=== PATIENT | female | born 1970 | race Two or more races ===

== ENCOUNTER 2021-06-08 10:45 | Outpatient (REF) | payer OTHER, SELFPAY ==
--- NOTE | ~2021-06-08 | MM_ITS ---
EXAMINATION: MM SCREENING DIGITAL BREAST TOMOSYNTHESIS, BILATERAL CLINICAL INFORMATION: Screening. Asymptomatic. The lifetime risk of breast cancer based on the Tyrer-Cuzick Model is 8%. COMPARISON: Mammography: 10/10/2017 TECHNIQUE: Digital breast tomosynthesis is performed in both the craniocaudal and mediolateral oblique views along with computer-aided detection (CAD). Synthesized 2D images are generated from the tomosynthesis. FINDINGS: There are scattered areas of fibroglandular density (ACR BI-RADS breast composition Category b). There are no significant masses, abnormal calcifications, or other abnormalities. Parenchymal pattern is similar to prior exam. The axilla and skin contours are unremarkable. No significant changes. MM/MM tomosynthesis screening BI IMPRESSION: No mammographic evidence of malignancy. ASSESSMENT: BI-RADS 1: Negative RECOMMENDATION: Routine annual mammography screening. This patient's information was entered into a reminder system with a target due date for their next mammogram.
[2021-06-08 11:43] LABS: Hematocrit 37.2 % (37.0-47.0); Hemoglobin 11.3 g/dl (12.0-16.0); Mean Corpuscular HGB Conc 30.4 g/dl (31.0-35.0); Mean Corpuscular Hemoglobin 25.2 pg (27.0-33.0); Mean Corpuscular Volume 82.9 fL (80.0-98.0); Mean Platelet Volume 10.9 fL (9.4-12.3); Platelet Count 380 X10*3/uL (160-400); Red Blood Count 4.49 X10*6/uL (4.20-5.50); Red Cell Distribution Width 14.6 % (11.0-16.0); White Blood Count 8.7 X10*3/uL (4.8-10.8)
[2021-06-08 12:11] LABS: Alanine Aminotransferase 25 U/L (0-31); Albumin Level 3.6 g/dL (3.5-5.0); Alkaline Phosphatase 94 U/L (39-117); Anion Gap 12 (12-20); Aspartate Amino Transferase 18 U/L (5-31); Bilirubin Total 0.3 mg/dL (0.0-1.0); Blood Urea Nitrogen 30 mg/dL (9-16); Calcium 9.2 mg/dL (8.4-10.2); Carbon Dioxide 27 mmol/L (22-29); Chloride 105 mmol/L (96-108); Cholesterol 177 mg/dL; Estimated Glomerular Filt Rate 39; Glucose Fasting 152 mg/dL (60-99); HDL Cholesterol 61 mg/dL; LDL Cholesterol Calculated 77 mg/dl; Potassium 4.8 mmol/L (3.3-5.1); Sodium 139 mmol/L (135-145); Triglycerides 197 mg/dL
[2021-06-08 12:30] LABS: TSH reflex Free T4 2.96 uIU/mL (0.32-4.0)
[2021-06-08 12:46] LABS: Creatinine Urine 114.69 mg/dL
== END 2021-06-08 10:46 | disposition home or self-care (01) ==
LOC: HO.MAMMO 10:45
PROVIDERS: PCP Physician Assistant; Visit Provider Physician Assistant
DX: Z12.31 Encounter for screening mammogram for malignant neoplasm of breast (principal); I25.810 Atherosclerosis of coronary artery bypass graft(s) without angina pectoris; N18.31 Chronic kidney disease, stage 3a; E11.22 Type 2 diabetes mellitus with diabetic chronic kidney disease; Z79.4 Long term (current) use of insulin
CPT/HCPCS: 36415; 77063; 77067; 80053; 80061; 82043; 84443; 85027

== ENCOUNTER 2021-08-05 15:45 | Outpatient (REF) | payer OTHER, SELFPAY ==
[2021-08-05 17:29] LABS: Appearance Urine HAZY; Color Urine YELLOW; Glucose Urine UA NEG (NEG); Leukocyte Esterase Urine 1+ (NEG); Nitrite Urine NEG (NEG); PH 5.5 (5.0-8.0); Specific Gravity - Urine >= 1.030 (1.005-1.025); Urine Blood TRACE (NEG); Urine Ketones NEG (NEG); Urine Protein 3+ MG/DL (NEG-TRACE)
[2021-08-05 17:48] LABS: Bacteria Urine 3+ /LPF; Squamous Epithelial Cell Urine 1+ /LPF
[2021-08-05 17:49] LABS: WBC Clumps Urine NOTED
== END 2021-08-05 15:46 | disposition home or self-care (01) ==
LOC: HO.LAB 15:45
PROVIDERS: PCP Physician Assistant; Visit Provider Physician Assistant
DX: R30.0 Dysuria (principal)
CPT/HCPCS: 81001

== ENCOUNTER 2021-09-21 14:02 | Outpatient (REF) | payer OTHER, SELFPAY ==
[2021-09-21 14:26] LABS: Binax Internal Control QC Valid; Binax Now Covid-19 Ag Negative (Negative)
== END 2021-09-21 14:03 | disposition home or self-care (01) ==
LOC: HO.HMGCLDS 14:02
PROVIDERS: PCP Physician Assistant; Visit Provider Physician Assistant
DX: Z13.89 Encounter for screening for other disorder (principal)

== ENCOUNTER → 2021-10-05 10:59 | Outpatient (BNVA) | payer OTHER, SELFPAY | PROVIDERS: PCP Physician Assistant; Visit Provider Dietitian, Registered | DX: E11.22 Type 2 diabetes mellitus with diabetic chronic kidney disease (principal); N18.31 Chronic kidney disease, stage 3a; Z88.8 Allergy status to other drugs, medicaments and biological substances; Z79.4 Long term (current) use of insulin; Z71.3 Dietary counseling and surveillance | CPT/HCPCS: 97802 ==

== ENCOUNTER → 2021-11-17 13:00 | Outpatient (BNVA) | payer OTHER, SELFPAY | PROVIDERS: PCP Physician Assistant; Visit Provider Dietitian, Registered | DX: E11.22 Type 2 diabetes mellitus with diabetic chronic kidney disease (principal); N18.31 Chronic kidney disease, stage 3a; Z79.4 Long term (current) use of insulin | CPT/HCPCS: 97803 ==

== ENCOUNTER 2021-12-30 14:38 | Outpatient (REF) | payer OTHER, SELFPAY ==
[2021-12-30 15:33] LABS: Hematocrit 37.2 % (37.0-47.0); Hemoglobin 11.4 g/dl (12.0-16.0); Mean Corpuscular HGB Conc 30.6 g/dl (31.0-35.0); Mean Corpuscular Hemoglobin 25.9 pg (27.0-33.0); Mean Corpuscular Volume 84.5 fL (80.0-98.0); Mean Platelet Volume 11.8 fL (9.4-12.3); Platelet Count 326 X10*3/uL (160-400); Red Cell Distribution Width 14.8 % (11.0-16.0)
[2021-12-30 16:03] LABS: Alanine Aminotransferase 18 U/L (0-31); Albumin Level 4.1 g/dL (3.5-5.0); Alkaline Phosphatase 81 U/L (39-117); Anion Gap 12 (12-20); Aspartate Amino Transferase 21 U/L (5-31); Bilirubin Total 0.4 mg/dL (0.0-1.0); Blood Urea Nitrogen 32 mg/dL (9-16); Calcium 9.7 mg/dL (8.4-10.2); Carbon Dioxide 28 mmol/L (22-29); Chloride 104 mmol/L (96-108); Cholesterol 123 mg/dL; Estimated Glomerular Filt Rate 38; Glucose Fasting 121 mg/dL (60-99); HDL Cholesterol 59 mg/dL; LDL Cholesterol Calculated 37 mg/dl; Sodium 139 mmol/L (135-145); Total Protein 7.5 g/dL (6.5-8.0); Triglycerides 138 mg/dL
[2021-12-30 16:25] LABS: TSH reflex Free T4 1.41 uIU/mL (0.32-4.0)
[2021-12-30 16:56] LABS: Creatinine Urine 57.64 mg/dL; Microalbum/Creatinine Ratio Ur 1507.6 ug/mg cr
== END 2021-12-30 14:39 | disposition home or self-care (01) ==
LOC: HO.LAB 14:38
PROVIDERS: PCP Physician Assistant; Visit Provider Physician Assistant
DX: E11.22 Type 2 diabetes mellitus with diabetic chronic kidney disease (principal); N18.31 Chronic kidney disease, stage 3a; I25.810 Atherosclerosis of coronary artery bypass graft(s) without angina pectoris; Z79.4 Long term (current) use of insulin
CPT/HCPCS: 36415; 80053; 80061; 82043; 84443; 85027

== ENCOUNTER 2022-02-05 14:07 | Outpatient (REF) | payer OTHER, SELFPAY ==
[2022-02-05 14:28] LABS: Hematocrit 34.3 % (37.0-47.0); Hemoglobin 10.6 g/dl (12.0-16.0); Mean Corpuscular HGB Conc 30.9 g/dl (31.0-35.0); Mean Corpuscular Hemoglobin 25.9 pg (27.0-33.0); Mean Corpuscular Volume 83.9 fL (80.0-98.0); Platelet Count 347 X10*3/uL (160-400); Red Blood Count 4.09 X10*6/uL (4.20-5.50); Red Cell Distribution Width 15.6 % (11.0-16.0); White Blood Count 7.9 X10*3/uL (4.8-10.8)
[2022-02-05 15:18] LABS: Alanine Aminotransferase 25 U/L (0-31); Alkaline Phosphatase 94 U/L (39-117); Anion Gap 15 (12-20); Aspartate Amino Transferase 25 U/L (5-31); Bilirubin Total 0.4 mg/dL (0.0-1.0); Blood Urea Nitrogen 39 mg/dL (9-16); Calcium 9.6 mg/dL (8.4-10.2); Carbon Dioxide 25 mmol/L (22-29); Chloride 103 mmol/L (96-108); Estimated Glomerular Filt Rate 29; Glucose Random 116 mg/dL (60-115); Potassium 4.7 mmol/L (3.3-5.1); Sodium 138 mmol/L (135-145); Total Protein 7.6 g/dL (6.5-8.0)
== END 2022-02-05 14:08 | disposition home or self-care (01) ==
LOC: HO.LAB 14:07
PROVIDERS: PCP Physician Assistant; Visit Provider Nurse Practitioner Family
DX: E11.22 Type 2 diabetes mellitus with diabetic chronic kidney disease (principal); N18.30 Chronic kidney disease, stage 3 unspecified
CPT/HCPCS: 36415; 80053; 85027

== ENCOUNTER → 2022-02-25 12:24 | Outpatient (BNVA) | payer OTHER, SELFPAY | PROVIDERS: PCP Physician Assistant; Visit Provider Dietitian, Registered | DX: E11.22 Type 2 diabetes mellitus with diabetic chronic kidney disease (principal); N18.31 Chronic kidney disease, stage 3a; Z79.4 Long term (current) use of insulin | CPT/HCPCS: 97803 ==

== ENCOUNTER 2022-04-16 12:59 | Outpatient (REF) | payer OTHER, SELFPAY ==
[2022-04-16 14:03] LABS: MANUAL DIFF FLAG NO
[2022-04-16 14:18] LABS: Basophils Percent Auto 0.7 % (0-2); Eosinophils Absolute Auto 0.3 X10*3/uL (0.0-0.4); Eosinophils Percent Auto 4.6 % (0-4); Hematocrit 41.2 % (37.0-47.0); Hemoglobin 12.5 g/dl (12.0-16.0); Imm Gran Abs Auto 0.01 X10*3/uL (0.00-0.03); Imm Gran Pct Auto 0.2 % (0.0-0.4); Lymphocytes Absolute Auto 1.5 X10*3/uL (1.2-4.9); Lymphocytes Percent Auto 25.7 % (20-40); Mean Corpuscular HGB Conc 30.3 g/dl (31.0-35.0); Mean Corpuscular Hemoglobin 25.2 pg (27.0-33.0); Mean Corpuscular Volume 82.9 fL (80.0-98.0); Mean Platelet Volume 11.2 fL (9.4-12.3); Monocytes Absolute Auto 0.3 X10*3/uL (0.1-1.2); Monocytes Percent Auto 5.1 % (2-11); Neutrophils Absolute Auto 3.6 x10*3/uL (2.0-8.3); Neutrophils Percent Auto 63.7 % (45-73); Platelet Count 355 X10*3/uL (160-400); Red Blood Count 4.97 X10*6/uL (4.20-5.50); Red Cell Distribution Width 15.2 % (11.0-16.0); White Blood Count 5.7 X10*3/uL (4.8-10.8)
[2022-04-16 14:33] LABS: Estimated Average Glucose 166 mg/dL; Hemoglobin A1c % 7.4 %
[2022-04-16 14:47] LABS: Alanine Aminotransferase 29 U/L (0-31); Albumin Level 4.1 g/dL (3.5-5.0); Alkaline Phosphatase 96 U/L (39-117); Anion Gap 17 (12-20); Aspartate Amino Transferase 29 U/L (5-31); Bilirubin Total 0.4 mg/dL (0.0-1.0); Blood Urea Nitrogen 28 mg/dL (9-16); Calcium 8.9 mg/dL (8.4-10.2); Carbon Dioxide 25 mmol/L (22-29); Chloride 103 mmol/L (96-108); Cholesterol 135 mg/dL; Estimated Glomerular Filt Rate 42; Glucose Random 167 mg/dL (60-115); HDL Cholesterol 58 mg/dL; Iron 47 mcg/dL (30-160); LDL Cholesterol Calculated 50 mg/dl; Percent Iron Saturation 13 % (15-50); Potassium 4.7 mmol/L (3.3-5.1); Sodium 140 mmol/L (135-145); Total Iron Binding Capacity 354 mcg/dL (228-428); Total Protein 7.6 g/dL (6.5-8.0); Triglycerides 137 mg/dL; Unsaturated Iron Binding 307 ug/dL
[2022-04-16 15:03] LABS: Ferritin 21 ng/mL (10-250); Insulin 41 uU/mL (2-29); TSH reflex Free T4 1.46 uIU/mL (0.32-4.0); Vitamin D 25-OH Total 24.1 ng/mL (>30)
[2022-04-16 15:29] LABS: Folate 10.3 ng/mL (> or = 4.0); Vitamin B12 306 pg/mL (200-900)
[2022-04-18 13:31] LABS: Calcium (PTHI) 8.9 mg/dL (8.6-10.2); PTHI 337 pg/mL (16-77)
[2022-04-20 23:56] LABS: Zinc 80 mcg/dL (60-130)
[2022-04-21 09:21] LABS: Vitamin A 57 mcg/dL (38-98)
[2022-04-21 10:46] LABS: Vitamin B1 9 nmol/L (8-30)
== END 2022-04-16 13:00 | disposition home or self-care (01) ==
LOC: HO.HMGCLDS 12:59
PROVIDERS: Surgery; PCP Physician Assistant; Visit Provider Physician Assistant
DX: I13.0 Hypertensive heart and chronic kidney disease with heart failure and stage 1 through stage 4 chronic kidney disease, or unspecified chronic kidney disease (principal); N18.31 Chronic kidney disease, stage 3a; I50.22 Chronic systolic (congestive) heart failure; E11.22 Type 2 diabetes mellitus with diabetic chronic kidney disease; I21.4 Non-ST elevation (NSTEMI) myocardial infarction; I25.810 Atherosclerosis of coronary artery bypass graft(s) without angina pectoris; J45.20 Mild intermittent asthma, uncomplicated; K21.9 Gastro-esophageal reflux disease without esophagitis; E66.09 Other obesity due to excess calories; Z68.37 Body mass index [BMI] 37.0-37.9, adult; Z79.4 Long term (current) use of insulin
CPT/HCPCS: 36415; 80053; 80061; 82306; 82607; 82728; 82746; 83036; 83525; 83540; 83970; 84425; 84443; 84590; 84630; 85025; 86140

== ENCOUNTER 2022-04-29 09:21 | Outpatient (REF) | payer OTHER, SELFPAY ==
--- NOTE | ~2022-04-29 | XR_ITS ---
EXAMINATION: XR CHEST CLINICAL INFORMATION: Obesity COMPARISON: April 07, 2018 and July 21, 2017 TECHNIQUE: 2 views of the chest were obtained. FINDINGS: No significant abnormality is noted involving the heart, lungs, mediastinum, bony thorax or soft tissues. Status post median sternotomy and what appears to be CABG. XR/XR chest 2V IMPRESSION: No acute disease.
--- NOTE | 2022-04-29 09:00 | EMG_ITS ---
Bilateral median and ulnar motor and sensory studies were performed. Bilateral radial sensory studies were performed and paraspinal muscles were tested. IMPRESSION: 1. Moderately severe right and mild to moderate left median neuropathy across carpal tunnel. 2. Mild to moderate left and mild right ulnar neuropathy across cubital tunnel. MD ERIC Flores/ADELITA / [id number]
--- NOTE | 2022-04-29 09:26 | ECG_ITS ---
Test Reason : obesity, excess calories Blood Pressure : / mmHG Vent. Rate : 089 BPM Atrial Rate : 089 BPM P-R Int : 136 ms QRS Dur : 074 ms QT Int : 374 ms P-R-T Axes : 033 -59 091 degrees QTc Int : 455 ms Normal sinus rhythm Left anterior fascicular block Inferior infarct , age undetermined Abnormal ECG When compared with ECG of 07-APR-2018 11:13, Vent. rate has increased BY 29 BPM T wave inversion more evident in Lateral leads Referred By: Jacky Warren Electronically Signed By:JAILENE VICENTE MD
== END 2022-04-29 09:22 | disposition home or self-care (01) ==
LOC: HO.NEURO 09:21
PROVIDERS: Absent Provider Surgery; PCP Physician Assistant; Visit Provider Physician Assistant
DX: E66.09 Other obesity due to excess calories (principal); I21.4 Non-ST elevation (NSTEMI) myocardial infarction; J45.20 Mild intermittent asthma, uncomplicated; I50.22 Chronic systolic (congestive) heart failure; K21.9 Gastro-esophageal reflux disease without esophagitis; R20.2 Paresthesia of skin; E11.22 Type 2 diabetes mellitus with diabetic chronic kidney disease; I12.9 Hypertensive chronic kidney disease with stage 1 through stage 4 chronic kidney disease, or unspecified chronic kidney disease; N18.31 Chronic kidney disease, stage 3a; I25.10 Atherosclerotic heart disease of native coronary artery without angina pectoris; Z79.4 Long term (current) use of insulin; Z68.37 Body mass index [BMI] 37.0-37.9, adult
CPT/HCPCS: 71046; 93005; 95886; 95911

== ENCOUNTER 2022-05-04 12:25 | Outpatient (REF) | payer OTHER, SELFPAY ==
--- NOTE | ~2022-05-04 | XR_ITS ---
EXAMINATION: XR SCAPULA, RIGHT CLINICAL INFORMATION: Pain COMPARISON: Previous right shoulder x-ray and MRI from 2018 TECHNIQUE: AP and scapular Y views of the right scapula. FINDINGS: The bones and soft tissues are normal. No scapular fracture. Glenohumeral and acromioclavicular alignment is normal. XR/XR scapula RT IMPRESSION: Normal right scapula.
--- NOTE | ~2022-05-04 | XR_ITS ---
EXAMINATION: XR CERVICAL SPINE CLINICAL INFORMATION: Posterior cervical pain radiating to right scapula COMPARISON: None TECHNIQUE: 3 views of the cervical spine were obtained. FINDINGS: There is mild head tilt to the left and curvature of the cervical spine to the right. Bone alignment is otherwise normal. No fracture or dislocation. There may be mild disc space narrowing at C6-C7 and C7-T1. Disc spaces are otherwise normal. Prevertebral soft tissues are normal. XR/XR cervical spine 3V IMPRESSION: Slight head tilt to the left. Mild disc space narrowing at C6-C7 and C7-T1.
== END 2022-05-04 12:26 | disposition home or self-care (01) ==
LOC: HO.XRAY 12:25
PROVIDERS: PCP Physician Assistant; Visit Provider Physician Assistant
DX: G56.03 Carpal tunnel syndrome, bilateral upper limbs (principal); G56.23 Lesion of ulnar nerve, bilateral upper limbs; M89.8X1 Other specified disorders of bone, shoulder; M54.2 Cervicalgia; E11.22 Type 2 diabetes mellitus with diabetic chronic kidney disease; N18.31 Chronic kidney disease, stage 3a; Z79.4 Long term (current) use of insulin; Z79.01 Long term (current) use of anticoagulants
CPT/HCPCS: 72040; 73010; 99202

== ENCOUNTER → 2022-05-05 10:23 | Outpatient (BNVA) | payer OTHER, SELFPAY | PROVIDERS: PCP Physician Assistant; Visit Provider Physician Assistant Surgical | DX: Z11.2 Encounter for screening for other bacterial diseases (principal) | CPT/HCPCS: 99211 ==

== ENCOUNTER 2022-05-05 16:52 | Outpatient (REF) | payer OTHER, SELFPAY ==
[2022-05-06 14:19] LABS: H Pylori Breath Test Negative (Negative)
== END 2022-05-05 16:53 | disposition home or self-care (01) ==
LOC: HO.LNP 16:52
PROVIDERS: Visit Provider Surgery
DX: K21.9 Gastro-esophageal reflux disease without esophagitis (principal); E66.09 Other obesity due to excess calories; Z68.37 Body mass index [BMI] 37.0-37.9, adult
CPT/HCPCS: 83013

== ENCOUNTER → 2022-06-02 13:05 | Outpatient (BNVA) | payer OTHER, SELFPAY | PROVIDERS: PCP Physician Assistant; Visit Provider Orthopaedic Surgery | DX: G56.03 Carpal tunnel syndrome, bilateral upper limbs (principal); G56.23 Lesion of ulnar nerve, bilateral upper limbs; M77.11 Lateral epicondylitis, right elbow; E11.22 Type 2 diabetes mellitus with diabetic chronic kidney disease; N18.31 Chronic kidney disease, stage 3a; Z79.4 Long term (current) use of insulin | CPT/HCPCS: 99212 ==

== ENCOUNTER 2022-07-07 12:14 | Outpatient (REF) | payer OTHER, SELFPAY | END 2022-07-07 12:15 | disposition home or self-care (01) | LOC: HO.HOSX 12:14 | PROVIDERS: Visit Provider Physician Assistant | DX: S46.811A Strain of other muscles, fascia and tendons at shoulder and upper arm level, right arm, initial encounter (principal); S16.1XXA Strain of muscle, fascia and tendon at neck level, initial encounter; M79.18 Myalgia, other site | CPT/HCPCS: 99212 ==

== ENCOUNTER 2022-09-30 12:22 | Outpatient (REF) | payer OTHER, SELFPAY ==
[2022-09-30 14:08] LABS: Hematocrit 38.5 % (37.0-47.0); Hemoglobin 11.9 g/dl (12.0-16.0); Mean Corpuscular HGB Conc 30.9 g/dl (31.0-35.0); Mean Corpuscular Hemoglobin 25.4 pg (27.0-33.0); Mean Corpuscular Volume 82.1 fL (80.0-98.0); Mean Platelet Volume 11.1 fL (9.4-12.3); Platelet Count 300 X10*3/uL (160-400); Red Blood Count 4.69 X10*6/uL (4.20-5.50); Red Cell Distribution Width 15.8 % (11.0-16.0); White Blood Count 7.9 X10*3/uL (4.8-10.8)
[2022-09-30 14:29] LABS: Anion Gap 12 (12-20); Blood Urea Nitrogen 42 mg/dL (9-16); Carbon Dioxide 31 mmol/L (22-29); Chloride 101 mmol/L (96-108); Estimated Glomerular Filt Rate 35; Glucose Random 136 mg/dL (60-115); Potassium 4.8 mmol/L (3.3-5.1); Sodium 139 mmol/L (135-145)
== END 2022-09-30 12:23 | disposition home or self-care (01) ==
LOC: HO.LAB 12:22
PROVIDERS: Absent Provider Physician Assistant; PCP Physician Assistant; Visit Provider Dietitian, Registered
DX: E11.22 Type 2 diabetes mellitus with diabetic chronic kidney disease (principal); I12.9 Hypertensive chronic kidney disease with stage 1 through stage 4 chronic kidney disease, or unspecified chronic kidney disease; N18.31 Chronic kidney disease, stage 3a; Z79.4 Long term (current) use of insulin
CPT/HCPCS: 36415; 80048; 85027; 97803

== ENCOUNTER 2022-10-19 14:12 | Outpatient (REF) | payer OTHER, SELFPAY ==
--- NOTE | ~2022-10-19 | MM_ITS ---
EXAMINATION: MM SCREENING DIGITAL BREAST TOMOSYNTHESIS, BILATERAL CLINICAL INFORMATION: Screening. Asymptomatic. The lifetime risk of breast cancer based on the Tyrer-Cuzick Model is 5%. COMPARISON: Mammography: 06/08/2021, 10/10/2017 TECHNIQUE: Digital breast tomosynthesis is performed in both the craniocaudal and mediolateral oblique views along with computer-aided detection (CAD). Synthesized 2D images are generated from the tomosynthesis. FINDINGS: The breasts are heterogeneously dense, which may obscure small masses (ACR BI-RADS breast composition Category c). Breast tissue composition borders on average fibroglandular. There are no significant masses, abnormal calcifications, or other abnormalities. No architectural abnormality or developing density or significant change from prior studies. The axilla are unremarkable. MM/MM tomosynthesis screening BI IMPRESSION: No mammographic evidence of malignancy. ASSESSMENT: BI-RADS 1: Negative RECOMMENDATION: Routine annual mammography screening. This patient's information was entered into a reminder system with a target due date for their next mammogram.
== END 2022-10-19 14:13 | disposition home or self-care (01) ==
LOC: HO.MAMMO 14:12
PROVIDERS: PCP Physician Assistant; Visit Provider Physician Assistant
DX: Z12.31 Encounter for screening mammogram for malignant neoplasm of breast (principal)
CPT/HCPCS: 77063; 77067

== ENCOUNTER → 2022-11-03 14:32 | Outpatient (BNVA) | payer OTHER, SELFPAY | PROVIDERS: PCP Physician Assistant; Visit Provider Orthopaedic Surgery | DX: G56.03 Carpal tunnel syndrome, bilateral upper limbs (principal); G56.23 Lesion of ulnar nerve, bilateral upper limbs; M77.11 Lateral epicondylitis, right elbow; E11.22 Type 2 diabetes mellitus with diabetic chronic kidney disease; N18.31 Chronic kidney disease, stage 3a; Z79.4 Long term (current) use of insulin | CPT/HCPCS: 99212 ==

== ENCOUNTER 2022-11-11 05:55 | Day surgery (SDC) | payer OTHER, SELFPAY ==
--- NOTE | 2022-11-10 08:20 | P.CONAN_ITS ---
Documented by User: Clarisse Azar NP 11/10/22 09:41 HPI - Anesthesia Eval Consult details Narrative: 51yo F for Right Carpal Tunnel Release, Tunnel Release transposition Cardiac cleared. Pt to remain on aspirin (CAD s/p CABG 2016, Mechanical thrombectomy and RENEE 01/2022, + stress 04/2022 with 2 small reversible defects that cardiology opted medically manage) PMFSH Active Problems Active Problems: All Active Problems (Updated 07/07/22 @ 13:56 by Yamini Palm PA-C) Myofascial pain (Acute) Cervical strain (Acute) Trapezius muscle strain (Acute) CAD (coronary artery disease) (Acute) DMII (diabetes mellitus, type 2) (Acute) HTN (hypertension) (Acute) CKD stage 3 secondary to diabetes (Acute) MDD (major depressive disorder), recurrent episode, moderate (Acute) Breast cancer screening (Acute) Cervical cancer screening (Acute) GERD (gastroesophageal reflux disease) (Acute) UTI (urinary tract infection) (Acute) Annual physical exam (Acute) Obese (Acute) Bronchitis (Acute) Paresthesia of hand, bilateral (Acute) Heart failure (Acute) Asthma (Acute) Homelessness (Acute) Hospital discharge follow-up (Acute) Non-STEMI (non-ST elevated myocardial infarction) (Acute) Hyperkalemia (Acute) Balance disorder (Acute) BMI 36.0-36.9,adult (Acute) Cervicalgia (Acute) Pain of right scapula (Acute) Carpal tunnel syndrome of right wrist (Acute) Carpal tunnel syndrome of left wrist (Acute) Cubital tunnel syndrome on right (Acute) Cubital tunnel syndrome on left (Acute) Vitamin D deficiency (Acute) BMI over 35 (Acute) Right lateral epicondylitis (Acute) Hyperlipidemia (Acute) Depression (Acute) Past Medical History Medical History Asthma CAD (coronary artery disease) Chronic renal insufficiency Depression Elevated cholesterol GERD (gastroesophageal reflux disease) HTN (hypertension) Hyperlipidemia Myocardial infarction Type 2 diabetes Family History Family History Mother Cervical cancer Hypertension Blindness Kidney failure Sister Cervical cancer Hypertension Hypoglycemia Brother ESRD (end stage renal disease) Hypertension Father DMII (diabetes mellitus, type 2) Son Asthma Daughter No problems noted. Daughter No problems noted. Daughter No problems noted. Daughter No problems noted. Surgical History Surgical History H/O bladder repair surgery H/O: hysterectomy History of cardiac catheterization Hx of CABG Hx of section Hx of heart artery stent Social History Social History Housing: Apartment Are you a primary child care leader to a significant other at home: No Do you presently have visiting nurse or other home services: No Alcohol intake: never Patient Tobacco Use Status: Never used Tobacco Tobacco use type: Cigarette e-Cigarette/Vaping Use: Never Used Second Hand Smoke Exposure: No Use of substances other than those prescribed or required for medical reasons: No Are you DNR?: No Advance Directives: No Advance Directives Information Provided: Yes service: No Current occupational status: disabled Cognitive needs: Yes (walker) Hearing needs: No Vision needs: Yes Meds Allergies Allergy/AdvReac Type Severity Reaction Status Date / Time tramadol [TRAMADOL] Allergy Intermediate VOMITING Verified 11/11/22 06:07 adhesive tape AdvReac Intermediate tears skin Verified 11/11/22 06:07 lisinopril AdvReac Mild Cough Verified 11/11/22 06:07 Home Medications Medication Instructions Recorded Confirmed Last Taken Type insulin glargine 100 unit/mL 40 unit subcut QPM 05/19/21 11/11/22 Unknown History subcutaneous cartridge insulin lispro 100 unit/mL 5 unit subcut TID 08/26/21 11/11/22 Unknown History subcutaneous pen (Humalog KwikPen (U-100) Insulin) ticagrelor 90 mg tablet (Brilinta) 90 mg PO QAM 02/02/22 11/11/22 Unknown History empagliflozin 10 mg tablet 10 mg PO DAILY 04/14/22 11/11/22 Unknown History (Jardiance) valsartan 40 mg tablet 40 mg PO DAILY 04/14/22 11/11/22 Unknown History evolocumab 140 mg/mL subcutaneous 140 mg subcut Q2W 05/04/22 11/11/22 Unknown History syringe (Repatha Syringe) dulaglutide 1.5 mg/0.5 mL 1.5 mg subcut QWEEK 10/18/22 11/11/22 Unknown History subcutaneous pen injector (Trulicity) mecobalamin (vitamin B12) 500 mcg 1,000 mcg PO DAILY 10/18/22 11/11/22 Unknown History chewable tablet Exam Exam Date and Time: November 10, 2022819 Pertinent Lab Results Pertinent Lab Results: Laboratory Tests 09/30/22 09/30/22 13:19 13:19 WBC 7.9 Hgb 11.9 L Hct 38.5 Plt Count 300 Sodium 139 Potassium 4.8 Chloride 101 Carbon Dioxide 31 H BUN 42 H Creatinine 1.56 H Narrative Narrative: EKG 05/2022 NSR @ 69 LAD Anterior inferior infarct T wave abn Nuc Stress 03/2022 Positive stress test with nuc imaging. Patient had no chest pain and no EKG changes suggestive ischemia. Nuc imaging revealed 2 small sized mild intensity reversible defects. One being in the apical and mid anterior region the second being in the apical and mid inferior region. TID was normal at 1.15 Gated SPECT imaging was performed and demonstrated paradoxical septal wall motion c/w with prior bypass surgery. The calculated LVEF was 69% Assessment and Plan Assessment Anesthesia Assessment: Chart Reviewed Documented by User: Luci Foster MD 11/11/22 07:32 PMFSH Past Medical History Medical History Asthma CAD (coronary artery disease) Chronic renal insufficiency Depression Elevated cholesterol GERD (gastroesophageal reflux disease) HTN (hypertension) Hyperlipidemia Myocardial infarction Type 2 diabetes Family History Family History Mother Cervical cancer Hypertension Blindness Kidney failure Sister Cervical cancer Hypertension Hypoglycemia Brother ESRD (end stage renal disease) Hypertension Father DMII (diabetes mellitus, type 2) Son Asthma Daughter No problems noted. Daughter No problems noted. Daughter No problems noted. Daughter No problems noted. Family history of problems with anesthesia: No Surgical History Surgical History H/O bladder repair surgery H/O: hysterectomy History of cardiac catheterization Hx of CABG Hx of section Hx of heart artery stent History of Problems with Anesthesia: No Social History Social History Housing: Apartment Are you a primary child care leader to a significant other at home: No Do you presently have visiting nurse or other home services: No Alcohol intake: never Patient Tobacco Use Status: Never used Tobacco Tobacco use type: Cigarette e-Cigarette/Vaping Use: Never Used Second Hand Smoke Exposure: No Use of substances other than those prescribed or required for medical reasons: No Are you DNR?: No Advance Directives: No Advance Directives Information Provided: Yes service: No Current occupational status: disabled Cognitive needs: Yes (walker) Hearing needs: No Vision needs: Yes Meds Allergies Allergy/AdvReac Type Severity Reaction Status Date / Time tramadol [TRAMADOL] Allergy Intermediate VOMITING Verified 11/11/22 06:07 adhesive tape AdvReac Intermediate tears skin Verified 11/11/22 06:07 lisinopril AdvReac Mild Cough Verified 11/11/22 06:07 Home Medications Medication Instructions Recorded Confirmed Last Taken Type insulin glargine 100 unit/mL 40 unit subcut QPM 05/19/21 11/11/22 Unknown History subcutaneous cartridge insulin lispro 100 unit/mL 5 unit subcut TID 08/26/21 11/11/22 Unknown History subcutaneous pen (Humalog KwikPen (U-100) Insulin) ticagrelor 90 mg tablet (Brilinta) 90 mg PO QAM 02/02/22 11/11/22 Unknown History empagliflozin 10 mg tablet 10 mg PO DAILY 04/14/22 11/11/22 Unknown History (Jardiance) valsartan 40 mg tablet 40 mg PO DAILY 04/14/22 11/11/22 Unknown History evolocumab 140 mg/mL subcutaneous 140 mg subcut Q2W 05/04/22 11/11/22 Unknown History syringe (Repatha Syringe) dulaglutide 1.5 mg/0.5 mL 1.5 mg subcut QWEEK 10/18/22 11/11/22 Unknown History subcutaneous pen injector (Trulicity) mecobalamin (vitamin B12) 500 mcg 1,000 mcg PO DAILY 10/18/22 11/11/22 Unknown History chewable tablet Exam Airway Mallampati Class: I TM Dist: >3cm Denture: Upper and Lower Heart: rrr Lungs: cta Assessment and Plan Final Anesthetic Review Family History of Problems with Anesthesia: No History of Problems with Anesthesia: No NPO: Yes ASA Class: III Final Preanesthetic Review: No Changes in Pt Med Stat, Meds/Allgs Chart Reviewed, Consent Obtained/Reviewed and Anes Risks/Benef Reviewed Patient Risk: Intermediate Procedure Risk: Low Anesthetic Plan Anesthetic Plan: GA Disposition: Standard PACU
[2022-11-11] VITALS (9 sets, daily range): BP systolic 113–153; BP diastolic 74–88; PULSE 79–86; RESP 15–18; TEMP 36.2–36.7; O2SAT 93–99; BMI 36.0
[2022-11-11] MEDS: Lactated Ringers 1,000 ML 50 ML IVCONT (06:47)
[2022-11-11 06:55] LABS: Glucose, Whole Blood 136 mg/dL (60-115)
--- NOTE | 2022-11-11 07:55 | MHC.SHP ---
Pre-Procedural Eval Section A Date of Service: 11/11/22 The patient is an INPATIENT: No Changes since office visit: No Cold of Flu in the past 2 weeks, No New Medical Problems, No Changes in Medication and No Patient answered all questions The History & Physical has been completed within 30 days and I have reviewed it.: Yes Section B Chief Complaint: Carpal tunnel syndrome,Lesion of ulnar nerve,right Allergies: Allergies Allergy/AdvReac Type Severity Reaction Status Date / Time tramadol [TRAMADOL] Allergy Intermediate VOMITING Verified 11/11/22 06:07 adhesive tape AdvReac Intermediate tears skin Verified 11/11/22 06:07 lisinopril AdvReac Mild Cough Verified 11/11/22 06:07 Plan I have reviewed the history and physical and performed a pertinent physical examination on my patient. No changes have occurred unless specified. Time Spent With Patient Time: Total time managing care of this patient today ____ minutes.
--- NOTE | 2022-11-11 07:55 | W.PM.OPN ---
Operative Note Operative Note Date of Service: 11/11/22 Narrative: Operative Note Narrative: Preop diagnosis: 1. right Cubital tunnel syndrome 2. Right carpal tunnel syndrome Postop diagnosis: Same Procedure: 1. right Cubital Tunnel Release 2. Right carpal tunnel release Surgeon: Leana Mo MD Anesthesia: General Anesthesia Findings: Thickening and fibrosis about the ulnar nerve at the cubital tunnel, with an hourglass deformity of the ulnar nerve within the cubital tunnel. Implants: none Tourniquet time: 37 minutes EBL: 5.0 ml Specimen: none Drains: None Complications: None Disposition: Brought to the recovery room in stable condition Plan: Follow-up in 10-14 days for wound check, and suture removal Indications: The patient is 51 years old with right cubital and carpal tunnel syndrome . The risks and benefits of operative treatment, including but not limited to risk of damage to blood vessels, nerves, tendons, infection, recurrence, persistent pain or numbness, incomplete resolution of preoperative symptoms, or need for further surgery were discussed with the patient and they wished to proceed with surgery. Procedure: Once consent was obtained patient was brought back to the operating suite and placed in the operating table in a supine position. Perioperative antibiotics and anesthesia was administered by the anesthesia team. The limb was prepped and draped in a standard surgical fashion, and a sterile tourniquet applied to the proximal aspect of the right upper extremity. The limb was elevated exsanguinated with Esmarch bandage and the tourniquet inflated to 250 mm of mercury for a total tourniquet time of 37 minutes. Once assured that we had a good block, a 2.0 cm longitudinal incision was made centered over the right carpal tunnel. The incision was made through the skin to the subcutaneous tissues using a #15 blade. Dissection was made down to the level of the transverse carpal ligament with care being taken to protect the palmar cutaneous nerve. Once the transverse carpal ligament was clearly visualized, a longitudinal incision was made in the transverse carpal ligament 1st using a #15 blade, then using tenotomy scissors under direct visualization. Care was taken to look for and protect the motor branch of the median nerve when seen in this area. Once satisfied with our carpal tunnel release the wound was irrigated with normal saline. A 6 cm gently curved but longitudinally oriented incision was made centered over the cubital tunnel of the right upper extremity. Incision was made through the skin to the subcutaneous tissues using a # 15 Blade. I then dissected down to the level of the medial epicondyle and the cubital tunnel using tenotomy scissors. Care was taken to protect the lateral antebrachial cutaneous nerve. The ulnar nerve was identified just posterior to the medial intermuscular septum. The ulnar nerve was released in a proximal to distal direction using tenotomy in iris scissors while directly visualizing and protecting the ulnar nerve. Thickening and fibrosis was appreciated about the ulnar nerve as it passed through the cubital tunnel. There was also significant hourglass deformity of the ulnar nerve as it passed through the cubital tunnel. The ulnar nerve was assessed as I passed the elbow through full flexion and extension and was found to remain stable within its groove. At this point the tourniquet was deflated and hemostasis obtained with a brief period of local pressure and bipolar electrocautery. The wound was copiously irrigated with normal saline. The subcutaneous layer was closed with 4-0 Vicryl suture, and the skin edges were reapproximated with 5-0 nylon suture. The wound was infiltrated with some 0.25% plain Marcaine for postop pain control and sterile dressings were applied. The patient appears to have tolerated the procedure well and with no complications. All digits were well vascularized conclusion of the case.
== END 2022-11-11 11:27 | disposition home or self-care (01) ==
PROVIDERS: PCP Physician Assistant; Visit Provider Orthopaedic Surgery
PROC: (CPT 64721; principal; 2022-11-11 07:30)
PROC: (CPT 64718; 2022-11-11 07:30)
DX: G56.01 Carpal tunnel syndrome, right upper limb (principal); G56.21 Lesion of ulnar nerve, right upper limb; R20.0 Anesthesia of skin; I25.10 Atherosclerotic heart disease of native coronary artery without angina pectoris; Z95.5 Presence of coronary angioplasty implant and graft; I25.2 Old myocardial infarction; E78.00 Pure hypercholesterolemia, unspecified; E11.22 Type 2 diabetes mellitus with diabetic chronic kidney disease; I12.9 Hypertensive chronic kidney disease with stage 1 through stage 4 chronic kidney disease, or unspecified chronic kidney disease; N18.31 Chronic kidney disease, stage 3a; Z79.4 Long term (current) use of insulin; J45.909 Unspecified asthma, uncomplicated; M77.11 Lateral epicondylitis, right elbow; Z79.82 Long term (current) use of aspirin; Z79.899 Other long term (current) drug therapy; L23.1 Allergic contact dermatitis due to adhesives; Z88.8 Allergy status to other drugs, medicaments and biological substances
CPT/HCPCS: 64721; 64718; 82947; J0171; J0690; J2370; J2405; J2550; J2795; J3010

== ENCOUNTER → 2022-11-24 10:51 | Outpatient (BNVA) | payer OTHER, SELFPAY | PROVIDERS: PCP Physician Assistant; Visit Provider Orthopaedic Surgery | DX: Z47.89 Encounter for other orthopedic aftercare (principal); G56.02 Carpal tunnel syndrome, left upper limb; G56.21 Lesion of ulnar nerve, right upper limb; G56.22 Lesion of ulnar nerve, left upper limb; M77.11 Lateral epicondylitis, right elbow; E11.22 Type 2 diabetes mellitus with diabetic chronic kidney disease; N18.31 Chronic kidney disease, stage 3a; Z79.4 Long term (current) use of insulin; Z86.69 Personal history of other diseases of the nervous system and sense organs | CPT/HCPCS: 99212 ==

== ENCOUNTER → 2023-01-05 09:51 | Outpatient (BNVA) | payer OTHER, SELFPAY | PROVIDERS: PCP Physician Assistant; Visit Provider Orthopaedic Surgery | DX: G56.03 Carpal tunnel syndrome, bilateral upper limbs (principal); G56.23 Lesion of ulnar nerve, bilateral upper limbs; M77.11 Lateral epicondylitis, right elbow; E11.22 Type 2 diabetes mellitus with diabetic chronic kidney disease; N18.31 Chronic kidney disease, stage 3a; T78.40XA Allergy, unspecified, initial encounter; Z79.4 Long term (current) use of insulin | CPT/HCPCS: 99212 ==

== ENCOUNTER 2023-03-01 10:40 | Outpatient (AMB) | payer OTHER, SELFPAY ==
--- NOTE | 2023-03-01 10:44 | MHC.OFFVIS ---
Intake Intake Visit Reasons: Postop-RT CTS / Cubital-F/U Intake Note: Gi 52 yr old female presents today for her P/O visit for her right hand CTR and Cubital tunnel release from 11/11/22. States her numbness has improved but is now having increase numbness in her left hand. Allergies tramadol [TRAMADOL] Allergy (Intermediate, Verified 03/01/23 10:51) VOMITING adhesive tape Adverse Reaction (Intermediate, Verified 03/01/23 10:51) tears skin lisinopril Adverse Reaction (Mild, Verified 03/01/23 10:51) Cough HPI Postop-RT CTS / Cubital-F/U HPI Details 52-year-old female who presents in the office today 3 months status post right cubital tunnel and right carpal tunnel release, which was performed on 11/11/[address] Mo. The patient reports her numbness has improved. The patient reports increased numbness in the left hand. [facility] Medical History Asthma CAD (coronary artery disease) Chronic renal insufficiency Depression Elevated cholesterol GERD (gastroesophageal reflux disease) HTN (hypertension) Hyperlipidemia Myocardial infarction Type 2 diabetes Surgical History H/O bladder repair surgery H/O: hysterectomy History of cardiac catheterization Hx of CABG Hx of section Hx of heart artery stent Family History Mother Cervical cancer Hypertension Blindness Kidney failure Sister Cervical cancer Hypertension Hypoglycemia Brother ESRD (end stage renal disease) Hypertension Father DMII (diabetes mellitus, type 2) Son Asthma Daughter No problems noted. Daughter No problems noted. Daughter No problems noted. Daughter No problems noted. Social History Housing: Apartment Are you a primary healthcare receptionist to a significant other at home: No Do you presently have visiting nurse or other home services: No Alcohol intake: never Patient Tobacco Use Status: Never used Tobacco Tobacco use type: Cigarette e-Cigarette/Vaping Use: Never Used Second Hand Smoke Exposure: No service: No Current occupational status: disabled Cognitive needs: Yes (walker) Hearing needs: No Vision needs: Yes Review of Systems Const All systems reviewed & are unremarkable except as noted in HPI and below Physical Exam Const General: cooperative, healthy appearing and no acute distress Resp Effort & Inspection: normal respiratory effort and able to speak in complete sentences Cardio Rate: regular rate Peripheral pulses: Peripheral pulses 2+ throughout GI Palpation (GI): Soft to palpation Skin Lesions: no lesions Rashes: no rashes Extrem Other: Right upper extremity: Cubital and carpal tunnel incision site is completely healed. No sensitivity reported over these areas. Full hand, wrist, and elbow ROM in all planes. NVI. Assessment & Plan Assessment & Plan (1) Carpal tunnel syndrome of right wrist: Code(s): G56.01 - Carpal tunnel syndrome, right upper limb (2) Carpal tunnel syndrome of left wrist: Code(s): G56.02 - Carpal tunnel syndrome, left upper limb (3) Cubital tunnel syndrome on right: Code(s): G56.21 - Lesion of ulnar nerve, right upper limb (4) Cubital tunnel syndrome on left: Code(s): G56.22 - Lesion of ulnar nerve, left upper limb (5) DMII (diabetes mellitus, type 2): Code(s): E11.9 - Type 2 diabetes mellitus without complications Qualifiers: Chronic kidney disease stage: stage 3 (moderate) Chronic kidney disease stage 3 subtype: stage 3a (GFR 45-59) Diabetes mellitus complication detail: with chronic kidney disease Diabetes mellitus complication status: with kidney complications Diabetes mellitus termite treater insulin use: with termite treater use Qualified Code(s): E11.22 - Type 2 diabetes mellitus with diabetic chronic kidney disease; N18.31 - Chronic kidney disease, stage 3a; Z79.4 - long-term (current) use of insulin (6) Right lateral epicondylitis: Code(s): M77.11 - Lateral epicondylitis, right elbow (7) Hypersensitivity: Code(s): T78.40XA - Allergy, unspecified, initial encounter Plan Ms. Hernandez is a 52-year-old female who presents in the office today 3 months status post right cubital tunnel and right carpal tunnel release, which was performed on 11/11/[address] Mo. The patient reports her numbness has improved. The patient reports increased numbness in the left hand. The patient may return to normal activities as tolerated. Symptoms of numbness and tingling have completely resolved on the right. However she reports complaints of numbness and tingling in the left upper extremity and would like to move forward with a left cubital and carpal tunnel release. Therefore, a booking sheet has been created and given to the surgical resident, who will call to schedule her. Follow up will be at her post op pending surgery, or sooner if needed. Patient Instructions: Scribed for Quyen William PA-C by Gabbie Mcmillan medical staffing coordinator, on 03/01/2023 at 10:47 am, EST. Coding Level of Care Code Est Pt Level 4 (76664) Diagnoses Carpal tunnel syndrome of right wrist G56.01 Carpal tunnel syndrome of left wrist G56.02 Cubital tunnel syndrome on right G56.21 Cubital tunnel syndrome on left G56.22 DMII (diabetes mellitus, type 2) E11.22; N18.31; Z79.4 Chronic kidney disease stage: stage 3 (moderate) Chronic kidney disease stage 3 subtype: stage 3a (GFR 45-59) Diabetes mellitus complication detail: with chronic kidney disease Diabetes mellitus complication status: with kidney complications Diabetes mellitus termite treater insulin use: with termite treater use Right lateral epicondylitis M77.11 Hypersensitivity T78.40XA
== END 2023-03-01 10:51 | disposition home or self-care (01) ==
PROVIDERS: PCP Physician Assistant; Visit Provider Physician Assistant
DX: G56.01 Carpal tunnel syndrome, right upper limb (principal); G56.02 Carpal tunnel syndrome, left upper limb; G56.21 Lesion of ulnar nerve, right upper limb; G56.22 Lesion of ulnar nerve, left upper limb; M77.11 Lateral epicondylitis, right elbow
CPT/HCPCS: 99214

== ENCOUNTER → 2023-03-01 10:40 | Outpatient (BNVA) | payer OTHER, SELFPAY | PROVIDERS: PCP Physician Assistant; Visit Provider Physician Assistant | DX: Z48.811 Encounter for surgical aftercare following surgery on the nervous system (principal); G56.02 Carpal tunnel syndrome, left upper limb; G56.22 Lesion of ulnar nerve, left upper limb; E11.22 Type 2 diabetes mellitus with diabetic chronic kidney disease; N18.31 Chronic kidney disease, stage 3a; Z79.4 Long term (current) use of insulin; M77.11 Lateral epicondylitis, right elbow | CPT/HCPCS: 99212 ==

== ENCOUNTER 2023-05-06 11:41 | Outpatient (REF) | payer OTHER, SELFPAY ==
[2023-05-06 12:22] LABS: Hemoglobin 13.4 g/dl (12.0-16.0); Mean Corpuscular HGB Conc 31.2 g/dl (31.0-35.0); Mean Corpuscular Hemoglobin 25.9 pg (27.0-33.0); Mean Platelet Volume 11.2 fL (9.4-12.3); Platelet Count 287 X10*3/uL (160-400); Red Blood Count 5.18 X10*6/uL (4.20-5.50); Red Cell Distribution Width 15.2 % (11.0-16.0); White Blood Count 7.2 X10*3/uL (4.8-10.8)
[2023-05-06 12:59] LABS: Alanine Aminotransferase 44 U/L (0-31); Albumin Level 4.3 g/dL (3.5-5.0); Alkaline Phosphatase 84 U/L (39-117); Anion Gap 17 (12-20); Aspartate Amino Transferase 47 U/L (5-31); Bilirubin Total 0.6 mg/dL (0.0-1.0); Blood Urea Nitrogen 41 mg/dL (9-16); Calcium 10.1 mg/dL (8.4-10.2); Carbon Dioxide 29 mmol/L (22-29); Chloride 95 mmol/L (96-108); Cholesterol 133 mg/dL (<200); Estimated Glomerular Filt Rate 34; Glucose Fasting 122 mg/dL (60-99); HDL Cholesterol 62 mg/dL (>40); LDL Cholesterol Calculated 40 mg/dL (<100); Potassium 4.4 mmol/L (3.3-5.1); Sodium 137 mmol/L (135-145); Total Protein 8.2 g/dL (6.5-8.0); Triglycerides 155 mg/dL (<150)
[2023-05-06 13:05] LABS: TSH reflex Free T4 2.82 uIU/mL (0.32-4.0)
[2023-05-06 14:08] LABS: Microalbum/Creatinine Ratio Ur 104.8 ug/mg cr (<30)
== END 2023-05-06 11:42 | disposition home or self-care (01) ==
LOC: HO.LAB 11:41
PROVIDERS: PCP Physician Assistant; Visit Provider Physician Assistant
DX: I10 Essential (primary) hypertension (principal); E11.22 Type 2 diabetes mellitus with diabetic chronic kidney disease; N18.31 Chronic kidney disease, stage 3a; Z79.4 Long term (current) use of insulin; I25.810 Atherosclerosis of coronary artery bypass graft(s) without angina pectoris; E66.09 Other obesity due to excess calories; Z68.37 Body mass index [BMI] 37.0-37.9, adult
CPT/HCPCS: 36415; 80053; 80061; 82043; 82570; 84443; 85027

== ENCOUNTER 2023-05-23 16:03 | Outpatient (AMB) | payer OTHER, SELFPAY ==
--- NOTE | 2023-05-23 16:12 | HO.NEPHOV ---
HPI HPI Comments History of Present Illness Details I had the privilege of seeing Gi in follow-up for her chronic kidney disease, proteinuria and hypertension on a backdrop of coronary artery disease and bypass surgery. She has history of congestive heart failure. She has been working hard to lose weight and had been fairly successful. Her diabetes is much better controlled. She is tolerating Jardiance. She denies any chest pain, shortness of breath, dizziness, nausea vomiting, diarrhea, pedal edema or urinary symptoms. Her renal functions have been stable. She is trying to maintain good hydration and is avoiding nonsteroidal anti-inflammatory medications. [facility] Medical History GERD (gastroesophageal reflux disease) Elevated cholesterol Asthma Type 2 diabetes Chronic renal insufficiency Myocardial infarction CAD (coronary artery disease) HTN (hypertension) Hyperlipidemia Depression Surgical History Hx of heart artery stent Hx of section History of cardiac catheterization H/O: hysterectomy H/O bladder repair surgery Hx of CABG Family History Mother Cervical cancer Hypertension Blindness Kidney failure Sister Cervical cancer Hypertension Hypoglycemia Brother ESRD (end stage renal disease) Hypertension Father DMII (diabetes mellitus, type 2) Son Asthma Daughter No problems noted. Daughter No problems noted. Daughter No problems noted. Daughter No problems noted. Social History Housing: Apartment Are you a primary career advisor to a significant other at home: No Do you presently have visiting nurse or other home services: No Alcohol intake: never Patient Tobacco Use Status: Never used Tobacco Tobacco use type: Cigarette e-Cigarette/Vaping Use: Never Used Second Hand Smoke Exposure: No Advance Directives: No Advance Directives Information Provided: No service: No Current occupational status: disabled Cognitive needs: Yes (walker) Hearing needs: No Vision needs: Yes Vital Signs 05/23/23 16:13 Height 5 ft 4 in Weight 201 lb BMI 34.5 BP 140/70 H Blood Pressure Location Rt brachial Position Sitting Pulse 73 Pulse Source Pulse Oximeter Physical Exam Vital Signs: Last Vital Signs Pulse 73 05/23/23 16:13 BP 140/70 H 05/23/23 16:13 BMI result Body Mass Index 34.5 Const General: comfortable and no acute distress Orientation/consciousness: patient oriented x3 HEENT Head: Yes normocephalic Mouth: Normal oral and palatal mucosa present Eyes EOM: EOMs intact bilaterally Neck Neck: Yes supple Resp Auscultation: clear to auscultation bilaterally Cardio Jugular venous distension: no JVD Rate: regular rate Heart sounds: Murmur heart sound present GI Palpation (GI): Soft to palpation Auscultation: normal bowel sounds General: Yes no CVA tenderness Back/Spine/Pelvis Back: no CVA tenderness Skin General skin exam: no rashes or lesions noted Neuro General: patient oriented x3 and moves all extremities Extrem General: Yes no pedal edema Assessment & Plan Assessment & Plan (1) CKD stage 3 secondary to diabetes: Code(s): E11.22 - Type 2 diabetes mellitus with diabetic chronic kidney disease; N18.30 - Chronic kidney disease, stage 3 unspecified (2) HTN (hypertension): Code(s): I10 - Essential (primary) hypertension Qualifiers: Hypertension type: primary hypertension Qualified Code(s): I10 - Essential (primary) hypertension (3) Diabetic nephropathy: Code(s): E11.21 - Type 2 diabetes mellitus with diabetic nephropathy Qualifiers: Diabetes mellitus type: type 2 Qualified Code(s): E11.21 - Type 2 diabetes mellitus with diabetic nephropathy Plan Gi has stage III CKD. Her renal functions are pretty stable. She has significant proteinuria. I have ordered a urine protein creatinine ratio for follow-up. She is on Jardiance. Her volume status is optimal. She is tolerating ARB. She should avoid nonsteroidal anti-inflammatory medications. She needs to continue to lose weight. Her blood pressure is at goal. I did not make any other changes today. All her questions were answered. Follow-up for blood work were ordered as well. Time for retrieval of data, documentation and patient encounter 21 minutes. Orders: Orders Electrolytes 05/23/23 E11.22 - Type 2 diabetes mellitus with diabetic chronic kidney disease, I10 - Essential (primary) hypertension, N18.30 - Chronic kidney disease, stage 3 unspecified Creatinine 05/23/23 E11.22 - Type 2 diabetes mellitus with diabetic chronic kidney disease, I10 - Essential (primary) hypertension, N18.30 - Chronic kidney disease, stage 3 unspecified Calcium 05/23/23 E11.22 - Type 2 diabetes mellitus with diabetic chronic kidney disease, I10 - Essential (primary) hypertension, N18.30 - Chronic kidney disease, stage 3 unspecified Blood Urea Nitrogen 05/23/23 E11.22 - Type 2 diabetes mellitus with diabetic chronic kidney disease, I10 - Essential (primary) hypertension, N18.30 - Chronic kidney disease, stage 3 unspecified Protein Creatinine Ratio, Ur 05/23/23 E11.22 - Type 2 diabetes mellitus with diabetic chronic kidney disease, I10 - Essential (primary) hypertension, N18.30 - Chronic kidney disease, stage 3 unspecified Coding Level of Care Code Est Pt Level 3 (49067) Diagnoses CKD stage 3 secondary to diabetes E11.22; N18.30 Primary hypertension I10 Hypertension type: primary hypertension Diabetic nephropathy associated with type 2 diabetes mellitus E11.21 Diabetes mellitus type: type 2
[2023-05-23 16:13] VITALS: BP 140/70; PULSE 73; BMI 34.5
== END 2023-05-23 16:48 | disposition home or self-care (01) ==
PROVIDERS: PCP Physician Assistant; Visit Provider Internal Medicine Nephrology
DX: E11.22 Type 2 diabetes mellitus with diabetic chronic kidney disease (principal); N18.30 Chronic kidney disease, stage 3 unspecified; I12.9 Hypertensive chronic kidney disease with stage 1 through stage 4 chronic kidney disease, or unspecified chronic kidney disease; E11.21 Type 2 diabetes mellitus with diabetic nephropathy
CPT/HCPCS: 99213

== ENCOUNTER → 2023-05-23 16:03 | Outpatient (BNVA) | payer OTHER, SELFPAY | PROVIDERS: PCP Physician Assistant; Visit Provider Internal Medicine Nephrology | DX: E11.22 Type 2 diabetes mellitus with diabetic chronic kidney disease (principal); I12.9 Hypertensive chronic kidney disease with stage 1 through stage 4 chronic kidney disease, or unspecified chronic kidney disease; N18.30 Chronic kidney disease, stage 3 unspecified; E11.21 Type 2 diabetes mellitus with diabetic nephropathy | CPT/HCPCS: 99212 ==

== ENCOUNTER 2023-05-25 13:07 | Emergency (ER) | payer OTHER, SELFPAY ==
[2023-05-25 13:13] VITALS: BP 159/81; PULSE 64; RESP 20; TEMP 36.3; O2SAT 99; BMI 34.5
--- NOTE | 2023-05-25 13:15 | ED.NAVMDI ---
HPI - Nausea/Vomiting/Diarrhea General Chief complaint: Nausea/Vomiting/Diarrhea Stated complaint: Diarrhea Time Seen by Provider: 05/25/23 15:13 History of Present Illness HPI Narrative: patient complains of 3 days of diarrhea about 5 to 6 times a day with watery stool, denies blood denies black tarry stool Denies dizziness weakness, denies nausea vomiting denies any abdominal pain No recent antibiotics no recent travel no camping no one in the family sick Related Data Home Medications Medication Instructions Recorded Confirmed insulin glargine 100 unit/mL 40 unit subcut QPM 05/19/21 01/04/23 subcutaneous cartridge insulin lispro 100 unit/mL 5 unit subcut TID 08/26/21 01/04/23 subcutaneous pen (Humalog KwikPen (U-100) Insulin) ticagrelor 90 mg tablet (Brilinta) 90 mg PO QAM 02/02/22 01/04/23 empagliflozin 10 mg tablet 10 mg PO DAILY 04/14/22 01/04/23 (Jardiance) valsartan 40 mg tablet 40 mg PO DAILY 04/14/22 01/04/23 evolocumab 140 mg/mL subcutaneous 140 mg subcut Q2W 05/04/22 01/04/23 syringe (Repatha Syringe) dulaglutide 1.5 mg/0.5 mL 1.5 mg subcut QWEEK 10/18/22 01/04/23 subcutaneous pen injector (Trulicity) mecobalamin (vitamin B12) 500 mcg 1,000 mcg PO DAILY 10/18/22 01/04/23 chewable tablet Previous Rx's Medication Instructions Recorded blood pressure test kit-large #1 ea 05/19/21 walker #1 ea 02/22/22 escitalopram oxalate 10 mg tablet 10 mg PO DAILY #90 tabs 09/22/22 ezetimibe 10 mg tablet 10 mg PO DAILY #90 tabs 09/22/22 albuterol sulfate 90 mcg/actuation 2 puff inhalation QID Wheezing 30 10/18/22 aerosol inhaler (Ventolin HFA) days #8.5 grams atorvastatin 80 mg tablet 80 mg PO DAILY #90 tabs 10/18/22 cetirizine 10 mg tablet 10 mg PO DAILY #90 tabs 10/18/22 cholecalciferol (vitamin D3) 125 125 mcg PO DAILY 90 days #90 caps 10/18/22 mcg (5,000 unit) capsule isosorbide mononitrate 30 mg 60 mg (2 x 30 mg) PO DAILY 90 days 10/18/22 tablet,extended release 24 hr #180 tabs metoprolol succinate 50 mg 50 mg PO DAILY #90 tabs 10/18/22 tablet,extended release 24 hr aspirin 81 mg tablet,delayed 81 mg PO DAILY #90 tabs 11/28/22 release (Adult Low Dose Aspirin) fluticasone propionate 50 1 spray intranasal BID allergy 12/27/22 mcg/actuation nasal symptoms 30 days #16 grams spray,suspension (Flonase Allergy Relief) furosemide 20 mg tablet 20 mg PO DAILY 90 days #90 tabs 12/27/22 triamcinolone acetonide 0.1 % 1 appl topical DAILY 30 days #30 01/04/23 topical cream grams famotidine 20 mg tablet 20 mg PO DAILY 90 days #90 tabs 05/05/23 gabapentin 300 mg capsule 600 mg (2 x 300 mg) PO TID 90 days 05/05/23 #540 caps loperamide 2 mg tablet 2 mg PO Q4H PRN loose stool #14 05/25/23 (Anti-Diarrheal (loperamide)) tabs Allergies Allergy/AdvReac Type Severity Reaction Status Date / Time tramadol [TRAMADOL] Allergy Intermediate VOMITING Verified 05/23/23 16:16 adhesive tape AdvReac Intermediate tears skin Verified 05/23/23 16:16 lisinopril AdvReac Mild Cough Verified 05/23/23 16:16 [facility] Past Medical History Source: nursing notes reviewed Medical History GERD (gastroesophageal reflux disease) Elevated cholesterol Asthma Type 2 diabetes Chronic renal insufficiency Myocardial infarction CAD (coronary artery disease) HTN (hypertension) Hyperlipidemia Depression Surgical History Hx of heart artery stent Hx of section History of cardiac catheterization H/O: hysterectomy H/O bladder repair surgery Hx of CABG Family History Family History Mother Cervical cancer Hypertension Blindness Kidney failure Sister Cervical cancer Hypertension Hypoglycemia Brother ESRD (end stage renal disease) Hypertension Father DMII (diabetes mellitus, type 2) Son Asthma Daughter No problems noted. Daughter No problems noted. Daughter No problems noted. Daughter No problems noted. Social History Social History Housing: Apartment Are you a primary manager long term care to a significant other at home: No Do you presently have visiting nurse or other home services: No Alcohol intake: never Patient Tobacco Use Status: Never used Tobacco Tobacco use type: Cigarette e-Cigarette/Vaping Use: Never Used Second Hand Smoke Exposure: No Advance Directives: No Advance Directives Information Provided: No service: No Current occupational status: disabled Cognitive needs: Yes (walker) Hearing needs: No Vision needs: Yes Physical Exam Vital Signs: Vital Signs: Last Vital Signs Temp 97.4 F 05/25/23 13:13 Pulse 64 05/25/23 13:13 Resp 20 05/25/23 13:13 BP 159/81 H 05/25/23 13:13 Pulse Ox 99 05/25/23 13:13 O2 Del Method Room Air 05/25/23 13:13 BMI result Body Mass Index 34.5 general appearance is come cooperative no acute distress The eyes are anicteric no pallor The pharynx is clear without redness swelling or exudate, mucous membranes moist Neck is supple Chest clear to auscultation bilateral The abdomen is soft and nontender without rebound or guarding Extremities full range of motion x4 Skin no rash, turgor is normal Course Course Course Narrative: This is an RME: Additional HPI, ROS, PE not included below will be deferred to primary provider. This is a 78-[id number]-female, CAD, DMII, HTN, CKD, presenting to the emergency department with complaints of diarrhea x 3 days. Reporting 5-6x diarrhea per day. No fevers, chills, abdominal pain, nausea, vomiting or diarrhea. Reporting about 18lb weight loss in the last two weeks. reporting black stool but has been taking peptobismol. No recetal bleeding. NO abdominal pain/ Plan: Labs, Viral swabs Labs were checked with no acute abnormality Initially I ordered an IV of normal saline but then observed that the patient is tolerating p.o. now so canceled the order Patient tolerates p.o. fluids She is started on Imodium and is discharged Medications Administered Discontinued Medications Generic Name Dose Route Start Last Admin Trade Name Freq PRN Reason Stop Dose Admin Sodium Chloride 1,000 mls @ 999 mls/hr 05/25/23 15:30 05/25/23 15:39 Ns IVCONT 05/25/23 16:30 Not Given .Q1H1M [facility] Medical Decision Making Lab Data [facility] Lab Attestation statement: I reviewed the patient's lab results. 05/25/23 13:56 05/25/23 13:56 Labs: Lab Results 05/25/23 Range/Units 13:56 WBC 5.7 (4.8-10.8) X10*3/uL RBC 4.97 (4.20-5.50) X10*6/uL Hgb 13.1 (12.0-16.0) g/dl Hct 42.5 (37.0-47.0) % MCV 85.5 (80.0-98.0) fL MCH 26.4 L (27.0-33.0) pg MCHC 30.8 L (31.0-35.0) g/dl RDW 15.2 (11.0-16.0) % Plt Count 285 (160-400) X10*3/uL MPV 11.2 (9.4-12.3) fL Immature Gran % (Auto) 0.4 (0.0-0.4) % Neut % (Auto) 57.3 (45-73) % Lymph % (Auto) 32.1 (20-40) % [place] % (Auto) 6.9 (2-11) % Eos % (Auto) 2.6 (0-4) % Baso % (Auto) 0.7 (0-2) % Lymph # (Auto) 1.8 (1.2-4.9) X10*3/uL [place] # (Auto) 0.4 (0.1-1.2) X10*3/uL Eos # (Auto) 0.2 (0.0-0.4) X10*3/uL Baso # (Auto) 0.0 (0.0-0.2) X10*3/uL Abs Immat Gran (auto) 0.02 (0.00-0.03) X10*3/uL Absolute Neuts (auto) 3.3 (2.0-8.3) x10*3/uL Absolute Nucleated RBC 0.000 (0.0-0.012) X10*3/uL Nucleated RBC % (auto) 0.0 (0.0-0.2) /100WBC Sodium 140 (135-145) mmol/L Potassium 4.3 (3.3-5.1) mmol/L Chloride 104 (96-108) mmol/L Carbon Dioxide 26 (22-29) mmol/L Anion Gap 13 (12-20) BUN 34 H (9-16) mg/dL Creatinine 1.62 H (0.5-1.4) mg/dL Estim Creat Clear Calc 45.4 Estimated GFR 34 Random Glucose 120 H (60-115) mg/dL Calcium 9.6 (8.4-10.2) mg/dL Magnesium 2.4 (1.6-2.6) mg/dL Total Bilirubin 0.5 (0.0-1.0) mg/dL Direct Bilirubin 0.2 (0.0-0.5) mg/dL AST 40 H (5-31) U/L ALT 40 H (0-31) U/L Alkaline Phosphatase 86 (39-117) U/L Total Protein 8.4 H (6.5-8.0) g/dL Albumin 4.3 (3.5-5.0) g/dL Lipase 75 (8-78) U/L Influenza Type A (PCR) NEGATIVE (Negative) Influenza Type B (PCR) NEGATIVE (Negative) RSV RNA Qual (PCR) NEGATIVE (Negative) SARS-CoV-2 RNA (RT-PCR) NEGATIVE (Negative) Discharge Plan Discharge Clinical Impression: Diarrhea Patient Disposition: Home, Self-Care Additional Instructions: your blood tests were stable with no acute or worrisome finding You did not appear to be dehydrated Diarrhea is usually self-limited if it continues follow with your doctor and they will do stool cultures Return any time for dehydration uncontrollable vomiting abdominal pain fever any worse condition or any concerns Prescriptions: New loperamide [Anti-Diarrheal (loperamide)] 2 mg tablet 2 mg PO Q4H PRN (Reason: loose stool) Qty: 14 0RF Rx Instructions: administer after each loose stool until symptoms controlled; do not exceed 8 mg per 24 hrs No Action (DME) walker Misc See Rx Instructions .Route Qty: 1 0RF Rx Instructions: As directed escitalopram oxalate 10 mg tablet 10 mg PO DAILY Qty: 90 2RF ezetimibe 10 mg tablet 10 mg PO DAILY Qty: 90 2RF aspirin [Adult Low Dose Aspirin] 81 mg tablet,delayed release (DR/EC) 81 mg PO DAILY Qty: 90 1RF furosemide 20 mg tablet 20 mg PO DAILY 90 Days Qty: 90 2RF fluticasone propionate [Flonase Allergy Relief] 50 mcg/actuation spray,suspension 1 spray intranasal BID 30 Days Qty: 16 6RF Rx Instructions: administer into each nostril famotidine 20 mg tablet 20 mg PO DAILY 90 Days Qty: 90 1RF gabapentin 300 mg capsule 600 mg PO TID 90 Days Qty: 540 1RF insulin glargine 100 unit/mL cartridge 40 unit subcut QPM (DME) blood pressure test kit-large Kit See Rx Instructions .Route Qty: 1 0RF Rx Instructions: As directed triamcinolone acetonide 0.1 % cream 1 appl topical DAILY 30 Days Qty: 30 0RF insulin lispro [Humalog KwikPen Insulin] 100 unit/mL insulin pen 5 unit subcut TID Brilinta 90 mg tablet 90 mg PO QAM mecobalamin (vitamin B12) 500 mcg tablet,chewable 1,000 mcg PO DAILY Trulicity 1.5 mg/0.5 mL pen injector 1.5 mg subcut QWEEK albuterol sulfate [Ventolin HFA] 90 mcg/actuation HFA aerosol inhaler 2 puff inhalation QID 30 Days Qty: 8.5 3RF atorvastatin 80 mg tablet 80 mg PO DAILY Qty: 90 2RF cetirizine 10 mg tablet 10 mg PO DAILY Qty: 90 2RF cholecalciferol (vitamin D3) 125 mcg (5,000 unit) capsule 125 mcg PO DAILY 90 Days Qty: 90 2RF isosorbide mononitrate 30 mg tablet extended release 24 hr 60 mg PO DAILY 90 Days Qty: 180 2RF metoprolol succinate 50 mg tablet extended release 24 hr 50 mg PO DAILY Qty: 90 2RF Repatha Syringe 140 mg/mL syringe 140 mg subcut Q2W valsartan 40 mg tablet 40 mg PO DAILY Patient Comments: On Hold Jardiance 10 mg tablet 10 mg PO DAILY Interventions: ED Discharge Assessment Last Done: 05/25/23 15:56 Discharge Date/Time: 05/25/23 15:57
[2023-05-25 14:00] LABS: MANUAL DIFF FLAG NO
[2023-05-25 14:02] LABS: Basophils Percent Auto 0.7 % (0-2); Eosinophils Absolute Auto 0.2 X10*3/uL (0.0-0.4); Eosinophils Percent Auto 2.6 % (0-4); Hematocrit 42.5 % (37.0-47.0); Hemoglobin 13.1 g/dl (12.0-16.0); Imm Gran Abs Auto 0.02 X10*3/uL (0.00-0.03); Imm Gran Pct Auto 0.4 % (0.0-0.4); Lymphocytes Absolute Auto 1.8 X10*3/uL (1.2-4.9); Lymphocytes Percent Auto 32.1 % (20-40); Mean Corpuscular HGB Conc 30.8 g/dl (31.0-35.0); Mean Corpuscular Hemoglobin 26.4 pg (27.0-33.0); Mean Corpuscular Volume 85.5 fL (80.0-98.0); Mean Platelet Volume 11.2 fL (9.4-12.3); Monocytes Absolute Auto 0.4 X10*3/uL (0.1-1.2); Monocytes Percent Auto 6.9 % (2-11); Neutrophils Absolute Auto 3.3 x10*3/uL (2.0-8.3); Neutrophils Percent Auto 57.3 % (45-73); Platelet Count 285 X10*3/uL (160-400); Red Blood Count 4.97 X10*6/uL (4.20-5.50); Red Cell Distribution Width 15.2 % (11.0-16.0); White Blood Count 5.7 X10*3/uL (4.8-10.8)
[2023-05-25 14:40] LABS: Influenza A PCR NEGATIVE (Negative); Influenza B PCR NEGATIVE (Negative); Resp Syncy Virus RNA Qual PCR NEGATIVE (Negative); SARS COV2 PCR INHOUSE NEGATIVE (Negative)
[2023-05-25 14:45] LABS: Albumin Level 4.3 g/dL (3.5-5.0); Blood Urea Nitrogen 34 mg/dL (9-16); Calcium 9.6 mg/dL (8.4-10.2); Chloride 104 mmol/L (96-108); Creatinine Clr Calc Pharmacy 45.4; Estimated Glomerular Filt Rate 34; Glucose Random 120 mg/dL (60-115); Magnesium 2.4 mg/dL (1.6-2.6); Potassium 4.3 mmol/L (3.3-5.1); Sodium 140 mmol/L (135-145); Total Protein 8.4 g/dL (6.5-8.0)
[2023-05-25 14:53] LABS: Alanine Aminotransferase 40 U/L (0-31); Alkaline Phosphatase 86 U/L (39-117); Anion Gap 13 (12-20); Aspartate Amino Transferase 40 U/L (5-31); Bilirubin Direct 0.2 mg/dL (0.0-0.5); Bilirubin Total 0.5 mg/dL (0.0-1.0); Carbon Dioxide 26 mmol/L (22-29); Lipase 75 U/L (8-78)
== END 2023-05-25 15:57 | disposition home or self-care (01) ==
PROVIDERS: Physician Assistant Medical; Emergency Provider Student in an Organized Health Care Education/Training Program; PCP Physician Assistant
DX: R11.2 Nausea with vomiting, unspecified (principal); R19.7 Diarrhea, unspecified; Z79.899 Other long term (current) drug therapy; Z20.822 Contact with and (suspected) exposure to COVID-19; Z20.828 Contact with and (suspected) exposure to other viral communicable diseases
CPT/HCPCS: 0241U; 80048; 80076; 83690; 83735; 85025; 99282; 99283

== ENCOUNTER 2023-06-07 07:08 | Outpatient (AMB) | payer OTHER, SELFPAY ==
[2023-06-07 07:17] VITALS: BP 144/82; PULSE 71; O2SAT 97; BMI 34.7
--- NOTE | 2023-06-07 07:17 | A.OFFPC_ITS ---
Vital Signs 06/07/23 07:17 Height 5 ft 4 in Weight 202 lb BMI 34.7 BP 144/82 H Blood Pressure Location Lt brachial Position Sitting Pulse 71 Pulse Source Pulse Oximeter Pulse Oximetry (%) 97 Oxygen Delivery Method Room Air Intake Visit Reasons: diarrhea for a few weeks Allergies tramadol [TRAMADOL] Allergy (Intermediate, Verified 06/07/23 07:17) VOMITING adhesive tape Adverse Reaction (Intermediate, Verified 06/07/23 07:17) tears skin lisinopril Adverse Reaction (Mild, Verified 06/07/23 07:17) Cough Tobacco use date assessed: 10/18/22 Dental Screening Dental Screen Date: 06/07/23 Did you have a dental visit in the last 12 months?: Yes Did you have a dental problem in the last 6 months where you did not have access to dental care?: No Was dental information given to patient?: Patient has dentist HPI HPI Comments History of Present Illness Details 52-year-old female past medical history significant for hyperlipidemia, depression, asthma, heart failure, CAD, GERD, hypertension, CKD, type 2 diabetes mellitus and diabetic neuropathy. Patient of Jose Mendoza presents today for emergency room follow-up patient was seen at [facility] Room on 05/25/2023 for 3 days of diarrhea, denied any blood in her stool denied any recent antibiotic treatment or travel or recent sick contacts. Patient also reported 18 lb weight loss in 2 weeks. COVID/flu/RSV swab negative. Lab significant given for BUN 34/creatinine 1.62.. Patient was not able to tolerate p.o. fluids and was discharged home on Imodium. Patient reports her symptoms are improving, states only having occasional episodes of diarrhea.Patient states will have 1-3 episodes every other day of liquid stool. Denies any blood in her stool or dark tarry stools. Denies abdominal pain. Denies fevers,chills. States she did get her COVID, shingles and flu shot in the same day and went to [facility] on 06/03/23 and was treated for laryngigits on benzonatae and albuterol inhaler and states she is feeling better. [facility] Medical History GERD (gastroesophageal reflux disease) Elevated cholesterol Asthma Type 2 diabetes Chronic renal insufficiency Myocardial infarction CAD (coronary artery disease) HTN (hypertension) Hyperlipidemia Depression Surgical History Hx of heart artery stent Hx of section History of cardiac catheterization H/O: hysterectomy H/O bladder repair surgery Hx of CABG Family History Mother Cervical cancer Hypertension Blindness Kidney failure Sister Cervical cancer Hypertension Hypoglycemia Brother ESRD (end stage renal disease) Hypertension Father DMII (diabetes mellitus, type 2) Son Asthma Daughter No problems noted. Daughter No problems noted. Daughter No problems noted. Daughter No problems noted. Social History Housing: Apartment Are you a primary district manager primary care sales to a significant other at home: No Do you presently have visiting nurse or other home services: No Alcohol intake: never Patient Tobacco Use Status: Never used Tobacco Tobacco use type: Cigarette e-Cigarette/Vaping Use: Never Used Second Hand Smoke Exposure: No service: No Current occupational status: disabled Cognitive needs: Yes (walker) Hearing needs: No Vision needs: Yes Questionnaire PHQ-9 Over the last 2 weeks, how often have you been bothered by any of the following problems? 1. Little interest or pleasure in doing things: not at all 2. Feeling down, depressed, or hopeless: not at all 3. Trouble falling or staying asleep, or sleeping too much: not at all 4. Feeling tired or having little energy: not at all 5. Poor appetite or overeating: not at all 6. Feeling bad about yourself - or that you are a failure or have let yourself or your family down: not at all 7. Trouble concentrating on things, such as reading the newspaper or watching te levision: not at all 8. Moving or speaking so slowly that other people could have noticed. Or the opposite - being so fidgety or restless that you have been moving around a lot more than usual: not at all 9. Thoughts that you would be better off or of hurting yourself in some way: not at all Total score: 0 Depression Screening Interpretation: Negative Depression Screening Done: Yes Source: Developed by Drs. George Rivas, Shira Lawrence, Duong Pina and colleagues, with an educational misha from [employer]. Thrive Questionnaire Date Thrive assessed: 10/18/22 AUDIT C Alcohol Use Questionnaire (AUDIT-C) 1. How often do you have a drink containing alcohol?: Never Total Score: 0 MOUNA-7 AMB Questionnaire MOUNA-7 Date MOUNA - 7 assessed: 10/18/22 Source: Developed by Drs. George Rivas, Shira Lawrence, Duong Pina and colleagues, with an educational misha from [employer]. Review of Systems Const Denies chills, Denies fatigue, Denies fever(s) and Denies poor appetite Eyes Denies no additional complaints ENT Reports Normal hearing present Card Denies chest pain, Denies syncope, Denies rapid heart rate and Denies dyspnea Resp Denies cough and Denies dyspnea GI Denies change in stool character, Denies constipation, Reports diarrhea (improving ), Denies nausea and Denies vomiting Denies urinary frequency, Denies dysuria and Denies urinary urgency Neuro Reports Normal hearing present, Denies confusion and Denies syncope Psych Denies confusion Endo Denies fatigue Physical exam (Primary Care) Vital Signs: Oxygen Delivery Method Room Air 06/07/23 07:17 Tobacco/Smoking Status: Tobacco use Status Tobacco use date assessed 10/18/22 01/04/23 09:26 Patient Tobacco Use Status Never used Tobacco 01/04/23 09:26 Tobacco use type Cigarette 01/04/23 09:26 e-Cigarette/Vaping Use Never Used 01/04/23 09:26 Depression Screening Interpretation: Negative Thrive Assessment: Date of Thrive Assessment Date Thrive assessed 10/18/22 01/04/23 09:26 Const General: No confusion Orientation/consciousness: No confusion HENMT Head: Yes normocephalic and Yes atraumatic Eyes Conjunctivae: conjunctivae normal Chest Chest palpation & inspection: normal inspection of the chest Resp Effort & Inspection: normal respiratory effort Auscultation: clear to auscultation bilaterally, no crackles, no rhonchi and no wheezes Cardio Rate: regular rate Rhythm: regular rhythm Heart sounds: S1 normal heart sound present and S2 normal heart sound present GI Inspection: Yes normal to inspection Palpation (GI): Soft to palpation, nontender, no guarding and No hepatosplenomegaly present Percussion: Yes normal to percussion Auscultation: normal bowel sounds Neuro General: No confusion Cranial nerves: Yes Normal hearing present Extrem General: No edema Assessment and Plan Assessment & Plan (1) Diarrhea: Code(s): R19.7 - Diarrhea, unspecified Plan: Patient reports episodes of diarrhea are improving. Discussed stool studies with patient and referral to gastroenterology. Patient would like to hold off at this time as diarrhea improving. Signs and symptoms reviewed with patient when to follow up or seek emergency medical attention. Patient advised to stay well hydrated and follow BRAT diet. Patient agreeable to plan of care. (2) HTN (hypertension): Code(s): I10 - Essential (primary) hypertension Qualifiers: Hypertension type: primary hypertension Qualified Code(s): I10 - Essential (primary) hypertension Plan: Continue on current medications (3) DMII (diabetes mellitus, type 2): Code(s): E11.9 - Type 2 diabetes mellitus without complications Qualifiers: Chronic kidney disease stage: stage 3 (moderate) Chronic kidney disease stage 3 subtype: stage 3a (GFR 45-59) Diabetes mellitus complication detail: with chronic kidney disease Diabetes mellitus complication status: with kidney complications Diabetes mellitus senior living insulin use: with intermission coordinator use Qualified Code(s): E11.22 - Type 2 diabetes mellitus with diabetic chronic kidney disease; N18.31 - Chronic kidney disease, stage 3a; Z79.4 - intermediate manager (current) use of insulin Plan: Continue on trulicity, insulin 5 units TID and insulin glargine 40units qpm. Patient educated to decrease the amount of carbohydrate intake such as pasta, bread, rice and potatoes are all sugar in addition to the sweet stuff. Remember that fruits are good but they also have sugar. (4) Hyperlipidemia: Code(s): E78.5 - Hyperlipidemia, unspecified Plan: Ctoninue on statin, Follow low cholesterol diet. (5) CKD stage 3 secondary to diabetes: Code(s): E11.22 - Type 2 diabetes mellitus with diabetic chronic kidney disease; N18.30 - Chronic kidney disease, stage 3 unspecified Plan: Cotninue to follow with nephrology. Plan Keep scheduled follow up with pcp Coding Level of Care Code Est Pt Level 4 (03185) Diagnoses Diarrhea R19.7 Primary hypertension I10 Hypertension type: primary hypertension Type 2 diabetes mellitus with stage 3a chronic kidney disease, with long-term current use of insulin E11.22; N18.31; Z79.4 Chronic kidney disease stage: stage 3 (moderate) Chronic kidney disease stage 3 subtype: stage 3a (GFR 45-59) Diabetes mellitus complication detail: with chronic kidney disease Diabetes mellitus complication status: with kidney complications Diabetes mellitus intermission coordinator insulin use: with senior living use Hyperlipidemia E78.5 CKD stage 3 secondary to diabetes E11.22; N18.30
== END 2023-06-07 07:33 | disposition home or self-care (01) ==
PROVIDERS: PCP Physician Assistant; Visit Provider Nurse Practitioner Family
DX: E11.22 Type 2 diabetes mellitus with diabetic chronic kidney disease (principal); N18.31 Chronic kidney disease, stage 3a; Z79.4 Long term (current) use of insulin; N18.30 Chronic kidney disease, stage 3 unspecified; R19.7 Diarrhea, unspecified; I12.9 Hypertensive chronic kidney disease with stage 1 through stage 4 chronic kidney disease, or unspecified chronic kidney disease; E78.5 Hyperlipidemia, unspecified
CPT/HCPCS: 99214

== ENCOUNTER 2023-06-15 11:35 | Outpatient (AMB) | payer OTHER, SELFPAY ==
--- NOTE | 2023-06-15 11:48 | A.OFFPC_ITS ---
Vital Signs 06/15/23 11:49 Height 5 ft 4 in Weight 202 lb BMI 34.7 BP 138/70 Blood Pressure Location Lt brachial Position Sitting Pulse 65 Pulse Source Pulse Oximeter Pulse Oximetry (%) 98 Oxygen Delivery Method Room Air Intake Visit Reasons: f/u HTN / CAD Intake Note: Pt is here for HTN and CAD F/U. Also has a light form to be review and sign to be fax. Inside Sales Associate Required: No Accompanied by: Significant Other Allergies tramadol [TRAMADOL] Allergy (Intermediate, Verified 06/15/23 12:05) VOMITING adhesive tape Adverse Reaction (Intermediate, Verified 06/15/23 12:05) tears skin lisinopril Adverse Reaction (Mild, Verified 06/15/23 12:05) Cough Medication List - Last Reconciled 06/15/23 by Pablo Mendoza PA-C albuterol sulfate 90 mcg/actuation (Ventolin HFA) 2 puffs inhalation QID 30 days aspirin (Adult Low Dose Aspirin) 81 mg PO DAILY atorvastatin 80 mg PO DAILY blood pressure test kit-large As directed cetirizine 10 mg PO DAILY cholecalciferol (vitamin D3) 125 mcg PO DAILY 90 days dulaglutide (Trulicity) 1.5 mg subcut QWEEK empagliflozin (Jardiance) 10 mg PO DAILY escitalopram oxalate 10 mg PO DAILY evolocumab (Repatha Syringe) 140 mg subcut Q2W ezetimibe 10 mg PO DAILY famotidine 20 mg PO DAILY 90 days fluticasone propionate 50 mcg/actuation (Flonase Allergy Relief) 1 spray intranasal BID 30 days furosemide 20 mg PO DAILY 90 days gabapentin 600 mg (2 x 300 mg) PO TID 90 days insulin glargine 40 units subcut QPM insulin lispro (Humalog KwikPen (U-100) Insulin) 5 units subcut TID isosorbide mononitrate ER 60 mg (2 x 30 mg) PO DAILY 90 days loperamide (Anti-Diarrheal (loperamide)) 2 mg PO Q4H PRN mecobalamin (vitamin B12) 1,000 mcg PO DAILY metoprolol succinate ER 50 mg PO DAILY ticagrelor (Brilinta) 90 mg PO QAM triamcinolone acetonide 0.1% 1 appl topical DAILY 30 days valsartan 40 mg PO DAILY walker As directed Tobacco use date assessed: 10/18/22 HPI f/u HTN / CAD HPI Details Patient is a 52 year female? here for follow-up visit. She has a past medical history significant for type 2 diabetes, obesity, hypertension hyperlipidemia, CAD ( status post quadruple bypass), congestive heart failure, GERD, depression. CHRONIC MEDICAL CONDITIONS--> .. DMII: Is seeing an acetylene torch operator at [facility]. Sugars have been well controlled at home.. Today's A1c is 7.5.? She has been able to lose weight since starting Trulicity. She is speaking with a dietitian.? PLAN: Will speak with her acetylene torch operator about increased dose of Trulicity 3 mg weekly .. CKD- stage 3- See Dr Soto industrial design engineer, has been avoiding nephrotoxins, most recent creatinine at 1.6 .. CAD:? Has had a CABG x4..? Recently seen by her coater operator insulation board and complained of chest discomforts.? Her coater operator insulation board increased her isosorbide to 60mg due to chest discomforts.? Patient's LDL optimally controlled. Continues on high-dose statin therapy and praulent injections. Patient data recent echocardiogram that showed appropriate EF ? Is seeing a coater operator insulation board at [facility]? ( Dr. Adam Eisenberg) , Laboratory Tests 12/30/21 02/05/22 09/30/22 15:05 14:19 13:19 Hgb Creatinine 1.46 H 1.83 H 1.56 H Random Glucose 05/06/23 05/25/23 05/25/23 11:52 13:56 13:56 Hgb 13.1 Creatinine 1.61 H 1.62 H Random Glucose 120 H [facility] Medical History GERD (gastroesophageal reflux disease) Elevated cholesterol Asthma Type 2 diabetes Chronic renal insufficiency Myocardial infarction CAD (coronary artery disease) HTN (hypertension) Hyperlipidemia Depression Surgical History Hx of heart artery stent Hx of section History of cardiac catheterization H/O: hysterectomy H/O bladder repair surgery Hx of CABG Family History Mother Cervical cancer Hypertension Blindness Kidney failure Sister Cervical cancer Hypertension Hypoglycemia Brother ESRD (end stage renal disease) Hypertension Father DMII (diabetes mellitus, type 2) Son Asthma Daughter No problems noted. Daughter No problems noted. Daughter No problems noted. Daughter No problems noted. Social History Housing: Apartment Are you a primary vision care associate to a significant other at home: No Do you presently have visiting nurse or other home services: No Alcohol intake: never Patient Tobacco Use Status: Never used Tobacco Tobacco use type: Cigarette e-Cigarette/Vaping Use: Never Used Second Hand Smoke Exposure: No service: No Current occupational status: disabled Cognitive needs: Yes (walker) Hearing needs: No Vision needs: Yes Questionnaire Thrive Questionnaire Date Thrive assessed: 10/18/22 MOUNA-7 AMB Questionnaire MOUNA-7 Date MOUNA - 7 assessed: 10/18/22 Source: Developed by Drs. George Rivas, Shira Lawrence, Duong Pina and colleagues, with an educational misha from [employer]. Review of Systems Const Denies headache(s) Eyes Denies loss of vision ENT Denies vertigo, Denies dizziness, Denies headache(s) and Denies sore throat Card Denies chest pain, Denies leg edema and Denies lightheadedness Resp Denies cough, Denies hemoptysis and Denies wheezing GI Denies abdominal pain, Denies melena, Denies constipation, Denies diarrhea and Denies vomiting Denies urinary frequency, Denies dysuria and Denies urinary urgency Musc Denies arthralgias, Denies joint swelling, Denies numbness and Denies tingling Neuro Denies Abnormal speech present, Denies behavioral changes, Denies vertigo, Denies dizziness, Denies headache(s), Denies loss of vision, Denies memory loss, Denies numbness and Denies tingling Psych Denies anxiety, Denies behavioral changes, Denies depression, Denies memory loss and Denies panic attacks Jose/Lymph Denies easy bleeding and Denies easy bruising Aller/Immun Denies wheezing Physical exam (Primary Care) Vital Signs: Last Vital Signs Pulse 65 06/15/23 11:49 BP 138/70 06/15/23 11:49 Pulse Ox 98 06/15/23 11:49 Oxygen Delivery Method Room Air 06/15/23 11:49 BMI result Body Mass Index 34.7 Tobacco/Smoking Status: Tobacco use Status Tobacco use date assessed 10/18/22 06/15/23 11:51 Patient Tobacco Use Status Never used Tobacco 06/15/23 11:51 Tobacco use type Cigarette 06/15/23 11:51 e-Cigarette/Vaping Use Never Used 06/15/23 11:51 Thrive Assessment: Date of Thrive Assessment Date Thrive assessed 10/18/22 06/15/23 11:51 Const General: healthy appearing, no acute distress, alert and awake Nutritional Appearance: well nourished Orientation/consciousness: oriented to person, oriented to place and oriented to time HENMT Ears: TM's normal bilaterally General nose exam: Normal nasal mucous membranes and turbinates present Eyes Conjunctivae: conjunctivae normal Sclerae: sclerae normal Pupils: Equal, round and reactive pupils present Neck Neck: Yes no lymphadenopathy and Yes no JVD Thyroid: Thyroid normal Carotids: no bruits Resp Effort & Inspection: normal respiratory effort and not tachypneic Auscultation: no crackles, no rales, no rhonchi and no wheezes Cardio Rate: regular rate Rhythm: regular rhythm Heart sounds: no murmurs and normal S1 and S2 GI Palpation (GI): Soft to palpation, nontender, no hepatomegaly and no splenomegaly Auscultation: normal bowel sounds Skin General skin exam: no rashes or lesions noted and dry skin Neuro General: oriented to person, oriented to place and oriented to time Cranial nerves: Yes Equal, round and reactive pupils present Speech: No Abnormal speech present Gait exam (Neuro): Normal gait present Motor exam (neuro): no tremor noted Extrem Right upper extremity: full ROM Left upper extremity: full ROM Right lower extremity: full ROM; no edema Left lower extremity: full ROM; no edema Psych Mental Status: mental status grossly normal Speech and movement: Normal speech and movement present Affect: normal affect Attitude: cooperative Thought process: Normal thought process present Results AMB Hemoglobin A1c AMB Hemoglobin A1c 7.5 % Last Edit by CHUY Hanson on 06/15/23 12:06 Results Reviewed Results Reviewed: Laboratory Last Values Hgb A1c (Clinic) 7.5 % (4.0-6.0) H 06/15/23 12:02 Assessment and Plan Assessment & Plan (1) CAD (coronary artery disease): Comment: CABG 2017 with CHICAS to LAD, SVG to RPDA, SVG to RPL and SVG to OM Code(s): I25.10 - Atherosclerotic heart disease of [place] coronary artery without angina pectoris Qualifiers: Associated angina: without angina Coronary Disease-Associated Artery/Lesion type: bypass graft [place] vs. transplanted heart: [place] heart Qualified Code(s): I25.810 - Atherosclerosis of coronary artery bypass graft(s) without angina pectoris Plan: Again continues to cardiology. Recent lipid panel showing appropriate LDL. Continues on high potency statin, praulent and aspirin (2) DMII (diabetes mellitus, type 2): Code(s): E11.9 - Type 2 diabetes mellitus without complications Qualifiers: Chronic kidney disease stage: stage 3 (moderate) Chronic kidney disease stage 3 subtype: stage 3a (GFR 45-59) Diabetes mellitus complication detail: with chronic kidney disease Diabetes mellitus complication status: with kidney complications Diabetes mellitus watermaster insulin use: with watermaster use Qualified Code(s): E11.22 - Type 2 diabetes mellitus with diabetic chronic kidney disease; N18.31 - Chronic kidney disease, stage 3a; Z79.4 - long term (current) use of insulin Plan: Patient's type 2 diabetes suboptimally controlled with today's A1c is 7.5. She does follow acetylene torch operator and consider increasing her Trulicity dose. She will work on lifestyle modifications on reducing carbohydrates in her diet. Goal A1c to be below 7.0 (3) Heart failure: Comment: Echo: EF 50-55% (01/19/22 done at [facility]) Code(s): I50.9 - Heart failure, unspecified Qualifiers: Heart failure chronicity: chronic Heart failure type: systolic Qualified Code(s): I50.22 - Chronic systolic (congestive) heart failure Plan: Continues to follow cardiology and continues on medications to support heart failure. Clinically seems euvolemic on physical exam today. (4) Obese: Code(s): E66.9 - Obesity, unspecified Qualifiers: Body mass index: BMI 34.0-34.9 Obesity classification: adult class 1 (BMI 30 - 34.9) Obesity type: due to excess calories Serious obesity comorbidity presence: with serious comorbidity Qualified Code(s): E66.09 - Other obesity due to excess calories; Z68.34 - Body mass index [BMI] 34.0-34.9, adult Plan: Patient does understand her BMI is over 30, has been able to lose weight since starting Trulicity. Patient will continue working on lifestyle modifications to reduce her weight. (5) MDD (major depressive disorder), recurrent episode, moderate: Code(s): F33.1 - Major depressive disorder, recurrent, moderate Plan: Patient's depression has been fairly stable. Continues on Lexapro 10 mg with good affect on her mood. (6) Hand lesion: Code(s): L98.9 - Disorder of the skin and subcutaneous tissue, unspecified Orders: Orders Microalbumin, Random (w Creat) Today E11.9 - Type 2 diabetes mellitus without complications Hemoglobin A1c Today E11.9 - Type 2 diabetes mellitus without complications AMB Hemoglobin A1c Today E11.9 - Type 2 diabetes mellitus without complications Comprehensive [place]. Panel Fast Today I10 - Essential (primary) hypertension Lipid Panel Today I25.10 - Atherosclerotic heart disease of [place] coronary artery without angina pectoris Referrals Ophthalmology Referral E11.9 - Type 2 diabetes mellitus without complications Orthopedics Referral L98.9 - Disorder of the skin and subcutaneous tissue, unspecified Coding Level of Care Code Est Pt Level 4 (17898) Diagnoses Coronary artery disease involving coronary bypass graft of [place] heart without angina pectoris I25.810 Associated angina: without angina Coronary Disease-Associated Artery/Lesion type: bypass graft [place] vs. transplanted heart: [place] heart Type 2 diabetes mellitus with stage 3a chronic kidney disease, with long-term current use of insulin E11.22; N18.31; Z79.4 Chronic kidney disease stage: stage 3 (moderate) Chronic kidney disease stage 3 subtype: stage 3a (GFR 45-59) Diabetes mellitus complication detail: with chronic kidney disease Diabetes mellitus complication status: with kidney complications Diabetes mellitus penitentiary insulin use: with watermaster use Chronic systolic heart failure I50.22 Heart failure chronicity: chronic Heart failure type: systolic Class 1 obesity due to excess calories with serious comorbidity and body mass index (BMI) of 34.0 to 34.9 in adult E66.09; Z68.34 Body mass index: BMI 34.0-34.9 Obesity classification: adult class 1 (BMI 30 - 34.9) Obesity type: due to excess calories Serious obesity comorbidity presence: with serious comorbidity MDD (major depressive disorder), recurrent episode, moderate F33.1 Hand lesion L98.9
[2023-06-15 11:49] VITALS: BP 138/70; PULSE 65; O2SAT 98; BMI 34.7
== END 2023-06-15 12:18 | disposition home or self-care (01) ==
PROVIDERS: PCP Physician Assistant; Visit Provider Physician Assistant
DX: E11.22 Type 2 diabetes mellitus with diabetic chronic kidney disease (principal); N18.31 Chronic kidney disease, stage 3a; Z79.4 Long term (current) use of insulin; I50.22 Chronic systolic (congestive) heart failure; F33.1 Major depressive disorder, recurrent, moderate; I25.810 Atherosclerosis of coronary artery bypass graft(s) without angina pectoris; E66.09 Other obesity due to excess calories; Z68.34 Body mass index [BMI] 34.0-34.9, adult; L98.9 Disorder of the skin and subcutaneous tissue, unspecified
CPT/HCPCS: 83036; 99214

== ENCOUNTER 2023-07-26 14:15 | Outpatient (AMB) | payer OTHER, SELFPAY ==
--- NOTE | 2023-07-26 14:17 | MHC.OFFVIS ---
Intake Vital Signs 07/26/23 14:21 Height 5 ft 4 in Weight 202 lb BMI 34.7 Intake Visit Reasons: New Prob- skin lesion on right palm Intake Note: Gi is a 51 year old right hand dominant female who presents today for a evaluation of her lump on the base of the palm. States that she notices it getting bigger every other day. Patient reports that is does affect her when she is doing her daily actives. Rosamaria numbness and tingling. Lump has been in her palm for about 6 months. Allergies tramadol [TRAMADOL] Allergy (Intermediate, Verified 06/15/23 12:05) VOMITING adhesive tape Adverse Reaction (Intermediate, Verified 06/15/23 12:05) tears skin lisinopril Adverse Reaction (Mild, Verified 06/15/23 12:05) Cough HPI New Prob- skin lesion on right palm HPI Details 52-year-old right hand dominant female who presents in the office today for an evaluation of possible removal of a bump on the base of her right palm. The patient first noticed the bump about 6 months ago, in 01/2023. She claims the bump has increased in size. She states it affects her daily activities. She denies numbness or tingling. [facility] Medical History GERD (gastroesophageal reflux disease) Elevated cholesterol Asthma Type 2 diabetes Chronic renal insufficiency Myocardial infarction CAD (coronary artery disease) HTN (hypertension) Hyperlipidemia Depression Surgical History Hx of heart artery stent Hx of section History of cardiac catheterization H/O: hysterectomy H/O bladder repair surgery Hx of CABG Family History Mother Cervical cancer Hypertension Blindness Kidney failure Sister Cervical cancer Hypertension Hypoglycemia Brother ESRD (end stage renal disease) Hypertension Father DMII (diabetes mellitus, type 2) Son Asthma Daughter No problems noted. Daughter No problems noted. Daughter No problems noted. Daughter No problems noted. Social History Housing: Apartment Are you a primary family member caretaker to a significant other at home: No Do you presently have visiting nurse or other home services: No Alcohol intake: never Patient Tobacco Use Status: Never used Tobacco Tobacco use type: Cigarette e-Cigarette/Vaping Use: Never Used Second Hand Smoke Exposure: No service: No Current occupational status: disabled Cognitive needs: Yes (walker) Hearing needs: No Vision needs: Yes Review of Systems Const All systems reviewed & are unremarkable except as noted in HPI and below Physical Exam Vital Signs: BMI result Body Mass Index 34.7 Const General: cooperative, healthy appearing and no acute distress Resp Effort & Inspection: normal respiratory effort and able to speak in complete sentences Cardio Rate: regular rate Peripheral pulses: Peripheral pulses 2+ throughout GI Palpation (GI): Soft to palpation Skin Lesions: no lesions Rashes: no rashes Extrem Other: Right hand: Small BB sized area that is tender to palpation and is located near the thenar crease on the palmar aspect of the right hand between the index and middle digits. The spot is slightly darker in color then her skin tone. She reports fluctuation in size. This does not interfere with motion of the hand or wrist. Assessment & Plan Assessment & Plan (1) Hand lesion: Comment: Right hand Code(s): L98.9 - Disorder of the skin and subcutaneous tissue, unspecified Plan Ms. Hernandez is a 52-year-old right hand dominant female who presents in the office today for an evaluation of possible removal of a bump on the base of her right palm. The patient first noticed the bump about 6 months ago, in 01/2023. She claims the bump has increased in size. She states it affects her daily activities. She denies numbness or tingling. Dr. Mo was available to see the patient with me while in the office today and a collaborative treatment plan was made. The patient will be referred for an ultrasound of the right hand focusing on the area at the thenar crease. After the ultrasound Dr. Mo has agreed to see the patient to discuss possible surgical intervention that may be warranted. Follow up will be after the ultrasound with Dr. Mo, or sooner if needed. Orders: Orders US extremity nonvascular Today L98.9 - Disorder of the skin and subcutaneous tissue, unspecified Patient Instructions: Scribed for Quyen William PA-C by Gabbie Mcmillan medical office professional instructor, on 07/26/2023 at 2:26 pm, EST. Coding Level of Care Code Est Pt Level 4 (03984) Diagnoses Hand lesion L98.9
[2023-07-26 14:21] VITALS: BMI 34.7
== END 2023-07-26 14:50 | disposition home or self-care (01) ==
PROVIDERS: PCP Physician Assistant; Visit Provider Physician Assistant
DX: L98.9 Disorder of the skin and subcutaneous tissue, unspecified (principal)
CPT/HCPCS: 99213

== ENCOUNTER → 2023-07-26 14:15 | Outpatient (BNVA) | payer OTHER, SELFPAY | PROVIDERS: PCP Physician Assistant; Visit Provider Physician Assistant | DX: L98.9 Disorder of the skin and subcutaneous tissue, unspecified (principal) | CPT/HCPCS: 99212 ==

== ENCOUNTER 2023-08-18 15:47 | Outpatient (REF) | payer OTHER, SELFPAY ==
--- NOTE | ~2023-08-18 | US_ITS ---
EXAMINATION: ULTRASOUND RIGHT HAND CLINICAL INDICATION: Disorder of the skin and subcutaneous tissue. COMPARISON: None available. TECHNIQUE: Using a linear array transducer with grayscale and color modalities, ultrasound examination is performed of the palmar aspect of the right hand. FINDINGS: In the palmar subcutaneous tissues, a 2 x 2 x 2 mm heterogeneously hypoechoic collection is seen. This shows no associated color Doppler flow. There is mild associated posterior acoustical shadowing No foreign body is noted. US/US extremity nonvascular IMPRESSION: A 2 mm hypoechoic collection is seen in the medial right palmar subcutaneous tissues. The possibility of palmar fibromatosis is raised. Further differential considerations include a ganglion cyst or a small epidermal inclusion cyst. If clinically warranted, this can be further characterized with MRI.
== END 2023-08-18 15:48 | disposition home or self-care (01) ==
LOC: HO.US 15:47
PROVIDERS: PCP Physician Assistant; Visit Provider Physician Assistant
DX: L98.9 Disorder of the skin and subcutaneous tissue, unspecified (principal)
CPT/HCPCS: 76882

== ENCOUNTER 2023-08-23 14:45 | Outpatient (AMB) | payer OTHER, SELFPAY ==
[2023-08-23 14:48] VITALS: BP 124/68; PULSE 64; O2SAT 98; BMI 36.7
--- NOTE | 2023-08-23 14:48 | A.OFFVIS_ITS ---
Intake Vital Signs 08/23/23 14:48 Height 5 ft 4 in Weight 214 lb BMI 36.7 BP 124/68 Blood Pressure Location Rt brachial Position Sitting Pulse 64 Pulse Source Pulse Oximeter Pulse Oximetry (%) 98 Oxygen Delivery Method Room Air Intake Visit Reasons: 3M follow up/ Confirmed Allergies tramadol [TRAMADOL] Allergy (Intermediate, Verified 08/23/23 14:50) VOMITING adhesive tape Adverse Reaction (Intermediate, Verified 08/23/23 14:50) tears skin lisinopril Adverse Reaction (Mild, Verified 08/23/23 14:50) Cough HPI HPI Comments History of Present Illness Details I had the privilege of seeing Gi in follow-up for her chronic kidney disease, proteinuria and hypertension on a backdrop of coronary artery disease and bypass surgery. She has history of congestive heart failure. She has history of premature coronary artery disease s/p CABG in 2016 in [place], with repeat catheterization due to occlusion of the SVG to OM s/p mechanical thrombectomy with x2 RENEE placement on January 2022, ischemic cardiomyopathy with preserved ejection fraction with true aneurysmal apex without thrombus confirmed on cardiac MRI with distal territory LAD infarct presented with worsening resting chest pain since 3 days and found to have subtle ST depressions not grossly unchanged but having ongoing pain. Patient underwent cardiac cath which showed the culprit was her vein graft to OM with collaterals. IC recommended medical therapy, and patient was admitted to the CCU in [facility] for further management. She was discharged from the hospital today. Her LVEDP was high. She has a UTI and has been prescribed Augmentin prior to discharge. She is tolerating Jardiance. She denies any chest pain, shortness of breath, dizziness, nausea vomiting, diarrhea, pedal edema or urinary symptoms. Her renal functions have been stable. She is trying to maintain good hydration and is avoiding nonsteroidal anti-inflammatory medications. [facility] Medical History GERD (gastroesophageal reflux disease) Elevated cholesterol Asthma Type 2 diabetes Chronic renal insufficiency Myocardial infarction CAD (coronary artery disease) HTN (hypertension) Hyperlipidemia Depression Surgical History Hx of heart artery stent Hx of section History of cardiac catheterization H/O: hysterectomy H/O bladder repair surgery Hx of CABG Family History Mother Cervical cancer Hypertension Blindness Kidney failure Sister Cervical cancer Hypertension Hypoglycemia Brother ESRD (end stage renal disease) Hypertension Father DMII (diabetes mellitus, type 2) Son Asthma Daughter No problems noted. Daughter No problems noted. Daughter No problems noted. Daughter No problems noted. Social History Housing: Apartment Are you a primary child care giver to a significant other at home: No Do you presently have visiting nurse or other home services: No Alcohol intake: never Patient Tobacco Use Status: Never used Tobacco Tobacco use type: Cigarette e-Cigarette/Vaping Use: Never Used Second Hand Smoke Exposure: No service: No Current occupational status: disabled Cognitive needs: Yes (walker) Hearing needs: No Vision needs: Yes Physical Exam Vital Signs: Last Vital Signs Pulse 64 08/23/23 14:48 BP 124/68 08/23/23 14:48 Pulse Ox 98 08/23/23 14:48 Oxygen Delivery Method Room Air 08/23/23 14:48 BMI result Body Mass Index 36.7 Const General: comfortable and no acute distress Orientation/consciousness: patient oriented x3 HEENT Head: Yes normocephalic Mouth: Normal oral and palatal mucosa present Eyes EOM: EOMs intact bilaterally Neck Neck: Yes supple Resp Auscultation: clear to auscultation bilaterally Cardio Jugular venous distension: no JVD Rate: regular rate GI Palpation (GI): Soft to palpation Auscultation: normal bowel sounds General: Yes no CVA tenderness Back/Spine/Pelvis Back: no CVA tenderness Skin General skin exam: no rashes or lesions noted Neuro General: patient oriented x3 and moves all extremities Extrem General: Yes no pedal edema Assessment & Plan Assessment & Plan (1) Diabetic nephropathy: Code(s): E11.21 - Type 2 diabetes mellitus with diabetic nephropathy Qualifiers: Diabetes mellitus type: type 2 Qualified Code(s): E11.21 - Type 2 diabetes mellitus with diabetic nephropathy (2) CKD stage 3 secondary to diabetes: Code(s): E11.22 - Type 2 diabetes mellitus with diabetic chronic kidney disease; N18.30 - Chronic kidney disease, stage 3 unspecified (3) HTN (hypertension): Code(s): I10 - Essential (primary) hypertension Qualifiers: Hypertension type: primary hypertension Qualified Code(s): I10 - Essential (primary) hypertension Plan Gi has stage III CKD. Her renal functions are pretty stable. She has significant proteinuria. Her Brilinta has been changed to Plavix and her isosorbide dosage has been increased during her recent hospitalization. Her LVEDP was high and she has gained weight. I have increased her Lasix to 40 mg daily. She is on Jardiance. She should avoid nonsteroidal anti-inflammatory medications. She needs to continue to lose weight. Her blood pressure is at goal. I did not make any other changes today. All her questions were answered. Follow-up for blood work were ordered and follow-up was given. Orders: Orders Electrolytes Today E11.21 - Type 2 diabetes mellitus with diabetic nephropathy, E11.22 - Type 2 diabetes mellitus with diabetic chronic kidney disease, I10 - Essential (primary) hypertension, N18.30 - Chronic kidney disease, stage 3 unspecified Creatinine Today E11.21 - Type 2 diabetes mellitus with diabetic nephropathy, E11.22 - Type 2 diabetes mellitus with diabetic chronic kidney disease, I10 - Essential (primary) hypertension, N18.30 - Chronic kidney disease, stage 3 unspecified Blood Urea Nitrogen Today E11.21 - Type 2 diabetes mellitus with diabetic nephropathy, E11.22 - Type 2 diabetes mellitus with diabetic chronic kidney disease, I10 - Essential (primary) hypertension, N18.30 - Chronic kidney disease, stage 3 unspecified Medications: Changed From furosemide 20 mg PO DAILY 90 days 90 tabs 2RF I25.810 - Atherosclerosis of coronary artery bypass graft(s) without angina pectoris To furosemide 40 mg (2 x 20 mg) PO DAILY 90 days 180 tabs 2RF I25.810 - Atherosclerosis of coronary artery bypass graft(s) without angina pectoris Coding Level of Care Code Est Pt Level 4 (26712) Diagnoses Diabetic nephropathy associated with type 2 diabetes mellitus E11.21 Diabetes mellitus type: type 2 CKD stage 3 secondary to diabetes E11.22; N18.30 Primary hypertension I10 Hypertension type: primary hypertension
== END 2023-08-23 15:10 | disposition home or self-care (01) ==
PROVIDERS: PCP Physician Assistant; Visit Provider Internal Medicine Nephrology
DX: E11.21 Type 2 diabetes mellitus with diabetic nephropathy (principal); E11.22 Type 2 diabetes mellitus with diabetic chronic kidney disease; N18.30 Chronic kidney disease, stage 3 unspecified; I10 Essential (primary) hypertension
CPT/HCPCS: 99214

== ENCOUNTER → 2023-08-23 14:45 | Outpatient (BNVA) | payer OTHER, SELFPAY | PROVIDERS: PCP Physician Assistant; Visit Provider Internal Medicine Nephrology | DX: E11.21 Type 2 diabetes mellitus with diabetic nephropathy (principal); E11.22 Type 2 diabetes mellitus with diabetic chronic kidney disease; I12.9 Hypertensive chronic kidney disease with stage 1 through stage 4 chronic kidney disease, or unspecified chronic kidney disease; N18.30 Chronic kidney disease, stage 3 unspecified | CPT/HCPCS: 99212 ==

== ENCOUNTER 2023-09-20 11:25 | Outpatient (AMB) | payer OTHER, SELFPAY ==
[2023-09-20 11:28] VITALS: BP 122/64; PULSE 80; O2SAT 99
--- NOTE | 2023-09-20 11:28 | HO.NEPHOV ---
HPI HPI Comments History of Present Illness Details I had the privilege of seeing Gi in follow-up for her chronic kidney disease, proteinuria and hypertension on a backdrop of coronary artery disease and bypass surgery. She has history of congestive heart failure. She has history of premature coronary artery disease s/p CABG in 2016 in [place], with repeat catheterization due to occlusion of the SVG to OM s/p mechanical thrombectomy with x2 RENEE placement on January 2022, ischemic cardiomyopathy with preserved ejection fraction with true aneurysmal apex without thrombus confirmed on cardiac MRI with distal territory LAD infarct presented with worsening resting chest pain since 3 days and found to have subtle ST depressions not grossly unchanged but having ongoing pain. Patient underwent cardiac cath which showed the culprit was her vein graft to OM with collaterals. IC recommended medical therapy, and patient was admitted to the CCU in [facility] for further management. Her LVEDP was high. She had a UTI recently and has been prescribed Augmentin prior to hospital discharge. She is tolerating Jardiance. She denies any chest pain, shortness of breath, dizziness, nausea vomiting, diarrhea, pedal edema or urinary symptoms. Her renal functions had been stable. She is trying to maintain good hydration and is avoiding nonsteroidal anti-inflammatory medications. [facility] Medical History GERD (gastroesophageal reflux disease) Elevated cholesterol Asthma Type 2 diabetes Chronic renal insufficiency Myocardial infarction CAD (coronary artery disease) HTN (hypertension) Hyperlipidemia Depression Surgical History Hx of heart artery stent Hx of section History of cardiac catheterization H/O: hysterectomy H/O bladder repair surgery Hx of CABG Family History Mother Cervical cancer Hypertension Blindness Kidney failure Sister Cervical cancer Hypertension Hypoglycemia Brother ESRD (end stage renal disease) Hypertension Father DMII (diabetes mellitus, type 2) Son Asthma Daughter No problems noted. Daughter No problems noted. Daughter No problems noted. Daughter No problems noted. Social History Housing: Apartment Are you a primary child care to a significant other at home: No Do you presently have visiting nurse or other home services: No Alcohol intake: never Patient Tobacco Use Status: Never used Tobacco Tobacco use type: Cigarette e-Cigarette/Vaping Use: Never Used Second Hand Smoke Exposure: No service: No Current occupational status: disabled Cognitive needs: Yes (walker) Hearing needs: No Vision needs: Yes Vital Signs 09/20/23 11:28 Height 5 ft 4 in BP 122/64 Blood Pressure Location Lt brachial Position Sitting Pulse 80 Pulse Source Pulse Oximeter Pulse Oximetry (%) 99 Oxygen Delivery Method Room Air Physical Exam Vital Signs: Last Vital Signs Pulse 80 09/20/23 11:28 BP 122/64 09/20/23 11:28 Pulse Ox 99 09/20/23 11:28 Oxygen Delivery Method Room Air 09/20/23 11:28 Const General: comfortable and no acute distress Orientation/consciousness: patient oriented x3 HEENT Head: Yes normocephalic Mouth: Normal oral and palatal mucosa present Eyes EOM: EOMs intact bilaterally Neck Neck: Yes supple Resp Auscultation: clear to auscultation bilaterally Cardio Jugular venous distension: no JVD Rate: regular rate GI Palpation (GI): Soft to palpation Auscultation: normal bowel sounds General: Yes no CVA tenderness Back/Spine/Pelvis Back: no CVA tenderness Skin General skin exam: no rashes or lesions noted Neuro General: patient oriented x3 and moves all extremities Extrem General: Yes no pedal edema Assessment & Plan Assessment & Plan (1) CKD stage 3 secondary to diabetes: Code(s): E11.22 - Type 2 diabetes mellitus with diabetic chronic kidney disease; N18.30 - Chronic kidney disease, stage 3 unspecified (2) HTN (hypertension): Code(s): I10 - Essential (primary) hypertension Qualifiers: Hypertension type: primary hypertension Qualified Code(s): I10 - Essential (primary) hypertension (3) Diabetic nephropathy: Code(s): E11.21 - Type 2 diabetes mellitus with diabetic nephropathy Qualifiers: Diabetes mellitus type: type 2 Qualified Code(s): E11.21 - Type 2 diabetes mellitus with diabetic nephropathy Plan Gi has stage III CKD. Her renal functions had been stable. I have ordered follow up blood work. She has significant proteinuria. Her Brilinta has been changed to Plavix and her isosorbide dosage has been increased during her recent hospitalization. Her LVEDP was high and she has gained weight. She could continue Lasix to 40 mg daily at the last visit with improvement in clinical status. She is on Jardiance. She should avoid nonsteroidal anti-inflammatory medications. She needs to continue to lose weight. Her blood pressure is at goal. I did not make any other changes today. All her questions were answered. Follow-up for blood work were ordered and follow-up was given. Orders: Orders Creatinine Today E11.21 - Type 2 diabetes mellitus with diabetic nephropathy, E11.22 - Type 2 diabetes mellitus with diabetic chronic kidney disease, I10 - Essential (primary) hypertension, N18.30 - Chronic kidney disease, stage 3 unspecified Blood Urea Nitrogen Today E11.21 - Type 2 diabetes mellitus with diabetic nephropathy, E11.22 - Type 2 diabetes mellitus with diabetic chronic kidney disease, I10 - Essential (primary) hypertension, N18.30 - Chronic kidney disease, stage 3 unspecified Electrolytes Today E11.21 - Type 2 diabetes mellitus with diabetic nephropathy, E11.22 - Type 2 diabetes mellitus with diabetic chronic kidney disease, I10 - Essential (primary) hypertension, N18.30 - Chronic kidney disease, stage 3 unspecified Creatinine 6 Weeks E11.21 - Type 2 diabetes mellitus with diabetic nephropathy, E11.22 - Type 2 diabetes mellitus with diabetic chronic kidney disease, I10 - Essential (primary) hypertension, N18.30 - Chronic kidney disease, stage 3 unspecified Blood Urea Nitrogen 6 Weeks E11.21 - Type 2 diabetes mellitus with diabetic nephropathy, E11.22 - Type 2 diabetes mellitus with diabetic chronic kidney disease, I10 - Essential (primary) hypertension, N18.30 - Chronic kidney disease, stage 3 unspecified Electrolytes 6 Weeks E11.21 - Type 2 diabetes mellitus with diabetic nephropathy, E11.22 - Type 2 diabetes mellitus with diabetic chronic kidney disease, I10 - Essential (primary) hypertension, N18.30 - Chronic kidney disease, stage 3 unspecified Medications: Refilled furosemide 40 mg (2 x 20 mg) PO DAILY 180 tabs 2RF 90 days I25.810 - Atherosclerosis of coronary artery bypass graft(s) without angina pectoris Coding Level of Care Code Est Pt Level 4 (91120) Diagnoses CKD stage 3 secondary to diabetes E11.22; N18.30 Primary hypertension I10 Hypertension type: primary hypertension Diabetic nephropathy associated with type 2 diabetes mellitus E11.21 Diabetes mellitus type: type 2
== END 2023-09-20 11:54 | disposition home or self-care (01) ==
PROVIDERS: PCP Physician Assistant; Visit Provider Internal Medicine Nephrology
DX: E11.22 Type 2 diabetes mellitus with diabetic chronic kidney disease (principal); N18.30 Chronic kidney disease, stage 3 unspecified; I10 Essential (primary) hypertension; E11.21 Type 2 diabetes mellitus with diabetic nephropathy
CPT/HCPCS: 99214

== ENCOUNTER → 2023-09-20 11:25 | Outpatient (BNVA) | payer OTHER, SELFPAY | PROVIDERS: PCP Physician Assistant; Visit Provider Internal Medicine Nephrology | DX: E11.22 Type 2 diabetes mellitus with diabetic chronic kidney disease (principal); I12.9 Hypertensive chronic kidney disease with stage 1 through stage 4 chronic kidney disease, or unspecified chronic kidney disease; N18.30 Chronic kidney disease, stage 3 unspecified; E11.21 Type 2 diabetes mellitus with diabetic nephropathy | CPT/HCPCS: 99212 ==

== ENCOUNTER 2023-10-18 16:12 | Outpatient (AMB) | payer OTHER, SELFPAY ==
--- NOTE | 2023-10-18 16:18 | A.OFFVIS_ITS ---
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 No complaints. Last Pap/HPV was many years ago within normal, the patient is status post hysterectomy for AUB 7 years ago, no history of abnormal Pap smears Last Mammogram was BI-RADS 1 in 11/07, the patient is scheduled for another screening mammogram in the coming few weeks Last Colonoscopy was more than 5 years ago, the patient is due for another screening colonoscopy PFSH Medical History GERD (gastroesophageal reflux disease) Elevated cholesterol Asthma Type 2 diabetes Chronic renal insufficiency Myocardial infarction CAD (coronary artery disease) HTN (hypertension) Hyperlipidemia Depression Surgical History Hx of heart artery stent Hx of section History of cardiac catheterization H/O: hysterectomy H/O bladder repair surgery Hx of CABG Family History Mother Cervical cancer Hypertension Blindness Kidney failure Sister Cervical cancer Hypertension Hypoglycemia Brother ESRD (end stage renal disease) Hypertension Father DMII (diabetes mellitus, type 2) Son Asthma Daughter No problems noted. Daughter No problems noted. Daughter No problems noted. Daughter No problems noted. Maternal Aunt Ovarian cancer Social History Housing: Apartment Are you a primary healthcare applications analyst to a significant other at home: No Do you presently have visiting nurse or other home services: No Alcohol intake: never Patient Tobacco Use Status: Never used Tobacco Tobacco use type: Cigarette e-Cigarette/Vaping Use: Never Used Second Hand Smoke Exposure: No service: No Current occupational status: disabled Cognitive needs: Yes (walker) Hearing needs: No Vision needs: Yes Female Reproductive History Menstrual Age of Menarche: 16 control method: permanent sterilization Total pregnancies: 9 Full term: 5 Number of Living Children: 5 Ab spontaneous: 4 Date of Mammogram: 10/19/22 Review of Systems Const All systems reviewed & are unremarkable except as noted in HPI and below Card Reports as per HPI and Reports no additional complaints Resp Reports as per HPI and Reports no additional complaints GI Reports as per HPI and Reports no additional complaints Reports as per HPI Physical Exam Vital Signs: Last Vital Signs BP 106/72 10/18/23 16:19 BMI result Body Mass Index 34.2 Const General: cooperative, healthy appearing and comfortable General: Yes bladder normal to palpation External Female Exam: No lesion Speculum Exam - Vagina: normal appearance of the vagina, normal vaginal discharge and not erythematous Speculum Exam - Cervix: Cervix absent Bimanual exam- vagina & uterus: bladder normal to palpation and uterus absent Bimanual Exam- Adnexa, other: Other (No masses detected) Assessment & Plan Assessment & Plan (1) Well woman exam: Code(s): Z01.419 - Encounter for gynecological examination (general) (routine) without abnormal findings Plan: Co testing not indicated because the patient is status post hysterectomy for benign disease with no history of abnormal Pap smears. Counseled the patient about the recommended dietary allowance of 1200 mg of Calcium & 600 IU of vitamin D. Mammogram scheduled in few weeks. The patient was referred to GI for screening colonoscopy . The patient was instructed to perform monthly self-breast exams and schedule annual exam in a year. All questions answered and the patient verbalized understanding. Orders: Referrals Gastroenterology Referral Z12.11 - Encounter for screening for malignant neoplasm of colon Coding Level of Care Code New Pt Prev Care 40-64y(45808) Diagnoses Well woman exam Z01.419
[2023-10-18 16:19] VITALS: BP 106/72; BMI 34.2
== END 2023-10-18 18:32 ==
LOC: HO.HWS 16:12
PROVIDERS: PCP Physician Assistant; Visit Provider Obstetrics & Gynecology
DX: Z01.419 Encounter for gynecological examination (general) (routine) without abnormal findings (principal)
CPT/HCPCS: 99386

== ENCOUNTER → 2023-10-18 16:12 | Outpatient (BNVA) | payer OTHER, SELFPAY | PROVIDERS: PCP Physician Assistant; Visit Provider Obstetrics & Gynecology | DX: Z01.419 Encounter for gynecological examination (general) (routine) without abnormal findings (principal) | CPT/HCPCS: 99386 ==

== ENCOUNTER 2023-10-20 11:23 | Outpatient (AMB) | payer OTHER, SELFPAY ==
[2023-10-20 11:45] VITALS: BP 126/80; PULSE 70; O2SAT 98; BMI 34.2
--- NOTE | 2023-10-20 11:45 | MHC.PC.OV ---
Vital Signs 10/20/23 11:45 Height 5 ft 4 in Weight 199 lb BMI 34.2 BP 126/80 Blood Pressure Location Lt brachial Position Sitting Pulse 70 Pulse Source Pulse Oximeter Pulse Oximetry (%) 98 Oxygen Delivery Method Room Air Intake Visit Reasons: pe Intake Note: Patient is here today for a physical. 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 Accompanied by: Significant Other Allergies tramadol [TRAMADOL] Allergy (Intermediate, Verified 10/20/23 12:00) VOMITING adhesive tape Adverse Reaction (Intermediate, Verified 10/20/23 12:00) tears skin lisinopril Adverse Reaction (Mild, Verified 10/20/23 12:00) Cough Medication List - Last Reconciled 10/20/23 by Pablo Mendoza PA-C albuterol sulfate 90 mcg/actuation (Ventolin HFA) 2 puffs inhalation QID 30 days amlodipine 2.5 mg PO DAILY atorvastatin 80 mg PO DAILY blood pressure test kit-large As directed blood sugar diagnostic (FreeStyle Lite Strips) As directed cetirizine 10 mg PO DAILY cholecalciferol (vitamin D3) 125 mcg PO DAILY 90 days clopidogrel 75 mg PO DAILY dulaglutide (Trulicity) 1.5 mg subcut QWEEK empagliflozin (Jardiance) 10 mg PO DAILY escitalopram oxalate 10 mg PO DAILY evolocumab (Repatha Syringe) 140 mg subcut Q2W famotidine 20 mg PO DAILY 90 days flash glucose sensor (FreeStyle Aida 2 Sensor kit) As directed fluticasone propionate 50 mcg/actuation (Flonase Allergy Relief) 1 spray intranasal BID 30 days furosemide 40 mg (2 x 20 mg) PO DAILY 90 days gabapentin 600 mg (2 x 300 mg) PO TID 90 days insulin glargine 40 units subcut QPM insulin lispro (Humalog KwikPen (U-100) Insulin) 5 units subcut TID isosorbide mononitrate ER 60 mg (2 x 30 mg) PO DAILY 90 days isosorbide mononitrate ER 60 mg PO DAILY mecobalamin (vitamin B12) 1,000 mcg PO DAILY metoprolol succinate ER 50 mg PO DAILY walker As directed Tobacco use date assessed: 10/20/23 Dental Screening Dental Screen Date: 10/20/23 Did you have a dental visit in the last 12 months?: Yes Did you have a dental problem in the last 6 months where you did not have access to dental care?: No Was dental information given to patient?: Patient has dentist HPI pe HPI Details Patient is a 52 year female? here for annual physical She has a past medical history significant for type 2 diabetes, obesity, hypertension hyperlipidemia, CAD ( status post quadruple bypass), congestive heart failure, GERD, depression. Recently hospitalized at [facility] for acute myocardial infarction. She did undergo a cardiac catheterization though no stents or revascularization needed to be done. She was started on amlodipine for better blood pressure control. She has been set up for cardiac rehab Unfortunately the area in her right groin where they did catheterization has started to become infected. Concern--> she reports she has a sister and mother who both were diagnosed with lupus and would like to be screened for lupus disorder. CHRONIC MEDICAL CONDITIONS--> .. DMII: Is seeing an clarifier operator at [facility]. Sugars have been well controlled at home.. Most recent A1c - 8.1 at [facility] on September of 2023. She continues to follow [facility] Endocrinology. She does mention having some hypoglycemic episodes .. 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 CAD:? Has had a CABG x4..? Patient followed by Cardiology. .? Patient's LDL optimally controlled. Continues on high-dose statin therapy and praulent injections. Patient data recent echocardiogram that showed appropriate EF ? Is seeing a underwear cutter at [facility]? ( Dr. 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: Has had a full hysterectomy Mammogram: Has upcoming appointment for mammogram Colon cancer screening: Has been referred to Gastroenterology for colonoscopy [facility] Medical History (Updated 10/20/23 @ 12:52 by Pablo Mendoza PA-C) Carpal tunnel syndrome of right wrist GERD (gastroesophageal reflux disease) Elevated cholesterol Asthma Type 2 diabetes Chronic renal insufficiency Myocardial infarction CAD (coronary artery disease) HTN (hypertension) Hyperlipidemia Depression Surgical History Hx of heart artery stent Hx of section History of cardiac catheterization H/O: hysterectomy H/O bladder repair surgery Hx of CABG Family History Mother Cervical cancer Hypertension Blindness Kidney failure Sister Cervical cancer Hypertension Hypoglycemia Brother ESRD (end stage renal disease) Hypertension Father DMII (diabetes mellitus, type 2) Son Asthma Daughter No problems noted. Daughter No problems noted. Daughter No problems noted. Daughter No problems noted. Maternal Aunt Ovarian cancer Social History Housing: Apartment Are you a primary manager urgent care to a significant other at home: No Do you presently have visiting nurse or other home services: No Alcohol intake: never Patient Tobacco Use Status: Never used Tobacco Tobacco use type: Cigarette e-Cigarette/Vaping Use: Never Used Second Hand Smoke Exposure: No service: No Current occupational status: disabled Cognitive needs: Yes (walker) Hearing needs: No Vision needs: Yes Female Reproductive History Menstrual Age of Menarche: 16 Questionnaire PHQ-9 Over the last 2 weeks, how often have you been bothered by any of the following problems? 1. Little interest or pleasure in doing things: not at all 2. Feeling down, depressed, or hopeless: not at all 3. Trouble falling or staying asleep, or sleeping too much: not at all 4. Feeling tired or having little energy: not at all 5. Poor appetite or overeating: not at all 6. Feeling bad about yourself - or that you are a failure or have let yourself or your family down: not at all 7. Trouble concentrating on things, such as reading the newspaper or watching television: not at all 8. Moving or speaking so slowly that other people could have noticed. Or the opposite - being so fidgety or restless that you have been moving around a lot more than usual: not at all 9. Thoughts that you would be better off or of hurting yourself in some way: not at all Total score: 0 Depression Screening Interpretation: Negative Depression Screening Done: Yes 20099 - PHQ-9 Billing: Yes Source: Developed by Drs. George Rivas, Shira Lawrence, Duong Pina and colleagues, with an educational misha from [employer] Thrive Questionnaire Date Thrive assessed: 10/20/23 I am a: Patient What is your living situation today?: I have a steady place to live Within the past 12 months, did the food you bought not last and you didn't have the money to get more?: Never true Within the past 12 months, did you worry whether your food would run out before you got money to buy more?: Never true Do you have trouble paying for medicines?: No Do you have trouble getting transportation to medical appointments?: No Do you have trouble paying your heating and electricity bill?: No Do you have trouble taking care of your child, family member or friend?: No Do you have trouble with day-to-day activities such as bathing, preparing meals, shopping, managing finances, etc.?: No Are you currently unemployed and looking for a job?: No Are you interested in more education?: No Please select the resources that you would like help with: None Currently or been in a relationship where the following occur: no concerns reported THRIVE Score: 0 AUDIT C Alcohol Use Questionnaire (AUDIT-C) 1. How often do you have a drink containing alcohol?: Never Total Score: 0 MOUNA-7 AMB Questionnaire MOUNA-7 Date MOUNA - 7 assessed: 10/20/23 Feeling nervous, anxious, or on edge: 0 = Not at all Not being able to stop or control worryin = Not at all Worrying too much about different things: 0 = Not at all Trouble relaxin = Not at all Being so restless that it is hard to sit still: 0 = Not at all Becoming easily annoyed or irritable: 0 = Not at all Feeling afraid as if something awful might happen: 0 = Not at all Total MOUNA-7 score (0-4 normal; 5-9 mild; 10-14 moderate; 15-21 severe): 0 Source: Developed by Drs. George Rivas, Shira Lawrence, Duong Pina and colleagues, with an educational misha from [employer] MOUNA-7 Assessment Billing MOUNA-7 Assessment Tool: MOUNA-7 Assessment 23368 Review of Systems Const Denies body aches, Denies chills, Denies excessive sweating, Denies fatigue, Denies fever(s) and Denies headache(s) Eyes Denies blurry vision ENT Denies dysphagia, Denies vertigo, Denies dizziness, Denies headache(s), Denies hearing loss and Denies tinnitus Card Denies chest pain, Denies chest pain with activity, Denies syncope, Denies irregular heart rhythm and Denies dyspnea Resp Denies chest congestion, Denies cough, Denies hemoptysis, Denies dyspnea and Denies wheezing GI Denies abdominal pain, Denies melena, Denies hematochezia, Denies coffee ground emesis, Denies dysphagia, Denies diarrhea, Denies nausea and Denies vomiting Denies urinary frequency, Denies dysuria, Denies urinary hesitancy and Denies urinary urgency Musc Denies arthralgias, Denies limited range of motion, Denies muscle cramps and Denies muscle weakness Skin/Breast Denies rash and Denies skin ulcer Neuro Denies Abnormal speech present, Denies confusion, Denies vertigo, Denies dizziness, Denies syncope, Denies headache(s), Denies memory loss and Denies seizure-like activity Psych Denies anxiety, Denies confusion, Denies depression, Denies memory loss, Denies panic attacks and Denies paranoia Endo Denies excessive sweating, Denies fatigue, Denies flushing, Denies polydipsia and Denies polyuria Aller/Immun Denies wheezing Physical exam (Primary Care) Vital Signs: Last Vital Signs Pulse 70 10/20/23 11:45 BP 126/80 10/20/23 11:45 Pulse Ox 98 10/20/23 11:45 Oxygen Delivery Method Room Air 10/20/23 11:45 BMI result Body Mass Index 34.2 Tobacco/Smoking Status: Tobacco use Status Tobacco use date assessed 10/20/23 10/20/23 11:56 Patient Tobacco Use Status Never used Tobacco 10/20/23 11:46 Tobacco use type Cigarette 10/20/23 11:46 e-Cigarette/Vaping Use Never Used 10/20/23 11:46 PHQ-9: PHQ-9 Score PHQ-9: Total score 0 10/20/23 11:56 Depression Screening Interpretation: Negative Thrive Assessment: Date of Thrive Assessment Date Thrive assessed 10/20/23 10/20/23 11:56 Currently or been in a relationship where the following occur: no concerns reported Const General: cooperative, comfortable, no acute distress, alert and awake; No confusion Orientation/consciousness: oriented to person, oriented to place, patient oriented x3 and No confusion HENMT Head: Yes normocephalic Ears: external ears normal and TM's normal bilaterally Face and sinus: No sinus tenderness Mouth: Normal oral and palatal mucosa present and tongue normal Teeth and gingiva: dentition normal and gingiva normal Throat: Yes posterior oropharynx normal, Yes tonsils normal and Yes uvula midline Eyes Conjunctivae: conjunctivae normal Sclerae: sclerae normal Pupils: Equal, round and reactive pupils present EOM: EOMs intact bilaterally Direct Ophthalmoscopy: No no photophobia Neck Neck: Yes no lymphadenopathy, No tender and Yes no JVD Thyroid: Thyroid normal Carotids: no bruits Chest Chest palpation & inspection: no tenderness Resp Effort & Inspection: normal respiratory effort, no audible wheezes, not labored and no stridor Auscultation: no crackles, no rales, no rhonchi and no wheezes Cardio Jugular venous distension: no JVD Rate: regular rate, not bradycardic and not tachycardic Rhythm: regular rhythm Bruits: no carotid bruits Peripheral pulses: Peripheral pulses 2+ throughout GI Inspection: Yes normal to inspection, No abdominal wall ecchymosis and No visible herniation Palpation (GI): Soft to palpation, nontender, no guarding, not rigid and No hepatosplenomegaly present Auscultation: normoactive bowel sounds Abdomen image: 1. OPEN WOUND WITH GREENISH PURULENT DRAINAGE. NO SURROUNDING ERYTHEMA General: Yes no CVA tenderness Back/Spine/Pelvis Back: no CVA tenderness and No back tenderness Cervical Spine: cervical ROM normal Thoracic/Lumbar Spine: thoracic and lumbar spine normal to inspection, straight leg raise negative bilaterally, No thoraco-lumbar ROM limited and No lumbar spinal tenderness Skin Lesions: no lesions Rashes: no rashes Wounds: no wounds Neuro General: oriented to person, oriented to place, patient oriented x3, CN's II-XI intact bilaterally and No confusion Cranial nerves: Yes Equal, round and reactive pupils present and Yes Normal accommodation reflex present Cognition (Neuro): normal cognition Speech: No Abnormal speech present Gait exam (Neuro): Normal gait present Motor exam (neuro): 5/5 motor strength present throughout Extrem Right upper extremity: full ROM; no cyanosis Left upper extremity: full ROM; no cyanosis Right lower extremity: no edema Left lower extremity: no edema Upper/lower leg/hip images: 1. SUPERFICIAL HEALED ULCER LIKE LESION OVER THE RIGHT HEEL OVERLYING THE ACHILLES TENDON Psych Appearance: grossly normal Mental Status: mental status grossly normal Affect: normal affect Attitude: cooperative Thought process: Normal thought process present Assessment and Plan Assessment & Plan (1) Annual physical exam: Code(s): Z00.00 - Encounter for general adult medical examination without abnormal findings (2) CAD (coronary artery disease): Comment: CABG 2017 with CHICAS to LAD, SVG to RPDA, SVG to RPL and SVG to OM Code(s): I25.10 - Atherosclerotic heart disease of [place] coronary artery without angina pectoris Qualifiers: Coronary Disease-Associated Artery/Lesion type: bypass graft [place] vs. transplanted heart: [place] heart Associated angina: without angina Qualified Code(s): I25.810 - Atherosclerosis of coronary artery bypass graft(s) without angina pectoris Plan: Again continues to cardiology. Recently underwent cardiac catheterization (September 2023) though no acute blockages. Recent lipid panel showing appropriate LDL. Continues on high potency statin, praulent and aspirin (3) DMII (diabetes mellitus, type 2): Code(s): E11.9 - Type 2 diabetes mellitus without complications Qualifiers: Diabetes mellitus fci insulin use: with emergency veterinary assistant use Diabetes mellitus complication status: with kidney complications Diabetes mellitus complication detail: with chronic kidney disease Chronic kidney disease stage: stage 3 (moderate) Chronic kidney disease stage 3 subtype: stage 3a (GFR 45-59) Qualified Code(s): E11.22 - Type 2 diabetes mellitus with diabetic chronic kidney disease; N18.31 - Chronic kidney disease, stage 3a; Z79.4 - health equipment servicer (current) use of insulin Plan: Patient's type 2 diabetes suboptimally controlled with today's A1c is at 8.1. She does follow clarifier operator and consider increasing her Trulicity dose. She will work on lifestyle modifications on reducing carbohydrates in her diet. Goal A1c to be below 7.0 (4) Heart failure: Comment: Echo: EF 50-55% (01/19/22 done at [facility]) Code(s): I50.9 - Heart failure, unspecified Qualifiers: Heart failure type: systolic Heart failure chronicity: chronic Qualified Code(s): I50.22 - Chronic systolic (congestive) heart failure Plan: Continues to follow cardiology and continues on medications to support heart failure. Clinically seems euvolemic on physical exam today. (5) Obese: Code(s): E66.9 - Obesity, unspecified Qualifiers: Obesity type: due to excess calories Obesity classification: adult class 1 (BMI 30 - 34.9) Serious obesity comorbidity presence: with serious comorbidity Body mass index: BMI 34.0-34.9 Qualified Code(s): E66.09 - Other obesity due to excess calories; Z68.34 - Body mass index [BMI] 34.0-34.9, adult Plan: Patient does understand her BMI is over 30, has been able to lose weight since starting Trulicity. Patient will continue working on lifestyle modifications to reduce her weight. (6) MDD (major depressive disorder), recurrent episode, moderate: Code(s): F33.1 - Major depressive disorder, recurrent, moderate Plan: Patient's depression has been fairly stable. Continues on Lexapro 10 mg with good affect on her mood. (7) Family history of lupus anticoagulant disorder: Code(s): Z83.2 - Family history of diseases of the blood and blood-forming organs and certain disorders involving the immune mechanism Plan: Will send for lupus screening (8) Wound infection: Code(s): T14.8XXA - Other injury of unspecified body region, initial encounter; L08.9 - Local infection of the skin and subcutaneous tissue, unspecified (9) Ulcer of right heel: Code(s): L97.419 - Non-pressure chronic ulcer of right heel and midfoot with unspecified severity Qualifiers: Non-pressure ulcer stage: unspecified non-pressure ulcer stage Qualified Code(s): L97.419 - Non-pressure chronic ulcer of right heel and midfoot with unspecified severity Plan: Appears to have a ulcer over the upper aspect of the heel overlying the Achilles tendon. Orders: Orders Comprehensive Effie. Panel Fast Today E11.22 - Type 2 diabetes mellitus with diabetic chronic kidney disease, N18.31 - Chronic kidney disease, stage 3a, Z79.4 - health equipment servicer (current) use of insulin Complete Blood Count no Diff Today E78.5 - Hyperlipidemia, unspecified Lupus Anticoagulant Panel Today Z83.2 - Family history of diseases of the blood and blood-forming organs and certain disorders involving the immune mechanism Anti DNA DS Antibody Today Z83.2 - Family history of diseases of the blood and blood-forming organs and certain disorders involving the immune mechanism Lipid Panel Today E78.5 - Hyperlipidemia, unspecified Medications: New silver sulfadiazine 1% (Silvadene) apply a 1.5 mm thickness 1 appl topical DAILY 30 days 50 grams 1RF L97.419 - Non-pressure chronic ulcer of right heel and midfoot with unspecified severity amoxicillin-pot clavulanate 875-125 mg 1 tab PO BID 7 days 14 tabs 0RF L08.9 - Local infection of the skin and subcutaneous tissue, unspecified, T14.8XXA - Other injury of unspecified body region, initial encounter Changed From isosorbide mononitrate ER 60 mg (2 x 30 mg) PO DAILY 90 days 180 tabs 2RF I10 - Essential (primary) hypertension To isosorbide mononitrate ER 30 mg PO DAILY 90 days 90 tabs 2RF I10 - Essential (primary) hypertension Refilled cholecalciferol (vitamin D3) 125 mcg PO DAILY 90 days 90 caps 2RF E55.9 - Vitamin D deficiency, unspecified cholecalciferol (vitamin D3) 125 mcg PO DAILY 90 days 90 caps 2RF E55.9 - Vitamin D deficiency, unspecified Coding Level of Care Code Est Pt [facility] [id number]) Diagnoses Annual physical exam Z00.00 Coronary artery disease involving coronary bypass graft of [place] heart without angina pectoris I25.810 Coronary Disease-Associated Artery/Lesion type: bypass graft [place] vs. transplanted heart: [place] heart Associated angina: without angina Type 2 diabetes mellitus with stage 3a chronic kidney disease, with long-term current use of insulin E11.22; N18.31; Z79.4 Diabetes mellitus emergency veterinary assistant insulin use: with fci use Diabetes mellitus complication status: with kidney complications Diabetes mellitus complication detail: with chronic kidney disease Chronic kidney disease stage: stage 3 (moderate) Chronic kidney disease stage 3 subtype: stage 3a (GFR 45-59) Chronic systolic heart failure I50.22 Heart failure type: systolic Heart failure chronicity: chronic Class 1 obesity due to excess calories with serious comorbidity and body mass index (BMI) of 34.0 to 34.9 in adult E66.09; Z68.34 Obesity type: due to excess calories Obesity classification: adult class 1 (BMI 30 - 34.9) Serious obesity comorbidity presence: with serious comorbidity Body mass index: BMI 34.0-34.9 MDD (major depressive disorder), recurrent episode, moderate F33.1 Family history of lupus anticoagulant disorder Z83.2 Wound infection T14.8XXA; L08.9 Heel ulceration, right, with unspecified severity L97.419 Non-pressure ulcer stage: unspecified non-pressure ulcer stage Additional Codes MOUNA-7 Assessment Billing - MOUNA-7 Assessment Tool: MOUNA-7 Assessment [id number] ([id number])
== END 2023-10-20 12:33 | disposition home or self-care (01) ==
PROVIDERS: PCP Physician Assistant; Visit Provider Physician Assistant
DX: Z00.00 Encounter for general adult medical examination without abnormal findings (principal); I25.810 Atherosclerosis of coronary artery bypass graft(s) without angina pectoris; E11.22 Type 2 diabetes mellitus with diabetic chronic kidney disease; N18.31 Chronic kidney disease, stage 3a; I50.22 Chronic systolic (congestive) heart failure; E66.09 Other obesity due to excess calories; Z68.34 Body mass index [BMI] 34.0-34.9, adult; F33.1 Major depressive disorder, recurrent, moderate; Z83.2 Family history of diseases of the blood and blood-forming organs and certain disorders involving the immune mechanism; T14.8XXA Other injury of unspecified body region, initial encounter; L08.9 Local infection of the skin and subcutaneous tissue, unspecified; L97.419 Non-pressure chronic ulcer of right heel and midfoot with unspecified severity
CPT/HCPCS: 99396

== ENCOUNTER 2023-10-20 12:50 | Outpatient (REF) | payer OTHER, SELFPAY ==
[2023-10-20 14:09] LABS: Hematocrit 38.5 % (37.0-47.0); Hemoglobin 12.1 g/dl (12.0-16.0); Mean Corpuscular HGB Conc 31.4 g/dl (31.0-35.0); Mean Corpuscular Hemoglobin 26.9 pg (27.0-33.0); Mean Corpuscular Volume 85.7 fL (80.0-98.0); Mean Platelet Volume 11.5 fL (9.4-12.3); Platelet Count 287 X10*3/uL (160-400); Red Blood Count 4.49 X10*6/uL (4.20-5.50); Red Cell Distribution Width 14.7 % (11.0-16.0); White Blood Count 5.7 X10*3/uL (4.8-10.8)
[2023-10-20 14:25] LABS: Alanine Aminotransferase 56 U/L (0-31); Albumin Level 4.3 g/dL (3.5-5.0); Alkaline Phosphatase 111 U/L (39-117); Anion Gap 13 (12-20); Aspartate Amino Transferase 29 U/L (5-31); Bilirubin Total 0.4 mg/dL (0.0-1.0); Blood Urea Nitrogen 31 mg/dL (9-16); Calcium 10.7 mg/dL (8.4-10.2); Carbon Dioxide 32 mmol/L (22-29); Chloride 98 mmol/L (96-108); Estimated Glomerular Filt Rate 32; Glucose Fasting 194 mg/dL (60-99); Potassium 4.2 mmol/L (3.3-5.1); Sodium 139 mmol/L (135-145); Total Protein 8.7 g/dL (6.5-8.0)
[2023-10-21 13:23] LABS: Anti DNA DS Antibody 1 IU/mL
[2023-10-27 12:54] LABS: PTT (LAC) Screen 37 sec (<=40)
== END 2023-10-20 12:51 | disposition home or self-care (01) ==
LOC: HO.LAB 12:50
PROVIDERS: PCP Physician Assistant; Visit Provider Internal Medicine Nephrology
DX: E11.22 Type 2 diabetes mellitus with diabetic chronic kidney disease (principal); N18.31 Chronic kidney disease, stage 3a; E78.5 Hyperlipidemia, unspecified; Z79.4 Long term (current) use of insulin; Z83.2 Family history of diseases of the blood and blood-forming organs and certain disorders involving the immune mechanism
CPT/HCPCS: 36415; 80053; 85027; 85597; 85598; 85613; 85730; 86225

== ENCOUNTER 2023-10-25 13:47 | Outpatient (REF) | payer OTHER, SELFPAY | END 2023-10-25 13:48 | disposition home or self-care (01) | LOC: HO.MAMMO 13:47 | PROVIDERS: PCP Physician Assistant; Visit Provider Physician Assistant | DX: Z12.31 Encounter for screening mammogram for malignant neoplasm of breast (principal) | CPT/HCPCS: 77063; 77067 ==

== ENCOUNTER → 2023-10-25 14:00 | Outpatient (BNV) | payer OTHER, SELFPAY | PROVIDERS: PCP Physician Assistant; Visit Provider Radiology Diagnostic Radiology | DX: Z12.31 Encounter for screening mammogram for malignant neoplasm of breast (principal) | CPT/HCPCS: 77063; 77067 ==

== ENCOUNTER 2024-01-04 15:54 | Outpatient (AMB) | payer OTHER, SELFPAY ==
--- NOTE | 2024-01-04 15:54 | A.OFFPC_ITS ---
Intake Visit Reasons: incontinence Adjunct Psychology Faculty Member Required: No Information Interpreted: non-clinical & clinical Recruiting Coordinator: Not Required per policy Accompanied by: Self / Same As Patient Allergies tramadol [TRAMADOL] Allergy (Intermediate, Verified 01/04/24 16:26) VOMITING adhesive tape Adverse Reaction (Intermediate, Verified 01/04/24 16:26) tears skin lisinopril Adverse Reaction (Mild, Verified 01/04/24 16:26) Cough Medication List - Last Reconciled 01/04/24 by Pablo Mendoza PA-C albuterol sulfate 90 mcg/actuation (Ventolin HFA) 2 puffs inhalation QID 30 days amlodipine 2.5 mg PO DAILY atorvastatin 80 mg PO DAILY blood pressure test kit-large As directed blood sugar diagnostic (FreeStyle Lite Strips) As directed cetirizine 10 mg PO DAILY cholecalciferol (vitamin D3) 125 mcg PO DAILY 90 days clopidogrel 75 mg PO DAILY dulaglutide (Trulicity) 1.5 mg subcut QWEEK empagliflozin (Jardiance) 10 mg PO DAILY escitalopram oxalate 10 mg PO DAILY evolocumab (Repatha Syringe) 140 mg subcut Q2W famotidine 20 mg PO DAILY 90 days flash glucose sensor (FreeStyle Aida 2 Sensor kit) As directed fluticasone propionate 50 mcg/actuation (Flonase Allergy Relief) 1 spray intranasal BID 30 days furosemide 40 mg (2 x 20 mg) PO DAILY 90 days gabapentin 600 mg (2 x 300 mg) PO TID 90 days insulin glargine 40 units subcut QPM insulin lispro (Humalog KwikPen (U-100) Insulin) 5 units subcut TID isosorbide mononitrate ER 60 mg PO DAILY isosorbide mononitrate ER 30 mg PO DAILY 90 days mecobalamin (vitamin B12) 1,000 mcg PO DAILY metoprolol succinate ER 50 mg PO DAILY silver sulfadiazine 1% (Silvadene) 1 appl topical DAILY 30 days walker As directed Tobacco use date assessed: 10/20/23 Dental Screening Dental Screen Date: 10/20/23 HPI incontinence HPI Details Patient is a 52 year female? being evaluated today via telephone. She has a past medical history significant for type 2 diabetes, obesity, hypertension hyperlipidemia, CAD ( status post quadruple bypass), congestive heart failure, GERD, depression. Today's discussion rales on her urinary incontinence over the last few years. Report whenever she sneezes and cough she urinates in voluntarily. She does report having a bladder sling surgery in the past and feels it has failed. She is interested in reestablishing care with Urogynecology and perhaps getting evaluated. We did discuss pelvic floor therapy and she is interested on doing this in the future. She would benefit from incontinence supplies to use for accidental stress incontinence episodes. [facility] Medical History Carpal tunnel syndrome of right wrist GERD (gastroesophageal reflux disease) Elevated cholesterol Asthma Type 2 diabetes Chronic renal insufficiency Myocardial infarction CAD (coronary artery disease) HTN (hypertension) Hyperlipidemia Depression Surgical History Hx of heart artery stent Hx of section History of cardiac catheterization H/O: hysterectomy H/O bladder repair surgery Hx of CABG Family History Mother Cervical cancer Hypertension Blindness Kidney failure Sister Cervical cancer Hypertension Hypoglycemia Brother ESRD (end stage renal disease) Hypertension Father DMII (diabetes mellitus, type 2) Son Asthma Daughter No problems noted. Daughter No problems noted. Daughter No problems noted. Daughter No problems noted. Maternal Aunt Ovarian cancer Social History Housing: Apartment Are you a primary critical care nurse practitioner to a significant other at home: No Do you presently have visiting nurse or other home services: No Alcohol intake: never Patient Tobacco Use Status: Never used Tobacco Tobacco use type: Cigarette e-Cigarette/Vaping Use: Never Used Second Hand Smoke Exposure: No service: No Current occupational status: disabled Cognitive needs: Yes (walker) Hearing needs: No Vision needs: Yes Female Reproductive History Menstrual Age of Menarche: 16 Questionnaire Thrive Questionnaire Date Thrive assessed: 10/20/23 MOUNA-7 AMB Questionnaire MOUNA-7 Date MOUNA - 7 assessed: 10/20/23 Source: Developed by Drs. George Rivas, Shira Lawrence, Duong Pina and colleagues, with an educational misha from [employer]. Review of Systems Const Denies headache(s) Eyes Denies loss of vision ENT Denies vertigo, Denies dizziness, Denies headache(s) and Denies sore throat Card Denies chest pain, Denies leg edema and Denies lightheadedness Resp Denies cough, Denies hemoptysis and Denies wheezing GI Denies abdominal pain, Denies melena, Denies constipation, Denies diarrhea and Denies vomiting Denies urinary frequency, Denies dysuria, Reports urinary incontinence and Denies urinary urgency Musc Denies arthralgias, Denies joint swelling, Denies numbness and Denies tingling Neuro Denies behavioral changes, Denies vertigo, Denies dizziness, Denies headache(s), Denies loss of vision, Denies memory loss, Denies numbness and Denies tingling Psych Denies anxiety, Denies behavioral changes, Denies depression, Denies memory loss and Denies panic attacks Jose/Lymph Denies easy bleeding and Denies easy bruising Aller/Immun Denies wheezing Physical exam (Primary Care) Tobacco/Smoking Status: Tobacco use Status Tobacco use date assessed 10/20/23 01/04/24 15:55 Patient Tobacco Use Status Never used Tobacco 01/04/24 15:55 Tobacco use type Cigarette 01/04/24 15:55 e-Cigarette/Vaping Use Never Used 01/04/24 15:55 Thrive Assessment: Date of Thrive Assessment Date Thrive assessed 10/20/23 01/04/24 15:55 Telehealth Telehealth Telehealth Platform: Telephone Location of provider rendering services: practice address Location of patient: address on file Patient Identification confirmed using: Name, : Yes Telehealth method: voice only Patient verbally consented to treatment: Yes Patient verbally consented to billing insurance company: Yes Patient informed of any privacy concerns related to visit: Yes Minutes spent on Phone/Video with Pt.: 11 Assessment and Plan Assessment & Plan (1) Stress incontinence in female: Code(s): N39.3 - Stress incontinence (female) (male) Plan: Patient's signs symptoms most consistent with a stress incontinence. Will likely benefit from pelvic floor therapy. Will consider urogynecology referral for re-evaluation of bladder sling. Medications: Refilled gabapentin 600 mg (2 x 300 mg) PO TID 540 caps 1RF 90 days E11.22 - Type 2 diabetes mellitus with diabetic chronic kidney disease, N18.31 - Chronic kidney disease, stage 3a, Z79.4 - 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 metoprolol succinate ER 50 mg PO DAILY 90 tabs 1RF I25.810 - Atherosclerosis of coronary artery bypass graft(s) without angina pectoris Coding Level of Care Code Tele Est Pt Level 3 (47479) Diagnoses Stress incontinence in female N39.3
== END 2024-01-04 17:28 | disposition home or self-care (01) ==
LOC: HO.HMGH 15:54
PROVIDERS: PCP Physician Assistant; Visit Provider Physician Assistant
DX: N39.3 Stress incontinence (female) (male) (principal); E11.22 Type 2 diabetes mellitus with diabetic chronic kidney disease; Z79.4 Long term (current) use of insulin; N18.31 Chronic kidney disease, stage 3a
CPT/HCPCS: 99213

== ENCOUNTER 2024-04-19 10:25 | Outpatient (AMB) | payer OTHER, SELFPAY ==
[2024-04-19 10:30] VITALS: BP 150/84; PULSE 70; O2SAT 99; BMI 38.5
--- NOTE | 2024-04-19 10:30 | A.OFFPC_ITS ---
Vital Signs 04/19/24 10:30 Height 5 ft 4 in Weight 224 lb 8 oz BMI 38.5 BP 150/84 H Blood Pressure Location Rt brachial Position Sitting Pulse 70 Pulse Source Pulse Oximeter Pulse Oximetry (%) 99 Oxygen Delivery Method Room Air Intake Visit Reasons: f/u CAD/ DMII- NEEDS A1C Registered Nurse Fetal Required: No Accompanied by: Significant Other Allergies tramadol [TRAMADOL] Allergy (Intermediate, Verified 04/19/24 10:47) VOMITING adhesive tape Adverse Reaction (Intermediate, Verified 04/19/24 10:47) tears skin lisinopril Adverse Reaction (Mild, Verified 04/19/24 10:47) Cough Medication List - Last Reconciled 04/19/24 by Pablo Mendoza PA-C albuterol sulfate 90 mcg/actuation (Ventolin HFA) 2 puffs inhalation QID 30 days amlodipine 5 mg PO DAILY atorvastatin 80 mg PO DAILY blood pressure test kit-large As directed blood sugar diagnostic (FreeStyle Lite Strips) As directed cetirizine 10 mg PO DAILY cholecalciferol (vitamin D3) 125 mcg PO DAILY 90 days clopidogrel 75 mg PO DAILY dulaglutide (Trulicity) 1.5 mg subcut QWEEK empagliflozin (Jardiance) 10 mg PO DAILY escitalopram oxalate 10 mg PO DAILY evolocumab (Repatha Syringe) 140 mg subcut Q2W famotidine 40 mg PO DAILY flash glucose sensor (FreeStyle Aida 2 Sensor kit) As directed fluticasone propionate 50 mcg/actuation (Flonase Allergy Relief) 1 spray intranasal BID 30 days furosemide 40 mg (2 x 20 mg) PO DAILY 90 days gabapentin 600 mg (2 x 300 mg) PO TID 90 days insulin glargine 30 units subcut QPM insulin lispro (Humalog KwikPen (U-100) Insulin) 5 units subcut TID isosorbide mononitrate ER 60 mg PO DAILY losartan 25 mg PO DAILY mecobalamin (vitamin B12) 1,000 mcg PO DAILY metoprolol succinate ER 50 mg PO DAILY walker As directed Tobacco use date assessed: 10/20/23 Dental Screening Dental Screen Date: 10/20/23 HPI f/u CAD/ DMII- NEEDS A1C HPI Details Patient is a 53 year female? here for a follow-up visit She has a past medical history significant for type 2 diabetes, obesity, hypertension hyperlipidemia, CAD ( status post quadruple bypass), congestive heart failure, GERD, depression. Patient recently seen at [facility] for an NSTEMI. Her metoprolol was changed to Coreg, losartan was started as well. She reports she did have emergent dialysis while hospitalized due to having cont rast dye for her cardiac procedure. CHRONIC MEDICAL CONDITIONS--> .. DMII: Is seeing an industrial staff nurse at [facility]. During her recent hospitalization her A1c is 10.1. Today's A1c 9.4. Will have her increase her Lantus to 40 units daily She continues to follow [facility] Endocrinology. She does mention having some hypoglycemic episodes .. CKD- as above patient did have acute renal failure due to contrast dye and needed emergent dialysis while in the hospital.. stage 3- See Dr Soto staffing director, has been avoiding nephrotoxins, most recent creatinine at 1.6 .. CAD:? Has had a CABG x4..? Patient followed by Cardiology. .? Patient's LDL optimally controlled. Continues on high-dose statin therapy and praulent injections. Patient data recent echocardiogram that showed appropriate EF ? Is seeing a sueding and buffing machine operator at [facility]? ( Dr. Eisenberg) [facility] Medical History Carpal tunnel syndrome of right wrist GERD (gastroesophageal reflux disease) Elevated cholesterol Asthma Type 2 diabetes Chronic renal insufficiency Myocardial infarction CAD (coronary artery disease) HTN (hypertension) Hyperlipidemia Depression Surgical History Hx of heart artery stent Hx of section History of cardiac catheterization H/O: hysterectomy H/O bladder repair surgery Hx of CABG Family History Mother Cervical cancer Hypertension Blindness Kidney failure Sister Cervical cancer Hypertension Hypoglycemia Brother ESRD (end stage renal disease) Hypertension Father DMII (diabetes mellitus, type 2) Son Asthma Daughter No problems noted. Daughter No problems noted. Daughter No problems noted. Daughter No problems noted. Maternal Aunt Ovarian cancer Social History Housing: Apartment Are you a primary personal care aide to a significant other at home: No Do you presently have visiting nurse or other home services: No Alcohol intake: never Patient Tobacco Use Status: Never used Tobacco Tobacco use type: Cigarette e-Cigarette/Vaping Use: Never Used Second Hand Smoke Exposure: No service: No Current occupational status: disabled Cognitive needs: Yes (walker) Hearing needs: No Vision needs: Yes Female Reproductive History Menstrual Age of Menarche: 16 Questionnaire Thrive Questionnaire Date Thrive assessed: 10/20/23 Are you currently unemployed and looking for a job?: No MOUNA-7 AMB Questionnaire MOUNA-7 Date MOUNA - 7 assessed: 10/20/23 Source: Developed by Drs. George Rivas, Shira Lawrence, Duong Pina and colleagues, with an educational misha from [email or web address]. Review of Systems Const Denies headache(s) Eyes Denies loss of vision ENT Denies vertigo, Denies dizziness, Denies headache(s) and Denies sore throat Card Denies chest pain, Denies leg edema and Denies lightheadedness Resp Denies cough, Denies hemoptysis and Denies wheezing GI Denies abdominal pain, Denies melena, Denies constipation, Denies diarrhea and Denies vomiting Denies urinary frequency, Denies dysuria and Denies urinary urgency Musc Denies arthralgias, Denies joint swelling, Denies numbness and Denies tingling Neuro Denies Abnormal speech present, Denies behavioral changes, Denies vertigo, Denies dizziness, Denies headache(s), Denies loss of vision, Denies memory loss, Denies numbness and Denies tingling Psych Denies anxiety, Denies behavioral changes, Denies depression, Denies memory loss and Denies panic attacks Jose/Lymph Denies easy bleeding and Denies easy bruising Aller/Immun Denies wheezing Physical exam (Primary Care) Vital Signs: Last Vital Signs Pulse 70 04/19/24 10:30 BP 150/84 H 04/19/24 10:30 Pulse Ox 99 04/19/24 10:30 Oxygen Delivery Method Room Air 04/19/24 10:30 BMI result Body Mass Index 38.5 Tobacco/Smoking Status: Tobacco use Status Tobacco use date assessed 10/20/23 04/19/24 10:41 Patient Tobacco Use Status Never used Tobacco 04/19/24 10:41 Tobacco use type Cigarette 04/19/24 10:41 e-Cigarette/Vaping Use Never Used 04/19/24 10:41 Thrive Assessment: Date of Thrive Assessment Date Thrive assessed 10/20/23 04/19/24 10:41 Const General: healthy appearing, no acute distress, alert and awake Nutritional Appearance: well nourished Orientation/consciousness: oriented to person, oriented to place and oriented to time HENMT Ears: TM's normal bilaterally General nose exam: Normal nasal mucous membranes and turbinates present Eyes Conjunctivae: conjunctivae normal Sclerae: sclerae normal Pupils: Equal, round and reactive pupils present Neck Neck: Yes no lymphadenopathy and Yes no JVD Thyroid: Thyroid normal Carotids: no bruits Resp Effort & Inspection: normal respiratory effort and not tachypneic Auscultation: no crackles, no rales, no rhonchi and no wheezes Cardio Rate: regular rate Rhythm: regular rhythm Heart sounds: no murmurs and normal S1 and S2 GI Palpation (GI): Soft to palpation, nontender, no hepatomegaly and no splenomegaly Auscultation: normal bowel sounds Skin General skin exam: no rashes or lesions noted and dry skin Neuro General: oriented to person, oriented to place and oriented to time Cranial nerves: Yes Equal, round and reactive pupils present Speech: No Abnormal speech present Gait exam (Neuro): Normal gait present Motor exam (neuro): no tremor noted Extrem Right upper extremity: full ROM Left upper extremity: full ROM Right lower extremity: full ROM; no edema Left lower extremity: full ROM; no edema Psych Mental Status: mental status grossly normal Speech and movement: Normal speech and movement present Affect: normal affect Attitude: cooperative Thought process: Normal thought process present Office Procedures Flu Questionnaire Does the patient have a severe egg allergy?: No Does the patient have severe life threatening allergies?: No Does the patient have a fever or illness today?: No Has the patient ever had Guillain-[place] Syndrome?: No Has the patient ever had any past reaction to a flu shot?: No Results AMB Hemoglobin A1c AMB Hemoglobin A1c 9.4 % Last Edit by CHUY Hanson on 04/19/24 10:44 Immunizations Fluarix Triv [id number] (PF) 45 mcg (15 mcg x 3)/0.5 mL IM syringe Performing Provider: Pablo Mendoza PA-C [facility] Administered by: CHUY Hanson on 04/19/24 10:44 Dose Route Admin Location Dispensed Lot Number Expiration Date NDC Registered Respiratory Therapist 0.5 mL IM Right Deltoid 0.5 mL [id number] 01/14/25 [id number] [employer] VIS Given Date VIS Provided VIS Publication Date 04/19/24 Single Vaccine 21 Eligibility Eligibility Date Funding Source Not [facility] Eligible 04/19/24 Private Results Reviewed Results Reviewed: Laboratory Last Values Hgb A1c (Clinic) 9.4 % (4.0-6.0) H 04/19/24 10:42 Coding Level of Care Code Est Pt Level 4 (08266) Diagnoses Primary hypertension I10 Hypertension type: primary hypertension Type 2 diabetes mellitus with stage 3a chronic kidney disease, with long-term current use of insulin E11.22; N18.31; Z79.4 Chronic kidney disease stage: stage 3 (moderate) Chronic kidney disease stage 3 subtype: stage 3a (GFR 45-59) Diabetes mellitus complication detail: with chronic kidney disease Diabetes mellitus complication status: with kidney complications Diabetes mellitus salvage determiner insulin use: with [facility] use Coronary artery disease involving coronary bypass graft of [place] heart without angina pectoris I25.810 Associated angina: without angina Coronary Disease-Associated Artery/Lesion type: bypass graft [place] vs. transplanted heart: [place] heart Chronic cough R05.3 Cough type: chronic Assessment & Plan Assessment & Plan (1) HTN (hypertension): Code(s): I10 - Essential (primary) hypertension Category: Medical Qualifiers: Hypertension type: primary hypertension Qualified Code(s): I10 - Essential (primary) hypertension Plan: Patient's blood pressure acceptable today in office. Was recently started on losartan 25 during her recent hospitalization. (2) DMII (diabetes mellitus, type 2): Code(s): E11.9 - Type 2 diabetes mellitus without complications Category: Medical Qualifiers: Chronic kidney disease stage: stage 3 (moderate) Chronic kidney disease stage 3 subtype: stage 3a (GFR 45-59) Diabetes mellitus complication detail: with chronic kidney disease Diabetes mellitus complication status: with kidney complications Diabetes mellitus [facility] insulin use: with [facility] use Qualified Code(s): E11.22 - Type 2 diabetes mellitus with diabetic chronic kidney disease; N18.31 - Chronic kidney disease, stage 3a; Z79.4 - intermediate (current) use of insulin Plan: Patient's type 2 diabetes suboptimally controlled. Today's A1c at 9.4, while in [facility] her A1c was 10.1. Advised to increase her Lantus dose to 40 units for better glycemic control. She does have an industrial staff nurse in the area she will be following up with this month. Goal A1c is to be below 7.0 (3) CAD (coronary artery disease): Comment: CABG 2017 with CHICAS to LAD, SVG to RPDA, SVG to RPL and SVG to OM Code(s): I25.10 - Atherosclerotic heart disease of [place] coronary artery without angina pectoris Category: Medical Qualifiers: Associated angina: without angina Coronary Disease-Associated Artery/Lesion type: bypass graft [place] vs. transplanted heart: [place] heart Qualified Code(s): I25.810 - Atherosclerosis of coronary artery bypass graft(s) without angina pectoris Plan: Followed by local sueding and buffing machine operator. As per HPI recently admitted to [facility] and underwent cardiac catheterization though had complications due to her kidney disease and needed emergent dialysis. Fortunately no critical stenosis in the coronary arteries. She continues On dual antiplatelet therapy and high potency statin. Goal LDL to remain below 70 (4) Cough: Code(s): R05.9 - Cough, unspecified Category: Medical Qualifiers: Cough type: chronic Qualified Code(s): R05.3 - Chronic cough Plan: Patient continues to have a subacute chronic cough during the fall and winter months. She does report Tessalon is helpful in reducing her cough. Orders: Orders 2 Influenza [id number] Immunization Today Z23 - Encounter for immunization AMB Hemoglobin A1c Today E11.22 - Type 2 diabetes mellitus with diabetic chronic kidney disease, N18.31 - Chronic kidney disease, stage 3a, Z79.4 - intermediate (current) use of insulin Comprehensive Met. Panel Today E11.22 - Type 2 diabetes mellitus with diabetic chronic kidney disease, N18.31 - Chronic kidney disease, stage 3a, Z79.4 - intermediate (current) use of insulin Medications: New benzonatate 200 mg PO BID PRN 60 caps 1RF cough 30 days R05.9 - Cough, unspecified Changed From famotidine 40 mg PO DAILY K21.9 - Gastro-esophageal reflux disease without esophagitis To famotidine 40 mg (2 x 20 mg) PO DAILY 180 tabs 1RF 90 days K21.9 - Gastro- esophageal reflux disease without esophagitis Refilled albuterol sulfate 90 mcg/actuation (Ventolin HFA) 2 puffs inhalation QID 8.5 gra ms 3RF Wheezing 30 days J45.20 - Mild intermittent asthma, uncomplicated atorvastatin 80 mg PO DAILY 90 tabs 2RF I25.810 - Atherosclerosis of coronary artery bypass graft(s) without angina pectoris cholecalciferol (vitamin D3) 125 mcg PO DAILY 90 caps 2RF 90 days E55.9 - Vitamin D deficiency, unspecified metoprolol succinate ER 50 mg PO DAILY 90 tabs 1RF I25.810 - Atherosclerosis of coronary artery bypass graft(s) without angina pectoris cetirizine 10 mg PO DAILY 90 tabs 2RF J45.20 - Mild intermittent asthma, uncomplicated escitalopram oxalate 10 mg PO DAILY 90 tabs 2RF F33.1 - Major depressive disorder, recurrent, moderate
== END 2024-04-19 11:10 | disposition home or self-care (01) ==
PROVIDERS: PCP Physician Assistant; Visit Provider Physician Assistant
DX: I10 Essential (primary) hypertension (principal); E11.22 Type 2 diabetes mellitus with diabetic chronic kidney disease; N18.31 Chronic kidney disease, stage 3a; Z79.4 Long term (current) use of insulin; I25.810 Atherosclerosis of coronary artery bypass graft(s) without angina pectoris; R05.3 Chronic cough; Z23 Encounter for immunization

== ENCOUNTER 2024-04-19 10:25 | Outpatient (REF) | payer OTHER, SELFPAY ==
[2024-04-19 13:00] LABS: Alanine Aminotransferase 22 U/L (0-31); Albumin Level 4.2 g/dL (3.5-5.0); Alkaline Phosphatase 95 U/L (39-117); Anion Gap 13 (12-20); Aspartate Amino Transferase 24 U/L (5-31); Bilirubin Total 0.4 mg/dL (0.0-1.0); Blood Urea Nitrogen 34 mg/dL (9-16); Calcium 10.4 mg/dL (8.4-10.2); Carbon Dioxide 27 mmol/L (22-29); Chloride 104 mmol/L (96-108); Estimated Glomerular Filt Rate 33; Glucose Random 194 mg/dL (60-115); Potassium 4.8 mmol/L (3.3-5.1); Sodium 139 mmol/L (135-145)
== END 2024-04-19 10:26 | disposition home or self-care (01) ==
LOC: HO.LAB 10:25
PROVIDERS: Absent Provider Internal Medicine Nephrology; PCP Physician Assistant; Visit Provider Physician Assistant
DX: E11.22 Type 2 diabetes mellitus with diabetic chronic kidney disease (principal); N18.31 Chronic kidney disease, stage 3a; Z79.4 Long term (current) use of insulin; Z23 Encounter for immunization; I25.810 Atherosclerosis of coronary artery bypass graft(s) without angina pectoris; R05.3 Chronic cough; K21.9 Gastro-esophageal reflux disease without esophagitis; E55.9 Vitamin D deficiency, unspecified; J45.20 Mild intermittent asthma, uncomplicated; F33.1 Major depressive disorder, recurrent, moderate; Z79.899 Other long term (current) drug therapy
CPT/HCPCS: 36415; 80053; 83036; 90471; 90656; 99212

== ENCOUNTER 2024-05-17 11:06 | Outpatient (AMB) | payer OTHER, SELFPAY ==
[2024-05-17 11:19] VITALS: BP 128/70; BMI 37.4
--- NOTE | 2024-05-17 11:19 | HO.NEPHOV ---
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 She has history of congestive heart failure. She has history of premature coronary artery disease s/p CABG in 2016 in [place], with repeat catheterization due to occlusion of the SVG to OM s/p mechanical thrombectomy with x2 RENEE placement on January 2022, ischemic cardiomyopathy with preserved ejection fraction with true aneurysmal apex without thrombus confirmed on cardiac MRI with distal territory LAD infarct presented with worsening resting chest pain since 3 days and found to have subtle ST depressions not grossly unchanged but having ongoing pain. Patient underwent cardiac cath which showed the culprit was her vein graft to OM with collaterals. This February she had chest discomfort. She had cardiac cath and later CTA given suspicion of CVA with resultant development of DARIUSZ needin renal replacement one time. She is tolerating Jardiance and now has been started on losartan since last hospitalization in [place] . She denies any chest pain, shortness of breath, dizziness, nausea vomiting, diarrhea, pedal edema or urinary symptoms. Her renal functions had been stable. She is trying to maintain good hydration and is avoiding nonsteroidal anti-inflammatory medications [facility] Medical History Carpal tunnel syndrome of right wrist GERD (gastroesophageal reflux disease) Elevated cholesterol Asthma Type 2 diabetes Chronic renal insufficiency Myocardial infarction CAD (coronary artery disease) HTN (hypertension) Hyperlipidemia Depression Surgical History Hx of heart artery stent Hx of section History of cardiac catheterization H/O: hysterectomy H/O bladder repair surgery Hx of CABG Family History Mother Cervical cancer Hypertension Blindness Kidney failure Sister Cervical cancer Hypertension Hypoglycemia Brother ESRD (end stage renal disease) Hypertension Father DMII (diabetes mellitus, type 2) Son Asthma Daughter No problems noted. Daughter No problems noted. Daughter No problems noted. Daughter No problems noted. Maternal Aunt Ovarian cancer Social History Housing: Apartment Are you a primary personal care assistant to a significant other at home: No Do you presently have visiting nurse or other home services: No Alcohol intake: never Patient Tobacco Use Status: Never used Tobacco Tobacco use type: Cigarette e-Cigarette/Vaping Use: Never Used Second Hand Smoke Exposure: No service: No Current occupational status: disabled Cognitive needs: Yes (walker) Hearing needs: No Vision needs: Yes Female Reproductive History Menstrual Age of Menarche: 16 Review of Systems Const All systems reviewed & are unremarkable except as noted in HPI and below Physical Exam Vital Signs: Last Vital Signs BP 142/74 H 05/17/24 11:19 BMI result Body Mass Index 37.4 Const General: comfortable and no acute distress Orientation/consciousness: patient oriented x3 HEENT Head: Yes normocephalic Mouth: Normal oral and palatal mucosa present Eyes EOM: EOMs intact bilaterally Neck Neck: Yes supple Resp Auscultation: clear to auscultation bilaterally Cardio Jugular venous distension: no JVD Rate: regular rate GI Palpation (GI): Soft to palpation Auscultation: normal bowel sounds General: Yes no CVA tenderness Back/Spine/Pelvis Back: no CVA tenderness Skin General skin exam: no rashes or lesions noted Neuro General: patient oriented x3 and moves all extremities Extrem General: Yes no pedal edema Results Reviewed Nephrology Results: Sodium 139 mmol/L (135-145) 04/19/24 Potassium 4.8 mmol/L (3.3-5.1) 04/19/24 Chloride 104 mmol/L (96-108) 04/19/24 Carbon Dioxide 27 mmol/L (22-29) 04/19/24 BUN 34 mg/dL (9-16) H 04/19/24 Creatinine 1.62 mg/dL (0.5-1.4) H 04/19/24 Calcium 10.4 mg/dL (8.4-10.2) H 04/19/24 Assessment & Plan Assessment & Plan (1) Diabetic nephropathy: Code(s): E11.21 - Type 2 diabetes mellitus with diabetic nephropathy Category: Medical Qualifiers: Diabetes mellitus type: type 2 Qualified Code(s): E11.21 - Type 2 diabetes mellitus with diabetic nephropathy (2) HTN (hypertension): Code(s): I10 - Essential (primary) hypertension Category: Medical Qualifiers: Hypertension type: primary hypertension Qualified Code(s): I10 - Essential (primary) hypertension (3) CKD stage 3 secondary to diabetes: Code(s): E11.22 - Type 2 diabetes mellitus with diabetic chronic kidney disease; N18.30 - Chronic kidney disease, stage 3 unspecified Category: Medical Plan Gi has stage III CKD. Her renal functions are back to baseline . She has H/O significant proteinuria. Her Brilinta has been changed to Plavix. She could continue Lasix to 40 mg daily at the last visit with improvement in clinical status. She is on Jardiance. She should avoid nonsteroidal anti-inflammatory medications. She needs to continue to lose weight. Her blood pressure is at goal. I did not make any other changes today. All her questions were answered. Follow-up for blood work were ordered and follow-up was given Orders: Orders Creatinine 3 Months E11.22 - Type 2 diabetes mellitus with diabetic chronic kidney disease, I10 - Essential (primary) hypertension, N18.30 - Chronic kidney disease, stage 3 unspecified Blood Urea Nitrogen 3 Months E11.22 - Type 2 diabetes mellitus with diabetic chronic kidney disease, I10 - Essential (primary) hypertension, N18.30 - Chronic kidney disease, stage 3 unspecified Electrolytes 3 Months E11.22 - Type 2 diabetes mellitus with diabetic chronic kidney disease, I10 - Essential (primary) hypertension, N18.30 - Chronic kidney disease, stage 3 unspecified Coding Level of Care Code Est Pt Level 4 (64499) Diagnoses Diabetic nephropathy associated with type 2 diabetes mellitus E11. Diabetes mellitus type: type 2 Primary hypertension I10 Hypertension type: primary hypertension CKD stage 3 secondary to diabetes E11.22; N18.30
== END 2024-05-17 11:46 | disposition home or self-care (01) ==
LOC: HO.HKAS 11:07
PROVIDERS: PCP Physician Assistant; Visit Provider Internal Medicine Nephrology
DX: E11.21 Type 2 diabetes mellitus with diabetic nephropathy (principal); I10 Essential (primary) hypertension; E11.22 Type 2 diabetes mellitus with diabetic chronic kidney disease; N18.30 Chronic kidney disease, stage 3 unspecified
CPT/HCPCS: 99214

== ENCOUNTER → 2024-05-17 11:06 | Outpatient (BNVA) | payer OTHER, SELFPAY | PROVIDERS: PCP Physician Assistant; Visit Provider Internal Medicine Nephrology | DX: E11.21 Type 2 diabetes mellitus with diabetic nephropathy (principal); E11.22 Type 2 diabetes mellitus with diabetic chronic kidney disease; I12.9 Hypertensive chronic kidney disease with stage 1 through stage 4 chronic kidney disease, or unspecified chronic kidney disease; N18.30 Chronic kidney disease, stage 3 unspecified | CPT/HCPCS: 99212 ==

== ENCOUNTER 2024-06-20 15:07 | Outpatient (AMB) | payer OTHER, SELFPAY ==
[2024-06-20 15:17] VITALS: BP 110/70; PULSE 72; BMI 37.1
--- NOTE | 2024-06-20 15:17 | A.OFFPC_ITS ---
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 Accompanied by: Significant Other Allergies tramadol [TRAMADOL] Allergy (Intermediate, Verified 06/20/24 15:19) VOMITING adhesive tape Adverse Reaction (Intermediate, Verified 06/20/24 15:19) tears skin lisinopril Adverse Reaction (Mild, Verified 06/20/24 15:19) Cough Medication List - Last Reconciled 06/20/24 by Pbalo Mendoza PA-C albuterol sulfate 90 mcg/actuation (Ventolin HFA) 2 puffs inhalation QID 30 days amlodipine 5 mg PO DAILY aspirin 81 mg PO DAILY atorvastatin 80 mg PO DAILY benzonatate 100 mg PO BID PRN blood pressure test kit-large As directed blood sugar diagnostic (FreeStyle Lite Strips) As directed carvedilol 25 mg PO BID cetirizine 10 mg PO DAILY cholecalciferol (vitamin D3) 125 mcg PO DAILY 90 days clopidogrel 75 mg PO DAILY dulaglutide (Trulicity) 1.5 mg subcut QWEEK empagliflozin (Jardiance) 10 mg PO DAILY escitalopram oxalate 10 mg PO DAILY evolocumab (Repatha Syringe) 140 mg subcut Q2W famotidine 40 mg (2 x 20 mg) PO DAILY 90 days flash glucose sensor (FreeStyle [place]ida 2 Sensor kit) As directed fluticasone propionate 50 mcg/actuation 1 spray intranasal BID furosemide 40 mg (2 x 20 mg) PO DAILY 90 days gabapentin 600 mg (2 x 300 mg) PO TID 90 days insulin glargine 30 units subcut QPM insulin lispro (Humalog KwikPen (U-100) Insulin) 5 units subcut TID isosorbide mononitrate ER 60 mg PO DAILY losartan 25 mg PO DAILY metoprolol succinate ER 50 mg PO DAILY walker As directed Tobacco use date assessed: 10/20/23 Dental Screening Dental Screen Date: 10/20/23 HPI 2 month f/u HPI Details Patient is a 53 year female? here for a follow-up visit She has a past medical history significant for type 2 diabetes, obesity, hypertension hyperlipidemia, CAD ( status post quadruple bypass), congestive heart failure, GERD, depression. CHRONIC MEDICAL CONDITIONS--> .. DMII: Is seeing an evp general counsel at [facility]. MOST RECENT A1C AT 9.4. We have increase her Lantus to 40 units daily She continues to follow [facility] Endocrinology. She does mention having some hypoglycemic episodes .. CKD- as above patient did have acute renal failure due to contrast dye and needed emergent dialysis while in the hospital.. 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 CAD:? Has had a CABG x4..? Patient followed by Cardiology. .? Patient's LDL optimally controlled. Continues on high-dose statin therapy and praulent injections. Patient data recent echocardiogram that showed appropriate EF ? Is seeing a stitch bonder machine operator helper at [facility]? ( Dr. Eisenberg) Goal LDL to be optimally below 70 Laboratory Tests 01/04/23 05/25/23 06/15/23 09:42 13:56 12:02 RBC 4.97 Creatinine 1.62 H Hgb A1c (Clinic) 7.5 H 7.5 H AST 40 H ALT 40 H 10/20/23 04/19/24 13:08 11:59 RBC Creatinine 1.67 H 1.62 H Hgb A1c (Clinic) AST ALT PFSH Medical History (Updated 06/20/24 @ 15:42 by Pablo Mendoza PA-C) Carpal tunnel syndrome of left wrist Carpal tunnel syndrome of right wrist GERD (gastroesophageal reflux disease) Elevated cholesterol Asthma Type 2 diabetes Chronic renal insufficiency Myocardial infarction CAD (coronary artery disease) HTN (hypertension) Depression Surgical History Hx of heart artery stent Hx of section History of cardiac catheterization H/O: hysterectomy H/O bladder repair surgery Hx of CABG Family History Mother Cervical cancer Hypertension Blindness Kidney failure Sister Cervical cancer Hypertension Hypoglycemia Brother ESRD (end stage renal disease) Hypertension Father DMII (diabetes mellitus, type 2) Son Asthma Daughter No problems noted. Daughter No problems noted. Daughter No problems noted. Daughter No problems noted. Maternal Aunt Ovarian cancer Social History Housing: Apartment Are you a primary acute care physician to a significant other at home: No Do you presently have visiting nurse or other home services: No Alcohol intake: never Patient Tobacco Use Status: Never used Tobacco Tobacco use type: Cigarette e-Cigarette/Vaping Use: Never Used Second Hand Smoke Exposure: No service: No Current occupational status: disabled Cognitive needs: Yes (walker) Hearing needs: No Vision needs: Yes Female Reproductive History Menstrual Age of Menarche: 16 Questionnaire Thrive Questionnaire Date Thrive assessed: 10/20/23 Are you currently unemployed and looking for a job?: No MOUNA-7 AMB Questionnaire MOUNA-7 Date MOUNA - 7 assessed: 10/20/23 Source: Developed by Drs. George Rivas, Shira Lawrence, Duong Pina and colleagues, with an educational misha from [employer]. Review of Systems Const Denies headache(s) Eyes Denies loss of vision ENT Denies vertigo, Denies dizziness, Denies headache(s) and Denies sore throat Card Denies chest pain, Denies leg edema and Denies lightheadedness Resp Denies cough, Denies hemoptysis and Denies wheezing GI Denies abdominal pain, Denies melena, Denies constipation, Denies diarrhea and Denies vomiting Denies urinary frequency, Denies dysuria and Denies urinary urgency Musc Denies arthralgias, Denies joint swelling, Denies numbness and Denies tingling Neuro Denies Abnormal speech present, Denies behavioral changes, Denies vertigo, Denies dizziness, Denies headache(s), Denies loss of vision, Denies memory loss, Denies numbness and Denies tingling Psych Denies anxiety, Denies behavioral changes, Denies depression, Denies memory loss and Denies panic attacks Jose/Lymph Denies easy bleeding and Denies easy bruising Aller/Immun Denies wheezing Physical exam (Primary Care) Vital Signs: Last Vital Signs Pulse 72 06/20/24 15:17 BP 110/70 06/20/24 15:17 BMI result Body Mass Index 37.1 Tobacco/Smoking Status: Tobacco use Status Tobacco use date assessed 10/20/23 06/20/24 15:18 Patient Tobacco Use Status Never used Tobacco 06/20/24 15:18 Tobacco use type Cigarette 06/20/24 15:18 e-Cigarette/Vaping Use Never Used 06/20/24 15:18 Thrive Assessment: Date of Thrive Assessment Date Thrive assessed 10/20/23 06/20/24 15:18 Const General: healthy appearing, no acute distress, alert and awake Nutritional Appearance: well nourished Orientation/consciousness: oriented to person, oriented to place and oriented to time HENMT Ears: TM's normal bilaterally General nose exam: Normal nasal mucous membranes and turbinates present Eyes Conjunctivae: conjunctivae normal Sclerae: sclerae normal Pupils: Equal, round and reactive pupils present Neck Neck: Yes no lymphadenopathy and Yes no JVD Thyroid: Thyroid normal Carotids: no bruits Resp Effort & Inspection: normal respiratory effort and not tachypneic Auscultation: no crackles, no rales, no rhonchi and no wheezes Cardio Rate: regular rate Rhythm: regular rhythm Heart sounds: no murmurs and normal S1 and S2 GI Palpation (GI): Soft to palpation, nontender, no hepatomegaly and no splenomegaly Auscultation: normal bowel sounds Skin General skin exam: no rashes or lesions noted and dry skin Neuro General: oriented to person, oriented to place and oriented to time Cranial nerves: Yes Equal, round and reactive pupils present Speech: No Abnormal speech present Gait exam (Neuro): Normal gait present Motor exam (neuro): no tremor noted Extrem Right upper extremity: full ROM Left upper extremity: full ROM Right lower extremity: full ROM; no edema Left lower extremity: full ROM; no edema Psych Mental Status: mental status grossly normal Speech and movement: Normal speech and movement present Affect: normal affect Attitude: cooperative Thought process: Normal thought process present Coding Level of Care Code Est Pt Level 4 (04268) Diagnoses Type 2 diabetes mellitus with stage 3a chronic kidney disease, with long-term current use of insulin E11.22; N18.31; Z79.4 Chronic kidney disease stage: stage 3 (moderate) Chronic kidney disease stage 3 subtype: stage 3a (GFR 45-59) Diabetes mellitus complication detail: with chronic kidney disease Diabetes mellitus complication status: with kidney complications Diabetes mellitus terminal gauger insulin use: with terminal gauger use Primary hypertension I10 Hypertension type: primary hypertension Coronary artery disease involving coronary bypass graft of [place] heart without angina pectoris I25.810 Associated angina: without angina Coronary Disease-Associated Artery/Lesion type: bypass graft [place] vs. transplanted heart: [place] heart Colon cancer screening Z12.11 Chronic cough R05.3 Cough type: chronic Assessment & Plan Assessment & Plan (1) DMII (diabetes mellitus, type 2): Code(s): E11.9 - Type 2 diabetes mellitus without complications Category: Medical Qualifiers: Chronic kidney disease stage: stage 3 (moderate) Chronic kidney disease stage 3 subtype: stage 3a (GFR 45-59) Diabetes mellitus complication detail: with chronic kidney disease Diabetes mellitus complication status: with kidney complications Diabetes mellitus care home insulin use: with care home use Qualified Code(s): E11.22 - Type 2 diabetes mellitus with diabetic chronic kidney disease; N18.31 - Chronic kidney disease, stage 3a; Z79.4 - detention (current) use of insulin Plan: Patient's type 2 diabetes suboptimally controlled. Most recent A1c at 9.4 Advised to continue Lantus dose to 40 units for better glycemic control. She does have an evp general counsel in the area she will be following up with this month. 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 Will refer to Podiatry in [place] for diabetic foot care Goal A1c is to be below 7.0 (2) HTN (hypertension): Code(s): I10 - Essential (primary) hypertension Category: Medical Qualifiers: Hypertension type: primary hypertension Qualified Code(s): I10 - Essential (primary) hypertension Plan: Patient's blood pressure acceptable today in office. Was recently started on losartan 25 during her recent hospitalization. Goal blood pressure to remain below 140/90 (3) CAD (coronary artery disease): Comment: CABG 2017 with CHICAS to LAD, SVG to RPDA, SVG to RPL and SVG to OM Code(s): I25.10 - Atherosclerotic heart disease of [place] coronary artery without angina pectoris Category: Medical Qualifiers: Associated angina: without angina Coronary Disease-Associated Artery/Lesion type: bypass graft [place] vs. transplanted heart: [place] heart Qualified Code(s): I25.810 - Atherosclerosis of coronary artery bypass graft(s) without angina pectoris Plan: Followed by local stitch bonder machine operator helper. As per HPI recently admitted to [facility] and underwent cardiac catheterization though had complications due to her kidney disease and needed emergent dialysis. Fortunately no critical stenosis in the coronary arteries. She continues On dual antiplatelet therapy and high potency statin. Goal LDL to remain optimally below 70 (4) Colon cancer screening: Code(s): Z12.11 - Encounter for screening for malignant neoplasm of colon Category: Medical Plan: Like to get screening colonoscopy. She does report getting colonoscopy nearly 10 years ago while living in [place]. (5) Cough: Code(s): R05.9 - Cough, unspecified Category: Medical Qualifiers: Cough type: chronic Qualified Code(s): R05.3 - Chronic cough Plan: Reports having a cough that presents worse at night. Does report Amy Avendaño has been helpful though have not been covered by insurance. Orders: Orders Lipid Panel 06/20/24 I25.810 - Atherosclerosis of coronary artery bypass graft(s) without angina pectoris Microalbumin, Random (w Creat) 06/20/24 E11.22 - Type 2 diabetes mellitus with diabetic chronic kidney disease, N18.30 - Chronic kidney disease, stage 3 unspecified Comprehensive [place]. Panel Fast 06/20/24 I25.810 - Atherosclerosis of coronary artery bypass graft(s) without angina pectoris Complete Blood Count no Diff 06/20/24 I25.810 - Atherosclerosis of coronary artery bypass graft(s) without angina pectoris Anti DNA DS Antibody 06/20/24 E11.22 - Type 2 diabetes mellitus with diabetic chronic kidney disease, N18.30 - Chronic kidney disease, stage 3 unspecified Referrals Gastroenterology Referral Z12.11 - Encounter for screening for malignant neoplasm of colon Podiatry Referral E11.22 - Type 2 diabetes mellitus with diabetic chronic kidney disease, N18.31 - Chronic kidney disease, stage 3a, Z79.4 - terminal gauger (current) use of insulin Medications: Changed From benzonatate 100 mg PO BID PRN cough R05.9 - Cough, unspecified To benzonatate 200 mg PO BID 7 days PRN 14 caps 1RF cough R05.9 - Cough, unspecified
== END 2024-06-20 15:33 | disposition home or self-care (01) ==
PROVIDERS: PCP Physician Assistant; Visit Provider Physician Assistant
DX: E11.22 Type 2 diabetes mellitus with diabetic chronic kidney disease (principal); N18.31 Chronic kidney disease, stage 3a; Z79.4 Long term (current) use of insulin; I10 Essential (primary) hypertension; I25.810 Atherosclerosis of coronary artery bypass graft(s) without angina pectoris; Z12.11 Encounter for screening for malignant neoplasm of colon; R05.3 Chronic cough

== ENCOUNTER → 2024-06-20 15:07 | Outpatient (BNVA) | payer OTHER, SELFPAY | PROVIDERS: PCP Physician Assistant; Visit Provider Physician Assistant | DX: E11.22 Type 2 diabetes mellitus with diabetic chronic kidney disease (principal); N18.31 Chronic kidney disease, stage 3a; Z79.4 Long term (current) use of insulin; I25.810 Atherosclerosis of coronary artery bypass graft(s) without angina pectoris; R05.3 Chronic cough | CPT/HCPCS: 99212 ==

== ENCOUNTER 2024-08-28 11:23 | Outpatient (REF) | payer OTHER, SELFPAY ==
--- OUTSIDE RECORDS SUMMARY | 2024-08-28 13:36 | XMS_ITS | Clinical Summary ---
Author Organization [address] [place] [address] [place] [phone] Phone Care Team Providers Care Time Checker Name Role Phone Pablo Mendoza Primary Care Provider [phone] Allergies Active Allergy Reactions Criticality Noted Date [...] heart failure) 04/01/2023 Hypotension 01/25/2023 History of [place] (myocardial infarction) 01/25/2023 Chronic diastolic heart failure [...] CABGx4 at the age of 46 in [place], details not known Preserved LVEF [place] [facility] [place] [facility] [place] Assessment & Plan: Multiple cardiac catheterizations [...] HISTORICAL CABG; COMMENT: x4 PARTIAL HYSTERECTOMY PROCEDURE: OR SUPRACERVICAL ABDL HYSTER W/WO RMVL TUBE OVARY [...] 2:45 PM EST Consult Orthopedic Surgery - [place] [address] [phone] Jv Morelos, DPM [address] [address] Health Maintenance Due Date Last Done Comments [...] * Annual BMP Blood Test (02/28/2024) Pathologist formerly [facility] Annual BMP Blood Test abstracted [facility] Provider HEALTH MAINTENANCE Final Result * Hepatitis C Screening (02/26/2024) Pathologist formerly [facility] Hepatitis C Screening abstracted [facility] Provider HEALTH MAINTENANCE Final Result * (ABNORMAL) Hemoglobin A1c (10/13/2023) [facility] Hemoglobin A1C 8.1(A) 4.0 - 5.6 % Blood Venous blood specimen / Unknown [facility] Provider LAB BLOOD ORDERABLES Tamra l Result * (ABNORMAL) Lipid panel (10/13/2023) [facility] LDL/HDL Ratio 2 0 - 4 Triglycerides 158(A) 0 - 150 mg/dL Cholesterol 110 0 - 200 mg/dL HDL 65 >=40 mg/dL LDL Cholesterol 14 0 - 100 mg/dL Blood Venous blood specimen / Unknown [facility] Provider LAB BLOOD ORDERABLES Tamra l Result from Last 3 Months or Most Recently Relevant to Health Maintenance Insurance HEALTH PLAN Care Teams Time Checker Relationship Specialty Start Date End Date Pablo Mendoza PA PCP - General Internal Medicine 05/11/21
[2024-08-28 18:39] LABS: Anion Gap 11 (12-20); Blood Urea Nitrogen 33 mg/dL (9-16); Carbon Dioxide 25 mmol/L (22-29); Chloride 106 mmol/L (96-108); Estimated Glomerular Filt Rate 42; Potassium 4.3 mmol/L (3.3-5.1); Sodium 138 mmol/L (135-145)
== END 2024-08-28 11:24 | disposition home or self-care (01) ==
LOC: HO.HKASLDS 11:23
PROVIDERS: PCP Physician Assistant; Visit Provider Internal Medicine Nephrology
DX: E11.22 Type 2 diabetes mellitus with diabetic chronic kidney disease (principal); I12.9 Hypertensive chronic kidney disease with stage 1 through stage 4 chronic kidney disease, or unspecified chronic kidney disease; N18.30 Chronic kidney disease, stage 3 unspecified; E11.21 Type 2 diabetes mellitus with diabetic nephropathy; I25.10 Atherosclerotic heart disease of native coronary artery without angina pectoris; Z95.1 Presence of aortocoronary bypass graft; Z79.02 Long term (current) use of antithrombotics/antiplatelets; Z79.899 Other long term (current) drug therapy
CPT/HCPCS: 36415; 80051; 82565; 84520; 99212

== ENCOUNTER 2024-08-28 11:23 | Outpatient (AMB) | payer OTHER, SELFPAY ==
--- NOTE | 2024-08-28 12:09 | HO.NEPHOV ---
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 She has history of congestive heart failure. She has history of premature coronary artery disease s/p CABG in 2016 in [place], with repeat catheterization due to occlusion of the SVG to OM s/p mechanical thrombectomy with x2 RENEE placement on January 2022, ischemic cardiomyopathy with preserved ejection fraction with true aneurysmal apex without thrombus confirmed on cardiac MRI with distal territory LAD infarct presented with worsening resting chest pain since 3 days and found to have subtle ST depressions not grossly unchanged but having ongoing pain. Patient underwent cardiac cath which showed the culprit was her vein graft to OM with collaterals. This February she had chest discomfort. She had cardiac cath and later CTA given suspicion of CVA with resultant development of DARIUSZ needin renal replacement one time. She is tolerating Jardiance and now has been started on losartan since last hospitalization in [place] . She denies any chest pain, shortness of breath, dizziness, nausea vomiting, diarrhea, pedal edema or urinary symptoms. Her renal functions had been stable. She is trying to maintain good hydration and is avoiding nonsteroidal anti-inflammatory medications [facility] Medical History (Updated 06/20/24 @ 15:42 by Pablo Mendoza PA-C) Carpal tunnel syndrome of left wrist Carpal tunnel syndrome of right wrist GERD (gastroesophageal reflux disease) Elevated cholesterol Asthma Type 2 diabetes Chronic renal insufficiency Myocardial infarction CAD (coronary artery disease) HTN (hypertension) Depression Surgical History Hx of heart artery stent Hx of section History of cardiac catheterization H/O: hysterectomy H/O bladder repair surgery Hx of CABG Family History Mother Cervical cancer Hypertension Blindness Kidney failure Sister Cervical cancer Hypertension Hypoglycemia Brother ESRD (end stage renal disease) Hypertension Father DMII (diabetes mellitus, type 2) Son Asthma Daughter No problems noted. Daughter No problems noted. Daughter No problems noted. Daughter No problems noted. Maternal Aunt Ovarian cancer Social History Housing: Apartment Are you a primary manager home healthcare to a significant other at home: No Do you presently have visiting nurse or other home services: No Alcohol intake: never Patient Tobacco Use Status: Never used Tobacco Tobacco use type: Cigarette e-Cigarette/Vaping Use: Never Used Second Hand Smoke Exposure: No service: No Current occupational status: disabled Cognitive needs: Yes (walker) Hearing needs: No Vision needs: Yes Female Reproductive History Menstrual Age of Menarche: 16 Review of Systems Const All systems reviewed & are unremarkable except as noted in HPI and below Physical Exam Vital Signs: Last Vital Signs Pulse 65 08/28/24 12:10 BP 130/80 08/28/24 12:10 Pulse Ox 96 08/28/24 12:10 Oxygen Delivery Method Room Air 08/28/24 12:10 BMI result Body Mass Index 38.6 Const General: comfortable and no acute distress Orientation/consciousness: patient oriented x3 HEENT Head: Yes normocephalic Mouth: Normal oral and palatal mucosa present Eyes EOM: EOMs intact bilaterally Neck Neck: Yes supple Resp Auscultation: clear to auscultation bilaterally Cardio Jugular venous distension: no JVD Rate: regular rate GI Palpation (GI): Soft to palpation Auscultation: normal bowel sounds General: Yes no CVA tenderness Back/Spine/Pelvis Back: no CVA tenderness Skin General skin exam: no rashes or lesions noted Neuro General: patient oriented x3 and moves all extremities Extrem General: Yes no pedal edema Results Reviewed Nephrology Results: Sodium 139 mmol/L (135-145) 04/19/24 Potassium 4.8 mmol/L (3.3-5.1) 04/19/24 Chloride 104 mmol/L (96-108) 04/19/24 Carbon Dioxide 27 mmol/L (22-29) 04/19/24 BUN 34 mg/dL (9-16) H 04/19/24 Creatinine 1.62 mg/dL (0.5-1.4) H 04/19/24 Calcium 10.4 mg/dL (8.4-10.2) H 04/19/24 Assessment & Plan Assessment & Plan (1) Diabetic nephropathy: Code(s): E11.21 - Type 2 diabetes mellitus with diabetic nephropathy Category: Medical Qualifiers: Diabetes mellitus type: type 2 Qualified Code(s): E11.21 - Type 2 diabetes mellitus with diabetic nephropathy (2) CKD stage 3 secondary to diabetes: Code(s): E11.22 - Type 2 diabetes mellitus with diabetic chronic kidney disease; N18.30 - Chronic kidney disease, stage 3 unspecified Category: Medical (3) HTN (hypertension): Code(s): I10 - Essential (primary) hypertension Category: Medical Qualifiers: Hypertension type: primary hypertension Qualified Code(s): I10 - Essential (primary) hypertension Plan Gi has stage III CKD. She has H/O significant proteinuria. Her Brilinta has been changed to Plavix. She could continue Lasix to 20 mg daily at the last visit with improvement in clinical status. She is on Jardiance. She should avoid nonsteroidal anti-inflammatory medications. She needs to continue to lose weight. Her blood pressure is at goal. I did not make any other changes today. All her questions were answered. Follow-up for blood work were ordered and follow-up was given Orders: Orders Creatinine 3 Months E11.21 - Type 2 diabetes mellitus with diabetic nephropathy, E11.22 - Type 2 diabetes mellitus with diabetic chronic kidney disease, I10 - Essential (primary) hypertension, N18.30 - Chronic kidney disease, stage 3 unspecified Electrolytes 3 Months E11.21 - Type 2 diabetes mellitus with diabetic nephropathy, E11.22 - Type 2 diabetes mellitus with diabetic chronic kidney disease, I10 - Essential (primary) hypertension, N18.30 - Chronic kidney disease, stage 3 unspecified Electrolytes Today E11.21 - Type 2 diabetes mellitus with diabetic nephropathy Blood Urea Nitrogen Today E11.21 - Type 2 diabetes mellitus with diabetic nephropathy Creatinine Today E11.21 - Type 2 diabetes mellitus with diabetic nephropathy Blood Urea Nitrogen 3 Months E11.21 - Type 2 diabetes mellitus with diabetic nephropathy, E11.22 - Type 2 diabetes mellitus with diabetic chronic kidney disease, I10 - Essential (primary) hypertension, N18.30 - Chronic kidney disease, stage 3 unspecified Coding Level of Care Code Est Pt Level 4 (41574) Diagnoses Diabetic nephropathy associated with type 2 diabetes mellitus E11.21 Diabetes mellitus type: type 2 CKD stage 3 secondary to diabetes E11.22; N18.30 Primary hypertension I10 Hypertension type: primary hypertension
[2024-08-28 12:10] VITALS: BP 130/80; PULSE 65; O2SAT 96; BMI 38.6
--- OUTSIDE RECORDS SUMMARY | 2024-08-28 13:01 | XMS_ITS | Clinical Summary ---
Author Organization [address] [place] [address] [place] [phone] Phone Care Team Providers Care Senior Recruiter Name Role Phone Pablo Mendoza Primary Care Provider Allergies Active Allergy Reactions Criticality Noted Date Comments Lisinopril Cough 04/13/2021 Tramadol Hcl Nausea And Vomiting 04/13/2021 Medications losartan (COZAAR) 25 mg tablet Take 1 Tablet by mouth daily. Active amLODIPine (NORVASC) 5 mg tablet Take 1 Tablet by mouth daily. 04/26/20 24 Active isosorbide mononitrate (IMDUR) 60 mg 24 hr tablet TAKE 1 TABLET BY MOUTH EVERY DAY 10/05/19 24 Active clopidogreL (PLAVIX) 75 mg tablet Take 1 Tablet by mouth daily. 08/16/19 24 Active gabapentin (NEURONTIN) 600 mg tablet Take 1 Tablet by mouth 3 times daily. Active fluticasone propionate (FLONASE) 50 mcg/actuation nasal spray 2 Sprays by Each Nare route daily. Active cholecalciferol (VITAMIN D-3) 50 mcg (2,000 unit) tablet Take by mouth daily. Active CYANOCOBALAMIN, VITAMIN B-12, ORAL Take 5,000 Units by mouth daily. Active multivit-mineral s/folic acid (WOMEN'S MULTIVITAMIN GUMMIES ORAL) Take by mouth daily. Active biotin 5 mg tablet Take by mouth daily. Active furosemide (LASIX) 20 mg tablet Take 2 Tablets by mouth daily. 04/06/20 23 Active atorvastatin (LIPITOR) 80 mg tablet Take 1 Tablet by mouth daily. Active famotidine (PEPCID) 20 mg tablet Take 1 Tablet by mouth 2 times daily. Active cetirizine (ZyrTEC) 10 mg tablet Take 10 mg by mouth daily. Active albuterol HFA (PROAIR HFA ; PROVENTIL HFA ; VENTOLIN HFA) 90 mcg/actuation inhaler Inhale 2 Puffs into the lungs every 4 hours as needed. Active empagliflozin (Jardiance) 10 mg tablet Take 1 Tablet by mouth daily. Active escitalopram (LEXAPRO) 10 mg tablet Take 1 tablet by mouth daily. 04/14/20 Active dulaglutide (Trulicity) 0.75 mg/0.5 mL pen injector injection Inject into the skin once a week. 04/14/20 Active metoprolol succinate (TOPROL-XL) 50 mg 24 hr tablet Take 1 tablet by mouth daily. 04/14/20 Active insulin lispro (HUMALOG PEN SUBQ) Inject 15 Units into the skin 3 times daily (before meals). Active insulin glargine,hum.rec .anlog (INSULIN GLARGINE SUBQ) Inject 40 Units into the skin at bedtime. Active evolocumab (Repatha Syringe) 140 mg/mL syringe Inject 140 mg into the skin every 14 days. 2 mL 6 08/23/19 25 Active evolocumab (Repatha Syringe) 140 mg/mL syringe Inject 140 mg into the skin every 14 days. 01/26/20 24 025 Discontinued Active Problems Problem Noted Date Diagnosed Date STEMI (ST elevation myocardial infarction) 10/03 Dizziness 04/01/2023 CHF (congestive heart failure) 04/01/2023 Hypotension 01/25/2023 History of [place] (myocardial infarction) 01/25/2023 Chronic diastolic heart failure 01/25/2023 Overview (07/31/2024): Last Assessment & Plan: Euvolemic upon exam today. She does endorse intermittent lower extremity edema likely in the setting of dietary indiscretion. We did discuss continuing to perform daily weights and to call our office should she experience a weight gain of 2 pounds in 1 day or 5 pounds in 5 days accompanied by worsening peripheral edema and shortness of breath. I did inform the patient that I would be okay for her to take an extra Lasix as needed for worsening symptoms. She will call our office if she has to do this more than 2-3 times in a week that way we can monitor her renal function. She will continue on beta-elana and SGLT2 for HFpEF. NSTEMI (non-ST elevated myocardial infarction) 0 03/18/2022 Chest pain 03/18/2022 Diabetes 04/13/2021 Essential hypertension 04/13/2021 Overview (07/31/2024): Last Assessment & Plan: Elevated during today's exam with a reading of 150/86. Subsequently, I am going to increase amlodipine to 5 mg daily. Educated on the importance of diet lifestyle to help further assist in reducing blood pressure. The patient was encouraged to follow low-salt low-fat diet, make purposeful strides towards weight loss, and engage in routine aerobic exercise as tolerated. Hyperlipidemia 04/13/2021 Overview (07/31/2024): Last Assessment & Plan: Continue on her current dose of statin and Zetia. Goal LDL less than 70 however ideally 55 in the setting of significant coronary disease. Could consider updating fasting lipid profile prior to her next office visit unless already performed by her PCP. Encouraged to be mindful of her dietary fat intake. Coronary artery disease 04/13/2021 Overview (07/31/2024): Status post CABGx4 at the age of 46 in [place], details not known Preserved LVEF [place]ical [place] [facility] [place] ischemia [place] [facility] [place] Last Assessment & Plan: Multiple cardiac catheterizations recently performed as outlined above. No obstructive coronary artery disease noted. Patient was started on amlodipine for suspected microvascular disease. She presents today without any anginal symptoms and is feeling well. Her blood pressure is elevated during today's exam and subsequently I am going to increase her amlodipine to 5 mg. Instructed to call 911 or go to the emergency room should the patient begin to experience chest pain or pressure lasting greater than 10 minutes does not resolve with rest. Immunizations Name Administration Dates Next Due Moderna SARS-CoV-2 COVID-19, mRNA, LNP-S, preservative free 02/26/2021 Surgical History Surgery Date Site/Laterality Comments CORONARY ARTERY BYPASS GRAFT PROCEDURE: HISTORICAL CABG; COMMENT: x4 PARTIAL HYSTERECTOMY PROCEDURE: ND SUPRACERVICAL ABDL HYSTER W/WO RMVL TUBE OVARY MULTIPLE TOOTH EXTRACTIONS PROCEDURE: HISTORICAL DENTAL EXTRACTION; COMMENT: Multiple Medical History Medical History Date Comments Depression with anxiety DX:Depre ssion with anxiety Frozen shoulder DX:Frozen should er; COMMENT: Left Peripheral neuropathy DX:Periphe ral neuropathy Type 2 diabetes mellitus (CMS/HCC) DX:Type 2 diabetes mellitus (HCC) Anxiety with depression DX:Anxie ty with depression Gout DX:Gout Class 2 obesity DX:Class 2 obesi ty Chronic kidney disease DX:Chroni c kidney disease Diabetic neuropathy (CMS/HCC) DX :Diabetic neuropathy (HCC) Extremity numbness DX:Extremity numbness Family History Medical History Relation Name Comments Coronary artery disease Brother Coronary artery disease Father Other: Heart disease Father Pneumonia Father Asthma Mother Cervical cancer Mother Hypertension Mother Stroke Mother Coronary artery disease Sister Relation Name Status Comments Brother Father Mother Alive Sister Social History Tobacco Use Types Packs/Day Years Used Date Smoking Tobacco: Never Smokeless Tobacco: Never Alcohol Use Standard Drinks/Week Comments Never 0 (1 standard drink = 0.6 oz pur e alcohol) Comments Unknown Sex and Gender Information Value Date Recorded Sex Assigned at Not on file Legal Sex Female 2:15 AM EST Gender Identity Not on file Sexual Orientation Not on file Obstetrics History Last Filed Vital Signs Vital Sign Reading Time Taken Comments Blood Pressure 150/86 04/26/2024 9:49 AM EDT Pulse 68 04/26/2024 9:49 AM EDT Temperature - - Respiratory Rate - - Oxygen Saturation - - Inhaled Oxygen Concentration - - Weight 101 kg (223 lb) 04/26/2024 9:49 AM EDT Height 162.6 cm (5' 4 ) 04/26/2024 9:49 AM EDT Body Mass Index 38.28 04/26/2024 9:49 AM EDT Plan of Treatment Upcoming Encounters Date Type Department Care Team (Late st Contact Info) Description 09/19/2024 2:45 PM EST Consult Orthopedic Surgery - [place] [address] [phone] Jv Morelos, DPM [address] [address] Health Maintenance Due Date Last Done Comments Breast Cancer Screening 1972 DTaP,Tdap,and Td Vaccines (1 - Tdap) 12/17/1979 Diabetes: Annual Foot Exam 1982 Diabetes: Annual Retina Eye Exam 1982 Hepatitis B Vaccines (1 of 3 - 19+ 3-dose series) 12/17/1991 Pneumococcal Vaccine: 50+ Ye ars (1 of 2 - PCV) 12/17/1991 Pneumococcal Vaccine: Pediat rics (0 to 5 Years) and At-Risk Patients (6 to 64 Years) (1 of 2 - PCV) 12/17/1991 Cervical Cancer Screening: P ap Smear 1993 COVID-19 Vaccine (2 - Modern a risk series) 03/26/2021 02/26/2021 Colorectal Cancer Screening: Colonoscopy 06/20/2022 Depression Screening 06/20/2022 HIV Screening 06/20/2022 Social Influencers of Health Screening 06/20/2022 Diabetes: Annual Urine Albumin-Creatinine Ratio (uACR) 07/01/2022 Zoster Vaccines (1 of 2) 2022 Influenza Vaccine (#1) 2024 Diabetes: Blood Sugar Contro l Test (HGBA1C) 04/14/2024 10/13/2023 Diabetes: Annual GFR (Glomer ular Filtration Rate) 02/27/2025 02/28/2024 Hypertension/CHF/CAD Annual BMP Blood Test 02/27/2025 02/28/2024 Cholesterol Screening (Lipid Panel) 10/12/2028 10/13/2023 Hepatitis C Screening Completed 02/26/2024 HIB Vaccines Aged Out No longer eligi ble based on patient's age to complete this topic HPV Vaccines Aged Out No longer eligi ble based on patient's age to complete this topic Hepatitis A Vaccines Aged Out No long er eligible based on patient's age to complete this topic IPV Vaccines Aged Out No longer eligi ble based on patient's age to complete this topic MMR Vaccines Aged Out No longer eligi ble based on patient's age to complete this topic Meningococcal ACWY Vaccine Aged Out N o longer eligible based on patient's age to complete this topic Meningococcal B Vacine Aged Out No lo nger eligible based on patient's age to complete this topic RSV Immunization Patients Un anthony 20 months Aged Out No longer eligible b ased on patient's age to complete this topic Varicella Vaccines Aged Out No longer eligible based on patient's age to complete this topic Procedures Procedure Name Priority Date/Time Associated Diagnosis Comments ANNUAL BMP BLOOD TEST Routine 02/28/2024 HEPATITIS C SCREENING Routine 02/26/2024 HEMOGLOBIN A1C Routine 10/13/2023 LIPID PANEL Routine 10/13/2023 from Last 3 Months or Most Recently Relevant to Health Maintenance Results * Annual BMP Blood Test (02/28/2024) Pathologist [facility] Annual BMP Blood Test abstracted [facility] Provider HEALTH MAINTENANCE Final Result * Hepatitis C Screening (02/26/2024) Pathologist [facility] Hepatitis C Screening abstracted [facility] Provider HEALTH MAINTENANCE Final Result * (ABNORMAL) Hemoglobin A1c (10/13/2023) [facility] Hemoglobin A1C 8.1(A) 4.0 - 5.6 % Blood Venous blood specimen / Unknown [facility] Provider LAB BLOOD ORDERABLES Tamra l Result * (ABNORMAL) Lipid panel (10/13/2023) [facility] LDL/HDL Ratio 2 0 - 4 Triglycerides 158(A) 0 - 150 mg/dL Cholesterol 110 0 - 200 mg/dL HDL 65 >=40 mg/dL LDL Cholesterol 14 0 - 100 mg/dL Blood Venous blood specimen / Unknown [facility] Provider LAB BLOOD ORDERABLES Tamra l Result from Last 3 Months or Most Recently Relevant to Health Maintenance Insurance HEALTH PLAN Care Teams Senior Recruiter Relationship Specialty Start Date End Date Pablo Mendoza PA PCP - General Internal Medicine 05/11/21
== END 2024-08-28 12:42 | disposition home or self-care (01) ==
PROVIDERS: PCP Physician Assistant; Visit Provider Internal Medicine Nephrology
DX: E11.21 Type 2 diabetes mellitus with diabetic nephropathy (principal); E11.22 Type 2 diabetes mellitus with diabetic chronic kidney disease; N18.30 Chronic kidney disease, stage 3 unspecified; I10 Essential (primary) hypertension
CPT/HCPCS: 99214

== ENCOUNTER 2024-10-03 12:04 | Outpatient (AMB) | payer OTHER, SELFPAY ==
--- NOTE | 2024-10-03 12:12 | HO.NEPHOV_ITS ---
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 She has chronic kidney disease, proteinuria and hypertension on a backdrop of coronary artery disease and bypass surgery. She has history of congestive heart failure. She has history of premature coronary artery disease s/p CABG in 2016 in [place], with repeat catheterization due to occlusion of the SVG to OM s/p mechanical thrombectomy with x2 RENEE placement on January 2022, ischemic cardiomyopathy with preserved ejection fraction with true aneurysmal apex without thrombus confirmed on cardiac MRI with distal territory LAD infarct presented with worsening resting chest pain since 3 days and found to have subtle ST depressions not grossly unchanged but having ongoing pain. Patient underwent cardiac cath which showed the culprit was her vein graft to OM with collaterals. This February she had chest discomfort. She had cardiac cath and later CTA given suspicion of CVA with resultant development of DARIUSZ needin renal replacement one time. She had been tolerating Jardiance and was on lo sartan since last hospitalization in [place] . Her renal functions had been stable. She is trying to maintain good hydration and is avoiding nonsteroidal anti-inflammatory medications FORMERLY [facility] Medical History (Updated 10/03/24 @ 12:24 by Lanre Bray MD) Carpal tunnel syndrome of left wrist Carpal tunnel syndrome of right wrist GERD (gastroesophageal reflux disease) Elevated cholesterol Asthma Type 2 diabetes Chronic renal insufficiency Myocardial infarction CAD (coronary artery disease) HTN (hypertension) Depression Surgical History Hx of heart artery stent Hx of section History of cardiac catheterization H/O: hysterectomy H/O bladder repair surgery Hx of CABG Family History Mother Cervical cancer Hypertension Blindness Kidney failure Sister Cervical cancer Hypertension Hypoglycemia Brother ESRD (end stage renal disease) Hypertension Father DMII (diabetes mellitus, type 2) Son Asthma Daughter No problems noted. Daughter No problems noted. Daughter No problems noted. Daughter No problems noted. Maternal Aunt Ovarian cancer Social History Housing: Apartment Are you a primary day care director to a significant other at home: No Do you presently have visiting nurse or other home services: No Alcohol intake: never Patient Tobacco Use Status: Never used Tobacco Tobacco use type: Cigarette e-Cigarette/Vaping Use: Never Used Second Hand Smoke Exposure: No service: No Current occupational status: disabled Cognitive needs: Yes (walker) Hearing needs: No Vision needs: Yes Female Reproductive History Menstrual Age of Menarche: 16 Review of Systems Const All systems reviewed & are unremarkable except as noted in HPI and below Physical Exam Const General: comfortable and no acute distress Orientation/consciousness: patient oriented x3 HEENT Head: Yes normocephalic Mouth: Normal oral and palatal mucosa present Eyes EOM: EOMs intact bilaterally Neck Neck: Yes supple Resp Auscultation: clear to auscultation bilaterally Cardio Jugular venous distension: no JVD Rate: regular rate GI Palpation (GI): Soft to palpation Auscultation: normal bowel sounds General: Yes no CVA tenderness Back/Spine/Pelvis Back: no CVA tenderness Skin General skin exam: no rashes or lesions noted Neuro General: patient oriented x3 and moves all extremities Results Reviewed Nephrology Results: Sodium 138 mmol/L (135-145) 08/28/24 Potassium 4.3 mmol/L (3.3-5.1) 08/28/24 Chloride 106 mmol/L (96-108) 08/28/24 Carbon Dioxide 25 mmol/L (22-29) 08/28/24 BUN 33 mg/dL (9-16) H 08/28/24 Creatinine 1.34 mg/dL (0.5-1.4) 08/28/24 Calcium 10.4 mg/dL (8.4-10.2) H 04/19/24 Assessment & Plan Assessment & Plan (1) Diabetic nephropathy: Code(s): E11.21 - Type 2 diabetes mellitus with diabetic nephropathy Category: Medical Qualifiers: Diabetes mellitus type: type 2 Qualified Code(s): E11.21 - Type 2 diabetes mellitus with diabetic nephropathy (2) CKD stage 3 secondary to diabetes: Code(s): E11.22 - Type 2 diabetes mellitus with diabetic chronic kidney disease; N18.30 - Chronic kidney disease, stage 3 unspecified Category: Medical (3) HTN (hypertension): Code(s): I10 - Essential (primary) hypertension Category: Medical Qualifiers: Hypertension type: primary hypertension Qualified Code(s): I10 - Essential (primary) hypertension (4) Acute exacerbation of congestive heart failure: Code(s): I50.9 - Heart failure, unspecified Category: Medical Qualifiers: Heart failure type: systolic Qualified Code(s): I50.23 - Acute on chronic systolic (congestive) heart failure Plan Gi has stage III CKD. She has H/O significant proteinuria. Her Brilinta has been changed to Plavix. She needs IV diuretics, EKG, ECHO & may be diuretic drip after basic work up. She is on Jardiance. She should avoid nonsteroidal anti-inflammatory medications. Her blood pressure is at goal. She needs hospitalization & I sent her to ER now for admission. All her questions were answered. Coding Level of Care Code Est Pt Level 4 (53727) Diagnoses Diabetic nephropathy associated with type 2 diabetes mellitus E11.21 Diabetes mellitus type: type 2 CKD stage 3 secondary to diabetes E11.22; N18.30 Primary hypertension I10 Hypertension type: primary hypertension Acute on chronic systolic congestive heart failure I50.23 Heart failure type: systolic
[2024-10-03 12:14] VITALS: BP 102/60; PULSE 40; O2SAT 93; BMI 42.6
--- OUTSIDE RECORDS SUMMARY | 2024-10-03 14:42 | XMS_ITS | Clinical Summary ---
Author Organization [address] [place] [address] [place] [phone] Phone Care Team Providers Care Community Health Nurse Supervisor Name Role Phone Pablo Mendoza Primary Care Provider Allergies Active Allergy Reactions Criticality Noted Date Comments Lisinopril Cough 04/13/2021 Tramadol Hcl Nausea And Vomiting 04/13/2021 Medications losartan (COZAAR) 25 mg tablet Take 1 Tablet by mouth daily. Active amLODIPine (NORVASC) 5 mg tablet Take 1 Tablet by mouth daily. 4 Active isosorbide mononitrate (IMDUR) 60 mg 24 hr tablet TAKE 1 TABLET BY MOUTH EVERY DAY 4 Active clopidogreL (PLAVIX) 75 mg tablet Take 1 Tablet by mouth daily. 4 Active gabapentin (NEURONTIN) 600 mg tablet Take 1 Tablet by mouth 3 times daily. Active fluticasone propionate (FLONASE) 50 mcg/actuation nasal spray 2 Sprays by Each Nare route daily. Active cholecalciferol (VITAMIN D-3) 50 mcg (2,000 unit) tablet Take by mouth daily. Active CYANOCOBALAMIN, VITAMIN B-12, ORAL Take 5,000 Units by mouth daily. Active multivit-minerals /folic acid (WOMEN'S MULTIVITAMIN GUMMIES ORAL) Take by mouth daily. Active biotin 5 mg tablet Take by mouth daily. Active furosemide (LASIX) 20 mg tablet Take 2 Tablets by mouth daily. 3 Active atorvastatin (LIPITOR) 80 mg tablet Take [...] tablet Take 1 tablet by mouth daily. 1 Active dulaglutide (Trulicity) 0.75 mg/0.5 mL pen injector injection Inject into the skin once a week. 1 Active metoprolol succinate (TOPROL-XL) 50 mg 24 hr tablet Take 1 tablet by mouth daily. 1 Active insulin lispro (HUMALOG PEN SUBQ) Inject 15 Units into the skin 3 times daily (before meals). Active insulin glargine,hum.rec. anlog (INSULIN GLARGINE SUBQ) Inject 40 Units into the skin at bedtime. Active evolocumab (Repatha Syringe) 140 mg/mL syringe Inject 140 mg into the skin every 14 days. 2 mL 6 5 Active clotrimazole (LOTRIMIN) 1 % external solution Apply topically 2 (two) times a day. 30 mL 5 10/20/19 25 Active Active Problems Problem Noted Date Diagnosed Date STEMI (ST elevation myocardial infarction) 10/03 Dizziness 04/01/2023 CHF (congestive heart failure) 04/01/2023 Hypotension 01/25/2023 History of DC (myocardial infarction) 01/25/2023 Chronic diastolic heart failure [...] CABGx4 at the age of 46 in [place], details not known Preserved LVEF Apical aneurysm, confirmed by cMRI at [facility] 02/2021 No ischemia on rega MIBI 02/2021 at [facility] Last Assessment & Plan: Multiple cardiac catheterizations [...] 10 minutes does not resolve with rest. Encounters Date Type Department Care Team Description 09/24/2024 Telephone [facility] - [address] [place] [address] Jv Reaglado MD Prior Auth (Repatha 140MG/ML syringes) 09/19/2024 2:45 PM EST Consult Orthopedic Surgery - [place] [address] 175 [facility] [address] [place] [phone] Jv Morelos, DPM Dermatophytosis of nail (Primary Dx); Type 2 diabetes mellitus with diabetic chronic kidney disease ([facility]/HCC); penitentiary (current) use of insulin ([facility]/HCC); Diabetic mononeuropathy simplex ([facility]/HCC); Type II diabetes mellitus with peripheral circulatory disorder ([facility]); Pain in toe of left foot; Pain in toe of right foot; Tinea pedis of both feet from Last 3 Months Immunizations Name Administration Dates Next Due Moderna SARS-CoV-2 COVID-19, mRNA, LNP-S, preservative free 02/26/2021 Surgical History Surgery Date Site/Laterality Comments CORONARY ARTERY BYPASS GRAFT PROCEDURE: HISTORICAL CABG; COMMENT: x4 PARTIAL HYSTERECTOMY PROCEDURE: VT SUPRACERVICAL ABDL HYSTER W/WO RMVL TUBE OVARY MULTIPLE TOOTH EXTRACTIONS PROCEDURE: HISTORICAL DENTAL EXTRACTION; COMMENT: Multiple Medical History Medical History Date Comments Depression with anxiety DX:Depre ssion with anxiety Frozen shoulder DX:Frozen should er; COMMENT: Left Peripheral neuropathy DX:Periphe ral neuropathy Type 2 diabetes mellitus ([facility]/HCC) DX:Type 2 diabetes mellitus (HCC) Anxiety with depression DX:Anxie ty with depression Gout DX:Gout Class 2 obesity DX:Class 2 obesi ty Chronic kidney disease DX:Chroni c kidney disease Diabetic neuropathy ([facility]/HCC) DX :Diabetic neuropathy ([facility]) Extremity numbness DX:Extremity numbness Family History Medical [...] - - Weight 101 kg (223 lb) 09/19/2024 2:22 PM EST Height 162.6 cm (5' 4.02 ) 09/19/2024 2:22 PM ES T Body Mass Index 38.26 09/19/2024 2:22 PM EST Plan of Treatment Upcoming Encounters Date Type Department Care Team (Late st Contact Info) Description 12/20/2024 3:00 PM EDT Office Visit Orthopedic Surgery - [place] [address] [phone] Jv Morelos, DPM [address] [address] Health Maintenance Due Date Last Done Comments Breast Cancer Screening 1972 Diabetes: Annual Foot Exam 1982 Diabetes: Annual Retina Eye Exam 1982 DTaP,Tdap,and Td Vaccines (1 - Tdap) 12/17/1991 Hepatitis B Vaccines (1 of 3 - 19+ 3-dose series) 12/17/1991 Pneumococcal Vaccine: 50+ Years (1 of 2 - PCV) 12/17/1991 Pneumococcal Vaccine: Pediatrics (0 to 5 Years) and At-Risk Patients (6 to 64 Years) (1 of 2 - PCV) 12/17/1991 Cervical Cancer Screening: Pap Smear 1993 COVID-19 Vaccine (2 - Moderna risk series) 03/26/2021 02/26/2021 Colorectal Cancer Screening: Colonoscopy 06/20/2022 Depression Screening 06/20/2022 HIV Screening 06/20/2022 Social Influencers of Health Screening 06/20/2022 Diabetes: Annual Urine Albumin-Creatinine Ratio (uACR) 07/01/2022 Zoster Vaccines (1 of 2) 2022 Influenza Vaccine (#1) 2024 Diabetes: Blood Sugar Control Test (HGBA1C) 08/25/2024 02/23/2024, 10/13/2023 Diabetes: Annual GFR (Glomerular Filtration Rate) 02/27/2025 02/28/2024, 02/28/2024, 02/27/2024, Additional history exists Hypertension/CHF/CAD Annual BMP Blood Test 02/27/2025 02/28/2024, 02/28/2024, 02/27/2024, Additional history exists Cholesterol Screening (Lipid Panel) 02/22/2029 02/23/2024, 10/13/2023 Hepatitis C Screening Completed 02/26/2024 HIB [...] to complete this topic RSV Immunization Patients Under 20 months Aged Out No longer eligible based on [...] BMP Blood Test (02/28/2024) Pathologist [facility] Annual BMP Blood Test abstracted us Historical Provider HEALTH MAINTENANCE Final Result * Hepatitis C Screening (02/26/2024) Pathologist [facility] Hepatitis C Screening abstracted us Historical Provider HEALTH MAINTENANCE Final Result * (ABNORMAL) Hemoglobin A1c (10/13/2023) Pathologist [facility] Hemoglobin A1C 8.1(A) 4.0 - 5.6 % Blood Venous blood specimen / Unknown Historical Provider LAB BLOOD ORDERABLES Tamra l Result * (ABNORMAL) Lipid panel (10/13/2023) LDL/HDL Ratio 2 0 - 4 Triglycerides 158(A) 0 - 150 mg/dL Cholesterol 110 0 - 200 mg/dL HDL 65 >=40 mg/dL LDL Cholesterol 14 0 - 100 mg/dL Blood Venous blood specimen / Unknown Historical Provider LAB BLOOD ORDERABLES Tamra l Result from Last 3 Months or Most Recently Relevant to Health Maintenance Insurance [employer] Care Teams Community Health Nurse Supervisor Relationship Specialty Start Date End Date Pablo Mendoza PA [address] [place] [phone] PCP - General Internal Medicine 05/11/21
--- OUTSIDE RECORDS SUMMARY | 2024-10-03 14:42 | XMS_ITS | Encounter Summary ---
Author Organization [facility] Address [id number] [place] [phone] Care Team Providers Care Broomcorn Thresher Name Role Phone Pablo Mendoza Primary Care Provider Reason for Visit * Reason Onset Date Comments Prior Auth 09/24/2024 Repatha 140MG/ML syringes Encounter Details Date Type Department Care Team (Late st Contact Info) Description 09/24/2024 Telephone [facility] - [facility] [address] [facility] [address] [place] [phone] Jv Regalado MD 300 [facility] [address] [place] [address] Prior Auth (Repatha 140MG/ML syringes) Social History Tobacco Use Types Packs/Day Years Used Date Smoking Tobacco: Never Smokeless Tobacco: Never Alcohol Use Standard Drinks/Week Comments Never 0 (1 standard drink = 0.6 oz pur e alcohol) Comments Unknown Sex and Gender Information Value Date Recorded Sex Assigned at Not on file Legal Sex Female 2:15 AM EST Gender Identity Not on file Sexual Orientation Not on file documented as of this encounter Progress Notes * Kathrin Navarro - 09/24/2024 2:45 PM EDT Images from the original note were not included. Repatha 140MG/ML syringes-APPROVED [facility] Rx #: [id number] Effective Date: 09/23/2024-09/23/2025 * Kathrin Navarro - 09/24/2024 10:32 AM EDT Repatha 140MG/ML syringessubmitted on covermymeds [facility]A Rx #: [id number] documented in this encounter Plan of Treatment Upcoming Encounters Date Type Department Care Team (Late st Contact Info) Description 12/20/2024 3:00 PM EDT Office Visit Orthopedic Surgery - [place] [id number] [phone] Jv Morelos, DPAlaina [address] [address] documented as of this encounter Visit Diagnoses Not on filedocumented in this encounter Care Teams Broomcorn Thresher Relationship Specialty Start Date End Date Pablo Mendoza PA [address] [place] [phone] PCP - General Internal Medicine 05/11/21 documented as of this encounter
--- OUTSIDE RECORDS SUMMARY | 2024-10-03 14:42 | XMS_ITS | Encounter Summary ---
Author Organization [facility] Address [address] [place] [phone] Care Team Providers Care Bearing Press Machine Operator Name Role Phone Pablo Mendoza Primary Care Provider [phone] Reason for Visit * Reason Comments Follow-up Diabetic foot care * Consultation (Routine) - Closed Specialty Diagnoses / Procedures Referred By Contact Referred To Contact Podiatry / Orthopaedic Surgery Diagnoses Type 2 diabetes mellitus with diabetic chronic kidney disease (CMS/HCC) terminal carman (current) use of insulin (CMS/HCC) Pablo Mendoza PA Phone: tel: fax: Jv Morelos DPM [address] [address] Phone: tel: fax: Referral ID Status Reason Start Date Expiration Date V isits Requested Visits Authorized [id number] Closed Specialty Services Required 07/04/2024 07/04/2025 1 1 Encounter Details Date Type Department Care Team (Late st Contact Info) Description 09/19/2024 2:45 PM EST Consult Orthopedic Surgery - [place] [address] [phone] Jv Morelos DPM [address] [address] Dermatophytosis of nail (Primary Dx); Type 2 diabetes mellitus with diabetic chronic kidney disease (CMS/HCC); terminal carman (current) use of insulin (CMS/HCC); Diabetic mononeuropathy simplex (CMS/HCC); Type II diabetes mellitus with peripheral circulatory disorder (CMS/HCC); Pain in toe of left foot; Pain in toe of right foot; Tinea pedis of both feet Social History Tobacco Use Types Packs/Day Years [...] on file documented as of this encounter Last Filed Vital Signs Vital Sign Reading Time Taken Comments Blood Pressure - - Pulse - - Temperature - - Respiratory Rate - - Oxygen Saturation - - Inhaled Oxygen Concentration - - Weight 101 kg (223 lb) 09/19/2024 2:22 PM EST Height 162.6 cm (5' 4.02 ) 09/19/2024 2:22 PM ES T Body Mass Index 38.26 09/19/2024 2:22 PM EST documented in this encounter Ordered Prescriptions Prescription Sig Dispense Quantity Refills Last Filled Start Date End Date clotrimazole (LOTRIMIN) 1 % external solution Apply topically 2 (two) times a day. 30 mL 09/19/2024 documented in this encounter Progress Notes * Jv Morelos DPM - 09/19/2024 2:45 PM EST Last PCP visit:Referring MD: Pablo Mendoza PA 06/21/25 IDENTIFIER: David is a 53 y.o. year old female who presents for consultation. CC: Foot pain HPI: Presents today complaining pain in her feet she reports numbness burning tingling both feet notes her nails are painful thickened he has a rash of both skin that is itchy and achy and pain discomfortis a 7 out of 10 on a visual analog scale reports she is a type II diabetic notes her nails are toothick for her to cut herself ROS: GENERAL: Pt denies nausea, fever, vomiting, chills, or shortness of breath. Pt in NAD. CARDIOLOGY: pt denies chest pain, palpitations LUNGS: pt denies shortness of breath MUSCULOSKELETAL: See HPI, otherwise no joint pain or swelling, back pain, or muscle pain. SKIN: see HPI, otherwise no lesions, rash or itching NEURO: No persistent headache, weakness or numbness The remainder of the review of systems is noncontributory PAST MEDICAL HISTORY: Patient Active Problem List Diagnosis Diabetes ([facility]) Essential hypertension Hyperlipidemia NSTEMI (non-ST elevated myocardial infarction) ([facility]) STEMI (ST elevation myocardial infarction) ([facility]) Coronary artery disease Chest pain Dizziness Hypotension History of ID (myocardial infarction) CHF (congestive heart failure) ([facility]) Chronic diastolic heart failure ([facility]) SOCIAL HISTORY: Social History Tobacco Use Smoking status: Never Smokeless tobacco: Never Substance Use Topics Alcohol use: Never ACTIVE MEDICATIONS: Outpatient Medications Marked as Taking for the 09/19/24 encounter (Consult) with Jv Morelos DPM Medication Sig Dispense Refill albuterol HFA (PROAIR HFA ; PROVENTIL HFA ; VENTOLIN HFA) 90 mcg/actuation inhaler Inhale 2 Puffs into the lungs every 4 hours as needed. amLODIPine (NORVASC) 5 mg tablet Take 1 Tablet by mouth daily. atorvastatin (LIPITOR) 80 mg tablet Take 1 Tablet by mouth daily. biotin 5 mg tablet Take by mouth daily. cetirizine (ZyrTEC) 10 mg tablet Take 10 mg by mouth daily. cholecalciferol (VITAMIN D-3) 50 mcg (2,000 unit) tablet Take by mouth daily. clopidogreL (PLAVIX) 75 mg tablet Take 1 Tablet by mouth daily. CYANOCOBALAMIN, VITAMIN B-12, ORAL Take 5,000 Units by mouth daily. dulaglutide (Trulicity) 0.75 mg/0.5 mL pen injector injection Inject into the skin once a week. empagliflozin (Jardiance) 10 mg tablet Take 1 Tablet by mouth daily. escitalopram (LEXAPRO) 10 mg tablet Take 1 tablet by mouth daily. evolocumab (Repatha Syringe) 140 mg/mL syringe Inject 140 mg into the skin every 14 days. 2 mL 6 famotidine (PEPCID) 20 mg tablet Take 1 Tablet by mouth 2 times daily. fluticasone propionate (FLONASE) 50 mcg/actuation nasal spray 2 Sprays by Each Nare route daily. furosemide (LASIX) 20 mg tablet Take 2 Tablets by mouth daily. gabapentin (NEURONTIN) 600 mg tablet Take 1 Tablet by mouth 3 times daily. insulin glargine,hum.rec.anlog (INSULIN GLARGINE SUBQ) Inject 40 Units into the skin at bedtime. insulin lispro (HUMALOG PEN SUBQ) Inject 15 Units into the skin 3 times daily (before meals). isosorbide mononitrate (IMDUR) 60 mg 24 hr tablet TAKE 1 TABLET BY MOUTH EVERY DAY losartan (COZAAR) 25 mg tablet Take 1 Tablet by mouth daily. metoprolol succinate (TOPROL-XL) 50 mg 24 hr tablet Take 1 tablet by mouth daily. multivit-minerals/folic acid (WOMEN'S MULTIVITAMIN GUMMIES ORAL) Take by mouth daily. ALLERGIES: Allergies Allergen Reactions Lisinopril Cough Tramadol Hcl Nausea And Vomiting PHYSICAL EXAM: Visit Vitals Ht 1.626 m (64.02 ) Wt 101 kg (223 lb) BMI 38.26 kg/m?? Smoking Status Never BSA 2.05 m?? PODIATRIC EXAMINATION: GENERAL: Patient appears well nourished, with NAD. VASCULAR: Dorsalis pedis pulses are 0/4 bilaterally and Posterior tibial pulses are 1/4 bilaterally. Capillary filling time within normal limits the digits. No pallor on elevation or rubor on dependency. No varicosities. Denies rest pain or claudication pain. NEUROLOGICAL: Sharp/dull sensation , protective sensation 8/10 with 5.07 semmes robert bilaterally, vibratory sensation with tuning fork intact to the tibial tuberosity. ORTHOPEDIC: Good muscle strength 5/5 of all flexors and extensors. Dorsi flexion of ankle ,10 degrees, plantar flexion WNL. No muscle atrophy. DERMATOLOGICAL:. Toenails: Left Toenail(s) 1-5: Crumbling upon debridement, subungual debris, discoloration, dystrophy, elongation, mycotic appearance, onychomycosis, pain and thickening. Right Toenail(s) 1-5: Crumbling upon debridement, subungual debris, discoloration, dystrophy, elongation, mycotic appearance, onychomycosis, pain and thickening. Annular scaling bilateral feet moccasin distribution Skin thinning texture shiny appearance diffuse hyperpigmentation bilaterally pedal hair decreased BIOMECHANICS: Ankle ROM WNL, STJ ROM wnl, MTJ ROM wnl, 1st MPJ ROM wnl. IMAGING: IMPRESSION: 1. Dermatophytosis of nail 2. Type 2 diabetes mellitus with diabetic chronic kidney disease (CMS/HCC) 3. terminal carman (current) use of insulin ([facility]) 4. Diabetic mononeuropathy simplex (CMS/HCC) 5. Type II diabetes mellitus with peripheral circulatory disorder (CMS/HCC) 6. Pain in toe of left foot 7. Pain in toe of right foot 8. Tinea pedis of both feet PLAN: Pt was seen and examined, history reviewed. Clotrimazole rx Discussed with patient regarding proper glucose control, exercise, and diet. Explained to patient proper shoe gear, and importance of daily foot checks. I reviewed neuropathy and why it occurs in diabetics. I educated the patient on proper blood sugar control and the importance of an HgBA1c of less than 7.0%. I reviewed the signs and symptoms of neuropathy with the patient Pt to return for another evaluation in 3 months. Debridement of mycotic toenails 6-10: Verbal informed consent was obtained from the patient. Greater than 6 nails were aseptically debrided in thickness and length with nail nippers Jv Morelos DPM documented in this encounter Plan of Treatment Upcoming Encounters Date Type Department Care Team (Late st Contact Info) Description 12/20/2024 3:00 PM EDT Office Visit Orthopedic Surgery - [place] [address] [phone] Jv Morelos DPM [address] [address] documented as of this encounter Visit Diagnoses Diagnosis Dermatophytosis of nail- Primary Type 2 diabetes mellitus with diabetic chronic kidney disease ([facility]/HCC) terminal carman (current) use of insulin (CMS/HCC) Diabetic mononeuropathy simplex ([facility]) Type II or unspecified type diabetes mellitus with neurological manifestations, not stated as uncontrolled Type II diabetes mellitus with peripheral circulatory disorder (CMS/HCC) Type II or unspecified type diabetes mellitus with peripheral circulatory disorders, not stated as uncontrolled Pain in toe of left foot Pain in soft tissues of limb Pain in toe of right foot Pain in soft tissues of limb Tinea pedis of both feet documented in this encounter Orders Outpatient Referral Count Last Ordered Date Fir st Ordered Date AMB REFERRAL TO PODIATRY 1 09/19/2024 documented in this encounter Care Teams Bearing Press Machine Operator Relationship Specialty Start Date End Date Pablo Mendoza PA [address] [place] [phone] PCP - General Internal Medicine 05/11/21 documented as of this encounter
== END 2024-10-03 12:35 | disposition home or self-care (01) ==
LOC: HO.HKA 12:05
PROVIDERS: PCP Physician Assistant; Visit Provider Internal Medicine Nephrology
DX: E11.21 Type 2 diabetes mellitus with diabetic nephropathy (principal); E11.22 Type 2 diabetes mellitus with diabetic chronic kidney disease; N18.30 Chronic kidney disease, stage 3 unspecified; I10 Essential (primary) hypertension; I50.23 Acute on chronic systolic (congestive) heart failure
CPT/HCPCS: 99214

== ENCOUNTER → 2024-10-03 12:04 | Outpatient (BNVA) | payer OTHER, SELFPAY | PROVIDERS: PCP Physician Assistant; Visit Provider Internal Medicine Nephrology ==

== ENCOUNTER 2024-10-03 12:33 | Inpatient (IN) | payer OTHER, SELFPAY ==
[2024-10-03] VITALS (7 sets, daily range): BP systolic 112–149; BP diastolic 41–64; PULSE 57–67; RESP 12–24; TEMP 36.3–36.8; O2SAT 90–97; BMI 42.2
--- NOTE | ~2024-10-03 | XR_ITS ---
EXAMINATION: XR CHEST 2 VIEWS HISTORY: sob COMPARISON: Comparison is made with the prior examination dated 04/29/2022. FINDINGS: PA and lateral views of the chest are submitted. There is prominence of the pulmonary vasculature, consistent with congestion. There is no pleural effusion, pneumothorax, or pulmonary vascular congestion. The heart is normal in size. The patient is status post median sternotomy and CABG. The bones are intact. XR/XR chest 2V IMPRESSION: Pulmonary vascular congestion. Electronically signed by: George Caballero MD 10/03/2024 12:50 PM EDT
--- NOTE | 2024-10-03 12:38 | ECG_ITS ---
Test Reason : CP Blood Pressure : */* mmHG Vent. Rate : 63 BPM Atrial Rate : 63 BPM P-R Int : 150 ms QRS Dur : 76 ms QT Int : 468 ms P-R-T Axes : 14 -19 107 degrees QTcB Int : 478 ms Sinus rhythm with frequent Premature ventricular complexes Inferior infarct (cited on or before 28-Apr-2017) Cannot rule out Anterior infarct , age undetermined Abnormal ECG When compared with ECG of 29-Apr-2022 09:21, Premature ventricular complexes are now Present QRS axis Shifted right Referred By: Gege Walker Electronically Signed By: Liang Gomez
--- NOTE | 2024-10-03 12:39 | ED_ITS ---
HPI - General Adult General Chief complaint: Dyspnea Stated complaint: Heart Patient- Swelling, Trouble Breathing Time Seen by Provider: 10/03/24 12:58 Source: patient and old records reviewed Mode of arrival: ambulatory Limitations: no limitations History of Present Illness ED Provider: JUNE RAE narrative: 53 yo female with PMH of CAD s/p CABG 2016, CHF, ischemic cardiomyopathy, occlusion of SVG to OM s/p mechanical thrombectomy, stents in 2019, HLD, DM, HTN, CKD, recent cardiac cath 2023 has occluded graft to OM with collaterals at that time medical management recommended. She comes in today with orthopnea, MAY, leg swelling, 40lb weight gain in 3 days with swollen face. No med changes, no recent URI or precipitating events, no missed medications. Has not had URI, traveled. She is compliant with her 40mg daily of lasix. She was walked over by Dr. Bray from Nephrology with concerns for her weight gain/CHF MD complaint: weight gaine, swelling dyspnea Onset (ago): day(s) (4) Location: chest, left, right and lower extremity Radiation: non-radiation Severity: moderate Relieving factors: rest Exacerbating factors: other (laying flat, exertion) Associated symptoms: shortness of breath Treatments prior to arrival: none Related Data Home Medications ?Medication ?Instructions ?Recorded ?Confirmed insulin lispro 100 unit/mL 5 unit subcut TID 08/26/21 06/20/24 subcutaneous pen (Humalog KwikPen (U-100) Insulin) empagliflozin 10 mg tablet 10 mg PO DAILY 04/14/22 06/20/24 (Jardiance) evolocumab 140 mg/mL subcutaneous 140 mg subcut Q2W 05/04/22 06/20/24 syringe (Repatha Syringe) dulaglutide 1.5 mg/0.5 mL 1.5 mg subcut QWEEK 10/18/22 06/20/24 subcutaneous pen injector (Trulicity) clopidogrel 75 mg tablet 75 mg PO DAILY 09/20/23 06/20/24 blood sugar diagnostic (FreeStyle #10 ea 10/20/23 06/20/24 Lite Strips) flash glucose sensor (FreeStyle #1 ea 10/20/23 06/20/24 Aida 2 Sensor kit) isosorbide mononitrate 60 mg 60 mg PO DAILY 10/20/23 06/20/24 tablet,extended release 24 hr amlodipine 5 mg tablet 5 mg PO DAILY 04/19/24 06/20/24 insulin glargine 100 unit/mL 30 unit subcut QPM 04/19/24 06/20/24 subcutaneous cartridge aspirin 81 mg tablet,delayed 81 mg PO DAILY 05/17/24 06/20/24 release carvedilol 25 mg tablet 25 mg PO BID 05/17/24 06/20/24 Previous Rx's ?Medication ?Instructions ?Recorded blood pressure test kit-large #1 ea 05/19/21 walker #1 ea 02/22/22 gabapentin 300 mg capsule 600 mg (2 x 300 mg) PO TID 90 days 01/04/24 #540 caps atorvastatin 80 mg tablet 80 mg PO DAILY #90 tabs 04/19/24 cetirizine 10 mg tablet 10 mg PO DAILY #90 tabs 04/19/24 cholecalciferol (vitamin D3) 125 125 mcg PO DAILY 90 days #90 caps 04/19/24 mcg (5,000 unit) capsule escitalopram oxalate 10 mg tablet 10 mg PO DAILY #90 tabs 04/19/24 famotidine 20 mg tablet 40 mg (2 x 20 mg) PO DAILY 90 days 04/19/24 #180 tabs metoprolol succinate 50 mg 50 mg PO DAILY #90 tabs 04/19/24 tablet,extended release 24 hr fluticasone propionate 50 1 spray intranasal BID #48 mL 05/24/24 mcg/actuation nasal spray,suspension benzonatate 200 mg capsule 200 mg PO BID PRN cough 7 days #14 06/21/24 caps furosemide 20 mg tablet 40 mg (2 x 20 mg) PO DAILY #180 08/23/24 tabs albuterol sulfate 90 mcg/actuation 2 puff inhalation QID Wheezing 30 09/02/24 aerosol inhaler (Ventolin HFA) days #8.5 grams losartan 25 mg tablet 25 mg PO DAILY #90 tabs 09/04/24 Allergies Allergy/AdvReac Type Severity Reaction Status Date / Time tramadol [TRAMADOL] Allergy Intermediate VOMITING Verified 10/03/24 12:38 adhesive tape AdvReac Intermediate tears skin Verified 10/03/24 12:38 lisinopril AdvReac Mild Cough Verified 10/03/24 12:38 Review of Systems 2 Review of Systems: Constitutional : No Fever, No Chills ENT/Mouth : No sore throat, No Rhinorrhea, No Swallowing Difficulty Eyes: No Eye Pain, No Swelling, No Redness Cardiovascular : No Chest Pain, positive SOB, pos Orthopnea, positive Edema Respiratory : No Cough, No Sputum, No Wheezing, positive dyspnea Gastrointestinal : No Nausea, No Vomiting, No Diarrhea, No abdominal Pain, No Hematochezia, No Melena Genitourinary : No Dysuria, No Urinary Frequency, No Hematuria Musculoskeletal : No joint pain, No Myalgias Skin : No Skin Lesions, No rash Neuro : No Weakness, No Numbness, No Dizziness, No Headache Psych : No Anxiety/Panic, No Depression All other systems reviewed and are negative PMFSH Past Medical History Attestation statement: The following information was validated with the patient. Source: old records reviewed Medical History Carpal tunnel syndrome of left wrist Carpal tunnel syndrome of right wrist GERD (gastroesophageal reflux disease) Elevated cholesterol Asthma Type 2 diabetes Chronic renal insufficiency Myocardial infarction CAD (coronary artery disease) HTN (hypertension) Depression Surgical History Hx of heart artery stent Hx of section History of cardiac catheterization H/O: hysterectomy H/O bladder repair surgery Hx of CABG Family History Family History Mother Cervical cancer Hypertension Blindness Kidney failure Sister Cervical cancer Hypertension Hypoglycemia Brother ESRD (end stage renal disease) Hypertension Father DMII (diabetes mellitus, type 2) Son Asthma Daughter No problems noted. Daughter No problems noted. Daughter No problems noted. Daughter No problems noted. Maternal Aunt Ovarian cancer Social History Social History Housing: Apartment Are you a primary nonfarm animal caretaker to a significant other at home: No Do you presently have visiting nurse or other home services: No Alcohol intake: never Patient Tobacco Use Status: Never used Tobacco Tobacco use type: Cigarette e-Cigarette/Vaping Use: Never Used Second Hand Smoke Exposure: No Advance Directives: No Advance Directives Information Provided: Yes service: No Current occupational status: disabled Cognitive needs: Yes (walker) Hearing needs: No Vision needs: Yes Physical Exam ED Vital Signs: Vital Signs - 24 hr 10/03/24 12:35 10/03/24 13:22 10/03/24 14:30 Temperature 97.4 F 97.9 F Pulse Rate 67 60 Respiratory Rate 24 H 16 Blood Pressure 112/46 L 121/58 L 121/58 L Pulse Oximetry 92 97 Oxygen Delivery Method Room Air Room Air BMI result Body Mass Index 42.2 Appearance: Alert. Oriented X3. No acute distress. Eyes: Pupils equal, round and reactive to light. ENT: Pharynx normal. Face puffy Neck: Normal inspection. Neck supple. CVS: Normal heart rate and rhythm. Pulses normal. Respiratory: No respiratory distress. Breath sounds rales in bases Abdomen: Soft and nontender. Rectal: light brown stool Skin: Skin warm and dry. Normal skin color. Normal skin turgor. Extremities: 1-2+ pitting lower extremity edema. No calf ttp Neuro: Oriented X 3. No motor deficit. No sensory deficit. CN2-12 intact Course Course Course Narrative: This is a rapid medical exam performed by Gege Walker PA-C. The patient is a 53-year-old female with a history of coronary artery disease, heart failure, morbid obesity, kidney dysfunction who presents with new peripheral edema and shortness of breath x3 days. Associated unintentional weight gain. On exam her lungs are clear, she is 92% on room air, she does have pitting edema at the level of the ankle. Plan to screen basic labs trop, BNP, EKG and chest x-ray. She is stable and can return to the waiting room pending her full medical assessment. Medications Administered Discontinued Medications Generic Name Dose Route Start Last Admin Trade Name Freq PRN Reason Stop Dose Admin Furosemide 40 mg 10/03/24 14:08 10/03/24 14:30 Furosemide 40 Mg/4 Ml Vial IVPUSH 10/03/24 14:09 40 mg STAT STA Administration Protocol Medical Decision Making Medical Decision Making MDM Narrative: 53 yo female with PMH of CAD s/p CABG 2016, CHF, ischemic cardiomyopathy, occlusion of SVG to OM s/p mechanical thrombectomy, stents in 2019, HLD, DM, HTN, CKD now here with weight gain, dyspnea, orthopnea but no chest pain she reports compliance with all medications at this time will obtain basic labs, BNP, CXR, EKG - will need IV diureses. I did add on albumin/TSH. Denies recent steroid use. Differential Diagnosis Differential Diagnoses: The differential diagnosis associated with the presentation includes CHF, NSTEMI, anasarca Admission/Observation Consideration of admission/observation: Escalation of care including admission/observation considered admit for diuresis Consult Healthcare Provider Management of the patient was discussed with: Hospitalist (will admit) Lab Data MDM Lab Attestation statement: I reviewed the patient's lab results. 10/03/24 13:36 10/03/24 13:36 Labs: Lab Results 10/03/24 10/03/24 Range/Units 13:36 14:41 WBC 5.2 (4.8-10.8) X10*3/uL RBC 3.35 L D (4.20-5.50) X10*6/uL Hgb 9.0 L D (12.0-16.0) g/dl Hct 29.0 L D (37.0-47.0) % MCV 86.6 (80.0-98.0) fL MCH 26.9 L (27.0-33.0) pg MCHC 31.0 (31.0-35.0) g/dl RDW 15.7 (11.0-16.0) % Plt Count 208 D (160-400) X10*3/uL MPV 11.8 (9.4-12.3) fL Immature Gran % (Auto) 0.2 (0.0-0.4) % Neut % (Auto) 66.4 (45-73) % Lymph % (Auto) 20.7 (20-40) % Bacon % (Auto) 7.5 (2-11) % Eos % (Auto) 4.6 H (0-4) % Baso % (Auto) 0.6 (0-2) % Lymph # (Auto) 1.1 L (1.2-4.9) X10*3/uL Bacon # (Auto) 0.4 (0.1-1.2) X10*3/uL Eos # (Auto) 0.2 (0.0-0.4) X10*3/uL Baso # (Auto) 0.0 (0.0-0.2) X10*3/uL Abs Immat Gran (auto) 0.01 (0.00-0.03) X10*3/uL Absolute Neuts (auto) 3.4 (2.0-8.3) x10*3/uL Absolute Nucleated RBC 0.000 (0.0-0.012) X10*3/uL Nucleated RBC % (auto) 0.0 (0.0-0.2) /100WBC Sodium 140 (135-145) mmol/L Potassium 4.7 (3.3-5.1) mmol/L Chloride 110 H (96-108) mmol/L Carbon Dioxide 24 (22-29) mmol/L Anion Gap 11 L (12-20) BUN 62 H (9-16) mg/dL Creatinine 1.60 H (0.5-1.4) mg/dL Estim Creat Clear Calc 50.7 Estimated GFR 34 Random Glucose 177 H (60-115) mg/dL Calcium 9.2 D (8.4-10.2) mg/dL Magnesium 2.1 (1.6-2.6) mg/dL Total Bilirubin 0.7 (0.0-1.0) mg/dL AST 61 H (5-31) U/L ALT 65 H (0-31) U/L Alkaline Phosphatase 108 (39-117) U/L Troponin I High Sens 14.0 (<3.5-17.0) ng/L B-Natriuretic Peptide 755 H (<100) pg/mL Total Protein 7.0 (6.5-8.0) g/dL Albumin 3.6 (3.5-5.0) g/dL TSH 3.31 (0.32-4.0) uIU/mL Beta HCG, Quant < 2 mIU/mL Stool Occult Blood NEGATIVE (NEGATIVE) Independent Interpretation I performed an independent interpretation of an: EKG and Plain X-Ray (pulm edema) Interpretation: Rate: 63 Rhythm: NSR with frequent PVCs [place]: left Normal P waves. Normal DERICK. Normal QRS complex. ST T wave : inverted T waves I and aVL, no JUANITO qTC: 478 prior studies: no sig change from prior The study has been interpreted contemporaneously by me. . Radiology Impression Discussion of test interpretation with radiology: I have reviewed the radiologist's reading. External Record Review External record reviewed: Inpatient record and Outpatient record Discharge Plan Discharge Clinical Impression: Anemia, Acute CHF Patient Disposition: Admitted As Inpatient Prescriptions: No Action (DME[place] [facility] [place] .Route Qty: 1 0RF Rx Instructions: As directed fluticasone propionate 50 mcg/actuation spray,suspension 1 spray intranasal BID Qty: 48 0RF furosemide 20 mg tablet 40 mg PO DAILY Qty: 180 2RF albuterol sulfate [Ventolin HFA] 90 mcg/actuation HFA aerosol inhaler 2 puff inhalation QID 30 Days Qty: 8.5 3RF losartan 25 mg tablet 25 mg PO DAILY Qty: 90 3RF (DME) blood pressure test kit-large Kit See Rx Instructions .Route Qty: 1 0RF Rx Instructions: As directed insulin glargine 100 unit/mL cartridge 30 unit subcut QPM insulin lispro [Humalog KwikPen Insulin] 100 unit/mL insulin pen 5 unit subcut TID Trulicity 1.5 mg/0.5 mL pen injector 1.5 mg subcut QWEEK (DME) FreeStyle Aida 2 Sensor Kit See Rx Instructions .ROUTE .MEDSUPPLY Qty: 1 Rx Instructions: As directed isosorbide mononitrate 60 mg tablet extended release 24 hr 60 mg PO DAILY (DME) FreeStyle Lite Strips Strip See Rx Instructions .ROUTE TID Qty: 10 Rx Instructions: As directed gabapentin 300 mg capsule 600 mg PO TID 90 Days Qty: 540 1RF Repatha Syringe 140 mg/mL syringe 140 mg subcut Q2W Jardiance 10 mg tablet 10 mg PO DAILY aspirin 81 mg tablet,delayed release (DR/EC) 81 mg PO DAILY carvedilol 25 mg tablet 25 mg PO BID Rx Instructions: must administer with a meal/food clopidogrel 75 mg tablet 75 mg PO DAILY atorvastatin 80 mg tablet 80 mg PO DAILY Qty: 90 2RF cetirizine 10 mg tablet 10 mg PO DAILY Qty: 90 2RF cholecalciferol (vitamin D3) 125 mcg (5,000 unit) capsule 125 mcg PO DAILY 90 Days Qty: 90 2RF escitalopram oxalate 10 mg tablet 10 mg PO DAILY Qty: 90 2RF metoprolol succinate 50 mg tablet extended release 24 hr 50 mg PO DAILY Qty: 90 1RF amlodipine 5 mg tablet 5 mg PO DAILY famotidine 20 mg tablet 40 mg PO DAILY 90 Days Qty: 180 1RF benzonatate 200 mg capsule 200 mg PO BID PRN (Reason: cough) 7 Days Qty: 14 1RF Print Language: Polish
[2024-10-03 13:42] LABS: MANUAL DIFF FLAG NO
[2024-10-03 13:45] LABS: Basophils Percent Auto 0.6 % (0-2); Eosinophils Absolute Auto 0.2 X10*3/uL (0.0-0.4); Eosinophils Percent Auto 4.6 % (0-4); Imm Gran Abs Auto 0.01 X10*3/uL (0.00-0.03); Imm Gran Pct Auto 0.2 % (0.0-0.4); Lymphocytes Absolute Auto 1.1 X10*3/uL (1.2-4.9); Lymphocytes Percent Auto 20.7 % (20-40); Mean Corpuscular Hemoglobin 26.9 pg (27.0-33.0); Mean Corpuscular Volume 86.6 fL (80.0-98.0); Mean Platelet Volume 11.8 fL (9.4-12.3); Monocytes Absolute Auto 0.4 X10*3/uL (0.1-1.2); Monocytes Percent Auto 7.5 % (2-11); Neutrophils Absolute Auto 3.4 x10*3/uL (2.0-8.3); Neutrophils Percent Auto 66.4 % (45-73); Platelet Count 208 X10*3/uL (160-400); Red Blood Count 3.35 X10*6/uL (4.20-5.50); Red Cell Distribution Width 15.7 % (11.0-16.0); White Blood Count 5.2 X10*3/uL (4.8-10.8)
[2024-10-03 14:03] LABS: B Type Natriuretic Peptide 755 pg/mL (<100)
[2024-10-03 14:09] LABS: Alanine Aminotransferase 65 U/L (0-31); Albumin Level 3.6 g/dL (3.5-5.0); Alkaline Phosphatase 108 U/L (39-117); Anion Gap 11 (12-20); Aspartate Amino Transferase 61 U/L (5-31); Bilirubin Total 0.7 mg/dL (0.0-1.0); Blood Urea Nitrogen 62 mg/dL (9-16); Calcium 9.2 mg/dL (8.4-10.2); Carbon Dioxide 24 mmol/L (22-29); Chloride 110 mmol/L (96-108); Creatinine Clr Calc Pharmacy 50.7; Estimated Glomerular Filt Rate 34; Glucose Random 177 mg/dL (60-115); HCG Quantitative < 2 mIU/mL; Magnesium 2.1 mg/dL (1.6-2.6); Potassium 4.7 mmol/L (3.3-5.1); Sodium 140 mmol/L (135-145)
[2024-10-03 14:16] LABS: TSH reflex Free T4 3.31 uIU/mL (0.32-4.0)
[2024-10-03] MEDS: Furosemide 40 MG/4 ML VIAL IVPUSH (14:30)
[2024-10-03 14:54] LABS: OBS Int Ctl Valid YES; OBS1 NEGATIVE (NEGATIVE)
--- NOTE | 2024-10-03 15:19 | P.HPHOSP_ITS ---
History of Present Illness Date of Service: 10/03/24 Chief Complaint: Fluid overload A 53 years old lady with PMH of CAD s/p CABG 2016, CHF, ischemic cardiomyopathy, 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 The patient reports that she noticed gaining weight of 40 lbs over recent times. she became more swollen mainly in lower extremities with associated PNDs and orthopnea. No chest pain, palpitations, nausea, vomiting, diarrhea or urinary symptoms. She was brought to ED by dr Bray as he was seeing her in the office. In ED found to have elevatED BNP, low Hb, increase Cr, Transaminitis. CXR showing bilateral vascular congestion. Will be admitted for further work up and management. Review of Systems 2 Review of Systems: No fever, chills or weakness No chest pain, palpitation having shortness of breath or coughing No abdominal pain, nausea or vomiting No urinary symptoms No any rash Yes all other systems are reviewed and are negative [facility] Medical History Carpal tunnel syndrome of left wrist Carpal tunnel syndrome of right wrist GERD (gastroesophageal reflux disease) Elevated cholesterol Asthma Type 2 diabetes Chronic renal insufficiency Myocardial infarction CAD (coronary artery disease) HTN (hypertension) Depression Family History Mother Cervical cancer Hypertension Blindness Kidney failure Sister Cervical cancer Hypertension Hypoglycemia Brother ESRD (end stage renal disease) Hypertension Father DMII (diabetes mellitus, type 2) Son Asthma Daughter No problems noted. Daughter No problems noted. Daughter No problems noted. Daughter No problems noted. Maternal Aunt Ovarian cancer Surgical History Hx of heart artery stent Hx of section History of cardiac catheterization H/O: hysterectomy H/O bladder repair surgery Hx of CABG Social History Housing: Apartment Are you a primary long term care phlebotomist to a significant other at home: No Do you presently have visiting nurse or other home services: No Alcohol intake: never Patient Tobacco Use Status: Never used Tobacco Tobacco use type: Cigarette Smoked in Last 30 Days: No e-Cigarette/Vaping Use: Never Used Second Hand Smoke Exposure: No Use of substances other than those prescribed or required for medical reasons: No Advance Directives: No Advance Directives Information Provided: Yes Nutrition Risks: No Nutritional Risk Patient : No service: No Current occupational status: disabled Cognitive needs: Yes (walker) Hearing needs: No Vision needs: Yes Meds Allergies Allergy/AdvReac Type Severity Reaction Status Date / Time tramadol [TRAMADOL] Allergy Intermediate VOMITING Verified 10/03/24 12:38 adhesive tape AdvReac Intermediate tears skin Verified 10/03/24 12:38 lisinopril AdvReac Mild Cough Verified 10/03/24 12:38 Home Medications ?Medication ?Instructions ?Recorded ?Confirmed ?Last Taken ?Type insulin lispro 100 unit/mL 15 sliding scale dose subcut TID 08/26/21 10/03/24 10/03/24 History subcutaneous pen (Humalog KwikPen (U-100) Insulin) dulaglutide 1.5 mg/0.5 mL 1.5 mg subcut WE 10/18/22 10/03/24 09/26/24 History subcutaneous pen injector (Trulicity) clopidogrel 75 mg tablet 75 mg PO DAILY 09/20/23 10/03/24 10/03/24 History blood sugar diagnostic (FreeStyle #10 ea 10/20/23 06/20/24 Unknown History Lite Strips) flash glucose sensor (FreeStyle #1 ea 10/20/23 06/20/24 Unknown History Aida 2 Sensor kit) isosorbide mononitrate 60 mg 60 mg PO DAILY 10/20/23 10/03/24 10/03/24 History tablet,extended release 24 hr amlodipine 5 mg tablet 5 mg PO DAILY 04/19/24 10/03/24 10/03/24 History aspirin 81 mg tablet,delayed 81 mg PO DAILY 05/17/24 10/03/24 10/03/24 History release carvedilol 25 mg tablet 25 mg PO BID 05/17/24 10/03/24 10/03/24 History cholecalciferol (vitamin D3) 50 50 mcg PO DAILY 10/03/24 10/03/24 10/03/24 History mcg (2,000 unit) capsule (Vitamin D3) empagliflozin 10 mg tablet 10 mg PO DAILY 10/03/24 10/03/24 10/03/24 History (Jardiance) evolocumab 140 mg/mL subcutaneous 140 mg subcut Q2W 10/03/24 10/03/24 09/28/24 History syringe (Repatha Syringe) furosemide 20 mg tablet 40 mg PO DAILY 10/03/24 10/03/24 10/03/24 History gabapentin 300 mg capsule 300 mg PO BID 10/03/24 10/03/24 10/03/24 History insulin glargine-yfgn 100 unit/mL 22 unit subcut BEDTIME 10/03/24 10/03/24 10/03/24 History (3 mL) subcutaneous pen multivitamin with minerals-folic 2 tab PO DAILY 10/03/24 10/03/24 10/03/24 History acid 200 mcg chewable tablet (Multivitamin Gummies) Physical Exam 2 Vital Signs and Narrative: Vital Signs: Last Vital Signs Temp 97.9 F 10/03/24 13:22 Pulse 60 10/03/24 13:22 Resp 16 10/03/24 13:22 BP 121/58 L 10/03/24 14:30 Pulse Ox 97 10/03/24 13:22 O2 Del Method Room Air 10/03/24 13:22 BMI result Body Mass Index 42.2 Const: Other: Constitutional : Awake, interactive, not in distress Neck : Normal inspection, Supple Cardiovascular : RRR, elevated JVP, +2 lower extremity edema Respiratory : good bilateral air entry, no crackles, wheezes or rhonchi Gastrointestinal: soft, lax, Normal bowel sounds, Non tender Skin : Warm, Dry Neurological : Alert & oriented x3, No focal deficit Results Labs 10/03/24 13:36 10/03/24 13:36 Labs: Laboratory Results - last 24 hr 10/03/24 10/03/24 13:36 14:41 MCV 86.6 MCH 26.9 L MCHC 31.0 RDW 15.7 Plt Count 208 D MPV 11.8 Immature Gran % (Auto) 0.2 Neut % (Auto) 66.4 Lymph % (Auto) 20.7 [place] % (Auto) 7.5 Eos % (Auto) 4.6 H Baso % (Auto) 0.6 Lymph # (Auto) 1.1 L [place] # (Auto) 0.4 Eos # (Auto) 0.2 Baso # (Auto) 0.0 Abs Immat Gran (auto) 0.01 Absolute Neuts (auto) 3.4 Absolute Nucleated RBC 0.000 Nucleated RBC % (auto) 0.0 Anion Gap 11 L Estim Creat Clear Calc 50.7 Estimated GFR 34 Random Glucose 177 H Calcium 9.2 D Magnesium 2.1 Total Bilirubin 0.7 AST 61 H ALT 65 H Alkaline Phosphatase 108 B-Natriuretic Peptide 755 H Total Protein 7.0 Albumin 3.6 TSH 3.31 Beta HCG, Quant < 2 Stool Occult Blood NEGATIVE Imaging Radiologist's Impressions: Impressions Chest X-Ray 10/03/24 12:38 IMPRESSION: Pulmonary vascular congestion. Electronically signed by: George Caballero MD 10/03/2024 12:50 PM EDT RP Assessment and Plan (1) Acute CHF: Qualifiers: Heart failure type: unspecified Qualified Code(s): I50.9 - Heart failure, unspecified Status: Acute (2) Anemia: Qualifiers: Anemia type: unspecified type Qualified Code(s): D64.9 - Anemia, unspecified Status: Acute (3) Acute exacerbation of congestive heart failure: Qualifiers: Heart failure type: systolic Qualified Code(s): I50.23 - Acute on chronic systolic (congestive) heart failure Status: Acute (4) Transaminitis: Status: Acute (5) CKD stage 3 secondary to diabetes: Status: Acute Plan A 53 years old lady with PMH of CAD s/p CABG 2016, CHF, ischemic cardiomyopathy, 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 Acute unspecified CHF exacerbation check Echo Elevated BNP CXR As reported Start IV LAsix monitor I\O Anemia , chronic no acute blood loss, could be dilutional check folate, B12 and iron monitor Transaminitis likely from fluid overload monitor response to diuresis DARIUSZ on CKD3 Cr 1.6 , likely prerenal monitor Cr while on Lasix HTN Continue Amlodipine ASA, Plavix , Statin, Carvedilol consider Cardiology consult DMII SSI DVT ppx Lovenox The patient will be admitted for treatment of acute heart failure pending ECHO and possible senior treasury consultant evaluation Quality Stroke Does the patient have a stroke diagnosis?: No VTE Prior VTE?: No VTE Risk Level:: Medical - moderate - high VTE Device Contraindication: Treatment Not Indicated VTE Drug Contraindication: N/A - Med Ordered
[2024-10-03 16:13] LABS: Iron 54 mcg/dL (30-160); Percent Iron Saturation 22 % (15-50); Total Iron Binding Capacity 250 mcg/dL (228-428); Unsaturated Iron Binding 196 ug/dL
[2024-10-03] MEDS: Enoxaparin Sodium 30 MG/0.3 ML SYRINGE SUBCUT (16:40)
[2024-10-03 17:04] LABS: Glucose, Whole Blood 161 mg/dL (60-115)
--- NOTE | 2024-10-03 17:33 | PHA.MEDREC ---
Addendum entered by Alanna Weber, [facility] 10/05/24 06:07: Went to talk to patient to double check that patient is on BOTH carvedilol (last fill 03/02/24 for 90 day supply) and metoprolol (last fill 01/04/24 for 90 day supply). Patient confirmed multiple times that she's still taking both medications and shown that both meds are on her med list (that she created) on her phone. Dr. Hunt was made aware and was ok with continuing both medications for patient. Addendum entered by Antolin Hill, [facility] 10/03/24 17:44: Med rec checked by [facility] Original Note: Pharmacy Consult ? Medication Reconciliation Pharmacy has completed the medication reconciliation. Spoke to patient to confirm med list. Patient had a list of medications on her phone. Patient states she is no longer taking Benzonatate 200 mg, Famotidine 20 mg. Patient confirmed Insulin Glargine 22 units at bedtime, last fill date 06/14/25 for 28 days, Insulin Lispro 15 units tid per sliding scale, last fill date 04/19/25 for 30 days Repatha 140 mg injection, last dose was 09/28/24, Trulicity 1.5 mg every wed last fill date 05/27/25 for 28 days.
[2024-10-03] MEDS: Insulin Lispro 100 UNIT/ML 3 ML VIAL SUBCUT ×2 (18:22→21:22)
[2024-10-04] VITALS (11 sets, daily range): BP systolic 106–139; BP diastolic 49–65; PULSE 56–72; RESP 16–20; TEMP 36.2–36.9; O2SAT 92–96
--- NOTE | 2024-10-04 07:00 | CA_ITS ---
Transthoracic Echocardiogram Patient (Last, First, Middle): Gi Hernandez, Gender: Female Date of : 1970 Age: 53 Procedure Date: 10/04/2024 Procedure Type: Transthoracic Echocardiogram Location: [facility] [place] Height: 162.56 cm Weight: 111.13 kg BSA: 2.13 m2 Heart Rate: bpm BP: 121 / 58 mmHg Indoor Plant Technician: DAMIAN Referring MD: Kaitlynn Colin MD Symptoms: Heart failure Study Quality: Fair, contrast ECG Rhythm: Atrial Fibrillation Conclusions: - Normal left ventricular size and systolic function. There is moderately increased left ventricular wall thickness. The visually estimated ejection fraction is between 55-60%. - Elevated filling pressures. - Normal right ventricular cavity size. There is mildly decreased right ventricular systolic function. - Significantly elevated right atrial pressure. Moderate pulmonary hypertension is present. Findings Procedure Information Contrast agent, definity, is being given per protocol without apparent complications. Left Ventricle Normal left ventricular size and systolic function. There is moderately increased left ventricular wall thickness. The visually estimated ejection fraction is between 55-60%. There is no evidence of regional wall motion abnormalities. Abnormal diastolic function is noted. Spectral Doppler is indicative of a pseudonormal filling pattern. Elevated filling pressures. Right Ventricle Normal right ventricular cavity size. There is mildly decreased right ventricular systolic function. Atria The left atrium is normal in size. The right atrium is normal in size. Aortic Valve There is a normal trileaflet aortic valve. There is mild calcification of the aortic valve. There is no aortic valve stenosis. There is no aortic valve regurgitation. Mitral Valve The mitral valve appears normal. There is no mitral valve regurgitation. There is no mitral valve stenosis. Pulmonic Valve The pulmonic valve is likely normal. Tricuspid Valve Normal tricuspid valve structure. There is mild to moderate tricuspid valve regurgitation. The right ventricular systolic pressure is 52 mmHg. Significantly elevated right atrial pressure. Moderate pulmonary hypertension is present. Great Vessels All visible segments of the aorta are normal in size. The visualized portions of the pulmonary artery and branches are normal. Venous The inferior vena cava is dilated and collapses less than 50% with inspiration. Pericardium/Pleural There is no evidence of pericardial effusion. Prior Study Comparison Changes noted compared to prior study dated: 08/03/2017. Elevated filling pressures, Mildly decreased RV function. Moderate pulmonary hypertension. Measurements 2D Linear Measurements IVSd: 1.61 0.6-0.9/0.6-1.0 cm LVIDd: 4.40 3.9-5.3/4.2-5.9 cm LVIDd Index: 2.07 2.4-3.2/2.2-3.1 cm/m2 LVIDs: 2.44 2.0-3.6 cm LVPWd: 1.25 0.7-1.1 cm LA Diam: 4.10 2.7-3.8/3.0-4.0 cm LAIDs Index: 1.92 1.5-2.3 cm/m2 LV Mass: 309.37 67-162/88-224 g LV Mass Index: 145.25 43-95/49-115 g/m2 LVOT Diam: 1.70 3.0+(-)1.3 cm 2D Systolic Function EF 4C: 63.30 >55% EF 2C: 66.20 >55% EF BiP: 64.60 >55% Mitral Valve MV Pk E: 1.28 MV PK A: 0.43 MV Decel Time: 200.00 E/A: 2.90 E'Lateral: 4.92 E'Medial: 5.49 E/E' Med: 23.30 E/E' Lat: 26.00 PHT: 59.00 MVA PHT: 3.73 Decel [place]: 6.44 Aortic Valve AoV Pk Phi: 1.72 AoV Mn Phi: 1.16 AoV VTI: 0.41 AoV Pk Grad: 12.00 Aov Mn Grad: 6.00 LUCIA Cont.VTI: 1.82 LVOT LVOT Pk Phi: 1.28 LVOT Mn Phi: 0.87 LVOT VTI: 0.33 LVOT Pk Grad: 7.00 LVOT Mn Grad: 3.00 LVOT Diam: 1.70 LVOT Area: 2.27 Diastolic Function MV Pk E: 1.28 MV Pk A: 0.43 E/A: 2.90 E'Medial: 5.49 E/E' Med: 23.30 E' Laterial: 4.92 E/E' Lat: 26.00 Right Ventricle TAPSE (mm): 14.70 TVS' Phi: 7.20 Tricuspid Valve TR Pk Phi: 3.03 TR Pk Grad: 37.00 RA Press: 15.00 RVSP: 52.00 Great Vessels Aorta Sinus of Valsalva: 2.72 2.0-3.5 cm Ao Asc: 3.00 2.1-3.4 cm Updated in Other Vendor System with Status of Final Liang Gomez MD electronically signed on 10/06/2024 10:34:48 AM with status of Final
[2024-10-04 07:11] LABS: Glucose, Whole Blood 264 mg/dL (60-115)
[2024-10-04 07:11] LABS: Glucose, Whole Blood 161 mg/dL (60-115)
[2024-10-04 08:12] LABS: Hematocrit 29.4 % (37.0-47.0); Hemoglobin 8.9 g/dl (12.0-16.0); Mean Corpuscular HGB Conc 30.3 g/dl (31.0-35.0); Mean Corpuscular Hemoglobin 26.3 pg (27.0-33.0); Mean Platelet Volume 12.2 fL (9.4-12.3); Platelet Count 223 X10*3/uL (160-400); Red Blood Count 3.38 X10*6/uL (4.20-5.50); Red Cell Distribution Width 15.8 % (11.0-16.0); White Blood Count 4.5 X10*3/uL (4.8-10.8)
[2024-10-04] MEDS: Insulin Lispro 100 UNIT/ML 3 ML VIAL SUBCUT ×4 (08:15→21:17)
[2024-10-04] MEDS: 0.9 % Sodium Chloride Flush 3 ML SYRINGE IVFLUSH (08:18)
[2024-10-04 08:25] LABS: Alanine Aminotransferase 57 U/L (0-31); Albumin Level 3.6 g/dL (3.5-5.0); Alkaline Phosphatase 110 U/L (39-117); Anion Gap 12 (12-20); Aspartate Amino Transferase 39 U/L (5-31); Bilirubin Total 0.6 mg/dL (0.0-1.0); Blood Urea Nitrogen 61 mg/dL (9-16); Calcium 9.1 mg/dL (8.4-10.2); Carbon Dioxide 24 mmol/L (22-29); Chloride 107 mmol/L (96-108); Creatinine Clr Calc Pharmacy 52.4; Estimated Glomerular Filt Rate 35; Glucose Random 149 mg/dL (60-115); Potassium 4.1 mmol/L (3.3-5.1); Sodium 139 mmol/L (135-145)
[2024-10-04 09:22] LABS: B Type Natriuretic Peptide 519 pg/mL (<100)
--- NOTE | 2024-10-04 09:42 | MHC.CM.PN ---
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 PT VERIFIES PCP ON FILE IS CORRECT AND HAS BEEN EDUCATED ON AND COMPLETED A HCP NAMING HER DTR MARLENA GERBER [phone] [facility] AND HER SON NANETTE HANKINS [phone] HER ALTERNATE, PT PROVIDED W/EDUCATIONAL HANDOUT AND ORIGINAL, COPY UPLOADED TO [facility] AND PLACED IN CHART.
[2024-10-04] MEDS: Albuterol Sulfate 90 MCG 8 GM INHALER 2 PUFF INHALE ×3 (10:50→20:20)
[2024-10-04 10:51] LABS: Glucose, Whole Blood 203 mg/dL (60-115)
[2024-10-04] MEDS: Clopidogrel Bisulfate 75 MG TABLET PO (10:51)
[2024-10-04] MEDS: Aspirin Enteric Coated 81 MG TABLET.DR PO (10:51)
[2024-10-04] MEDS: Atorvastatin Calcium 80 MG TABLET PO (10:51)
[2024-10-04] MEDS: Escitalopram Oxalate 10 MG TABLET PO (10:51)
[2024-10-04] MEDS: Furosemide 40 MG/4 ML VIAL IVPUSH ×2 (10:52→17:19)
[2024-10-04] MEDS: Empagliflozin 10 MG TABLET PO (10:52)
[2024-10-04] MEDS: Isosorbide Mononitrate 60 MG TAB.ER.24H PO (10:54)
[2024-10-04] MEDS: Fluticasone Propionate Nasal 16 GM SPRAY 1 SPRAY NOSTRIL-B (10:55)
[2024-10-04] MEDS: Metoprolol Succinate ER 50 MG TAB.ER.24H PO (12:42)
[2024-10-04] MEDS: carvediloL 25 MG TABLET PO (12:42)
--- NOTE | 2024-10-04 13:04 | P.PNIM_ITS ---
Subjective Subjective Date of Service: 10/04/24 Interval History: Seen and evaluated this morning feels little better still having significant edema no other events Review of Systems No fever, chills or weakness No chest pain, palpitation having shortness of breath or coughing No abdominal pain, nausea or vomiting No urinary symptoms No any rash Physical Exam 2 Vital Signs: Vital Signs: Last Vital Signs Temp 98.5 F 10/04/24 10:59 Pulse 65 10/04/24 12:42 Resp 20 10/04/24 10:59 BP 131/61 10/04/24 10:59 Pulse Ox 92 10/04/24 10:59 O2 Del Method Room Air 10/04/24 10:59 BMI result Body Mass Index 42.2 Const: Other: Constitutional : Awake, interactive, not in distress Neck : Normal inspection, Supple Cardiovascular : RRR, elevated JVP, +2 lower extremity edema Respiratory : good bilateral air entry, no crackles, wheezes or rhonchi Gastrointestinal: soft, lax, Normal bowel sounds, Non tender Skin : Warm, Dry Neurological : Alert & oriented x3, No focal deficit Objective Data Active Medications Acetaminophen (Acetaminophen 325 Mg Tablet) 650 mg PO Q6H PRN PRN Reason: Pain, Mild 1-3,fever,headache Albuterol Sulfate (Albuterol Sulfate 90 Mcg 8 Gm Inhaler) 2 puff INHALE QID [facility] Last Admin: 10/04/24 10:50 Dose: 2 puff Documented By: VLADIMIR Amlodipine Besylate (Amlodipine Besylate 5 Mg Tablet) 5 mg PO DAILY [facility]; Protocol Aspirin (Aspirin Enteric Coated 81 Mg Tablet.) 81 mg PO DAILY [facility] Last Admin: 10/04/24 10:51 Dose: 81 mg Documented By: VLADIMIR Atorvastatin Calcium (Atorvastatin Calcium 80 Mg Tablet) 80 mg PO DAILY [facility] Last Admin: 10/04/24 10:51 Dose: 80 mg Documented By: VLADIMIR Calcium Carbonate (Calcium Carbonate 750 Mg Tab.Chew) 750 mg PO Q4H PRN PRN Reason: Heartburn Carvedilol (Carvedilol 25 Mg Tablet) 25 mg PO BID [facility]; Protocol Last Admin: 10/04/24 12:42 Dose: 25 mg Documented By: VLADIMIR Clopidogrel Bisulfate (Clopidogrel Bisulfate 75 Mg Tablet) 75 mg PO DAILY [facility] Last Admin: 10/04/24 10:51 Dose: 75 mg Documented By: VLADIMIR Empagliflozin (Empagliflozin 10 Mg Tablet) 10 mg PO DAILY [facility] Last Admin: 10/04/24 10:52 Dose: 10 mg Documented By: VLADIMIR Comments: barcode is ripped unable to scan Enoxaparin Sodium (Enoxaparin Sodium 30 Mg/0.3 Ml Syringe) 30 mg SUBCUT Q24H [facility] Last Admin: 10/03/24 16:40 Dose: 30 mg Documented By: MARC Escitalopram Oxalate (Escitalopram Oxalate 10 Mg Tablet) 10 mg PO DAILY [facility] Last Admin: 10/04/24 10:51 Dose: 10 mg Documented By: VLADIMIR Fluticasone Propionate (Fluticasone Propionate Nasal 16 Gm [place]) 1 spray NOSTRIL-B BID [facility] Last Admin: 10/04/24 10:55 Dose: 1 spray Documented By: VLADIMIR Furosemide (Furosemide 40 Mg/4 Ml Vial) 40 mg IVPUSH BID@0900,1800 [facility]; Protocol Last Admin: 10/04/24 10:52 Dose: 40 mg Documented By: VLADIMIR Gabapentin (Gabapentin 300 Mg Capsule) 300 mg PO BID [facility] Insulin Human Lispro (Insulin Lispro 100 Unit/Ml 3 Ml Vial) 0 unit SUBCUT QIDACHS [facility]; Protocol Last Admin: 10/04/24 12:42 Dose: 6 unit Documented By: VLADIMIR Isosorbide Mononitrate (Isosorbide Mononitrate 60 Mg Tab.Er.24h) 60 mg PO DAILY [facility]; Protocol Last Admin: 10/04/24 10:54 Dose: 60 mg Documented By: VLADIMIR Loratadine (Loratadine 10 Mg Tablet) 10 mg PO DAILY [facility] Magnesium Hydroxide (Milk Of Magnesia 30 Ml Oral.Susp) 30 ml PO DAILY PRN PRN Reason: Constipation Melatonin (Melatonin 3 Mg Tablet) 6 mg PO BEDTIME PRN PRN Reason: Insomnia Metoprolol Succinate (Metoprolol Succinate Er 50 Mg Tab.Er.24h) 50 mg PO DAILY [facility]; Protocol Last Admin: 10/04/24 12:42 Dose: 50 mg Documented By: VLADIMIR Multivitamins/Vitamin C (Multivitamin Tablet) 1 tab PO DAILY [facility] Ondansetron HCl (Ondansetron Hcl 4 Mg/2 Ml Vial) 4 mg IVPUSH Q8H PRN PRN Reason: Nausea and Vomiting Sodium Chloride (0.9 % Sodium Chloride Flush 3 Ml Syringe) 3 ml IVFLUSH QSHIFT [facility] Last Admin: 10/04/24 08:18 Dose: 3 ml Documented By: VLADIMIR Vitamin D (Cholecalciferol (Vitamin D3) 25 Mcg Tablet) 50 mcg PO DAILY [facility] Labs 10/04/24 07:22 10/04/24 07:22 Labs: Laboratory Results - last 24 hr 10/03/24 10/03/24 10/03/24 13:36 14:41 17:00 MCV 86.6 MCH 26.9 L MCHC 31.0 RDW 15.7 Plt Count 208 D MPV 11.8 Immature Gran % (Auto) 0.2 Neut % (Auto) 66.4 Lymph % (Auto) 20.7 [place] % (Auto) 7.5 Eos % (Auto) 4.6 H Baso % (Auto) 0.6 Lymph # (Auto) 1.1 L [place] # (Auto) 0.4 Eos # (Auto) 0.2 Baso # (Auto) 0.0 Abs Immat Gran (auto) 0.01 Absolute Neuts (auto) 3.4 Absolute Nucleated RBC 0.000 Nucleated RBC % (auto) 0.0 Anion Gap 11 L Estim Creat Clear Calc 50.7 Estimated GFR 34 POC Glucose 161 H Random Glucose 177 H Calcium 9.2 D Magnesium 2.1 Iron 54 TIBC 250 % Saturation 22 Unsat Iron Binding 196 Total Bilirubin 0.7 AST 61 H ALT 65 H Alkaline Phosphatase 108 B-Natriuretic Peptide 755 H Total Protein 7.0 Albumin 3.6 TSH 3.31 Beta HCG, Quant < 2 Stool Occult Blood NEGATIVE Blood Type A Positive Antibody Screen NEGATIVE 10/03/24 10/04/24 10/04/24 21:11 07:05 07:22 MCV 87.0 MCH 26.3 L MCHC 30.3 L RDW 15.8 Plt Count 223 MPV 12.2 Immature Gran % (Auto) Neut % (Auto) Lymph % (Auto) [place] % (Auto) Eos % (Auto) Baso % (Auto) Lymph # (Auto) [place] # (Auto) Eos # (Auto) Baso # (Auto) Abs Immat Gran (auto) Absolute Neuts (auto) Absolute Nucleated RBC 0.000 Nucleated RBC % (auto) 0.0 Anion Gap 12 Estim Creat Clear Calc 52.4 Estimated GFR 35 POC Glucose 264 H 161 H Random Glucose 149 H Calcium 9.1 Magnesium Iron TIBC % Saturation Unsat Iron Binding Total Bilirubin 0.6 AST 39 H ALT 57 H Alkaline Phosphatase 110 B-Natriuretic Peptide 519 H Total Protein 7.0 Albumin 3.6 TSH Beta HCG, Quant Stool Occult Blood Blood Type Antibody Screen 10/04/24 10:39 MCV MCH MCHC RDW Plt Count MPV Immature Gran % (Auto) Neut % (Auto) Lymph % (Auto) [place] % (Auto) Eos % (Auto) Baso % (Auto) Lymph # (Auto) [place] # (Auto) Eos # (Auto) Baso # (Auto) Abs Immat Gran (auto) Absolute Neuts (auto) Absolute Nucleated RBC Nucleated RBC % (auto) Anion Gap Estim Creat Clear Calc Estimated GFR POC Glucose 203 H Random Glucose Calcium Magnesium Iron TIBC % Saturation Unsat Iron Binding Total Bilirubin AST ALT Alkaline Phosphatase B-Natriuretic Peptide Total Protein Albumin TSH Beta HCG, Quant Stool Occult Blood Blood Type Antibody Screen Assessment and Plan (1) Transaminitis: Status: Acute (2) Acute CHF: Status: Acute (3) Anemia: Status: Acute (4) Acute exacerbation of congestive heart failure: Status: Acute Plan A 53 years old lady with PMH of CAD s/p CABG 2016, CHF, ischemic cardiomyopathy, 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 Acute unspecified CHF exacerbation pending Echo Elevated BNP CXR As reported Continue IV LAsix monitor I\O Anemia , acute on chronic no acute blood loss, could be dilutional negative occult stool check folate, B12 and iron monitor Transaminitis likely from fluid overload monitor response to diuresis DARIUSZ on CKD3 Cr 1.6 , likely prerenal monitor Cr while on Lasix HTN Continue Amlodipine ASA, Plavix , Statin, Carvedilol consider Cardiology consult DMII SSI DVT ppx Lovenox The patient will be admitted for treatment of acute heart failure pending ECHO and possible accounting policy consultant evaluation Quality Stroke Does the patient have a stroke diagnosis?: No VTE Prior VTE?: No VTE Risk Level:: Medical - moderate - high VTE Device Contraindication: Treatment Not Indicated VTE Drug Contraindication: N/A - Med Ordered
--- NOTE | 2024-10-04 15:29 | P.CDIM_ITS ---
PROVIDER RESPONSE TEXT: To clarify, the appropriate diagnosis supported by the clinical indicators: Obesity due to excess calories QUERY TEXT: PHYSICIAN'S DOCUMENTATION REQUEST Date of Query: 10/04/2024 09:53 AM EDT Patient Name: Gi Hernandez Admit Date: 10/03/2024 Dear Kaitlynn Colin MD, A review of the medical record indicates additional documentation may be needed. Please review below and update the documentation accordingly. Clinical Indicators: Height: 5ft 4in Weight: 111.4kg BMI: 42.2 If possible, please provide an associated diagnosis related to the abnormal BMI, such as: Morbid obesity Obesity due to excess calories Obesity Due to other cause Specify the other cause Other (explain) Clinically unable to determine (explain) Thank you, Bee Scott, CCS, CDIS Use of terms such as suspected, likely, concern for, or probable (associated with a specific diagnosi s that is being evaluated, monitored, or treated as if it exists) are acceptable and can be coded in the inpatient se tting, when documented at the time of discharge. Please use your independent medical judgment in providing your response. THIS QUERY IS PART OF THE PERMANENT MEDICAL RECORD
[2024-10-04 16:17] LABS: Glucose, Whole Blood 165 mg/dL (60-115)
[2024-10-04] MEDS: Enoxaparin Sodium 30 MG/0.3 ML SYRINGE SUBCUT (17:19)
[2024-10-04 21:14] LABS: Glucose, Whole Blood 280 mg/dL (60-115)
[2024-10-04] MEDS: Gabapentin 300 MG CAPSULE PO (21:17)
[2024-10-05] VITALS (11 sets, daily range): BP systolic 121–140; BP diastolic 60–80; PULSE 54–82; RESP 16–20; TEMP 36.1–37.3; O2SAT 89–98
[2024-10-05 07:04] LABS: Anion Gap 13 (12-20); Blood Urea Nitrogen 57 mg/dL (9-16); Calcium 9.5 mg/dL (8.4-10.2); Carbon Dioxide 29 mmol/L (22-29); Chloride 104 mmol/L (96-108); Creatinine Clr Calc Pharmacy 46.2; Estimated Glomerular Filt Rate 30; Glucose Random 231 mg/dL (60-115); Sodium 142 mmol/L (135-145)
[2024-10-05 07:07] LABS: B Type Natriuretic Peptide 497 pg/mL (<100)
[2024-10-05 07:37] LABS: Folate 11.3 ng/mL (> or = 4.0); Vitamin B12 303 pg/mL (200-900)
[2024-10-05 07:47] LABS: Glucose, Whole Blood 225 mg/dL (60-115)
[2024-10-05] MEDS: Albuterol Sulfate 90 MCG 8 GM INHALER 2 PUFF INHALE ×4 (08:02→19:35)
[2024-10-05] MEDS: Gabapentin 300 MG CAPSULE PO ×2 (08:10→20:19)
[2024-10-05] MEDS: Clopidogrel Bisulfate 75 MG TABLET PO (08:10)
[2024-10-05] MEDS: amLODIPine Besylate 5 MG TABLET PO (08:10)
[2024-10-05] MEDS: Isosorbide Mononitrate 60 MG TAB.ER.24H PO (08:10)
[2024-10-05] MEDS: Escitalopram Oxalate 10 MG TABLET PO (08:11)
[2024-10-05] MEDS: Multivitamin TABLET 1 TAB PO (08:11)
[2024-10-05] MEDS: Acetaminophen 325 MG TABLET 650 MG PO (08:11)
[2024-10-05] MEDS: Aspirin Enteric Coated 81 MG TABLET.DR PO (08:11)
[2024-10-05] MEDS: Cholecalciferol (Vitamin D3) 25 MCG TABLET 50 MCG PO (08:12)
[2024-10-05] MEDS: carvediloL 25 MG TABLET PO (08:12)
[2024-10-05] MEDS: Insulin Lispro 100 UNIT/ML 3 ML VIAL SUBCUT ×4 (08:12→20:20)
[2024-10-05] MEDS: Loratadine 10 MG TABLET PO (08:12)
[2024-10-05] MEDS: Empagliflozin 10 MG TABLET PO (08:12)
[2024-10-05] MEDS: Atorvastatin Calcium 80 MG TABLET PO (08:12)
[2024-10-05] MEDS: Furosemide 40 MG/4 ML VIAL IVPUSH ×2 (08:13→16:52)
[2024-10-05] MEDS: 0.9 % Sodium Chloride Flush 3 ML SYRINGE IVFLUSH ×3 (08:17→20:22)
[2024-10-05 11:09] LABS: Glucose, Whole Blood 240 mg/dL (60-115)
--- NOTE | 2024-10-05 11:12 | MHC.CM.PN ---
EMR REVIEWED, PT W/FLUID OVERLOAD/CHF, PT REMAINS ON IV LASIX BID, SOB IMPROVING, ANTIC PT WILL DC OVER W/E, CM WILL CONT TO FOLLOW DC NEEDS.
[2024-10-05] MEDS: Omeprazole 20 MG CAPSULE.DR PO (11:26)
[2024-10-05 13:14] LABS: OBS Int Ctl Valid YES; OBS1 NEGATIVE (NEGATIVE)
--- NOTE | 2024-10-05 14:38 | P.PNIM_ITS ---
Subjective Subjective Date of Service: 10/05/24 Interval History: Seen and evaluated this morning feels better still having significant edema no other events Review of Systems Review of Systems: Yes all other systems are reviewed and are negative Physical Exam 2 Vital Signs: Vital Signs: Last Vital Signs Temp 97.0 F 10/05/24 11:36 Pulse 54 10/05/24 11:36 Resp 18 10/05/24 11:36 BP 121/60 10/05/24 11:36 Pulse Ox 95 10/05/24 11:36 O2 Del Method Room Air 10/05/24 11:36 BMI result Body Mass Index 42.2 Const: Other: Constitutional : Awake, interactive, not in distress Neck : Normal inspection, Supple Cardiovascular : RRR, elevated JVP, +1 lower extremity edema Respiratory : good bilateral air entry, no crackles, wheezes or rhonchi Gastrointestinal: soft, lax, Normal bowel sounds, Non tender Skin : Warm, Dry Neurological : Alert & oriented x3, No focal deficit Objective Data Active Medications Acetaminophen (Acetaminophen 325 Mg Tablet) 650 mg PO Q6H PRN PRN Reason: Pain, Mild 1-3,fever,headache Last Admin: 10/05/24 08:11 Dose: 650 mg Documented By: ESTHELA Albuterol Sulfate (Albuterol Sulfate 90 Mcg 8 Gm Inhaler) 2 puff INHALE QID [facility] Last Admin: 10/05/24 11:22 Dose: 2 puff Documented By: ROMANA Amlodipine Besylate (Amlodipine Besylate 5 Mg Tablet) 5 mg PO DAILY [facility]; Protocol Last Admin: 10/05/24 08:10 Dose: 5 mg Documented By: ESTHELA Aspirin (Aspirin Enteric Coated 81 Mg Tablet.Dr) 81 mg PO DAILY [facility] Last Admin: 10/05/24 08:11 Dose: 81 mg Documented By: ESTHELA Atorvastatin Calcium (Atorvastatin Calcium 80 Mg Tablet) 80 mg PO DAILY [facility] Last Admin: 10/05/24 08:12 Dose: 80 mg Documented By: ESTHELA Calcium Carbonate (Calcium Carbonate 750 Mg Tab.Chew) 750 mg PO Q4H PRN PRN Reason: Heartburn Carvedilol (Carvedilol 25 Mg Tablet) 25 mg PO BID [facility]; Protocol Last Admin: 10/05/24 08:12 Dose: 25 mg Documented By: ESTHELA Clopidogrel Bisulfate (Clopidogrel Bisulfate 75 Mg Tablet) 75 mg PO DAILY [facility] Last Admin: 10/05/24 08:10 Dose: 75 mg Documented By: ESTHELA Empagliflozin (Empagliflozin 10 Mg Tablet) 10 mg PO DAILY [facility] Last Admin: 10/05/24 08:12 Dose: 10 mg Documented By: ESTHELA Enoxaparin Sodium (Enoxaparin Sodium 30 Mg/0.3 Ml Syringe) 30 mg SUBCUT Q24H [facility] Last Admin: 10/04/24 17:19 Dose: 30 mg Documented By: BROGordon Escitalopram Oxalate (Escitalopram Oxalate 10 Mg Tablet) 10 mg PO DAILY [facility] Last Admin: 10/05/24 08:11 Dose: 10 mg Documented By: ESTHELA Fluticasone Propionate (Fluticasone Propionate Nasal 16 Gm [place]) 1 spray NOSTRIL-B BID [facility] Last Admin: 10/05/24 09:57 Dose: Not Given Documented By: ESTHELA Non-Admin Reason: Patient Refused Furosemide (Furosemide 40 Mg/4 Ml Vial) 40 mg IVPUSH BID@0900,1800 [facility]; Protocol Last Admin: 10/05/24 08:13 Dose: 40 mg Documented By: ESTHELA Gabapentin (Gabapentin 300 Mg Capsule) 300 mg PO BID [facility] Last Admin: 10/05/24 08:10 Dose: 300 mg Documented By: ESTHELA Insulin Human Lispro (Insulin Lispro 100 Unit/Ml 3 Ml Vial) 0 unit SUBCUT QIDACHS [facility]; Protocol Last Admin: 10/05/24 11:26 Dose: 4 unit Documented By: ESTHELA Isosorbide Mononitrate (Isosorbide Mononitrate 60 Mg Tab.Er.24h) 60 mg PO DAILY [facility]; Protocol Last Admin: 10/05/24 08:10 Dose: 60 mg Documented By: ESTHELA Loratadine (Loratadine 10 Mg Tablet) 10 mg PO DAILY [facility] Last Admin: 10/05/24 08:12 Dose: 10 mg Documented By: ESTHELA Magnesium Hydroxide (Milk Of Magnesia 30 Ml Oral.Susp) 30 ml PO DAILY PRN PRN Reason: Constipation Melatonin (Melatonin 3 Mg Tablet) 6 mg PO BEDTIME PRN PRN Reason: Insomnia Multivitamins/Vitamin C (Multivitamin Tablet) 1 tab PO DAILY [facility] Last Admin: 10/05/24 08:11 Dose: 1 tab Documented By: ESTHELA Omeprazole (Omeprazole 20 Mg Capsule.) 20 mg PO DAILY@0630 [facility] Last Admin: 10/05/24 11:26 Dose: 20 mg Documented By: ESTHELA Ondansetron HCl (Ondansetron Hcl 4 Mg/2 Ml Vial) 4 mg IVPUSH Q8H PRN PRN Reason: Nausea and Vomiting Sodium Chloride (0.9 % Sodium Chloride Flush 3 Ml Syringe) 3 ml IVFLUSH QSHIFT [facility] Last Admin: 10/05/24 11:27 Dose: 3 ml Documented By: ESTHELA Vitamin D (Cholecalciferol (Vitamin D3) 25 Mcg Tablet) 50 mcg PO DAILY [facility] Last Admin: 10/05/24 08:12 Dose: 50 mcg Documented By: ESTHELA Labs 10/04/24 07:22 10/05/24 06:33 Labs: Laboratory Results - last 24 hr 10/04/24 10/04/24 10/05/24 16:07 20:41 06:33 Anion Gap 13 Estim Creat Clear Calc 46.2 Estimated GFR 30 POC Glucose 165 H 280 H Random Glucose 231 H Calcium 9.5 B-Natriuretic Peptide 497 H Vitamin B12 303 Folate 11.3 Stool Occult Blood 10/05/24 10/05/24 10/05/24 07:20 10:55 12:30 Anion Gap Estim Creat Clear Calc Estimated GFR POC Glucose 225 H 240 H Random Glucose Calcium B-Natriuretic Peptide Vitamin B12 Folate Stool Occult Blood NEGATIVE Assessment and Plan (1) Transaminitis: Status: Acute (2) Acute CHF: Status: Acute (3) Acute exacerbation of congestive heart failure: Status: Acute Plan A 53 years old lady with PMH of CAD s/p CABG 2016, CHF, ischemic cardiomyopathy, 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 Acute unspecified CHF exacerbation pending Echo Elevated BNP CXR As reported Continue MEtoprolol, Losartan, Jardiance Continue IV LAsix monitor I\O Anemia, acute on chronic no acute blood loss, could be dilutional negative occult stool check folate, B12 and iron monitor Transaminitis likely from fluid overload monitor response to diuresis DARIUSZ on CKD3 Cr 1.6 , likely prerenal monitor Cr while on Lasix HTN Continue Amlodipine ASA, Plavix , Statin, Carvedilol consider Cardiology consult DMII SSI DVT ppx Lovenox The patient will be admitted for treatment of acute heart failure pending ECHO and improvement in fluid overload Quality Stroke Does the patient have a stroke diagnosis?: No VTE Prior VTE?: No VTE Risk Level:: Medical - moderate - high VTE Device Contraindication: Treatment Not Indicated VTE Drug Contraindication: N/A - Med Ordered
[2024-10-05] MEDS: Enoxaparin Sodium 30 MG/0.3 ML SYRINGE SUBCUT (16:51)
[2024-10-05 19:54] LABS: Glucose, Whole Blood 231 mg/dL (60-115)
[2024-10-05] MEDS: Insulin Glargine,Hum.rec.anlog 100 UNIT/ML 10 ML VIAL 18 UNIT SUBCUT (20:19)
[2024-10-06 03:35] VITALS: BP 143/66; PULSE 57; RESP 18; TEMP 36.3; O2SAT 95
--- NOTE | 2024-10-06 04:04 | PC.NURSE ---
requested expectorant via [employer] after suggestion from respiratory therapist. Patient feels she has chest congestion that she cannot bring up.
[2024-10-06 06:00] VITALS: BMI 39.1
[2024-10-06] MEDS: Omeprazole 20 MG CAPSULE.DR PO (06:34)
[2024-10-06 07:00] LABS: MANUAL DIFF FLAG NO
[2024-10-06 07:08] LABS: Basophils Percent Auto 0.6 % (0-2); Eosinophils Absolute Auto 0.4 X10*3/uL (0.0-0.4); Eosinophils Percent Auto 7.6 % (0-4); Hematocrit 32.2 % (37.0-47.0); Hemoglobin 10.1 g/dl (12.0-16.0); Imm Gran Abs Auto 0.01 X10*3/uL (0.00-0.03); Imm Gran Pct Auto 0.2 % (0.0-0.4); Lymphocytes Absolute Auto 1.3 X10*3/uL (1.2-4.9); Lymphocytes Percent Auto 26.5 % (20-40); Mean Corpuscular HGB Conc 31.4 g/dl (31.0-35.0); Mean Corpuscular Hemoglobin 26.9 pg (27.0-33.0); Mean Corpuscular Volume 85.6 fL (80.0-98.0); Monocytes Absolute Auto 0.5 X10*3/uL (0.1-1.2); Monocytes Percent Auto 9.8 % (2-11); Neutrophils Absolute Auto 2.7 x10*3/uL (2.0-8.3); Neutrophils Percent Auto 55.3 % (45-73); Platelet Count 248 X10*3/uL (160-400); Red Blood Count 3.76 X10*6/uL (4.20-5.50); Red Cell Distribution Width 15.6 % (11.0-16.0); White Blood Count 4.9 X10*3/uL (4.8-10.8)
[2024-10-06 07:28] LABS: Glucose, Whole Blood 169 mg/dL (60-115)
[2024-10-06 07:31] LABS: Anion Gap 14 (12-20); Blood Urea Nitrogen 50 mg/dL (9-16); Calcium 9.9 mg/dL (8.4-10.2); Carbon Dioxide 32 mmol/L (22-29); Chloride 100 mmol/L (96-108); Estimated Glomerular Filt Rate 34; Glucose Random 166 mg/dL (60-115); Potassium 3.7 mmol/L (3.3-5.1); Sodium 142 mmol/L (135-145)
[2024-10-06 07:36] LABS: B Type Natriuretic Peptide 288 pg/mL (<100)
[2024-10-06 08:00] VITALS: BP 136/63; PULSE 58; RESP 17; TEMP 36.2; O2SAT 92
[2024-10-06] MEDS: Albuterol Sulfate 90 MCG 8 GM INHALER 2 PUFF INHALE ×2 (08:02→11:24)
[2024-10-06 08:03] VITALS: PULSE 72; RESP 18; O2SAT 97
[2024-10-06] MEDS: Acetaminophen 325 MG TABLET 650 MG PO (08:06)
[2024-10-06] MEDS: Furosemide 40 MG/4 ML VIAL IVPUSH (08:06)
[2024-10-06] MEDS: Insulin Lispro 100 UNIT/ML 3 ML VIAL SUBCUT ×2 (08:07→11:24)
[2024-10-06] MEDS: Aspirin Enteric Coated 81 MG TABLET.DR PO (08:07)
[2024-10-06] MEDS: Escitalopram Oxalate 10 MG TABLET PO (08:07)
[2024-10-06] MEDS: amLODIPine Besylate 5 MG TABLET PO (08:07)
[2024-10-06] MEDS: Multivitamin TABLET 1 TAB PO (08:07)
[2024-10-06] MEDS: Atorvastatin Calcium 80 MG TABLET PO (08:07)
[2024-10-06] MEDS: Loratadine 10 MG TABLET PO (08:07)
[2024-10-06] MEDS: Isosorbide Mononitrate 60 MG TAB.ER.24H PO (08:07)
[2024-10-06] MEDS: Gabapentin 300 MG CAPSULE PO (08:07)
[2024-10-06] MEDS: Cholecalciferol (Vitamin D3) 25 MCG TABLET 50 MCG PO (08:07)
[2024-10-06] MEDS: Clopidogrel Bisulfate 75 MG TABLET PO (08:07)
[2024-10-06] MEDS: Empagliflozin 10 MG TABLET PO (08:07)
[2024-10-06] MEDS: 0.9 % Sodium Chloride Flush 3 ML SYRINGE IVFLUSH (08:08)
[2024-10-06 11:20] LABS: Glucose, Whole Blood 301 mg/dL (60-115)
[2024-10-06 11:24] VITALS: PULSE 59; RESP 18; O2SAT 93
[2024-10-06 11:45] VITALS: BP 146/67; PULSE 61; RESP 18; TEMP 36.6; O2SAT 90
--- NOTE | 2024-10-06 13:22 | P.DS_ITS ---
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 The patient reports that she noticed gaining weight of 40 lbs over recent times. she became more swollen mainly in lower extremities with associated PNDs and orthopnea. No chest pain, palpitations, nausea, vomiting, diarrhea or urinary symptoms. She was brought to ED by dr Bray as he was seeing her in the office. In ED found to have elevatED BNP, low Hb, increase Cr, Transaminitis. CXR showing bilateral vascular congestion. Will be admitted for further work up and management. Hospital course The patient was treated for the following: # Acute diastolic CHF exacerbation as Echo showed EF of 55-60% with increased filling pressures and moderate pulm HTN. found to have Elevated BNP and pulmonary edema on CXR As reported treated with her home medications of Losartan, Jardiance along with IV LAsix with good response as she made over 12L of urine almost negative 9L. To be discharged on Lasix 40 mg twice daily with a plan to follow with Cardiology and Nephrology as outpatient. # Anemia, acute on chronic. Noted to have worsening Hb from 12 to 9 on admission. no acute blood loss, could be dilutional or related to CKD. negative occult stool. normal folate, B12 and iron. Started on Pantoprazole with a plan to follow with GI for EGD and colonoscopy. Hb improved to 10 after diuresis. # Transaminitis likely from fluid overload. Improved with diuresis. # CKD3 with Creatinine stable at 1.6. To repeat BMP as outpatient after increasing Lasix dosage. Discharge plan Low sodium diet Monitor weight daily Discontinue Metoprolol XL Inrease Furosemide to 40 mg two times a day repeat blood test as outpatient Follow with Cardiology and nephrology as scheduled GI follow up to arrange for Colonoscopy\Endoscopy for further Anemia evaluation Time Attestation Discharge Coordination Time (in mins): 42 Quality: Safe Use of Opioids Does Pt have an Active Cancer Diagnosis on the Problem List?: No Quality: Stroke Does the patient have a stroke diagnosis?: No Physical Exam Vital Signs: Vital Signs: Last Vital Signs Temp 97.9 F 10/06/24 11:45 Pulse 61 10/06/24 11:45 Resp 18 10/06/24 11:45 BP 146/67 H 10/06/24 11:45 Pulse Ox 90 L 10/06/24 11:45 O2 Del Method Room Air 10/06/24 11:45 BMI result Body Mass Index 39.1 Const: Other: Constitutional : Awake, interactive, not in distress Neck : Normal inspection, Supple Cardiovascular : RRR, no JVP, trace lower extremity edema Respiratory : good bilateral air entry, no crackles, wheezes or rhonchi Gastrointestinal: soft, lax, Normal bowel sounds, Non tender Skin : Warm, Dry Neurological : Alert & oriented x3, No focal deficit DS: Data Data Completed and Pending Labs on day of discharge: Laboratory Results - last 24 hr 10/05/24 10/06/24 10/06/24 16:25 06:20 07:18 WBC 4.9 RBC 3.76 L Hgb 10.1 L Hct 32.2 L MCV 85.6 MCH 26.9 L MCHC 31.4 RDW 15.6 Plt Count 248 MPV 12.0 Immature Gran % (Auto) 0.2 Neut % (Auto) 55.3 Lymph % (Auto) 26.5 Divide % (Auto) 9.8 Eos % (Auto) 7.6 H Baso % (Auto) 0.6 Lymph # (Auto) 1.3 Divide # (Auto) 0.5 Eos # (Auto) 0.4 Baso # (Auto) 0.0 Abs Immat Gran (auto) 0.01 Absolute Neuts (auto) 2.7 Absolute Nucleated RBC 0.000 Nucleated RBC % (auto) 0.0 Sodium 142 Potassium 3.7 Chloride 100 Carbon Dioxide 32 H Anion Gap 14 BUN 50 H Creatinine 1.59 H Estim Creat Clear Calc 49.0 Estimated GFR 34 POC Glucose 231 H 169 H Random Glucose 166 H Calcium 9.9 B-Natriuretic Peptide 288 H 10/06/24 11:08 WBC RBC Hgb Hct MCV MCH MCHC RDW Plt Count MPV Immature Gran % (Auto) Neut % (Auto) Lymph % (Auto) Divide % (Auto) Eos % (Auto) Baso % (Auto) Lymph # (Auto) Divide # (Auto) Eos # (Auto) Baso # (Auto) Abs Immat Gran (auto) Absolute Neuts (auto) Absolute Nucleated RBC Nucleated RBC % (auto) Sodium Potassium Chloride Carbon Dioxide Anion Gap BUN Creatinine Estim Creat Clear Calc Estimated GFR POC Glucose 301 H Random Glucose Calcium B-Natriuretic Peptide Imaging Chest x-ray: Radiologist's impression: ITS Impressions Chest X-Ray 10/03/24 12:38 IMPRESSION: Pulmonary vascular congestion. Electronically signed by: George Caballero MD 10/03/2024 12:50 PM EDT RP Discharge Plan Discharge Anticipated Discharge Date/Time: 10/06/24 13:17 Patient Disposition: Home, Self-Care Discharge Diagnosis: CHF exacerbation Referrals: Pablo Mendoza PA-C [Primary Care Provider] - 1 Week Homero Vargas MD [Physician] - 2 Weeks (Screening Colonoscopy, need Anemia evaluation and possible EGD. ) Discharge Medications: New pantoprazole 40 mg tablet,delayed release (DR/EC) 40 mg PO DAILY Qty: 90 0RF furosemide 40 mg tablet 40 mg PO BID Qty: 180 0RF Continued (DME) [facility] See Rx Instructions .Route Qty: 1 0RF Rx Instructions: As directed fluticasone propionate 50 mcg/actuation spray,suspension 1 spray intranasal BID Qty: 48 0RF albuterol sulfate [Ventolin HFA] 90 mcg/actuation HFA aerosol inhaler 2 puff inhalation QID 30 Days Qty: 8.5 3RF losartan 25 mg tablet 25 mg PO DAILY Qty: 90 3RF gabapentin 300 mg capsule 300 mg PO BID Jardiance 10 mg tablet 10 mg PO DAILY Repatha Syringe 140 mg/mL syringe 140 mg subcut Q2W cholecalciferol (vitamin D3) [Vitamin D3] 50 mcg (2,000 unit) Capsule 50 mcg PO DAILY insulin glargine-yfgn 100 unit/mL (3 mL) insulin pen 22 unit subcut BEDTIME multivit with min-folic acid [Multivitamin Gummies] 200 mcg Tablet,Chewable 2 tab PO DAILY (DME) blood pressure test kit-large Kit See Rx Instructions .Route Qty: 1 0RF Rx Instructions: As directed insulin lispro [Humalog KwikPen Insulin] 100 unit/mL insulin pen 15 sliding scale dose subcut TID Trulicity 1.5 mg/0.5 mL pen injector 1.5 mg subcut WE (DME) FreeStyle Aida 2 Sensor Kit See Rx Instructions .ROUTE .MEDSUPPLY Qty: 1 Rx Instructions: As directed isosorbide mononitrate 60 mg tablet extended release 24 hr 60 mg PO DAILY (DME) FreeStyle Lite Strips Strip See Rx Instructions .ROUTE TID Qty: 10 Rx Instructions: As directed aspirin 81 mg tablet,delayed release (DR/EC) 81 mg PO DAILY carvedilol 25 mg tablet 25 mg PO BID Rx Instructions: must administer with a meal/food clopidogrel 75 mg tablet 75 mg PO DAILY atorvastatin 80 mg tablet 80 mg PO DAILY Qty: 90 2RF cetirizine 10 mg tablet 10 mg PO DAILY Qty: 90 2RF escitalopram oxalate 10 mg tablet 10 mg PO DAILY Qty: 90 2RF amlodipine 5 mg tablet 5 mg PO DAILY Discontinued furosemide 20 mg tablet 40 mg PO DAILY metoprolol succinate 50 mg tablet extended release 24 hr 50 mg PO DAILY Qty: 90 1RF Discharge Orders: Discharge Order (Routine); Ordered 10/06/24 Ordered By: Kaitlynn Colin Diet: Low salt diet Activity on Discharge: As tolerated Stand Alone Forms: Patient Portal Discharge page Print Language: [place] Other Ambulatory Orders: Basic Metabolic Panel (Routine) Timeframe: 1 Day Facility: [facility] - Location: Laboratory Ordered By: Kaitlynn Colin Complete Blood Count Auto Diff (Routine) Timeframe: 1 Week Facility: [facility] - Location: Laboratory Ordered By: Kaitlynn Colin Care Plan Goals: Low sodium diet Monitor weight daily Discontinue Metoprolol XL Inrease Furosemide to 40 mg two times a day repeat blood test as outpatient Follow with Cardiology and nephrology as scheduled GI follow up to arrange for Colonoscopy\Endoscopy for further Anemia evaluation Health Concerns: Heart failure Anemia Plan of Treatment: Increase Lasix GI follow up Assessment: as above
--- NOTE | 2024-10-06 13:44 | MHC.CM.PN ---
PT WILL DC HOME TODAY WITH NO SERVICES VIA PRIVATE TRANSPORT
== END 2024-10-06 13:30 | disposition home or self-care (01) | DRG 194 ==
LOC: HO.ED 15:09 → HO.EDOVER 15:43 → HO.IMC 19:15
PROVIDERS: Physician Assistant Medical; Admitting Provider Student in an Organized Health Care Education/Training Program; Emergency Provider Emergency Medicine; PCP Physician Assistant; Visit Provider Student in an Organized Health Care Education/Training Program
DX: I13.0 Hypertensive heart and chronic kidney disease with heart failure and stage 1 through stage 4 chronic kidney disease, or unspecified chronic kidney disease (principal); N17.9 Acute kidney failure, unspecified; E11.22 Type 2 diabetes mellitus with diabetic chronic kidney disease; D63.1 Anemia in chronic kidney disease; I27.20 Pulmonary hypertension, unspecified; Z95.1 Presence of aortocoronary bypass graft; N18.30 Chronic kidney disease, stage 3 unspecified; I50.23 Acute on chronic systolic (congestive) heart failure; I25.5 Ischemic cardiomyopathy; I25.10 Atherosclerotic heart disease of native coronary artery without angina pectoris; E66.09 Other obesity due to excess calories; Z68.41 Body mass index [BMI] 40.0-44.9, adult; Z71.3 Dietary counseling and surveillance; Z79.4 Long term (current) use of insulin; Z79.02 Long term (current) use of antithrombotics/antiplatelets; Z79.51 Long term (current) use of inhaled steroids; Z79.82 Long term (current) use of aspirin; Z79.85 Long-term (current) use of injectable non-insulin antidiabetic drugs; Z79.899 Other long term (current) drug therapy
CPT/HCPCS: 36415; 71046; 80048; 80053; 82272; 82607; 82746; 82947; 83540; 83735; 83880; 84443; 84484; 84702; 85025; 85027; 86850; 86900; 86901; 93005; 93306; 99212; 99285; J1650; J1940; Q9957

== ENCOUNTER → 2024-10-03 12:38 | Outpatient (BNV) | payer OTHER, SELFPAY | PROVIDERS: Admitting Provider Student in an Organized Health Care Education/Training Program; Emergency Provider Emergency Medicine; PCP Physician Assistant; Visit Provider Internal Medicine Cardiovascular Disease | DX: I49.3 Ventricular premature depolarization (principal); I25.2 Old myocardial infarction | CPT/HCPCS: 93010 ==

== ENCOUNTER → 2024-10-03 12:38 | Outpatient (BNV) | payer OTHER, SELFPAY | PROVIDERS: Emergency Provider Emergency Medicine; PCP Physician Assistant; Visit Provider Radiology Diagnostic Radiology | DX: R09.89 Other specified symptoms and signs involving the circulatory and respiratory systems (principal) | CPT/HCPCS: 71046 ==

== ENCOUNTER 2024-10-03 15:43 | Outpatient (BNV) | payer OTHER, SELFPAY | END 2024-10-04 07:00 | PROVIDERS: Admitting Provider Student in an Organized Health Care Education/Training Program; Emergency Provider Emergency Medicine; PCP Physician Assistant; Visit Provider Internal Medicine Cardiovascular Disease | DX: I27.20 Pulmonary hypertension, unspecified (principal); I36.1 Nonrheumatic tricuspid (valve) insufficiency | CPT/HCPCS: 93306 ==

== ENCOUNTER → 2024-10-03 15:43 | Outpatient (BNV) | payer OTHER, SELFPAY | PROVIDERS: Admitting Provider Student in an Organized Health Care Education/Training Program; Emergency Provider Emergency Medicine; PCP Physician Assistant; Visit Provider Student in an Organized Health Care Education/Training Program | DX: I50.9 Heart failure, unspecified (principal); I50.23 Acute on chronic systolic (congestive) heart failure; R74.01 Elevation of levels of liver transaminase levels; D64.9 Anemia, unspecified | CPT/HCPCS: 99232 ==

== ENCOUNTER 2024-10-12 09:04 | Outpatient (AMB) | payer OTHER, SELFPAY ==
[2024-10-12 09:08] VITALS: BP 130/62; PULSE 60; RESP 16; TEMP 36.2; O2SAT 95; BMI 40.5
--- NOTE | 2024-10-12 09:08 | A.OFFPC_ITS ---
Vital Signs 10/12/24 09:08 Height 5 ft 4 in Weight 236 lb BMI 40.5 BP 130/62 Blood Pressure Location Lt brachial Position Sitting Respiration 16 Pulse 60 Pulse Source Pulse Oximeter Temp 97.1 F Temp Source Temporal Artery Scan Pulse Oximetry (%) 95 Oxygen Delivery Method Room Air Intake [place] [facility] [place] Exacerbation Intake Note: Patient is here for hospital discharge follow up; admitted on 10/03/2024. Patient was discharged from [facility] in [place], [place] on 10/06/2024. Operations Coordinator Required: No Network Operations Center Engineer: Not Required per policy Accompanied by: Self / Same As Patient Allergies tramadol [TRAMADOL] Allergy (Intermediate, Verified 10/12/24 09:57) VOMITING adhesive tape Adverse Reaction (Intermediate, Verified 10/12/24 09:57) tears skin lisinopril Adverse Reaction (Mild, Verified 10/12/24 09:57) Cough Medication List - Last Reconciled 10/12/24 by Gracie Haley PA-C albuterol sulfate 90 mcg/actuation (Ventolin HFA) 2 puffs inhalation QID 30 days amlodipine 5 mg PO DAILY amoxicillin-pot clavulanate 875-125 mg 1 tab PO BID 10 days aspirin 81 mg PO DAILY atorvastatin 80 mg PO DAILY blood pressure test kit-large As directed blood sugar diagnostic (FreeStyle Lite Strips) As directed carvedilol 25 mg PO BID cetirizine 10 mg PO DAILY cholecalciferol (vitamin D3) (Vitamin D3) 50 mcg PO DAILY clopidogrel 75 mg PO DAILY clotrimazole 1% topical codeine-guaifenesin 10-100 mg/5 mL 5 mL PO Q6H PRN dulaglutide (Trulicity) mg subcut empagliflozin (Jardiance) 10 mg PO DAILY escitalopram oxalate 10 mg PO DAILY evolocumab (Repatha Syringe) 140 mg subcut Q2W flash glucose sensor (FreeStyle Aida 2 Sensor kit) As directed fluticasone propionate 50 mcg/actuation 1 spray intranasal BID furosemide 40 mg PO BID gabapentin 600 mg PO TID insulin glargine-yfgn 22 units subcut BEDTIME insulin lispro (Humalog KwikPen (U-100) Insulin) 15 sliding scale doses subcut TID isosorbide mononitrate ER 60 mg PO DAILY losartan 25 mg PO DAILY multivit with min-folic acid 200 mcg (Multivitamin Gummies) 2 tabs PO DAILY pantoprazole 40 mg PO DAILY walker As directed Tobacco use date assessed: 10/12/24 Dental Screening Dental Screen Date: 10/12/24 Did you have a dental visit in the last 12 months?: Yes Did you have a dental problem in the last 6 months where you did not have access to dental care?: No Was dental information given to patient?: Patient has dentist HPI HPI Comments History of Present Illness Details Hospital Discharge Follow-up Date of admission: 10/03/2024 Date of discharge: 10/06/2024 This is a Follow-up from admission at [facility] HPI: A 53 years old lady with PMH of CAD s/p CABG 2017, CHF, ischemic cardiomyopathy, occlusion of SVG to OM s/p mechanical thrombectomy, stents in 2019, HLD, DM, HTN, CKD, recent cardiac cath 2023 has occluded graft to OM with collaterals on medical management who presents to ED at [facility] on 10/03/2024 on with worsening SOB, dyspnea, lower extremities swelling and weight gain. Patient is presenting for hospital discharge follow-up. Hospital Course/Discharge Summary: A 53 years old lady with PMH of CAD s/p CABG 2017, CHF, ischemic cardiomyopathy, 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 The patient reports that she noticed gaining weight of 40 lbs over recent times. she became more swollen mainly in lower extremities with associated PNDs and orthopnea. No chest pain, palpitations, nausea, vomiting, diarrhea or urinary symptoms. She was brought to ED by dr Bray as he was seeing her in the office. In ED found to have elevatED BNP, low Hb, increase Cr, Transaminitis. CXR showing bilateral vascular congestion. Will be admitted for further work up and management. Hospital course The patient was treated for the following: # Acute diastolic CHF exacerbation as Echo showed EF of 55-60% with increased filling pressures and moderate pulm HTN. found to have Elevated BNP and pulmonary edema on CXR As reported treated with her home medications of Losartan, Jardiance along with IV LAsix with good response as she made over 12L of urine almost negative 9L. To be discharged on Lasix 40 mg twice daily with a plan to follow with Cardiology and Nephrology as outpatient. # Anemia, acute on chronic. Noted to have worsening Hb from 12 to 9 on admission. no acute blood loss, could be dilutional or related to CKD. negative occult stool. normal folate, B12 and iron. Started on Pantoprazole with a plan to follow with GI for EGD and colonoscopy. Hb improved to 10 after diuresis. # Transaminitis likely from fluid overload. Improved with diuresis. # CKD3 with Creatinine stable at 1.6. To repeat BMP as outpatient after increasing Lasix dosage. Discharge plan Low sodium diet Monitor weight daily Discontinue Metoprolol XL Inrease Furosemide to 40 mg two times a day repeat blood test as outpatient Follow with Cardiology and nephrology as scheduled GI follow up to arrange for Colonoscopy\Endoscopy for further Anemia evaluation Discharged to/Current Location: Home Lives with: , daughter, grand kids Diagnosis: CHF excerbation Procedures performed: Echo, CXR New medications: None Discontinued medications:Metoprolol XL Change medications/dosing: Patient furosemide was increased to 40 mg b.i.d. Pending labs: None Pending diagnostic test: None Any Follow-up Labs required? CBC, CMP, BNP Any Follow-up Diagnostic test required? Chest x-ray How are you feeling? Patient reports after she was discharged she developed a cough. She reports some shortness of breath, dyspnea on exertion, orthopnea. Although she denies any fevers, chills, chest pain. Reports chest wall/rib cage pain with coughing. Denies any leg swelling or calf tenderness or any other symptoms related to this. Are you in any pain or discomfort? She reports chest wall/rib cage pain when coughing or taking deep breaths. Do you have any questions about your condition or discharge instructions? Patient does have any questions about her condition or discharge instruction Were you able to get your medications filled? Patient was able to get all her medications filled Do you have any questions about your medications? Patient does not have any questions about her medication Any referrals required? Patient has follow-up with Cardiology at [address] [place] [address] and follow-up with Nephrology along with GI follow-up for colonoscopy/endoscopy Were you able to schedule your follow-up appointment? She was able to schedule her appointment If home health was ordered, have they contact you? She is not interested in home health services at this time Any outpatient services, if so, are you scheduled? She is not interested in any outpatient services at this time Are there any additional resources like transportation you might need during her recovery? She is not interested in any additional resources light transportation at this time - VNA? Patient not interested in VNA se rvice - ROUND CORNER CUTTER OPERATOR? Patient not interested in ROUND CORNER CUTTER OPERATOR se rvice - Meals on wheels? Patient not interest ed and meals on wheels Educational need/resources: Patient denies needing any educational needs resources What support system do you have? , daughter, grandkids and family [facility] Medical History (Updated 10/12/24 @ 09:59 by Gracie Haley PA-C) CKD (chronic kidney disease) CHF (congestive heart failure) Hospital discharge follow-up Anemia CKD stage 3 secondary to diabetes Carpal tunnel syndrome of left wrist Carpal tunnel syndrome of right wrist GERD (gastroesophageal reflux disease) Elevated cholesterol Asthma Type 2 diabetes Chronic renal insufficiency Myocardial infarction CAD (coronary artery disease) HTN (hypertension) Depression Surgical History Hx of heart artery stent Hx of section History of cardiac catheterization H/O: hysterectomy H/O bladder repair surgery Hx of CABG Family History Mother Cervical cancer Hypertension Blindness Kidney failure Sister Cervical cancer Hypertension Hypoglycemia Brother ESRD (end stage renal disease) Hypertension Father DMII (diabetes mellitus, type 2) Son Asthma Daughter No problems noted. Daughter No problems noted. Daughter No problems noted. Daughter No problems noted. Maternal Aunt Ovarian cancer Social History Household Members: Significant Other Housing: Apartment Are you a primary rn managed care to a significant other at home: No Do you presently have visiting nurse or other home services: No Alcohol intake: never Patient Tobacco Use Status: Never used Tobacco Tobacco use type: Cigarette e-Cigarette/Vaping Use: Never Used Second Hand Smoke Exposure: No service: No Current occupational status: disabled Cognitive needs: No Hearing needs: No Vision needs: Yes Female Reproductive History Menstrual Age of Menarche: 16 Questionnaire PHQ-9 Over the last 2 weeks, how often have you been bothered by any of the following problems? 1. Little interest or pleasure in doing things: not at all 2. Feeling down, depressed, or hopeless: not at all 3. Trouble falling or staying asleep, or sleeping too much: not at all 4. Feeling tired or having little energy: not at all 5. Poor appetite or overeating: not at all 6. Feeling bad about yourself - or that you are a failure or have let yourself or your family down: not at all 7. Trouble concentrating on things, such as reading the newspaper or watching television: not at all 8. Moving or speaking so slowly that other people could have noticed. Or the opposite - being so fidgety or restless that you have been moving around a lot more than usual: not at all 9. Thoughts that you would be better off or of hurting yourself in some way: not at all Total score: 0 Depression Screening Interpretation: Negative Depression Screening Done: Yes 60652 - PHQ-9 Billing: Yes Source: Developed by Drs. George Rivas, Shira Lawrence, Duong Pina and colleagues, with an educational misha from [employer]. Thrive Questionnaire Date Thrive assessed: 10/12/24 I am a: Patient What is your living situation today?: I have a steady place to live Within the past 12 months, did the food you bought not last and you didn't have the money to get more?: Never true Within the past 12 months, did you worry whether your food would run out before you got money to buy more?: Never true Do you have trouble paying for medicines?: No Do you have trouble getting transportation to medical appointments?: No Do you have trouble paying your heating and electricity bill?: No Do you have trouble taking care of your child, family member or friend?: No Do you have trouble with day-to-day activities such as bathing, preparing meals, shopping, managing finances, etc.?: No Are you currently unemployed and looking for a job?: No Are you interested in more education?: No Please select the resources that you would like help with: None Currently or been in a relationship where the following occur: No concerns reported THRIVE Score: 0 AUDIT C Alcohol Use Questionnaire (AUDIT-C) 1. How often do you have a drink containing alcohol?: Never Total Score: 0 Score Reviewed/Action Taken: No MOUNA-7 AMB Questionnaire MOUNA-7 Date MOUNA - 7 assessed: 10/12/24 Feeling nervous, anxious, or on edge: 3 = Nearly every day Not being able to stop or control worryin = Nearly every day Worrying too much about different things: 3 = Nearly every day Trouble relaxin = Nearly every day Being so restless that it is hard to sit still: 0 = Not at all Becoming easily annoyed or irritable: 0 = Not at all Feeling afraid as if something awful might happen: 0 = Not at all Total MOUNA-7 score (0-4 normal; 5-9 mild; 10-14 moderate; 15-21 severe): 12 Source: Developed by Drs. George Rivas, Shira Lawrence, Duong Pina and colleagues, with an educational misha from [employer]. MOUNA-7 Assessment Billing MOUNA-7 Assessment Tool: MOUNA-7 Assessment 12578 Physical exam (Primary Care) Vital Signs: Last Vital Signs Temp 97.1 F 10/12/24 09:08 Pulse 60 10/12/24 09:08 Resp 16 10/12/24 09:08 BP 130/62 10/12/24 09:08 Pulse Ox 95 10/12/24 09:08 Oxygen Delivery Method Room Air 10/12/24 09:08 Vitals signs have been reviewed. Care Plan Goal for BP management: <130/90 at Goal BMI result Body Mass Index 40.5 BMI Assessment/Plan discussion: High BMI High, discussed plan: lifestyle, weight reduction, dietary, physical activity and alcohol moderation Tobacco/Smoking Status: Tobacco use Status Tobacco use date assessed 10/12/24 10/12/24 09:24 Patient Tobacco Use Status Never used Tobacco 10/12/24 09:24 Tobacco use type Cigarette 10/12/24 09:24 e-Cigarette/Vaping Use Never Used 10/12/24 09:24 PHQ-9: PHQ-9 Score PHQ-9: Total score 0 10/12/24 09:24 Depression Screening Interpretation: Negative Thrive Assessment: Date of Thrive Assessment Date Thrive assessed 10/12/24 10/12/24 09:24 Currently or been in a relationship where the following occur: No concerns reported Const Other: Appearance: Alert. Oriented X3. No acute distress. Head: Normal external exam. Normocephalic. Atraumatic. Eyes: Conjunctiva and sclera normal. Eyelids normal. ENT: MMM. Normal voice. Neck: Normal inspection. Neck supple. FROM. No adenopathy. Thyroid Normal. No meningeal signs. No neck mass noted. CVS: Normal heart rate and rhythm. Heart sound normal. Pulses normal throughout. No murmurs/rales/gallops. Respiratory: No respiratory distress. Painless inspiration. Breath sounds normal. No wheezes/rales/rhonchi noted. Chest nontender. No crepitus is noted. No accessory muscle usage noted or decreased air movement noted. No signs of trauma. Abdomen: Soft and nontender. Nondistended. No guarding. No rigidity. Bowel sounds normal in all 4 quadrants. No distention noted. No organomegaly noted. No visible injury noted. No rebound tenderness. Back: Full range of motion noted. Skin: Skin warm and dry. Normal skin color. Normal skin turgor. No rashes/lesions/lacerations noted. Extremities: No lower extremity edema. No calf tenderness is noted. Extremities exhibit normal range of motion and nontender. Neuro: Oriented X 3. Moving all extremities. Normal steady gait. No focal neuro deficits noted. Vascular: + radial pulses b/l. Normal cap refill. No cyanosis noted. Coding Level of Care Code Est Pt Level 4 (47817) Complex EM visit Add On G2211 Diagnoses Hospital discharge follow-up Z09 Chronic cough R05.3 Cough type: chronic CHF (congestive heart failure) I50.9 CKD (chronic kidney disease) N18.9 Transaminitis R74.01 Additional Codes MOUNA-7 Assessment Billing - MOUNA-7 Assessment Tool: MOUNA-7 Assessment 17998 ([id number]) PHQ-9 - 75050 - PHQ-9 Billing: Yes ([id number]) Assessment & Plan Assessment & Plan (1) Hospital discharge follow-up: Code(s): Z09 - Encounter for follow-up examination after completed treatment for conditions other than malignant neoplasm Category: Medical Plan: Patient here for hospital discharge follow-up from [facility] on 10/03/2024 to 10/06/2024. For CHF exacerbation, anemia, transaminitis, CKD with DARIUSZ. Patient is feeling better although still has cough, shortness of breath, dyspnea on exertion, orthopnea. Condition is stable continue to monitor. (2) Cough: Code(s): R05.9 - Cough, unspecified Category: Medical Qualifiers: Cough type: chronic Qualified Code(s): R05.3 - Chronic cough Plan: Patient reports dry cough with chest wall/rib cage pain. Denies any fevers or chills. Will repeat chest x-ray to evaluate for possible pulmonary congestion versus pneumonia versus bronchitis or any other acute processes. H&P not consistent with PE/ACS. Will start patient on Augmentin 875 mg 1 tablets be taken twice a day for 10 days, Robitussin with codeine for the chest wall/rib cage pain with the patient is coughing along with albuterol inhaler. Condition is stable continue to monitor. (3) CHF (congestive heart failure): Code(s): I50.9 - Heart failure, unspecified Category: Medical Plan: Patient currently on furosemide 40 mg b.i.d.. Will repeat CBC, BNP, CMP, chest x-ray. Patient has follow-up with Cardiology at [address] [place] [address]. Patient to follow-up in 1 week. Condition is chronic and stable continue to monitor. (4) CKD (chronic kidney disease): Code(s): N18.9 - Chronic kidney disease, unspecified Category: Medical Plan: BUN and creatinine on 10/06/2024 were 50/1.59. Will repeat CBC, CMP to evaluate patient's CKD. Patient has follow-up with nephrology. Condition is chronic and stable continue to monitor. (5) Transaminitis: Code(s): R74.01 - Elevation of levels of liver transaminase levels Category: Medical Plan: Patient denies any abdominal pain. AST and ALT were 39 and 57 on 10/04/2024. Will reassess to ensure patient's LFTs are not worsening and improving or staying stable. Will continue to monitor Plan 1. For hospital discharge follow-up Patient will have CBC, CMP, BNP and chest x-ray to evaluate the patient's anemia, kidney function along with sodium due to mild lightheadedness per patient. 2. For the patient's cough Patient will have COVID/RSV/flu swab and repeat chest x-ray patient will be started on Augmentin, albuterol inhaler and Robitussin with codeine for possible bronchitis. 3. Patient to return in 1 week for further evaluation and management into evaluate that the patient's cough, shortness of breath, dyspnea on exertion, orthopnea is improving and not worsening. Orders: Orders Comprehensive Met. Panel Today Z00.00 - Encounter for general adult medical examination without abnormal findings B Type Natriuretic Peptide Today R60.0 - Localized edema XR chest 2V Today R05.3 - Chronic cough Liver Panel Today Z00.00 - Encounter for general adult medical examination without abnormal findings Complete Blood Count Auto Diff Today Z00.00 - Encounter for general adult medical examination without abnormal findings SARS-CoV2/FLU/RSV Today R05.3 - Chronic cough Magnesium Today Z00.00 - Encounter for general adult medical examination without abnormal findings TSH reflex Free T4 Today Z00.00 - Encounter for general adult medical examination without abnormal findings Erythrocyte Sedimentation Rate Today Z00.00 - Encounter for general adult medic al examination without abnormal findings C Reactive Protein Today Z00.00 - Encounter for general adult medical examination without abnormal findings Medications: New amoxicillin-pot clavulanate 875-125 mg 1 tab PO BID 10 days 20 tabs 0RF codeine-guaifenesin 10-100 mg/5 mL 5 mL PO Q6H PRN 120 mL 0RF cough Refilled albuterol sulfate 90 mcg/actuation (Ventolin HFA) 2 puffs inhalation QID 30 days 8.5 grams 3RF Wheezing J45.20 - Mild intermittent asthma, uncomplicated
== END 2024-10-12 09:53 | disposition home or self-care (01) ==
LOC: HO.HMCH 09:05
PROVIDERS: PCP Physician Assistant; Visit Provider Physician Assistant Medical
DX: Z09 Encounter for follow-up examination after completed treatment for conditions other than malignant neoplasm (principal); R05.3 Chronic cough; I50.9 Heart failure, unspecified; N18.9 Chronic kidney disease, unspecified; R74.01 Elevation of levels of liver transaminase levels

== ENCOUNTER 2024-10-12 09:04 | Outpatient (REF) | payer OTHER, SELFPAY ==
--- NOTE | ~2024-10-12 | XR_ITS ---
EXAMINATION: XR CHEST 2 VIEWS HISTORY: R05.3 - Chronic cough COMPARISON: Comparison is made with the prior examination dated 10/03/2024. FINDINGS: PA and lateral views of the chest are submitted. Again seen is prominence of the pulmonary vasculature, consistent with congestion. A more focal airspace opacity is seen in the right midlung zone which may represent pulmonary edema or pneumonia. There is no pleural effusion or pneumothorax. The heart is normal in size. The patient is status post median sternotomy. The bones are intact. XR/XR chest 2V IMPRESSION: Pulmonary vascular congestion. More focal opacity in the right midlung zone may represent pulmonary edema or pneumonia. Electronically signed by: George Caballero MD 10/12/2024 10:46 AM EDT
[2024-10-12 11:00] LABS: MANUAL DIFF FLAG NO
[2024-10-12 11:26] LABS: Basophils Percent Auto 0.7 % (0-2); Eosinophils Absolute Auto 0.3 X10*3/uL (0.0-0.4); Eosinophils Percent Auto 6.8 % (0-4); Hematocrit 30.8 % (37.0-47.0); Hemoglobin 9.3 g/dl (12.0-16.0); Imm Gran Abs Auto 0.02 X10*3/uL (0.00-0.03); Imm Gran Pct Auto 0.5 % (0.0-0.4); Lymphocytes Absolute Auto 0.9 X10*3/uL (1.2-4.9); Lymphocytes Percent Auto 20.9 % (20-40); Mean Corpuscular HGB Conc 30.2 g/dl (31.0-35.0); Mean Corpuscular Hemoglobin 26.2 pg (27.0-33.0); Mean Corpuscular Volume 86.8 fL (80.0-98.0); Mean Platelet Volume 11.3 fL (9.4-12.3); Monocytes Absolute Auto 0.4 X10*3/uL (0.1-1.2); Monocytes Percent Auto 9.9 % (2-11); Neutrophils Absolute Auto 2.6 x10*3/uL (2.0-8.3); Neutrophils Percent Auto 61.2 % (45-73); Platelet Count 214 X10*3/uL (160-400); Red Blood Count 3.55 X10*6/uL (4.20-5.50); Red Cell Distribution Width 15.5 % (11.0-16.0); White Blood Count 4.3 X10*3/uL (4.8-10.8)
[2024-10-12 11:40] LABS: B Type Natriuretic Peptide 439 pg/mL (<100)
[2024-10-12 11:55] LABS: Influenza A PCR NEGATIVE (Negative); Influenza B PCR NEGATIVE (Negative); Resp Syncy Virus RNA Qual PCR NEGATIVE (Negative); SARS COV2 PCR INHOUSE NEGATIVE (Negative)
[2024-10-12 12:07] LABS: Erythrocyte Sedimentation Rate 51 MM/HR (0-20)
[2024-10-12 12:17] LABS: Alanine Aminotransferase 35 U/L (0-31); Albumin Level 3.9 g/dL (3.5-5.0); Alkaline Phosphatase 112 U/L (39-117); Anion Gap 14 (12-20); Aspartate Amino Transferase 50 U/L (5-31); Bilirubin Direct 0.2 mg/dL (0.0-0.5); Bilirubin Total 0.5 mg/dL (0.0-1.0); Blood Urea Nitrogen 53 mg/dL (9-16); C Reactive Protein 7.77 mg/dL (< or = 0.50); Calcium 8.9 mg/dL (8.4-10.2); Carbon Dioxide 25 mmol/L (22-29); Chloride 104 mmol/L (96-108); Estimated Glomerular Filt Rate 27; Glucose Random 320 mg/dL (60-115); Magnesium 2.2 mg/dL (1.6-2.6); Sodium 139 mmol/L (135-145); Total Protein 7.2 g/dL (6.5-8.0)
[2024-10-12 12:19] LABS: TSH reflex Free T4 3.48 uIU/mL (0.32-4.0)
== END 2024-10-12 09:05 | disposition home or self-care (01) ==
LOC: HO.XRAY 09:04
PROVIDERS: PCP Physician Assistant; Visit Provider Physician Assistant Medical
DX: Z09 Encounter for follow-up examination after completed treatment for conditions other than malignant neoplasm (principal); R05.3 Chronic cough; I50.9 Heart failure, unspecified; N18.9 Chronic kidney disease, unspecified; R74.01 Elevation of levels of liver transaminase levels; Z00.00 Encounter for general adult medical examination without abnormal findings; R60.0 Localized edema
CPT/HCPCS: 0241U; 71046; 80053; 82248; 83735; 83880; 84443; 85025; 85652; 86140; 96127; 99212

== ENCOUNTER → 2024-10-12 10:19 | Outpatient (BNV) | payer OTHER, SELFPAY | PROVIDERS: PCP Physician Assistant; Visit Provider Radiology Diagnostic Radiology | DX: J81.1 Chronic pulmonary edema (principal) | CPT/HCPCS: 71046 ==

== ENCOUNTER 2024-10-23 10:52 | Outpatient (AMB) | payer OTHER, SELFPAY ==
--- NOTE | 2024-10-23 11:00 | MHC.PC.OV ---
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: No Accompanied by: Self / Same As Patient Allergies tramadol [TRAMADOL] Allergy (Intermediate, Verified 10/23/24 11:14) VOMITING adhesive tape Adverse Reaction (Intermediate, Verified 10/23/24 11:14) tears skin lisinopril Adverse Reaction (Mild, Verified 10/23/24 11:14) Cough Medication List - Last Reconciled 10/23/24 by Pablo Mendoza PA-C albuterol sulfate 90 mcg/actuation (Ventolin HFA) 2 puffs inhalation QID 30 days amlodipine 5 mg PO DAILY aspirin 81 mg PO DAILY atorvastatin 80 mg PO DAILY blood pressure test kit-large As directed blood sugar diagnostic (FreeStyle Lite Strips) As directed carvedilol 25 mg PO BID cetirizine 10 mg PO DAILY cholecalciferol (vitamin D3) (Vitamin D3) 50 mcg PO DAILY clopidogrel 75 mg PO DAILY clotrimazole 1% topical codeine-guaifenesin 10-100 mg/5 mL 5 mL PO Q6H PRN dulaglutide (Trulicity) mg subcut empagliflozin (Jardiance) 10 mg PO DAILY escitalopram oxalate 10 mg PO DAILY evolocumab (Repatha Syringe) 140 mg subcut Q2W flash glucose sensor (FreeStyle Aida 2 Sensor kit) As directed fluticasone propionate 50 mcg/actuation 1 spray intranasal BID furosemide 40 mg PO BID gabapentin 600 mg PO TID insulin glargine-yfgn 22 units subcut BEDTIME insulin lispro (Humalog KwikPen (U-100) Insulin) 15 sliding scale doses subcut TID isosorbide mononitrate ER 60 mg PO DAILY isosorbide mononitrate ER mg PO losartan 25 mg PO DAILY multivit with min-folic acid 200 mcg (Multivitamin Gummies) 2 tabs PO DAILY pantoprazole 40 mg PO DAILY walker As directed Tobacco use date assessed: 10/12/24 Dental Screening Dental Screen Date: 10/12/24 HPI annual exam HPI Details Patient is a 53 year female? here for a a routine annual physical She has a past medical history significant for type 2 diabetes, obesity, hypertension hyperlipidemia, CAD ( status post quadruple bypass), congestive heart failure, GERD, depression. Recently admitted to [facility] for acute Congestive heart failure exacerbation. She was diuresed almost 9 L of fluid and was discharged with diuretics ( lasix 40mg BID). She was also found to be fairly anemic while in the hospital. She was started on pantoprazole for possible gastric ulcer. She does have upcoming appointment with Gastroenterology to discuss colonoscopy and possible endoscopy. CHRONIC MEDICAL CONDITIONS--> .. DMII: Is seeing an accountant cost at [facility]. Today's A1c is 7.4 from above 9.. She has been recently started on an insulin pump and has noted better control of her blood sugars. She continues to follow [facility] Endocrinology. .. CKD- as above patient did have acute renal failure due to contrast dye and needed emergent dialysis while in the hospital.. stage 3- See Dr Soto metrologist, has been avoiding nephrotoxins, most recent creatinine at 1.7 .. CAD/ CHF:? Has had a CABG x4..? Patient followed by Cardiology. .? Patient's LDL optimally controlled. Continues on high-dose statin therapy and praulent injections. Patient data recent echocardiogram that showed appropriate EF though does have moderate LVH ? Is seeing a research environmental engineer at [facility]? ( Dr. Eisenberg) Goal LDL to be optimally below 70. As above patient recently hospitalized twice over last month for acute Congestive heart failure exacerbations requiring IV diuresis. Patient now on Lasix 40 mg b.i.d. for her heart failure symptoms. 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: Has had a full hysterectomy Mammogram: Has upcoming appointment for mammogram Colon cancer screening: Upcoming appointment with Gastroenterology Laboratory Tests 10/06/24 10/12/24 06:20 10:58 Hgb 10.1 L 9.3 L BUN 53 H Creatinine 1.94 H AST 50 H ALT 35 H PFSH Medical History CKD (chronic kidney disease) CHF (congestive heart failure) Hospital discharge follow-up Anemia CKD stage 3 secondary to diabetes Carpal tunnel syndrome of left wrist Carpal tunnel syndrome of right wrist GERD (gastroesophageal reflux disease) Elevated cholesterol Asthma Type 2 diabetes Chronic renal insufficiency Myocardial infarction CAD (coronary artery disease) HTN (hypertension) Depression Surgical History Hx of heart artery stent Hx of section History of cardiac catheterization H/O: hysterectomy H/O bladder repair surgery Hx of CABG Family History Mother Cervical cancer Hypertension Blindness Kidney failure Sister Cervical cancer Hypertension Hypoglycemia Brother ESRD (end stage renal disease) Hypertension Father DMII (diabetes mellitus, type 2) Son Asthma Daughter No problems noted. Daughter No problems noted. Daughter No problems noted. Daughter No problems noted. Maternal Aunt Ovarian cancer Social History Household Members: Significant Other Housing: Apartment Are you a primary dog daycare provider to a significant other at home: No Do you presently have visiting nurse or other home services: No Alcohol intake: never Patient Tobacco Use Status: Never used Tobacco Tobacco use type: Cigarette e-Cigarette/Vaping Use: Never Used Second Hand Smoke Exposure: No service: No Current occupational status: disabled Cognitive needs: No Hearing needs: No Vision needs: Yes Female Reproductive History Menstrual Age of Menarche: 16 Questionnaire Thrive Questionnaire Date Thrive assessed: 10/16/24 I am a: Patient What is your living situation today?: I have a steady place to live Within the past 12 months, did the food you bought not last and you didn't have the money to get more?: Often true Within the past 12 months, did you worry whether your food would run out before you got money to buy more?: Often true Do you have trouble paying for medicines?: Yes Do you have trouble getting transportation to medical appointments?: Yes Do you have trouble paying your heating and electricity bill?: Yes Do you have trouble taking care of your child, family member or friend?: Yes Do you have trouble with day-to-day activities such as bathing, preparing meals, shopping, managing finances, etc.?: No Are you currently unemployed and looking for a job?: No Are you interested in more education?: Yes Currently or been in a relationship where the following occur: No concerns reported THRIVE Score: 4 AUDIT C Alcohol Use Questionnaire (AUDIT-C) 1. How often do you have a drink containing alcohol?: Never 3. How often do you have six or more drinks on one occasion?: Never Total Score: 0 MOUNA-7 AMB Questionnaire MOUNA-7 Date MOUNA - 7 assessed: 10/23/24 Feeling nervous, anxious, or on edge: 1 = Several days Not being able to stop or control worryin = Nearly every day Worrying too much about different things: 3 = Nearly every day Trouble relaxin = Not at all Being so restless that it is hard to sit still: 0 = Not at all Becoming easily annoyed or irritable: 0 = Not at all Feeling afraid as if something awful might happen: 0 = Not at all Total MOUNA-7 score (0-4 normal; 5-9 mild; 10-14 moderate; 15-21 severe): 7 Source: Developed by Drs. George Rivas, Shira Lawrence, Duong Pina and colleagues, with an educational misha from [employer]. MOUNA-7 Assessment Billing MOUNA-7 Assessment Tool: MOUNA-7 Assessment 73146 Review of Systems Const Denies body aches, Denies chills, Denies excessive sweating, Denies fatigue, Denies fever(s) and Denies headache(s) Eyes Denies blurry vision ENT Denies dysphagia, Denies vertigo, Denies dizziness, Denies headache(s), Denies hearing loss and Denies tinnitus Card Denies chest pain, Denies chest pain with activity, Denies syncope, Denies irregular heart rhythm and Denies dyspnea Resp Denies chest congestion, Denies cough, Denies hemoptysis, Denies dyspnea and Denies wheezing GI Denies abdominal pain, Denies melena, Denies hematochezia, Denies coffee ground emesis, Denies dysphagia, Denies diarrhea, Denies nausea and Denies vomiting Denies urinary frequency, Denies dysuria, Denies urinary hesitancy and Denies urinary urgency Musc Denies arthralgias, Denies limited range of motion, Denies muscle cramps and Denies muscle weakness Skin/Breast Denies rash and Denies skin ulcer Neuro Denies Abnormal speech present, Denies confusion, Denies vertigo, Denies dizziness, Denies syncope, Denies headache(s), Denies memory loss and Denies seizure-like activity Psych Denies anxiety, Denies confusion, Denies depression, Denies memory loss, Denies panic attacks and Denies paranoia Endo Denies excessive sweating, Denies fatigue, Denies flushing, Denies polydipsia and Denies polyuria Aller/Immun Denies wheezing Physical exam (Primary Care) Vital Signs: Last Vital Signs Temp 97.1 F 10/23/24 11:07 Pulse 60 10/23/24 11:07 BP 110/70 10/23/24 11:07 Pulse Ox 93 10/23/24 11:07 Oxygen Delivery Method Room Air 10/23/24 11:07 BMI result Body Mass Index 40.2 BMI Assessment/Plan discussion: High BMI High, discussed plan: lifestyle, weight reduction, dietary and physical activity Tobacco/Smoking Status: Tobacco use Status Tobacco use date assessed 10/12/24 10/23/24 11:09 Patient Tobacco Use Status Never used Tobacco 10/23/24 11:09 Tobacco use type Cigarette 10/23/24 11:09 e-Cigarette/Vaping Use Never Used 10/23/24 11:09 Thrive Assessment: Date of Thrive Assessment Date Thrive assessed 10/16/24 10/23/24 11:09 Currently or been in a relationship where the following occur: No concerns reported Const General: cooperative, comfortable, no acute distress, alert and awake; No confusion Orientation/consciousness: oriented to person, oriented to place, patient oriented x3 and No confusion HENMT Head: Yes normocephalic Ears: external ears normal and TM's normal bilaterally Face and sinus: No sinus tenderness Mouth: Normal oral and palatal mucosa present and tongue normal Teeth and gingiva: dentition normal and gingiva normal Throat: Yes posterior oropharynx normal, Yes tonsils normal and Yes uvula midline Eyes Conjunctivae: conjunctivae normal Sclerae: sclerae normal Pupils: Equal, round and reactive pupils present EOM: EOMs intact bilaterally Direct Ophthalmoscopy: No no photophobia Neck Neck: Yes no lymphadenopathy, No tender and Yes no JVD Thyroid: Thyroid normal Carotids: no bruits Chest Chest palpation & inspection: no tenderness Resp Effort & Inspection: normal respiratory effort, no audible wheezes, not labored and no stridor Auscultation: no crackles, no rales, no rhonchi and no wheezes Cardio Jugular venous distension: no JVD Rate: regular rate, not bradycardic and not tachycardic Rhythm: regular rhythm Bruits: no carotid bruits Peripheral pulses: Peripheral pulses 2+ throughout GI Inspection: Yes normal to inspection, No abdominal wall ecchymosis and No visible herniation Palpation (GI): Soft to palpation, nontender, no guarding, not rigid and No hepatosplenomegaly present Auscultation: normoactive bowel sounds General: Yes no CVA tenderness Back/Spine/Pelvis Back: no CVA tenderness and No back tenderness Cervical Spine: cervical ROM normal Thoracic/Lumbar Spine: thoracic and lumbar spine normal to inspection, straight leg raise negative bilaterally, No thoraco-lumbar ROM limited and No lumbar spinal tenderness Skin Lesions: no lesions Rashes: no rashes Wounds: no wounds Neuro General: oriented to person, oriented to place, patient oriented x3, CN's II-XI intact bilaterally and No confusion Cranial nerves: Yes Equal, round and reactive pupils present and Yes Normal accommodation reflex present Cognition (Neuro): normal cognition Speech: No Abnormal speech present Gait exam (Neuro): Normal gait present Motor exam (neuro): 5/5 motor strength present throughout Extrem Right upper extremity: full ROM; no cyanosis Left upper extremity: full ROM; no cyanosis Right lower extremity: no edema Left lower extremity: no edema Psych Appearance: grossly normal Mental Status: mental status grossly normal Affect: normal affect Attitude: cooperative Thought process: Normal thought process present Results AMB Hemoglobin A1c AMB Hemoglobin A1c 7.5 % Last Edit by CHUY Hanson on 10/23/24 11:28 Results Reviewed Results Reviewed: Laboratory Last Values Hgb A1c (Clinic) 7.5 % (4.0-6.0) H 10/23/24 10:58 Coding Level of Care Code Est Pt Prev Care 40-64y(47066) Diagnoses Annual physical exam Z00.00 Chronic diastolic congestive heart failure I50.32 Heart failure chronicity: chronic Heart failure type: diastolic Stage 3b chronic kidney disease N18.32 Chronic kidney disease stage: stage 3 (moderate) Chronic kidney disease stage 3 subtype: stage 3b (GFR 30-44) Type 2 diabetes mellitus with stage 3a chronic kidney disease, with long-term current use of insulin E11.22; N18.31; Z79.4 Chronic kidney disease stage: stage 3 (moderate) Chronic kidney disease stage 3 subtype: stage 3a (GFR 45-59) Diabetes mellitus complication detail: with chronic kidney disease Diabetes mellitus complication status: with kidney complications Diabetes mellitus skilled nursing insulin use: with rn long term care use Primary hypertension I10 Hypertension type: primary hypertension Coronary artery disease involving coronary bypass graft of [place] heart without angina pectoris I25.810 Associated angina: without angina Coronary Disease-Associated Artery/Lesion type: bypass graft [place] vs. transplanted heart: [place] heart Intrinsic eczema L20.84 Eczema type: intrinsic Allergic conjunctivitis of both eyes H10.13 Laterality: bilateral MDD (major depressive disorder), recurrent episode, moderate F33.1 Additional Codes MOUNA-7 Assessment Billing - MOUNA-7 Assessment Tool: MOUNA-7 Assessment 80097 ([id number]) Assessment & Plan Assessment & Plan (1) Annual physical exam: Code(s): Z00.00 - Encounter for general adult medical examination without abnormal findings Category: Medical Plan: As per HPI (2) CHF (congestive heart failure): Code(s): I50.9 - Heart failure, unspecified Category: Medical Qualifiers: Heart failure chronicity: chronic Heart failure type: diastolic Qualified Code(s): I50.32 - Chronic diastolic (congestive) heart failure Plan: Patient currently on furosemide 40 mg b.i.d. appears to be nearly euvolemic. In the past her dry weight was around 200-205lbs. She will continue to follow her research environmental engineer. (3) CKD (chronic kidney disease): Code(s): N18.9 - Chronic kidney disease, unspecified Category: Medical Qualifiers: Chronic kidney disease stage: stage 3 (moderate) Chronic kidney disease stage 3 subtype: stage 3b (GFR 30-44) Qualified Code(s): N18.32 - Chronic kidney disease, stage 3b Plan: Most recent renal function showed a creatinine at 1.7. Continues to follow Nephrology. Of note she is now on furosemide 40 b.i.d. (4) DMII (diabetes mellitus, type 2): Code(s): E11.9 - Type 2 diabetes mellitus without complications Category: Medical Qualifiers: Chronic kidney disease stage: stage 3 (moderate) Chronic kidney disease stage 3 subtype: stage 3a (GFR 45-59) Diabetes mellitus complication detail: with chronic kidney disease Diabetes mellitus complication status: with kidney complications Diabetes mellitus rn long term care insulin use: with rn long term care use Qualified Code(s): E11.22 - Type 2 diabetes mellitus with diabetic chronic kidney disease; N18.31 - Chronic kidney disease, stage 3a; Z79.4 - penitentiary (current) use of insulin Plan: Patient followed by endocrinology started insulin pump and has better glycemic control. Patient's A1c has improved to 7.5. She will continue on insulin pump and working on diabetic diet. Goal A1c is to be below 7.0 (5) HTN (hypertension): Code(s): I10 - Essential (primary) hypertension Category: Medical Qualifiers: Hypertension type: primary hypertension Qualified Code(s): I10 - Essential (primary) hypertension Plan: Patient's blood pressure acceptable today in office. Was recently started on losartan 25 during her recent hospitalization. Goal blood pressure to remain below 140/90 (6) CAD (coronary artery disease): Comment: CABG 2017 with CHICAS to LAD, SVG to RPDA, SVG to RPL and SVG to OM Code(s): I25.10 - Atherosclerotic heart disease of [place] coronary artery without angina pectoris Category: Medical Qualifiers: Associated angina: without angina Coronary Disease-Associated Artery/Lesion type: bypass graft [place] vs. transplanted heart: [place] heart Qualified Code(s): I25.810 - Atherosclerosis of coronary artery bypass graft(s) without angina pectoris Plan: Continues to follow cardiology at [facility]. Goal LDL to remain optimally below 70 (7) Eczema: Code(s): L30.9 - Dermatitis, unspecified Category: Medical Qualifiers: Eczema type: intrinsic Qualified Code(s): L20.84 - Intrinsic (allergic) eczema Plan: Has moderate eczema on both her ears. Will supply patient with topical steroid ointment to place on the affected areas. (8) Allergic conjunctivitis: Code(s): H10.10 - Acute atopic conjunctivitis, unspecified eye Category: Medical Qualifiers: Laterality: bilateral Qualified Code(s): H10.13 - Acute atopic conjunctivitis, bilateral Plan: Patient does report over the last 2 weeks having watery itchy eyes. She does have allergies to which he is taking cetirizine 4. Will supply patient with allergy eye drops (9) MDD (major depressive disorder), recurrent episode, moderate: Code(s): F33.1 - Major depressive disorder, recurrent, moderate Category: Medical Plan: Patient does has a history of depression, she feels well supported by her family. She continues on escitalopram 10 mg. Orders: Orders AMB Hemoglobin A1c 10/23/24 E11.22 - Type 2 diabetes mellitus with diabetic chronic kidney disease, N18.31 - Chronic kidney disease, stage 3a, Z79.4 - penitentiary (current) use of insulin Medications: New triamcinolone acetonide 0.1% 1 appl topical DAILY 30 days 30 grams 1RF L20.84 - Intrinsic (allergic) eczema olopatadine 0.1% separate doses by at least 6-8 hours 1 drp ophthalmic (eye) BID 30 days 5 mL 1RF H10.13 - Acute atopic conjunctivitis, bilateral
[2024-10-23 11:07] VITALS: BP 110/70; PULSE 60; TEMP 36.2; O2SAT 93; BMI 40.2
--- OUTSIDE RECORDS SUMMARY | 2024-10-23 13:11 | XMS_ITS | Clinical Summary ---
Author Organization [address] [place] [address] [place] [phone] Phone Care Team Providers Care Sweatband Maker Name Role Phone Pablo Mendoza Primary Care [...] day. 30 mL 5 10/20/19 25 Active Problems Problem Noted Date Diagnosed Date Swelling of extremity 10/23/2024 STEMI (ST elevation myocardial infarction) 10/03 Dizziness 04/01/2023 CHF (congestive heart failure) 04/01/2023 Hypotension 01/25/2023 History of AR (myocardial infarction) 01/25/2023 Chronic diastolic heart failure [...] CABGx4 at the age of 46 in OR, details not known Preserved LVEF Apical aneurysm, confirmed by cMRI at [facility] 02/2021 No ischemia on rega MIBI 02/2021 at [facility] Last Assessment & Plan: Multiple cardiac catheterizations [...] Encounters Date Type Department Care Team Description 10/10/2024 Telephone [facility] - [address] [place] [address] Jv Regalado MD medical records request 10/08/2024 Telephone [facility] - [facility] [address] [facility] [address] [place] [address] Jv Regalado MD Hospital Follow-up 09/24/2024 Telephone [facility] - [facility] [address] [facility] [address] [place] [address] Jv Regalado MD Prior Auth (Repatha 140MG/ML syringes) 09/19/2024 2:45 PM EST Consult Orthopedic Surgery - [place] [address] [facility] [address] [place] [phone] Jv Morelos DPAlaina Dermatophytosis of nail (Primary Dx); Type 2 diabetes mellitus with diabetic chronic kidney disease (CMS/HCC); 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 (CMS/HCC); Diabetic mononeuropathy [...] HISTORICAL CABG; COMMENT: x4 PARTIAL HYSTERECTOMY PROCEDURE: [place] SUPRACERVICAL ABDL HYSTER W/WO RMVL TUBE OVARY MULTIPLE TOOTH EXTRACTIONS PROCEDURE: HISTORICAL DENTAL EXTRACTION; COMMENT: Multiple Medical History Medical History Date Comments Depression with anxiety DX:Depre ssion with anxiety Frozen shoulder DX:Frozen should er; COMMENT: Left Peripheral neuropathy DX:Periphe ral neuropathy Type 2 diabetes mellitus DX:Type 2 diabetes mellitus (HCC) Anxiety with [...] Care Team (Late st Contact Info) Description 10/26/2024 1:40 PM EDT Office Visit [facility] - [facility] [address] [facility] [address] [place] [address] Anay Gerber NP [address] [facility] [address] [place] [address] 12/20/2024 3:00 PM EDT Office Visit Orthopedic Surgery - [place] [address] [facility] [address] [place] [phone] Jv Morelos, DPM [address] [facility] [address] [place] [address] Health Maintenance Due Date Last Done Comments [...] 07/01/2022 Zoster Vaccines (1 of 2) 2022 Diabetes: Blood Sugar Control Test (HGBA1C) 08/25/2024 02/23/2024, 10/13/2023 Diabetes: Annual GFR (Glomerular Filtration Rate) 02/27/2025 02/28/2024, 02/28/2024, 02/27/2024, Additional history exists Hypertension/CHF/CAD Annual BMP Blood Test 02/27/2025 02/28/2024, 02/28/2024, 02/27/2024, Additional history exists Influenza Vaccine (Season Ended) 2025 06/20/2018 Cholesterol Screening (Lipid Panel) 02/22/2029 02/23/2024, 10/13/2023 [...] age to complete this topic Meningococcal B Vaccine Aged Out No l onger eligible based on patient's age to complete [...] * Annual BMP Blood Test (02/28/2024) Pathologist [facility] Annual BMP Blood Test abstracted [facility] Provider HEALTH MAINTENANCE Final Result * Hepatitis C Screening (02/26/2024) Pathologist [facility] Hepatitis C Screening abstracted [facility] Provider HEALTH MAINTENANCE Final Result * (ABNORMAL) Hemoglobin A1c (10/13/2023) [facility] Hemoglobin A1C 8.1(A) 4.0 - 5.6 % Blood Venous blood specimen / Unknown Result [facility] Provider LAB BLOOD ORDERABLES Tamra l Result * (ABNORMAL) Lipid panel (10/13/2023) Pathologist [facility] LDL/HDL Ratio 2 0 - 4 Triglycerides 158(A) 0 - 150 mg/dL Cholesterol 110 0 - 200 mg/dL HDL 65 >=40 mg/dL LDL Cholesterol 14 0 - 100 mg/dL Blood Venous blood specimen / Unknown [facility] Provider LAB BLOOD ORDERABLES Tamra l Result from Last 3 Months or Most Recently Relevant to Health Maintenance Insurance HEALTH PLAN Care Teams Sweatband Maker Relationship Specialty Start Date End Date Pablo Mendoza PA [address] [place] [phone] PCP - General Internal Medicine 05/11/21
--- OUTSIDE RECORDS SUMMARY | 2024-10-23 13:11 | XMS_ITS | Encounter Summary ---
Author Organization [facility] Address [address] [place] [phone] Care Team Providers Care Arabic Professor Name Role Phone Pablo Mendoza Primary Care Provider Reason for Visit * Reason Onset Date Comments medical records request 10/10/2024 Encounter Details Date Type Department Care Team (Late st Contact Info) Description 10/10/2024 Telephone [facility] [address] [facility] 154 [place] [address] Jv Regalado MD [address] [facility] [address] [place] [address] medical records request Social History Tobacco Use Types Packs/Day Years [...] as of this encounter Progress Notes * Kianna Swartz - 10/10/2024 11:40 AM EDT Medical Records Request Gi was discharged from [facility] on 10/06/24. Can you please obtain her records before her 10/26/24 hospital follow up appointment with Anay Gerber? Thanks documented in this encounter Plan of Treatment Upcoming Encounters Date Type Department Care Team (Late st Contact Info) Description 10/26/2024 1:40 PM EDT Office Visit [facility] Cardiology [facility] [address] [facility] 154 [place] [address] Anay Gerber, REALTY LOAN SPECIALIST [address] [facility] 154 [place] [phone] 12/20/2024 3:00 PM EDT Office Visit [facility] - [place] [address] [phone] Jv Morelos, DPM [address] [address] documented as of this encounter Visit Diagnoses Not on filedocumented in this encounter Care Teams Arabic Professor Relationship Specialty Start Date End Date Pablo Mendoza PA [address] [place] [phone] PCP - General Internal Medicine 05/11/21 documented as of this encounter
== END 2024-10-23 11:33 | disposition home or self-care (01) ==
LOC: HO.HMCH 10:52
PROVIDERS: PCP Physician Assistant; Visit Provider Physician Assistant
DX: E11.22 Type 2 diabetes mellitus with diabetic chronic kidney disease (principal); N18.31 Chronic kidney disease, stage 3a; Z79.4 Long term (current) use of insulin

== ENCOUNTER 2024-10-23 10:52 | Outpatient (REF) | payer OTHER, SELFPAY ==
[2024-10-23 12:06] LABS: Hematocrit 34.8 % (37.0-47.0); Hemoglobin 10.8 g/dl (12.0-16.0); Mean Corpuscular Hemoglobin 26.7 pg (27.0-33.0); Mean Corpuscular Volume 85.9 fL (80.0-98.0); Mean Platelet Volume 10.9 fL (9.4-12.3); Platelet Count 302 X10*3/uL (160-400); Red Blood Count 4.05 X10*6/uL (4.20-5.50); Red Cell Distribution Width 15.6 % (11.0-16.0); White Blood Count 7.4 X10*3/uL (4.8-10.8)
[2024-10-23 12:44] LABS: Creatinine Urine 43.59 mg/dL
[2024-10-23 12:47] LABS: Alanine Aminotransferase 33 U/L (0-31); Albumin Level 4.1 g/dL (3.5-5.0); Alkaline Phosphatase 110 U/L (39-117); Anion Gap 14 (12-20); Aspartate Amino Transferase 27 U/L (5-31); Bilirubin Total 0.4 mg/dL (0.0-1.0); Blood Urea Nitrogen 56 mg/dL (9-16); Carbon Dioxide 25 mmol/L (22-29); Chloride 105 mmol/L (96-108); Cholesterol 204 mg/dL (<200); Estimated Glomerular Filt Rate 31; Glucose Fasting 159 mg/dL (60-99); HDL Cholesterol 68 mg/dL (>40); LDL Cholesterol Calculated 93 mg/dL (<100); Potassium 4.3 mmol/L (3.3-5.1); Sodium 140 mmol/L (135-145); Total Protein 7.7 g/dL (6.5-8.0); Triglycerides 218 mg/dL (<150)
--- OUTSIDE RECORDS SUMMARY | 2024-10-23 14:19 | XMS_ITS | Encounter Summary ---
Author Organization [facility] Address [address] [place] [phone] Care Team Providers Care Boiler Room Operator Name Role Phone Pablo Mendoza Primary Care Provider Reason for Visit * Reason Onset Date Comments medical records request 10/10/2024 Encounter Details Date Type Department Care Team (Late st Contact Info) Description 10/10/2024 Telephone [facility] Cardiology [facility] [address] [facility] 154 [place] [address] Jv Regalado MD [address] [facility] 154 [place] [address] medical records request Social History Tobacco Use [...] Medical Records Request Gi was discharged from [facility] on 10/06/24. Can you please obtain her records before her 10/26/24 hospital follow up appointment with Anay Gerber? Thanks documented in this encounter Plan of Treatment Upcoming Encounters Date Type Department Care Team (Late st Contact Info) Description 10/26/2024 1:40 PM EDT Office Visit [facility] Cardiology [facility] [address] [facility] 154 [place] [address] Anay Gerber, TAKE OFF MAN [address] [facility] 154 [place] [phone] 12/20/2024 3:00 PM EDT Office Visit Orthopedic Surgery - [place] [address] [phone] Jv Morelos, DPM [address] [address] documented as of this encounter Visit Diagnoses Not on filedocumented in this encounter Care Teams Boiler Room Operator Relationship Specialty Start Date End Date Pablo Mendoza PA [address] [place] [phone] PCP - General Internal Medicine 05/11/21 documented as of this encounter
--- OUTSIDE RECORDS SUMMARY | 2024-10-23 14:20 | XMS_ITS | Clinical Summary ---
Author Organization [address] [place] [address] [place] [phone] Phone Care Team Providers Care Abstract Maker Name Role Phone Pablo Mendoza Primary [...] heart failure) 04/01/2023 Hypotension 01/25/2023 History of OR (myocardial infarction) 01/25/2023 Chronic diastolic heart failure [...] CABGx4 at the age of 46 in [place], details not known Preserved LVEF Apical aneurysm, confirmed by cMRI at [facility] 02/2021 No ischemia on rega MIBI 02/2021 at [facility] Last Assessment & Plan: Multiple cardiac [...] Type Department Care Team Description 10/10/2024 Telephone [facility] [address] [place] [address] Jv Regalado MD medical records request 10/08/2024 Telephone [facility] - [facility] [address] [facility] [address] [place] [address] Jv Regalado MD Hospital Follow-up 09/24/2024 Telephone [facility] - [facility] [address] [facility] 154 [place] [address] Jv Regalado MD Prior Auth (Repatha 140MG/ML syringes) 09/19/2024 2:45 PM EST Consult Orthopedic Surgery - [place] 250 175 [facility] 250 [place] [phone] Jv Morelos DPAlaina Dermatophytosis of nail (Primary Dx); Type 2 diabetes mellitus with diabetic chronic kidney disease (CMS/HCC); 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 (CMS/HCC); Diabetic mononeuropathy [...] HISTORICAL CABG; COMMENT: x4 PARTIAL HYSTERECTOMY PROCEDURE: [place] SUPRACERVICAL ABDL HYSTER W/WO RMVL TUBE OVARY [...] Description 10/26/2024 1:40 PM EDT Office Visit [facility] 154 300 [facility] 154 [place] [address] Anay Gerber NP 300 [facility] 154 [place] [address] 12/20/2024 3:00 PM EDT Office Visit [facility]opedic Surgery - [place] 250 175 [facility] 250 [place] [phone] Jv Morelos, DPM 175 [facility] 250 [place] [address] Health Maintenance Due Date Last Done Comments [...] * Annual BMP Blood Test (02/28/2024) Pathologist [facility] Annual BMP Blood Test abstracted [facility] Provider HEALTH MAINTENANCE Final Result * Hepatitis C Screening (02/26/2024) Pathologist [facility] Hepatitis C Screening abstracted [facility] Provider HEALTH MAINTENANCE Final Result * (ABNORMAL) Hemoglobin A1c (10/13/2023) [facility] Hemoglobin A1C 8.1(A) 4.0 - 5.6 % Blood Venous blood specimen / Unknown Result [facility] Provider LAB BLOOD ORDERABLES Tamra l Result * (ABNORMAL) Lipid panel (10/13/2023) Pathologist [facility] LDL/HDL Ratio 2 0 - 4 Triglycerides 158(A) 0 - 150 mg/dL Cholesterol 110 0 - 200 mg/dL HDL 65 >=40 mg/dL LDL Cholesterol 14 0 - 100 mg/dL Blood Venous blood specimen / Unknown [facility] Provider LAB BLOOD ORDERABLES Tamra l Result from Last 3 Months or Most Recently Relevant to Health Maintenance Insurance [employer] Care Teams Abstract Maker Relationship Specialty Start Date End Date Pablo Mendoza PA [address] [place] [phone] PCP - General Internal Medicine 05/11/21
[2024-10-25 13:43] LABS: Anti DNA DS Antibody 1 IU/mL
== END 2024-10-23 10:53 | disposition home or self-care (01) ==
LOC: HO.LAB 10:52
PROVIDERS: PCP Physician Assistant; Visit Provider Physician Assistant
DX: Z00.00 Encounter for general adult medical examination without abnormal findings (principal); I13.0 Hypertensive heart and chronic kidney disease with heart failure and stage 1 through stage 4 chronic kidney disease, or unspecified chronic kidney disease; I50.32 Chronic diastolic (congestive) heart failure; E11.22 Type 2 diabetes mellitus with diabetic chronic kidney disease; N18.32 Chronic kidney disease, stage 3b; I25.810 Atherosclerosis of coronary artery bypass graft(s) without angina pectoris; L20.84 Intrinsic (allergic) eczema; H10.13 Acute atopic conjunctivitis, bilateral; F33.1 Major depressive disorder, recurrent, moderate; Z79.4 Long term (current) use of insulin; Z79.899 Other long term (current) drug therapy
CPT/HCPCS: 36415; 80053; 80061; 82043; 82570; 83036; 85027; 86225; 96127; 99396

== ENCOUNTER 2024-10-26 14:05 | Outpatient (REF) | payer OTHER, SELFPAY ==
--- OUTSIDE RECORDS SUMMARY | 2024-10-26 14:29 | XMS_ITS | Encounter Summary ---
Author Organization [facility] Address [address] [place] [phone] Care Team Providers Care Grocery Packer Name Role Phone Pablo Mendoza Primary Care Provider Reason for Visit * Reason Onset Date Comments medical records request 10/10/2024 Encounter Details Date Type Department Care Team (Late Contact Info) Description 10/10/2024 Telephone [facility] - [facility] 154 300 [facility] 154 [place] [address] Jv Regalado MD 300 [facility] 154 [place], [place] [phone] medical records request Social History Tobacco Use [...] 10/10/2024 11:40 AM EDT Medical Records Request iG was discharged from [facility] on 10/06/24. Can you please obtain her records before her 10/26/24 hospital follow up appointment with Anay Gerber? Thanks documented in this encounter Plan of Treatment Upcoming Encounters Date Type Department Care Team (Late st Contact Info) Description 12/20/2024 3:00 PM EDT Office Visit Orthopedic Surgery - [place] 250 175 [facility] 250 [place] [address] Jv Morelos, DPM 175 [facility] 250 [place] [address] documented as of this encounter Visit Diagnoses Not on filedocumented in this encounter Care Teams Grocery Packer Relationship Specialty Start Date End Date Pablo Mendoza PA [address] [place] [phone] PCP - General Internal Medicine 05/11/21 documented as of this encounter
--- OUTSIDE RECORDS SUMMARY | 2024-10-26 14:29 | XMS_ITS | Clinical Summary ---
Author Organization [address] [place] [address] [place] [phone] Phone Care Team Providers Care Sand Shoveler Name Role Phone Pablo Mendoza Primary Care [...] Swelling of extremity 10/23/2024 STEMI (ST elevation myocardi al infarction) ([facility] V24, [facility] V28) 10/04/2023 Dizziness 04/01/2023 CHF (congestive heart failure) ([facility] V24, [facility] V28) 04/01/2023 Hypotension 01/25/2023 History of DE (myocardial infarction) 01/25/2023 Chronic diastolic heart failure ([facility] V24, S/[facility] V28) 01/25/2023 Overview (07/31/2024): Last Assessment & Plan: [...] and SGLT2 for HFpEF. NSTEMI (non-ST elevated myoc ardial infarction) ([facility] V24, [facility] V28) 03/18/2022 Chest pain 03/18/2022 Diabetes ([facility] V24, [facility] V28) 04/13/2021 Essential hypertension 04/13/2021 Overview (07/31/2024): Last [...] CABGx4 at the age of 46 in [place], details not known Preserved LVEF Apical aneurysm, confirmed by cMRI at [facility] 02/2021 No ischemia on rega MIBI 02/2021 at [facility] Last Assessment & Plan: Multiple cardiac catheterizations [...] Type Department Care Team Description 10/10/2024 Telephone [facility] Cardiology [facility] [address] [facility] [address] [place] [address] Jv Regalado MD medical records request 10/08/2024 Telephone [facility] [address] [facility] [address] [place] [address] Jv Regalado MD Hospital Follow-up 09/24/2024 Telephone [facility] [address] [facility] [address] [place] [address] Jv Regalado MD Prior Auth (Repatha 140MG/ML syringes) 09/19/2024 2:45 PM EST Consult Orthopedic Surgery - [place] 250 175 [facility] 250 [place] [phone] Jv Morelos DPAlaina Dermatophytosis of nail (Primary Dx); Type 2 diabetes mellitus with diabetic chronic kidney disease ([facility] V24, [facility] V28); 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 ([facility] V24, [facility] V28); Diabetic mononeuropathy simplex ([facility] V24, [facility] V28); Type II diabetes mellitus with peripheral circulatory disorder ([facility] V24, [facility] V28); Pain in toe of left foot; Pain in toe of right foot; Tinea pedis of both feet from Last 3 Months Immunizations Name Administration Dates Next Due Moderna SARS-CoV-2 COVID-19, mRNA, LNP-S, preservative free 02/26/2021 Surgical History Surgery Date Site/Laterality Comments CORONARY ARTERY BYPASS GRAFT PROCEDURE: HISTORICAL CABG; COMMENT: x4 PARTIAL HYSTERECTOMY PROCEDURE: [place] SUPRACERVICAL ABDL HYSTER W/WO RMVL TUBE OVARY MULTIPLE TOOTH EXTRACTIONS PROCEDURE: HISTORICAL DENTAL EXTRACTION; COMMENT: Multiple Medical History Medical History Date Comments Depression with anxiety DX:Depre ssion with anxiety Frozen shoulder DX:Frozen should er; COMMENT: Left Peripheral neuropathy DX:Periphe ral neuropathy Type 2 diabetes mellitus ([facility] V24, [facility] V28) DX:Type 2 diabetes mellitus (HCC) Anxiety with depression DX:Anxie ty with depression Gout DX:Gout Class 2 obesity DX:Class 2 obesi ty Chronic kidney disease DX:Chroni c kidney disease Diabetic neuropathy (CMS/HCC V24, CMS/HCC V28) DX:Diabetic neuropathy (HCC) Extremity numbness DX:Extremity numbness Family [...] PM EDT Office Visit Orthopedic Surgery - [place] [address] [phone] Jv Morelos, DPM [address] [address] Health Maintenance Due Date Last Done Comments [...] Procedure Name Priority Date/Time Associated Diagnosis Comments HM ANNUAL BMP BLOOD TEST Routine 02/28/2024 HEPATITIS C SCREENING Routine 02/26/2024 HEMOGLOBIN A1C Routine 10/13/2023 LIPID PANEL Routine 10/13/2023 from Last 3 Months or Most Recently Relevant to Health Maintenance Results * Annual BMP Blood Test (02/28/2024) Pathologist [facility] Annual BMP Blood Test abstracted [facility] Provider HEALTH MAINTENANCE Final Result * Hepatitis C Screening (02/26/2024) Pathologist [facility] Hepatitis C Screening abstracted [facility] Provider HEALTH MAINTENANCE Final Result * (ABNORMAL) Hemoglobin A1c (10/13/2023) [facility] Hemoglobin A1C 8.1(A) 4.0 - 5.6 % Blood Venous blood specimen / Unknown Result [facility] Provider LAB BLOOD ORDERABLES Tamra l Result * (ABNORMAL) Lipid panel (10/13/2023) [facility] LDL/HDL Ratio 2 0 - 4 Triglycerides 158(A) 0 - 150 mg/dL Cholesterol 110 0 - 200 mg/dL HDL 65 >=40 mg/dL LDL Cholesterol 14 0 - 100 mg/dL Blood Venous blood specimen / Unknown [facility] Provider LAB BLOOD ORDERABLES Tamra l Result from Last 3 Months or Most Recently Relevant to Health Maintenance Insurance [facility] [employer] Care Teams Sand Shoveler Relationship Specialty Start Date End Date Pablo Mendoza PA [address] [place] [phone] PCP - General Internal Medicine 05/11/21
== END 2024-10-26 14:06 | disposition home or self-care (01) ==
LOC: HO.MAMMO 14:05
PROVIDERS: PCP Physician Assistant; Visit Provider Physician Assistant
DX: Z12.31 Encounter for screening mammogram for malignant neoplasm of breast (principal)
CPT/HCPCS: 77063; 77067

== ENCOUNTER → 2024-10-26 14:30 | Outpatient (BNV) | payer OTHER, SELFPAY | PROVIDERS: PCP Physician Assistant; Visit Provider Internal Medicine | DX: Z12.31 Encounter for screening mammogram for malignant neoplasm of breast (principal) | CPT/HCPCS: 77063; 77067 ==

== ENCOUNTER 2024-11-01 09:48 | Outpatient (REF) | payer OTHER, SELFPAY ==
--- OUTSIDE RECORDS SUMMARY | 2024-11-01 14:00 | XMS_ITS | Encounter Summary ---
Author Organization [facility] Address [address] [place] [phone] Care Team Providers Care Basket Sorter Name Role Phone Pablo Mendoza Primary Care Provider Reason for Visit * Reason Onset Date Comments medical records request 10/10/2024 Encounter Details Date Type Department Care Team (Late st Contact Info) Description 10/10/2024 Telephone [facility] Cardiology [facility] [address] [facility] 154 [place] [address] Jv Regalado MD 300 [facility] 154 [place] [address] medical records request Social History Tobacco Use [...] Medical Records Request Gi was discharged from [facility] on 10/06/24. Can you please obtain her records before her 10/26/24 hospital follow up appointment with Anay Gerber? Thanks documented in this encounter Plan of Treatment Upcoming Encounters Date Type Department Care Team (Late st Contact Info) Description 11/12/2024 8:10 AM EDT Office Visit [facility] Cardiology [facility] [address] 300 [facility] 102 [place] [address] Anay Gerber, GANG RIPSAW OPERATOR [address] [facility] 154 [place] [phone] 12/20/2024 3:00 PM EDT Office Visit [facility] - [place] 250 175 [facility] 250 [place] [phone] Jv Morelos, DPM [address] [address] documented as of this encounter Visit Diagnoses Not on filedocumented in this encounter Care Teams Basket Sorter Relationship Specialty Start Date End Date Pablo Mendoza PA [address] [place] [phone] PCP - General Internal Medicine 05/11/21 documented as of this encounter
--- OUTSIDE RECORDS SUMMARY | 2024-11-01 14:00 | XMS_ITS | Clinical Summary ---
Author Organization [address] [place] [address] [place] [phone] Phone Care Team Providers Care Router Operator Radial Name Role Phone Pablo Mendoza Primary Care [...] 10/23/2024 STEMI (ST elevation myocardi al infarction) ([facility] V24, [facility] V28) 10/04/2023 Dizziness 04/01/2023 CHF (congestive heart failure) ([facility] V24, [facility] V28) 04/01/2023 Hypotension 01/25/2023 History of [place] (myocardial infarction) 01/25/2023 Chronic diastolic heart failure ([facility] V24, S/[facility] V28) 01/25/2023 Overview (07/31/2024): Last Assessment & [...] HFpEF. NSTEMI (non-ST elevated myoc ardial infarction) ([facility] V24, [facility] V28) 03/18/2022 Chest pain 03/18/2022 Diabetes ([facility] V24, [facility] V28) 04/13/2021 Essential hypertension 04/13/2021 Overview (07/31/2024): [...] CABGx4 at the age of 46 in [place], details not known Preserved LVEF Apical aneurysm, confirmed by cMRI at [facility] 02/2021 No ischemia on rega MIBI 02/2021 at [facility] Last Assessment & Plan: Multiple cardiac catheterizations [...] Type Department Care Team Description 10/26/2024 Telephone [facility] Cardiology [facility] - [facility] [address] [facility] [address] [place] [address] Anay Gerber NP No Show 10/10/2024 Telephone [facility] [address] [place] [address] Jv Regalado MD medical records request 10/08/2024 Telephone [facility] [address] [facility] [address] [place] [address] Jv Regalado MD Hospital Follow-up 09/24/2024 Telephone [facility] - [facility] [address] [facility] [address] [place] [address] Jv Regalado MD Prior Auth (Repatha 140MG/ML syringes) 09/19/2024 2:45 PM EST Consult Orthopedic Surgery - [place] [address] [place] [address] 250 [place] [phone] Jv Morelos, DPM Dermatophytosis of nail (Primary Dx); Type 2 diabetes mellitus with diabetic chronic kidney disease ([facility] V24, [facility] V28); 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 ([facility] V24, [facility] V28); Diabetic mononeuropathy simplex ([facility] V24, [facility] V28); Type II diabetes mellitus with peripheral circulatory disorder ([facility] V24, [facility] V28); Pain in toe of left foot; [...] Description 11/12/2024 8:10 AM EDT Office Visit [facility] - [facility] 102 300 [facility] 102 [place] [address] Anay Gerber NP 300 [facility] 154 [place] [address] 12/20/2024 3:00 PM EDT Office Visit [facility] - [place] [address] [phone] Jv Morelos, DPM [address] [address] Health Maintenance Due Date Last Done Comments [...] * Annual BMP Blood Test (02/28/2024) Pathologist [facility] Annual BMP Blood Test abstracted Result [facility] Provider HEALTH MAINTENANCE Final Result * Hepatitis C Screening (02/26/2024) Pathologist [facility] Hepatitis C Screening abstracted [facility] Provider HEALTH MAINTENANCE Final Result * (ABNORMAL) Hemoglobin A1c (10/13/2023) [facility] Hemoglobin A1C 8.1(A) 4.0 - 5.6 % Blood Venous blood specimen / Unknown [facility] Provider LAB BLOOD ORDERABLES Tamra l Result * (ABNORMAL) Lipid panel (10/13/2023) [facility] LDL/HDL Ratio 2 0 - 4 Triglycerides 158(A) 0 - 150 mg/dL Cholesterol 110 0 - 200 mg/dL HDL 65 >=40 mg/dL LDL Cholesterol 14 0 - 100 mg/dL Blood Venous blood specimen / Unknown us Historical Provider LAB BLOOD ORDERABLES Tamra l Result from Last 3 Months or Most Recently Relevant to Health Maintenance [place] [address] [place] [address] [employer] PL[employer] Care Teams Router Operator Radial Relationship Specialty Start Date End Date Pablo Mendoza PA [address] [place] [phone] PCP - General Internal Medicine 05/11/21
[2024-11-01 17:43] LABS: MANUAL DIFF FLAG NO
[2024-11-01 17:49] LABS: Basophils Percent Auto 0.5 % (0-2); Eosinophils Absolute Auto 0.3 X10*3/uL (0.0-0.4); Eosinophils Percent Auto 4.8 % (0-4); Hematocrit 31.8 % (37.0-47.0); Hemoglobin 10.4 g/dl (12.0-16.0); Imm Gran Abs Auto 0.01 X10*3/uL (0.00-0.03); Imm Gran Pct Auto 0.2 % (0.0-0.4); Lymphocytes Absolute Auto 1.3 X10*3/uL (1.2-4.9); Lymphocytes Percent Auto 21.3 % (20-40); Mean Corpuscular HGB Conc 32.7 g/dl (31.0-35.0); Mean Corpuscular Hemoglobin 28.8 pg (27.0-33.0); Mean Corpuscular Volume 88.1 fL (80.0-98.0); Mean Platelet Volume 11.6 fL (9.4-12.3); Monocytes Absolute Auto 0.4 X10*3/uL (0.1-1.2); Monocytes Percent Auto 7.1 % (2-11); Neutrophils Absolute Auto 4.1 x10*3/uL (2.0-8.3); Neutrophils Percent Auto 66.1 % (45-73); Platelet Count 272 X10*3/uL (160-400); Red Blood Count 3.61 X10*6/uL (4.20-5.50); White Blood Count 6.2 X10*3/uL (4.8-10.8)
[2024-11-01 17:59] LABS: Anion Gap 15 (12-20); Blood Urea Nitrogen 40 mg/dL (9-16); Carbon Dioxide 27 mmol/L (22-29); Chloride 103 mmol/L (96-108); Estimated Glomerular Filt Rate 44; Potassium 4.5 mmol/L (3.3-5.1); Sodium 140 mmol/L (135-145)
[2024-11-01 18:00] LABS: Anion Gap 12 (12-20); Blood Urea Nitrogen 41 mg/dL (9-16); Calcium 9.9 mg/dL (8.4-10.2); Carbon Dioxide 29 mmol/L (22-29); Chloride 103 mmol/L (96-108); Estimated Glomerular Filt Rate 45; Glucose Random 105 mg/dL (60-115); Potassium 4.4 mmol/L (3.3-5.1); Sodium 140 mmol/L (135-145)
[2024-11-01 18:17] LABS: Creatinine Urine 43.72 mg/dL; Protein/Creatinine Ratio, Ur 0.55 (<0.2); Total Protein Urine Random 24 mg/dL (<12)
== END 2024-11-01 09:49 | disposition home or self-care (01) ==
LOC: HO.HKASLDS 09:48
PROVIDERS: Student in an Organized Health Care Education/Training Program; PCP Physician Assistant; Visit Provider Internal Medicine Nephrology
DX: N18.31 Chronic kidney disease, stage 3a (principal); E11.22 Type 2 diabetes mellitus with diabetic chronic kidney disease; I10 Essential (primary) hypertension; E11.21 Type 2 diabetes mellitus with diabetic nephropathy; I50.9 Heart failure, unspecified; D64.9 Anemia, unspecified
CPT/HCPCS: 36415; 80048; 80051; 82565; 82570; 84156; 84520; 85025; 99212

== ENCOUNTER 2024-11-01 09:48 | Outpatient (AMB) | payer OTHER, SELFPAY ==
--- NOTE | 2024-11-01 10:45 | HO.NEPHOV ---
Vital Signs 11/01/24 10:46 Height 5 ft 4 in Weight 242 lb 4 oz BMI 41.6 BP 148/74 H Blood Pressure Location Lt brachial Position Sitting Pulse 61 Pulse Source Pulse Oximeter Pulse Oximetry (%) 98 Oxygen Delivery Method Room Air Intake Visit Reasons: 1 MO FU-LV Pump Servicer Required: No Accompanied by: Self / Same As Patient Allergies tramadol [TRAMADOL] Allergy (Intermediate, Verified 11/01/24 10:45) VOMITING adhesive tape Adverse Reaction (Intermediate, Verified 11/01/24 10:45) tears skin lisinopril Adverse Reaction (Mild, Verified 11/01/24 10:45) Cough HPI Comments Details: Gi was seen today in follow up after her recent hospitalization for CHF . She had DARIUSZ which also improved with diuresis. She has chronic kidney disease, proteinuria and hypertension on a backdrop of coronary artery disease and bypass surgery. She has history of congestive heart failure. She has history of premature coronary artery disease s/p CABG in 2016 in [place], with repeat catheterization due to occlusion of the SVG to OM s/p mechanical thrombectomy with x2 RENEE placement on January 2022, ischemic cardiomyopathy with preserved ejection fraction with true aneurysmal apex without thrombus confirmed on cardiac MRI with distal territory LAD infarct presented with worsening resting chest pain since 3 days and found to have subtle ST depressions not grossly unchanged but having ongoing pain. Patient underwent cardiac cath which showed the culprit was her vein graft to OM with collaterals. This February she had chest discomfort. She had cardiac cath and later CTA given suspicion of CVA with resultant development of DARIUSZ needin renal replacement one time. She had been tolerating Jardiance and was on losartan since last hospitalization in [place] . She has been gaining weight with some edema after hospitalization. She is trying to maintain good hydration and is avoiding nonsteroidal anti-inflammatory medications [facility] Medical History CKD (chronic kidney disease) CHF (congestive heart failure) Hospital discharge follow-up Anemia CKD stage 3 secondary to diabetes Carpal tunnel syndrome of left wrist Carpal tunnel syndrome of right wrist GERD (gastroesophageal reflux disease) Elevated cholesterol Asthma Type 2 diabetes Chronic renal insufficiency Myocardial infarction CAD (coronary artery disease) HTN (hypertension) Depression Surgical History Hx of heart artery stent Hx of section History of cardiac catheterization H/O: hysterectomy H/O bladder repair surgery Hx of CABG Family History Mother Cervical cancer Hypertension Blindness Kidney failure Sister Cervical cancer Hypertension Hypoglycemia Brother ESRD (end stage renal disease) Hypertension Father DMII (diabetes mellitus, type 2) Son Asthma Daughter No problems noted. Daughter No problems noted. Daughter No problems noted. Daughter No problems noted. Maternal Aunt Ovarian cancer Social History Household Members: Significant Other Housing: Apartment Are you a primary career development engineer to a significant other at home: No Do you presently have visiting nurse or other home services: No Alcohol intake: never Patient Tobacco Use Status: Never used Tobacco Tobacco use type: Cigarette e-Cigarette/Vaping Use: Never Used Second Hand Smoke Exposure: No service: No Current occupational status: disabled Cognitive needs: No Hearing needs: No Vision needs: Yes Female Reproductive History Menstrual Age of Menarche: 16 Review of Systems Const All systems reviewed & are unremarkable except as noted in HPI and below Physical Exam Vital Signs: Last Vital Signs Pulse 61 11/01/24 10:46 BP 148/74 H 11/01/24 10:46 Pulse Ox 98 11/01/24 10:46 Oxygen Delivery Method Room Air 11/01/24 10:46 BMI result Body Mass Index 41.6 Const General: comfortable and no acute distress Orientation/consciousness: patient oriented x3 HEENT Head: Yes normocephalic Mouth: Normal oral and palatal mucosa present Eyes EOM: EOMs intact bilaterally Neck Neck: Yes supple Resp Auscultation: clear to auscultation bilaterally Cardio Jugular venous distension: no JVD Rate: regular rate GI Palpation (GI): Soft to palpation Auscultation: normal bowel sounds General: Yes no CVA tenderness Back/Spine/Pelvis Back: no CVA tenderness Skin General skin exam: no rashes or lesions noted Neuro General: patient oriented x3 and moves all extremities Extrem General: Yes edema Results Reviewed Nephrology Results: Hgb 10.8 g/dl (12.0-16.0) L 10/23/24 WBC 7.4 X10*3/uL (4.8-10.8) 10/23/24 Plt Count 302 X10*3/uL (160-400) 10/23/24 Sodium 140 mmol/L (135-145) 10/23/24 Potassium 4.3 mmol/L (3.3-5.1) 10/23/24 Chloride 105 mmol/L (96-108) 10/23/24 Carbon Dioxide 25 mmol/L (22-29) 10/23/24 BUN 56 mg/dL (9-16) H 10/23/24 Creatinine 1.71 mg/dL (0.5-1.4) H 10/23/24 Calcium 10.0 mg/dL (8.4-10.2) 10/23/24 Urine Creatinine 43.59 mg/dL 10/23/24 Assessment & Plan Assessment & Plan (1) HTN (hypertension): Code(s): I10 - Essential (primary) hypertension Category: Medical Qualifiers: Hypertension type: primary hypertension Qualified Code(s): I10 - Essential (primary) hypertension (2) CKD stage 3a, GFR 45-59 ml/min: Code(s): N18.31 - Chronic kidney disease, stage 3a Category: Medical (3) Diabetic nephropathy: Code(s): E11.21 - Type 2 diabetes mellitus with diabetic nephropathy Category: Medical Qualifiers: Diabetes mellitus type: type 2 Qualified Code(s): E11.21 - Type 2 diabetes mellitus with diabetic nephropathy Plan Gi has stage III CKD. She has H/O significant proteinuria. Her Brilinta has been changed to Plavix. I increased her Lasix to 80 mg twice daily. I increased her Jardiance to 25 mg daily and increased her Isosrobide to 90 mg daily.. She should avoid nonsteroidal anti-inflammatory medications. She needs to continue to lose weight. Her blood pressure is at goal. I did not make any other changes today. All her questions were answered. Follow-up for blood work were ordered and follow-up was given Orders: Orders Blood Urea Nitrogen 1 Week N18.31 - Chronic kidney disease, stage 3a Creatinine 1 Week N18.31 - Chronic kidney disease, stage 3a Electrolytes 1 Week N18.31 - Chronic kidney disease, stage 3a Medications: Changed From empagliflozin (Jardiance) 25 mg PO DAILY To empagliflozin 25 mg PO DAILY 30 tabs 6RF From furosemide 40 mg PO BID 180 tabs 0RF To furosemide 80 mg (2 x 40 mg) PO BID 180 tabs 6RF From isosorbide mononitrate ER 90 mg PO DAILY To isosorbide mononitrate ER 90 mg (1.5 x 60 mg) PO DAILY 30 days 45 tabs 6RF Discontinued losartan Discontinued Reason: Doctor's Order 25 mg PO DAILY 90 tabs 3RF Coding Level of Care Code Est Pt Level 4 (34370) Diagnoses Primary hypertension I10 Hypertension type: primary hypertension CKD stage 3a, GFR 45-59 ml/min N18.31 Diabetic nephropathy associated with type 2 diabetes mellitus E11.21 Diabetes mellitus type: type 2
[2024-11-01 10:46] VITALS: BP 148/74; PULSE 61; O2SAT 98; BMI 41.6
--- OUTSIDE RECORDS SUMMARY | 2024-11-01 11:23 | XMS_ITS | Clinical Summary ---
Author Organization [address] [place] [address] [place] [phone] Phone Care Team Providers Care Strategic Buyer Name Role Phone Pablo Mendoza Primary Care Provider [phone] Allergies Active Allergy Reactions Criticality Noted Date [...] 10/23/2024 STEMI (ST elevation myocardi al infarction) ([facility] V24, [facility] V28) 10/04/2023 Dizziness 04/01/2023 CHF (congestive heart failure) ([facility] V24, [facility] /[facility] V28) 04/01/2023 Hypotension 01/25/2023 History of [place] (myocardial infarction) 01/25/2023 Chronic diastolic heart failure ([facility] V24, S/[facility] V28) 01/25/2023 Overview (07/31/2024): Last Assessment & [...] HFpEF. NSTEMI (non-ST elevated myoc ardial infarction) ([facility] V24, [facility] V28) 03/18/2022 Chest pain 03/18/2022 Diabetes ([facility] V24, [facility] V28) 04/13/2021 Essential hypertension 04/13/2021 Overview (07/31/2024): [...] CABGx4 at the age of 46 in [place], details not known Preserved LVEF Apical aneurysm, confirmed by [place]MRI at [facility] [place] No ischemia on rega MIBI 02/2021 at [facility] Last Assessment & Plan: [...] Encounters Date Type Department Care Team Description 10/26/2024 Telephone [facility] Cardiology [facility] [address] [facility] [address] [place] [address] Anay Gerber NP No Show 10/10/2024 Telephone [facility] [address] [place] [address] Jv Regalado MD medical records request 10/08/2024 Telephone [facility] - [address] [facility] [address] [place] [address] Jv Regalado MD Hospital Follow-up 09/24/2024 Telephone [facility] - [facility] [address] [facility] [address] [place] [address] Jv Regalado MD Prior Auth (Repatha 140MG/ML syringes) 09/19/2024 2:45 PM EST Consult Orthopedic Surgery - [place] [address] [place] [address] 250 [place] [phone] Jv Morelos, DPM Dermatophytosis of nail (Primary Dx); Type 2 diabetes mellitus with diabetic chronic kidney disease ([facility] [place], [facility] V28); 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 ([facility] V24, [facility] V28); Diabetic mononeuropathy simplex ([facility] V24, [facility] V28); Type II diabetes mellitus with peripheral circulatory disorder ([facility] V24, [facility] V28); Pain in toe of left foot; Pain in toe of right foot; Tinea pedis of both feet from Last 3 Months Immunizations Name Administration Dates Next Due Moderna SARS-CoV-2 COVID-19, mRNA, LNP-S, preservative free 02/26/2021 Surgical History Surgery Date Site/Laterality Comments CORONARY ARTERY BYPASS GRAFT PROCEDURE: HISTORICAL CABG; COMMENT: x4 PARTIAL HYSTERECTOMY PROCEDURE: ME SUPRACERVICAL ABDL HYSTER W/WO RMVL TUBE OVARY MULTIPLE TOOTH EXTRACTIONS PROCEDURE: HISTORICAL DENTAL EXTRACTION; COMMENT: Multiple Medical History Medical History Date Comments Depression with anxiety DX:Depre ssion with anxiety Frozen shoulder DX:Frozen should er; COMMENT: Left Peripheral neuropathy DX:Periphe ral neuropathy Type 2 diabetes mellitus (CM S/HCC V24, CMS/HCC V28) DX:Type 2 diabetes mellitus (HCC) Anxiety [...] Care Team (Late st Contact Info) Description 11/12/2024 8:10 AM EDT Office Visit [facility] [address] 300 [facility] 102 [place] [address] Anay Gerber NP 300 [facility] 154 [place] [address] 12/20/2024 3:00 PM EDT Office Visit [facility] - [place] [address] [phone] Jv Morelos, DPM [address] [address] Health Maintenance Due Date Last Done Comments [...] BMP Blood Test (02/28/2024) Pathologist [facility] Annual BMP Blood Test abstracted Result [facility] Provider HEALTH MAINTENANCE Final Result * Hepatitis C Screening (02/26/2024) Pathologist [facility] Hepatitis C Screening abstracted [facility] Provider HEALTH MAINTENANCE Final Result * (ABNORMAL) Hemoglobin A1c (10/13/2023) [facility] Hemoglobin A1C 8.1(A) 4.0 - 5.6 % Blood Venous blood specimen / Unknown [facility] Provider LAB BLOOD ORDERABLES Tamra l Result * (ABNORMAL) Lipid panel (10/13/2023) [facility] LDL/HDL Ratio 2 0 - 4 Triglycerides 158(A) 0 - 150 mg/dL Cholesterol 110 0 - 200 mg/dL HDL 65 >=40 mg/dL LDL Cholesterol 14 0 - 100 mg/dL Blood Venous blood specimen / Unknown us Historical Provider LAB BLOOD ORDERABLES Tamra l Result from Last 3 Months or Most Recently Relevant to Health Maintenance [place] [address] [place] [address] [place] [address] Care Teams Strategic Buyer Relationship Specialty Start Date End Date Pablo Mendoza PA [address] [place] [phone] PCP - General Internal Medicine 05/11/21
--- OUTSIDE RECORDS SUMMARY | 2024-11-01 11:23 | XMS_ITS | Encounter Summary ---
Author Organization [facility] Address [address] [place] [phone] Care Team Providers Care Licensing Analyst Name Role Phone Pablo Mendoza Primary Care Provider Reason for Visit * Reason Onset Date Comments medical records request 10/10/2024 Encounter Details Date Type Department Care Team (Late st Contact Info) Description 10/10/2024 Telephone [facility] Cardiology [facility] [address] 300 [facility] 154 [place] [address] Jv Regalado MD 300 [facility] 154 [place] [address] medical records request Social History Tobacco Use [...] Medical Records Request Gi was discharged from [facility] on 10/06/24. Can you please obtain her records before her 10/26/24 hospital follow up appointment with Anay Gerber? Thanks documented in this encounter Plan of Treatment Upcoming Encounters Date Type Department Care Team (Late st Contact Info) Description 11/12/2024 8:10 AM EDT Office Visit [facility] Cardiology [facility] [address] [facility] 102 [place] [address] Anay Gerber, DOCUMENT ADVISOR [address] [facility] 154 [place] [phone] 12/20/2024 3:00 PM EDT Office Visit Orthopedic Surgery - [place] 250 175 [facility] 250 [place] [phone] Jv Morelos, DPM [address] [address] documented as of this encounter Visit Diagnoses Not on filedocumented in this encounter Care Teams Licensing Analyst Relationship Specialty Start Date End Date Pablo Mendoza PA [address] [place] [phone] PCP - General Internal Medicine 05/11/21 documented as of this encounter
== END 2024-11-01 11:15 | disposition home or self-care (01) ==
LOC: HO.HKAS 09:49
PROVIDERS: PCP Physician Assistant; Visit Provider Internal Medicine Nephrology
DX: I10 Essential (primary) hypertension (principal); N18.31 Chronic kidney disease, stage 3a; E11.21 Type 2 diabetes mellitus with diabetic nephropathy
CPT/HCPCS: 99214

== ENCOUNTER 2024-11-08 09:42 | Outpatient (AMB) | payer OTHER, SELFPAY ==
--- NOTE | 2024-11-08 09:45 | HO.NEPHOV_ITS ---
Vital Signs 11/08/24 09:46 Height 5 ft 4 in Weight 234 lb 2 oz BMI 40.2 BP 136/70 Blood Pressure Location Rt brachial Position Sitting Pulse 63 Pulse Source Pulse Oximeter Pulse Oximetry (%) 95 Oxygen Delivery Method Room Air Intake Visit Reasons: 1 Week-Conf Cassandra Consultant Required: No Accompanied by: Other Relationship Allergies tramadol [TRAMADOL] Allergy (Intermediate, Verified 11/08/24 09:46) VOMITING adhesive tape Adverse Reaction (Intermediate, Verified 11/08/24 09:46) tears skin lisinopril Adverse Reaction (Mild, Verified 11/08/24 09:46) Cough HPI Comments Details: Gi was seen today in follow up after her recent hospitalization for CHF . She had DARIUSZ which also improved with diuresis. She has chronic kidney disease, proteinuria and hypertension on a backdrop of coronary artery disease and bypass surgery. She has history of congestive heart failure. She has history of premature coronary artery disease s/p CABG in 2016 in [place], with repeat catheterization due to occlusion of the SVG to OM s/p mechanical thrombectomy with x2 RENEE placement on January 2022, ischemic cardiomyopathy with preserved ejection fraction with true aneurysmal apex without thrombus confirmed on cardiac MRI with distal territory LAD infarct presented with worsening resting chest pain since 3 days and found to have subtle ST depressions not grossly unchanged but having ongoing pain. Patient underwent cardiac cath which showed the culprit was her vein graft to OM with collaterals. This February she had chest discomfort. She had cardiac cath and later CTA given suspicion of CVA with resultant development of DARIUSZ needin renal replacement one time. She had been tolerating Jardiance and was on losartan since last hospitalization in [place] . She is trying to maintain good hydration and is avoiding nonsteroidal anti- inflammatory medications ON LICENSE OF [facility] Medical History CKD (chronic kidney disease) CHF (congestive heart failure) Hospital discharge follow-up Anemia CKD stage 3 secondary to diabetes Carpal tunnel syndrome of left wrist Carpal tunnel syndrome of right wrist GERD (gastroesophageal reflux disease) Elevated cholesterol Asthma Type 2 diabetes Chronic renal insufficiency Myocardial infarction CAD (coronary artery disease) HTN (hypertension) Depression Surgical History Hx of heart artery stent Hx of section History of cardiac catheterization H/O: hysterectomy H/O bladder repair surgery Hx of CABG Family History Mother Cervical cancer Hypertension Blindness Kidney failure Sister Cervical cancer Hypertension Hypoglycemia Brother ESRD (end stage renal disease) Hypertension Father DMII (diabetes mellitus, type 2) Son Asthma Daughter No problems noted. Daughter No problems noted. Daughter No problems noted. Daughter No problems noted. Maternal Aunt Ovarian cancer Social History Household Members: Significant Other Housing: Apartment Are you a primary residential care facility manager to a significant other at home: No Do you presently have visiting nurse or other home services: No Alcohol intake: never Patient Tobacco Use Status: Never used Tobacco Tobacco use type: Cigarette e-Cigarette/Vaping Use: Never Used Second Hand Smoke Exposure: No service: No Current occupational status: disabled Cognitive needs: No Hearing needs: No Vision needs: Yes Female Reproductive History Menstrual Age of Menarche: 16 Review of Systems Const All systems reviewed & are unremarkable except as noted in HPI and below Physical Exam Vital Signs: Last Vital Signs Pulse 63 11/08/24 09:46 BP 136/70 11/08/24 09:46 Pulse Ox 95 11/08/24 09:46 Oxygen Delivery Method Room Air 11/08/24 09:46 BMI result Body Mass Index 40.2 Const General: comfortable and no acute distress Orientation/consciousness: patient oriented x3 HEENT Head: Yes normocephalic Mouth: Normal oral and palatal mucosa present Eyes EOM: EOMs intact bilaterally Neck Neck: Yes supple Resp Auscultation: clear to auscultation bilaterally Cardio Jugular venous distension: no JVD Rate: regular rate GI Palpation (GI): Soft to palpation Auscultation: normal bowel sounds General: Yes no CVA tenderness Back/Spine/Pelvis Back: no CVA tenderness Skin General skin exam: no rashes or lesions noted Neuro General: patient oriented x3 and moves all extremities Extrem General: Yes no pedal edema Results Reviewed Nephrology Results: Hgb 10.4 g/dl (12.0-16.0) L 11/01/24 WBC 6.2 X10*3/uL (4.8-10.8) 11/01/24 Plt Count 272 X10*3/uL (160-400) 11/01/24 Sodium 140 mmol/L (135-145) 11/01/24 Potassium 4.4 mmol/L (3.3-5.1) 11/01/24 Chloride 103 mmol/L (96-108) 11/01/24 Carbon Dioxide 29 mmol/L (22-29) 11/01/24 BUN 41 mg/dL (9-16) H 11/01/24 Creatinine 1.26 mg/dL (0.5-1.4) 11/01/24 Calcium 9.9 mg/dL (8.4-10.2) 11/01/24 Urine Creatinine 43.72 mg/dL 11/01/24 Protein/Creatinin Ratio 0.55 (<0.2) H 11/01/24 Assessment & Plan Assessment & Plan (1) CKD stage 3a, GFR 45-59 ml/min: Code(s): N18.31 - Chronic kidney disease, stage 3a Category: Medical (2) HTN (hypertension): Code(s): I10 - Essential (primary) hypertension Category: Medical Qualifiers: Hypertension type: primary hypertension Qualified Code(s): I10 - Essential (primary) hypertension (3) Diabetic nephropathy: Code(s): E11.21 - Type 2 diabetes mellitus with diabetic nephropathy Category: Medical Qualifiers: Diabetes mellitus type: type 2 Qualified Code(s): E11.21 - Type 2 diabetes mellitus with diabetic nephropathy Plan Gi has stage III CKD. She has H/O significant proteinuria. Her Brilinta has been changed to Plavix. She should continue Lasix to 80 mg twice daily, Jardiance 25 mg daily, Isosrobide to 90 mg daily.. She should avoid nonsteroidal anti-inflammatory medications. She needs to continue to lose weight. Her blood pressure is at goal. I did not make any other changes today. All her questions were answered. Follow-up for blood work were ordered and follow-up was given Orders: Orders Blood Urea Nitrogen 1 Month E11.21 - Type 2 diabetes mellitus with diabetic nephropathy, I10 - Essential (primary) hypertension, N18.31 - Chronic kidney disease, stage 3a Creatinine 1 Month E11.21 - Type 2 diabetes mellitus with diabetic nephropathy, I10 - Essential (primary) hypertension, N18.31 - Chronic kidney disease, stage 3a Electrolytes 1 Month E11.21 - Type 2 diabetes mellitus with diabetic nephropathy, I10 - Essential (primary) hypertension, N18.31 - Chronic kidney disease, stage 3a Coding Level of Care Code Est Pt Level 4 (80257) Diagnoses CKD stage 3a, GFR 45-59 ml/min N18.31 Primary hypertension I10 Hypertension type: primary hypertension Diabetic nephropathy associated with type 2 diabetes mellitus E11.21 Diabetes mellitus type: type 2
[2024-11-08 09:46] VITALS: BP 136/70; PULSE 63; O2SAT 95; BMI 40.2
--- OUTSIDE RECORDS SUMMARY | 2024-11-08 10:46 | XMS_ITS | Encounter Summary ---
Author Organization [facility] Address [address] [place] [phone] Care Team Providers Care Director Surgical Name Role Phone Pablo Mendoza Primary Care Provider Reason for Visit * Reason Onset Date Comments medical records request 10/10/2024 Encounter Details Date Type Department Care Team (Late st Contact Info) Description 10/10/2024 Telephone [facility] Cardiology [facility] [address] [facility] 154 [place] [address] Jv Regalado MD 300 [facility] 154 [place] [address] medical records request Social History Tobacco Use [...] Medical Records Request Gi was discharged from [facility] on 10/06/24. Can you please obtain her records before her 10/26/24 hospital follow up appointment with Anay Gerber? Thanks documented in this encounter Plan of Treatment Upcoming Encounters Date Type Department Care Team (Late st Contact Info) Description 11/12/2024 8:10 AM EDT Office Visit [facility] Cardiology [facility] [address] 300 [facility] 102 [place] [address] Anay Gerber, SENIOR INVESTMENT MANAGER [address] [facility] 154 [place] [phone] 12/20/2024 3:00 PM EDT Office Visit Orthopedic Surgery - [place] 250 175 [facility] 250 [place] [phone] Jv Morelos, DPM [address] [address] documented as of this encounter Visit Diagnoses Not on filedocumented in this encounter Care Teams Director Surgical Relationship Specialty Start Date End Date Pablo Mendoza PA [address] [place] [phone] PCP - General Internal Medicine 05/11/21 documented as of this encounter
--- OUTSIDE RECORDS SUMMARY | 2024-11-08 10:46 | XMS_ITS | Clinical Summary ---
Author Organization [address] [place] [address] [place] [phone] Phone Care Team Providers Care Document Control Coordinator Name Role Phone Pablo Mendoza Primary Care [...] 10/23/2024 STEMI (ST elevation myocardi al infarction) ([facility] V24, [facility] V28) 10/04/2023 Dizziness 04/01/2023 CHF (congestive heart failure) ([facility] V24, [facility] V28) 04/01/2023 Hypotension 01/25/2023 History of NV (myocardial infarction) 01/25/2023 Chronic diastolic heart failure ([facility] V24, S/[facility] V28) 01/25/2023 Overview (07/31/2024): Last Assessment [...] HFpEF. NSTEMI (non-ST elevated myoc ardial infarction) ([facility] V24, [facility] V28) 03/18/2022 Chest pain 03/18/2022 Diabetes ([facility] V24, [facility] V28) 04/13/2021 Essential hypertension 04/13/2021 Overview [...] CABGx4 at the age of 46 in [place], details not known Preserved LVEF Apical aneurysm, confirmed by cMRI at [facility] [place] 02/2021 No ischemia on rega MIBI 02/2021 at [facility] [place] Last Assessment & Plan: [...] Type Department Care Team Description 10/26/2024 Telephone [facility] [address] [facility] [address] [place] [address] Anay Gerber NP No Show 10/10/2024 Telephone [facility] [address] [place] [address] Jv Regalado MD medical records request 10/08/2024 Telephone [facility] [address] [facility] [address] [place] [address] Jv Regalado MD Hospital Follow-up 09/24/2024 Telephone [facility] [address] [facility] [address] [place] [address] Jv Regalado MD Prior Auth (Repatha 140MG/ML syringes) 09/19/2024 2:45 PM EST Consult [facility] [place] [address] [place] [address] [address] [place] [phone] Jv Morelos, DPM Dermatophytosis of nail (Primary Dx); Type 2 diabetes mellitus with diabetic chronic kidney disease ([facility] [place] [facility] V28); 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 ([facility] [place], [facility] V28); Diabetic mononeuropathy simplex ([facility] [place], [facility] V28); Type II diabetes mellitus with peripheral circulatory disorder ([facility] [place], [facility] V28); Pain in toe of left foot; Pain in toe of right foot; Tinea pedis of both feet from Last 3 Months Immunizations Name Administration Dates Next Due Moderna SARS-CoV-2 COVID-19, mRNA, LNP-S, preservative free 02/26/2021 Surgical History Surgery Date Site/Laterality Comments CORONARY ARTERY BYPASS GRAFT PROCEDURE: HISTORICAL CABG; COMMENT: x4 PARTIAL HYSTERECTOMY PROCEDURE: [place] SUPRACERVICAL ABDL HYSTER W/WO RMVL TUBE OVARY [...] Description 11/12/2024 8:10 AM EDT Office Visit [facility] [address] [facility] [address] [place] [address] Anay Gerber NP [address] [facility] [address] [place] [address] 12/20/2024 3:00 PM EDT Office Visit [facility] [place] [address] [phone] Jv Morelos, DPM [address] [address] Health Maintenance Due Date Last Done Comments [...] * Annual BMP Blood Test (02/28/2024) [facility]ologist [facility] Annual BMP Blood Test abstracted Result [facility] Provider HEALTH MAINTENANCE Final Result * Hepatitis C Screening (02/26/2024) Pathologist Critical access hospital Hepatitis C Screening abstracted [facility] Provider HEALTH MAINTENANCE Final Result * (ABNORMAL) Hemoglobin A1c (10/13/2023) [facility] Hemoglobin A1C 8.1(A) 4.0 - 5.6 % Blood Venous blood specimen / Unknown [facility] Provider LAB BLOOD ORDERABLES Tamra l Result * (ABNORMAL) Lipid panel (10/13/2023) [facility] LDL/HDL Ratio 2 0 - 4 Triglycerides 158(A) 0 - 150 mg/dL Cholesterol 110 0 - 200 mg/dL HDL 65 >=40 mg/dL LDL Cholesterol 14 0 - 100 mg/dL Blood Venous blood specimen / Unknown us Historical Provider LAB BLOOD ORDERABLES Tamra l Result from Last 3 Months or Most Recently Relevant to Health Maintenance Insurance [address] [place] [address] [employer] Care Teams Document Control Coordinator Relationship Specialty Start Date End Date Pablo Mendoza PA [address] [place] [phone] PCP - General Internal Medicine 05/11/21
== END 2024-11-08 10:13 | disposition home or self-care (01) ==
LOC: HO.HKAS 09:42
PROVIDERS: PCP Physician Assistant; Visit Provider Internal Medicine Nephrology
DX: N18.31 Chronic kidney disease, stage 3a (principal); I10 Essential (primary) hypertension; E11.21 Type 2 diabetes mellitus with diabetic nephropathy
CPT/HCPCS: 99214

== ENCOUNTER → 2024-11-08 09:42 | Outpatient (BNVA) | payer OTHER, SELFPAY | PROVIDERS: PCP Physician Assistant; Visit Provider Internal Medicine Nephrology | DX: E11.22 Type 2 diabetes mellitus with diabetic chronic kidney disease (principal); I12.9 Hypertensive chronic kidney disease with stage 1 through stage 4 chronic kidney disease, or unspecified chronic kidney disease; N18.31 Chronic kidney disease, stage 3a; E11.21 Type 2 diabetes mellitus with diabetic nephropathy | CPT/HCPCS: 99212 ==

== ENCOUNTER 2024-12-18 13:16 | Outpatient (AMB) | payer OTHER, SELFPAY ==
--- NOTE | 2024-12-18 13:36 | HO.NEPHOV_ITS ---
Vital Signs 12/18/24 13:40 Height 5 ft 4 in Weight 223 lb 4 oz BMI 38.3 BP 150/92 H Blood Pressure Location Rt brachial Position Sitting Pulse 81 Pulse Source Pulse Oximeter Pulse Oximetry (%) 96 Oxygen Delivery Method Room Air Intake Visit Reasons: 1 mo follow up-Conf Fluorescent Lamp Replacer Required: No Accompanied by: Other Relationship Allergies tramadol [TRAMADOL] Allergy (Intermediate, Verified 12/18/24 13:40) VOMITING adhesive tape Adverse Reaction (Intermediate, Verified 12/18/24 13:40) tears skin lisinopril Adverse Reaction (Mild, Verified 12/18/24 13:40) Cough HPI Comments Details: Gi was seen for chronic kidney disease, proteinuria and hypertension on a backdrop of coronary artery disease and bypass surgery. She has history of congestive heart failure. She has history of premature coronary artery disease s/p CABG in 2016 in [place], with repeat catheterization due to occlusion of the SVG to OM s/p mechanical thrombectomy with x2 RENEE placement on January 2022, ischemic cardiomyopathy with preserved ejection fraction with true aneurysmal apex without thrombus confirmed on cardiac MRI with distal territory LAD infarct presented with worsening resting chest pain since 3 days and found to have subtle ST depressions not grossly unchanged but having ongoing pain. Patient underwent cardiac cath which showed the culprit was her vein graft to OM with collaterals. She had cardiac cath and later CTA given suspicion of CVA with resultant development of DARIUSZ needin renal replacement one time. She had been tolerating Jardiance and was on losartan since last hospitalization in [place] . She is trying to maintain good hydration and is avoiding nonsteroidal anti- inflammatory medications. She has been having bronchitis and is awaiting a F/U from PCP [facility] Medical History CKD (chronic kidney disease) CHF (congestive heart failure) Hospital discharge follow-up Anemia CKD stage 3 secondary to diabetes Carpal tunnel syndrome of left wrist Carpal tunnel syndrome of right wrist GERD (gastroesophageal reflux disease) Elevated cholesterol Asthma Type 2 diabetes Chronic renal insufficiency Myocardial infarction CAD (coronary artery disease) HTN (hypertension) Depression Surgical History Hx of heart artery stent Hx of section History of cardiac catheterization H/O: hysterectomy H/O bladder repair surgery Hx of CABG Family History Mother Cervical cancer Hypertension Blindness Kidney failure Sister Cervical cancer Hypertension Hypoglycemia Brother ESRD (end stage renal disease) Hypertension Father DMII (diabetes mellitus, type 2) Son Asthma Daughter No problems noted. Daughter No problems noted. Daughter No problems noted. Daughter No problems noted. Maternal Aunt Ovarian cancer Social History Household Members: Significant Other Housing: Apartment Are you a primary manager critical care unit to a significant other at home: No Do you presently have visiting nurse or other home services: No Alcohol intake: never Patient Tobacco Use Status: Never used Tobacco Tobacco use type: Cigarette e-Cigarette/Vaping Use: Never Used Second Hand Smoke Exposure: No service: No Current occupational status: disabled Cognitive needs: No Hearing needs: No Vision needs: Yes Female Reproductive History Menstrual Age of Menarche: 16 Review of Systems Const All systems reviewed & are unremarkable except as noted in HPI and below Physical Exam Vital Signs: Last Vital Signs Pulse 81 12/18/24 13:40 BP 150/92 H 12/18/24 13:40 Pulse Ox 96 12/18/24 13:40 Oxygen Delivery Method Room Air 12/18/24 13:40 BMI result Body Mass Index 38.3 Const General: comfortable and no acute distress Orientation/consciousness: patient oriented x3 HEENT Head: Yes normocephalic Mouth: Normal oral and palatal mucosa present Eyes EOM: EOMs intact bilaterally Neck Neck: Yes supple Resp Auscultation: clear to auscultation bilaterally Cardio Jugular venous distension: no JVD Rate: regular rate GI Palpation (GI): Soft to palpation Auscultation: normal bowel sounds General: Yes no CVA tenderness Back/Spine/Pelvis Back: no CVA tenderness Skin General skin exam: no rashes or lesions noted Neuro General: patient oriented x3 and moves all extremities Extrem General: Yes no pedal edema Results Reviewed Nephrology Results: Hgb 10.4 g/dl (12.0-16.0) L 11/01/24 WBC 6.2 X10*3/uL (4.8-10.8) 11/01/24 Plt Count 272 X10*3/uL (160-400) 11/01/24 Sodium 140 mmol/L (135-145) 11/01/24 Potassium 4.4 mmol/L (3.3-5.1) 11/01/24 Chloride 103 mmol/L (96-108) 11/01/24 Carbon Dioxide 29 mmol/L (22-29) 11/01/24 BUN 41 mg/dL (9-16) H 11/01/24 Creatinine 1.26 mg/dL (0.5-1.4) 11/01/24 Calcium 9.9 mg/dL (8.4-10.2) 11/01/24 Urine Creatinine 43.72 mg/dL 11/01/24 Protein/Creatinin Ratio 0.55 (<0.2) H 11/01/24 Assessment & Plan Assessment & Plan (1) CKD stage 3a, GFR 45-59 ml/min: Code(s): N18.31 - Chronic kidney disease, stage 3a Category: Medical (2) Diabetic nephropathy: Code(s): E11.21 - Type 2 diabetes mellitus with diabetic nephropathy Category: Medical Qualifiers: Diabetes mellitus type: type 2 Qualified Code(s): E11.21 - Type 2 diabetes mellitus with diabetic nephropathy (3) HTN (hypertension): Code(s): I10 - Essential (primary) hypertension Category: Medical Qualifiers: Hypertension type: primary hypertension Qualified Code(s): I10 - Essential (primary) hypertension Plan Gi has stage III CKD. She has H/O significant proteinuria. Her Brilinta has been changed to Plavix. She should continue Lasix to 80 mg twice daily, Jardiance 25 mg daily, Isosrobide 90 mg daily.. She should avoid nonsteroidal anti-inflammatory medications. She needs to continue to lose weight. Her blood pressure is at goal at home. I did not make any other changes today. All her questions were answered. Follow-up for blood work were ordered and follow- up was given Orders: Orders Electrolytes 2 Months E11.21 - Type 2 diabetes mellitus with diabetic nephropathy, I10 - Essential (primary) hypertension, N18.31 - Chronic kidney disease, stage 3a Creatinine 2 Months E11.21 - Type 2 diabetes mellitus with diabetic nephropathy, I10 - Essential (primary) hypertension, N18.31 - Chronic kidney disease, stage 3a Blood Urea Nitrogen 2 Months E11.21 - Type 2 diabetes mellitus with diabetic nephropathy, I10 - Essential (primary) hypertension, N18.31 - Chronic kidney disease, stage 3a Coding Level of Care Code Est Pt Level 4 (80892) Diagnoses CKD stage 3a, GFR 45-59 ml/min N18.31 Diabetic nephropathy associated with type 2 diabetes mellitus E11.21 Diabetes mellitus type: type 2 Primary hypertension I10 Hypertension type: primary hypertension
[2024-12-18 13:40] VITALS: BP 150/92; PULSE 81; O2SAT 96; BMI 38.3
--- OUTSIDE RECORDS SUMMARY | 2024-12-18 14:46 | XMS_ITS | Clinical Summary ---
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 Active atorvastatin (LIPITOR) 80 mg tablet Take 1 Tablet by mouth daily. Active cetirizine (ZyrTEC) 10 mg tablet [...] 14 days. 2 mL 6 5 Active benzonatate (TESSALON) 100 mg capsule Take 1 capsule (100 mg total) by mouth 2 (two) times a day. Do not crush or chew. Active furosemide (LASIX) 40 mg tablet Take 2 tablets (80 mg total) by mouth 2 (two) times a day. Active isosorbide mononitrate (IMDUR) 60 mg 24 hr tablet Take 1.5 tablets by mouth 1 (one) time each day. Do not crush or chew. Active pantoprazole (PROTONIX) 40 mg EC tablet Take 1 tablet (40 mg total) by mouth 1 (one) time each day before breakfast. Do not crush, chew, or split. Active carvediloL (COREG) 25 mg tablet Take by mouth 2 (two) times a day with meals. Active aspirin 81 mg EC tablet Take 1 tablet (81 mg total) by mouth 1 (one) time each day. Active Active Problems Problem Noted Date Diagnosed Date Swelling of extremity 10/23/2024 STEMI (ST elevation myocardi al infarction) ([facility] V24, [facility] V28) 10/04/2023 Dizziness 04/01/2023 CHF (congestive heart failure) ([facility] V24, [facility] /[facility] V28) 04/01/2023 Hypotension 01/25/2023 History of HI (myocardial infarction) 01/25/2023 Chronic diastolic heart failure ([facility] V24, [facility] V28) 01/25/2023 Overview (07/31/2024): Last Assessment [...] continue on beta-elana and SGLT2 for HFpEF. Assessment & Plan (11/12/2024 10:04 AM EDT): Patient appears to be euvolemic upon exam today. She denies any worsening breathlessness or swelling since she was discharged in the hospital on an increased dose of Lasix. We again discussed the importance of performing daily weights to further evaluate for fluid retention. Encouraged to continue to follow a low- sodium diet and perform daily weights. Patient will reach out to our office with a weight gain of 2 pounds in 1 day or 5 pounds in 5 days accompanied by worsening peripheral edema, shortness of breath or abdominal distention. NSTEMI (non-ST elevated myoc ardial infarction) ([facility] [place], [facility] V28) 03/18/2022 Chest pain 03/18/2022 Diabetes ([facility] V24, [facility] V28) 04/13/2021 Essential hypertension 04/13/2021 Overview [...] engage in routine aerobic exercise as tolerated. Assessment & Plan (11/12/2024 10:04 AM EDT): Mildly elevated during today's exam with a reading of 142/82. At this time she would like to continue with diet and lifestyle modification to help further reduce blood pressure. We will reevaluate at her next office visit and may need to titrate her amlodipine should her pressure remain greater than 130/80. Hyperlipidemia 04/13/2021 Overview (07/31/2024): Last Assessment & Plan: Continue on her current dose of statin and Zetia. Goal LDL less than 70 however ideally 55 in the setting of significant coronary disease. Could consider updating fasting lipid profile prior to her next office visit unless already performed by her PCP. Encouraged to be mindful of her dietary fat intake. Assessment & Plan (11/12/2024 10:04 AM EDT): Continue on Repatha. Goal LDL less than 70. Patient informs me that her PCP has been monitoring her cholesterol levels. Encouraged to be mindful of her dietary fat intake and increase her aerobic exercise as tolerated. Coronary artery disease 04/13/2021 Overview (07/31/2024): Status post CABGx4 at the age of 46 in [place], details not known Preserved LVEF Apical aneurysm, confirmed by [place] [facility] [place]/2021 No ischemia on rega MIBI 02/2021 at [facility] Last Assessment & Plan: Multiple cardiac [...] 10 minutes does not resolve with rest. Assessment & Plan (11/12/2024 10:04 AM EDT): She denies any recurrence of her anginal symptoms. She will continue on her current dose of Plavix, Repatha and amlodipine. Instructed to call 911 or go to the emergency room should the patient begin to experience chest pain or pressure lasting greater than 10 minutes does not resolve with rest. Encounters Date Type Department Care Team Description 11/19/2024 12:45 PM EDT Ancillary Procedure [facility] [address] [place] [address] Bruit of left carotid artery 11/12/2024 8:10 AM EDT Office Visit [facility] [address] [place] [address] Anay Gerber NP Bruit of left carotid artery (Primary Dx); Essential hypertension; Coronary artery disease due to lipid rich plaque; Chronic diastolic heart failure (CMS/HCC V24, CMS/HCC V28); Other hyperlipidemia 10/26/2024 Telephone [facility] [address] [place] [address] Anay Gerber NP No Show 10/10/2024 Telephone [facility] [address] [place] [address] Jv Regalado MD medical records request 10/08/2024 Telephone [facility] [address] [place] [address] Jv Regalado MD Hospital Follow-up 09/24/2024 Telephone [facility] [address] [place] [address] Jv Regalado MD Prior Auth (Repatha 140MG/ML syringes) 09/19/2024 2:45 PM EST Consult [facility] - [place] [address] [place] [id number] Morelos, Christopher M, DPM Dermatophytosis of nail (Primary Dx); Type 2 diabetes mellitus with diabetic chronic kidney disease ([facility] V24, [facility] V28); director long term care (current) use of insulin ([facility] V24, [facility] V28); Diabetic mononeuropathy simplex ([facility] V24, [facility] V28); Type II diabetes mellitus with peripheral circulatory disorder ([facility] V24, [facility] V28); Pain in toe of left foot; Pain in toe of right foot; Tinea pedis of both feet from Last 3 Months Immunizations Name Administration Dates Next Due Moderna SARS-CoV-2 COVID-19, mRNA, LNP-S, preservative free 02/26/2021 Surgical History Surgery Date Site/Laterality Comments CORONARY ARTERY BYPASS GRAFT PROCEDURE: HISTORICAL CABG; COMMENT: x4 PARTIAL HYSTERECTOMY PROCEDURE: FL SUPRACERVICAL ABDL HYSTER W/WO RMVL TUBE OVARY MULTIPLE TOOTH EXTRACTIONS PROCEDURE: HISTORICAL DENTAL EXTRACTION; COMMENT: Multiple Medical History Medical History Date Comments Depression with anxiety DX:Depre ssion with anxiety Frozen shoulder DX:Frozen should er; COMMENT: Left Peripheral neuropathy DX:Periphe ral neuropathy Type 2 diabetes mellitus ([facility] V24, [facility] V28) DX:Type 2 diabetes mellitus ([facility]) Anxiety with depression DX:Anxie ty with depression Gout DX:Gout Class 2 obesity DX:Class 2 obesi ty Chronic kidney disease DX:Chroni c kidney disease Diabetic neuropathy ([facility] V24, [facility] V28) DX:Diabetic neuropathy ([facility]) Extremity numbness DX:Extremity numbness Family History Medical [...] Sign Reading Time Taken Comments Blood Pressure 142/82 11/12/2024 8:11 AM EDT Pulse 63 11/12/2024 8:11 AM EDT Temperature - - Respiratory Rate - - Oxygen Saturation 97% 11/12/2024 8:11 AM EDT Inhaled Oxygen Concentration - - Weight 108 kg (239 lb) 11/12/2024 8:11 AM EDT Height 160 cm (5' 3 ) 11/12/2024 8:11 AM EDT Body Mass Index 42.34 11/12/2024 8:11 AM EDT Plan of Treatment Upcoming Encounters Date Type Department Care Team (Late st Contact Info) Description 12/20/2024 3:00 PM EDT Office Visit [facility] [place] [address] [facility] [address] [place] [phone] Jv Morelos, DPM [address] [facility] [address] [place] [address] 06/07/2025 7:40 AM EST Office Visit [facility] [address] [facility] [address] [place] [phone] Anay Gerber, FADY [address] [facility] [address] [place] [phone] Health Maintenance Due Date Last Done Comments Breast Cancer Screening 1972 Diabetes: Annual Foot Exam 1982 Diabetes: Annual Retina Eye Exam 1982 Cervical Cancer Screening: Pap Smear 1993 Pneumococcal Vaccine: 50+ Years (2 of 2 - PCV) 05/19/2022 05/19/2021 Pneumococcal Vaccine: Pediatrics (0 to 5 Years) and At-Risk Patients (6 to 64 Years) (2 of 2 - PCV) 05/19/2022 05/19/2021 Colorectal Cancer Screening: Colonoscopy 06/20/2022 Depression Screening 06/20/2022 HIV Screening 06/20/2022 Social Influencers of Health Screening 06/20/2022 Diabetes: Annual Urine Albumin-Creatinine Ratio (uACR) 07/01/2022 Diabetes: Blood Sugar Control Test (HGBA1C) 08/25/2024 02/23/2024, 10/13/2023 Hepatitis B Vaccines (2 of 2 - CpG 2-dose series) 12/10/2024 11/12/2024 Diabetes: Annual GFR (Glomerular Filtration Rate) 02/27/2025 02/28/2024, 02/28/2024, 02/27/2024, Additional history exists Hypertension/CHF/CAD Annual BMP Blood Test 02/27/2025 02/28/2024, 02/28/2024, 02/27/2024, Additional history exists COVID-19 Vaccine (5 - Moderna risk season) 2025 11/12/2024, 05/27/2023, 05/28/2021, Additional history exists Cholesterol Screening (Lipid Panel) 02/22/2029 02/23/2024, 10/13/2023 DTaP,Tdap,and Td Vaccines (2 - Td or Tdap) 11/12/2034 11/12/2024 Zoster Vaccines Completed 07/29/2023, 05/27/2023 Hepatitis C Screening Completed 02/26/2024 Influenza Vaccine Completed 04/19/2024, , 05/19/2021, Additional history exists HIB Vaccines Aged Out No longer eligi [...] Procedure Name Priority Date/Time Associated Diagnosis Comments VAS US DUPLEX CAROTID BILATERAL Routine 11/19/2024 12:52 PM EDT Bruit of left carotid artery ANNUAL BMP BLOOD TEST Routine 02/28/2024 HEPATITIS C SCREENING Routine 02/26/2024 HEMOGLOBIN A1C Routine 10/13/2023 LIPID PANEL Routine 10/13/2023 from Last 3 Months or Most Recently Relevant to Health Maintenance Results * Vascular US duplex carotid bilateral (11/19/2024 12:52 PM EDT) Left CCA dist austin 19 cm/s CV VAS LAB Left CCA dist sys 82 cm/s CV VAS LAB LEFT COMMON CAROTID ARTERY MID D 11 cm/s CV VAS LAB LEFT COMMON CAROTID ARTERY MID S 66 cm/s CV VAS LAB Left CCA prox [place] 11 cm/s CV VAS LAB Left CCA prox sys 61 cm/s CV VAS LAB LEFT EXTERNAL CAROTID ARTERY D 9 cm/s CV VAS LAB Left ECA sys 104 cm/s CV VAS LAB Left ICA/CCA sys 0.80 no units CV VAS LAB Left ICA dist [place] 19 cm/s CV VAS LAB Left ICA dist sys 55 cm/s CV VAS LAB Left ICA mid [place] 17 cm/s CV VAS LAB Left ICA mid sys 68 cm/s CV VAS LAB Left ICA prox [place] 20 cm/s CV VAS LAB Left ICA prox sys 55 cm/s CV VAS LAB Left vertebral sys 54 cm/s CV VAS LAB Right CCA dist [place] 12 cm/s CV VAS LAB Right cca dist sys 62 cm/s CV VAS LAB RIGHT COMMON CAROTID ARTERY MID D 11 cm/s CV VAS LAB RIGHT COMMON CAROTID ARTERY MID S 54 cm/s CV VAS LAB Right CCA prox [place] 13 cm/s CV VAS LAB Right CCA prox sys 97 cm/s CV VAS LAB RIGHT EXTERNAL CAROTID ARTERY D 9 cm/s CV VAS LAB Right eca sys 116 cm/s CV VAS LAB Right ICA/CCA sys 1.40 no units CV VAS LAB Right ICA dist [place] 27 cm/s CV VAS LAB Right ICA dist sys 85 cm/s CV VAS LAB Right ICA mid [place] 25 cm/s CV VAS LAB Right ICA mid sys 81 cm/s CV VAS LAB Right ICA prox [place] 20 cm/s CV VAS LAB Right ICA prox sys 70 cm/s CV VAS LAB Right vertebral sys 42 cm/s CV VAS LAB Left Prox Subclavian PSV 219 cm/s CV VAS LAB Right Prox Subclavian PSV 164 cm/s CV VAS LAB Right arm BP 131 mmHg CV VAS LAB Left arm BP 133 mmHg CV VAS LAB Anatomical Region Laterality Modality Vascular, Abdomen Ultrasound Narrative 11/20/2024 3:07 PM EDT ?Right ICA: There is minimal heterogeneous plaque. ?Left ICA: There is minimal heterogeneous plaque. RIGHT. 1. ??There is atherosclerotic plaque in the carotid system as noted above. 2. ??There is less than 50% stenosis in the internal carotid artery based on Doppler velocity. 3. ??The subclavian artery has normal Doppler flow pattern. 4. ??Vertebral artery has normal antegrade flow. LEFT. 1. ??There is atherosclerotic plaque in the carotid system as noted above. 2. ??There is less than 50% stenosis in the internal carotid artery based on Doppler velocity. 3. ??The subclavian artery has normal Doppler flow pattern. 4. ??Vertebral artery has normal antegrade flow. Right Carotid There is evidence of intimal thickening in the CCA. The proximal CCA is tortuous. The ICA has minimal heterogeneous plaque. The ECA has minimal heterogeneous plaque. Vertebral flow is antegrade. Left Carotid There is evidence of intimal thickening in the CCA. The proximal CCA is tortuous. The ICA has minimal heterogeneous plaque. The ECA has minimal heterogeneous plaque. The subclavian artery has turbulent flow. Vertebral flow is antegrade. Php Web Developer Details A park scale, color and doppler analysis ultrasound was performed. During the study longitudinal and transverse views were obtained. Continuous wave doppler and pulsed wave doppler was performed. Overall the study quality was technically difficult. Study was technically difficult due to: body habitus. Anay Gerber NP CV VASCULAR PROCEDURES Final Result * Annual BMP Blood Test (02/28/2024) [facility] Annual BMP Blood Test abstracted Historical Provider HEALTH MAINTENANCE Final Result * Hepatitis C Screening (02/26/2024) [facility] Hepatitis C Screening abstracted us Historical Provider HEALTH MAINTENANCE Final Result * (ABNORMAL) Hemoglobin A1c (10/13/2023) Hemoglobin A1C 8.1(A) 4.0 - 5.6 % [...] Most Recently Relevant to Health Maintenance [place] [address] [address] [place] [address] HEALTH PLAN Care Teams Mill Recorder Relationship Specialty [place] [address] [place] [phone] PCP - General Internal Medicine 05/11/21
== END 2024-12-18 14:05 | disposition home or self-care (01) ==
LOC: HO.HKAS 13:16
PROVIDERS: PCP Physician Assistant; Visit Provider Internal Medicine Nephrology
DX: N18.31 Chronic kidney disease, stage 3a (principal); E11.21 Type 2 diabetes mellitus with diabetic nephropathy; I10 Essential (primary) hypertension
CPT/HCPCS: 99214

== ENCOUNTER → 2024-12-18 13:16 | Outpatient (BNVA) | payer OTHER, SELFPAY | PROVIDERS: PCP Physician Assistant; Visit Provider Internal Medicine Nephrology | DX: E11.22 Type 2 diabetes mellitus with diabetic chronic kidney disease (principal); I12.9 Hypertensive chronic kidney disease with stage 1 through stage 4 chronic kidney disease, or unspecified chronic kidney disease; N18.31 Chronic kidney disease, stage 3a; E11.21 Type 2 diabetes mellitus with diabetic nephropathy | CPT/HCPCS: 99212 ==

== ENCOUNTER 2025-02-18 13:29 | Outpatient (AMB) | payer OTHER, SELFPAY ==
--- NOTE | 2025-02-18 13:34 | MHC.PC.OV ---
Vital Signs 02/18/25 13:37 Height 5 ft 4 in Weight 213 lb 8 oz BMI 36.6 BP 130/72 Blood Pressure Location Lt brachial Position Sitting Pulse 85 Pulse Source Pulse Oximeter Temp 97.3 F Temp Source Temporal Artery Scan Pulse Oximetry (%) 96 Oxygen Delivery Method Room Air Intake Visit Reasons: dm2,chf, anemia Intake Note: Patient is here to follow up on DM, CHF, Anemia. Digital Cartographic Technician Required: No Computer Security Specialist: Not Required per policy Accompanied by: Self / Same As Patient Allergies tramadol (TRAMADOL) Allergy (Intermediate, Verified 02/18/25 13:56) VOMITING adhesive tape Adverse Reaction (Intermediate, Verified 02/18/25 13:56) tears skin lisinopril Adverse Reaction (Mild, Verified 02/18/25 13:56) Cough Medication List - Last Reconciled 02/18/25 by Pablo Mendoza PA-C [adult pull up size external heart- #120/ month As directed] albuterol sulfate 90 mcg/actuation (Ventolin HFA) 2 puffs inhalation QID 30 days amlodipine 5 mg PO DAILY atorvastatin 80 mg PO DAILY benzonatate 200 mg PO BEDTIME 14 days blood pressure test kit-large As directed blood sugar diagnostic (FreeStyle Lite Strips) As directed carvedilol 25 mg PO BID cetirizine 10 mg PO DAILY cholecalciferol (vitamin D3) (Vitamin D3) 50 mcg PO DAILY clopidogrel 75 mg PO DAILY clotrimazole 1% topical dulaglutide (Trulicity) mg subcut empagliflozin 25 mg PO DAILY escitalopram oxalate 10 mg PO DAILY evolocumab (Repatha Syringe) 140 mg subcut Q2W flash glucose sensor (FreeStyle Aida 2 Sensor kit) As directed fluticasone propionate 50 mcg/actuation 1 spray intranasal BID furosemide 80 mg (2 x 40 mg) PO BID gabapentin 600 mg PO TID insulin glargine-yfgn 22 units subcut BEDTIME insulin lispro (Humalog KwikPen (U-100) Insulin) 15 sliding scale doses subcut TID isosorbide mononitrate ER 90 mg (1.5 x 60 mg) PO DAILY 30 days multivit with min-folic acid 200 mcg (Multivitamin Gummies) 2 tabs PO DAILY olopatadine 0.1% 1 drp ophthalmic (eye) BID 30 days pantoprazole 40 mg PO DAILY triamcinolone acetonide 0.1% 1 appl topical DAILY 30 days walker As directed Tobacco use date assessed: 02/18/25 Dental Screening Dental Screen Date: 10/12/24 HPI dm2,chf, anemia HPI Details Patient is a 54-year-old female here today for a follow-up visit She has a past medical history significant for type 2 diabetes, obesity, hypertension hyperlipidemia, CAD ( status post quadruple bypass), congestive heart failure, GERD, depression. Concern--> The patient reports significant menopausal symptoms, including hot flashes and mood swings, which are impacting her quality of life. She is considering non-hormonal options due to the increased risk of blood clots associated with her coronary artery disease. .. DMII: Patient has lost weight since last office visit. Is seeing an tea tree farm worker at [facility] and was managing her diabetes with insulin pump. Most recent A1c is 7.6. . She continues to follow [facility] Endocrinology. .. Urinary incontinence: The patient experiences stress urinary incontinence, which she attributes to a previous bladder surgery involving mesh placement. She is currently using adult briefs. Pelvic floor therapy has been discussed as a potential intervention. .. CKD- as above patient did have acute renal failure due to contrast dye and needed emergent dialysis while in the hospital.. stage 3- See Dr Soto buckle stringer, has been avoiding nephrotoxins, most recent creatinine at 1.7 .. CAD/ CHF:? Has had a CABG x4..? Patient followed by Cardiology. .? Patient's LDL optimally controlled. Continues on high-dose statin therapy and praulent injections. Patient data recent echocardiogram that showed appropriate EF though does have moderate LVH ? Is seeing a pediatric registered nurse at [facility] cardiology? ( Dr. Eisenberg) Goal LDL to be optimally below 70. [facility] Medical History CKD (chronic kidney disease) CHF (congestive heart failure) Hospital discharge follow-up Anemia CKD stage 3 secondary to diabetes Carpal tunnel syndrome of left wrist Carpal tunnel syndrome of right wrist GERD (gastroesophageal reflux disease) Elevated cholesterol Asthma Type 2 diabetes Chronic renal insufficiency Myocardial infarction CAD (coronary artery disease) HTN (hypertension) Depression Surgical History Hx of heart artery stent Hx of section History of cardiac catheterization H/O: hysterectomy H/O bladder repair surgery Hx of CABG Family History Mother Cervical cancer Hypertension Blindness Kidney failure Sister Cervical cancer Hypertension Hypoglycemia Brother ESRD (end stage renal disease) Hypertension Father DMII (diabetes mellitus, type 2) Son Asthma Daughter No problems noted. Daughter No problems noted. Daughter No problems noted. Daughter No problems noted. Maternal Aunt Ovarian cancer Social History Household Members: Significant Other Housing: Apartment Are you a primary animal care technician to a significant other at home: No Do you presently have visiting nurse or other home services: No Alcohol intake: never Patient Tobacco Use Status: Never used Tobacco Tobacco use type: Cigarette e-Cigarette/Vaping Use: Never Used Second Hand Smoke Exposure: No service: No Current occupational status: disabled Cognitive needs: No Hearing needs: No Vision needs: Yes Female Reproductive History Menstrual Age of Menarche: 16 Questionnaire Thrive Questionnaire Date Thrive assessed: 10/16/24 I am a: Patient What is your living situation today?: I have a steady place to live Within the past 12 months, did the food you bought not last and you didn't have the money to get more?: Often true Within the past 12 months, did you worry whether your food would run out before you got money to buy more?: Often true Do you have trouble paying for medicines?: Yes Do you have trouble getting transportation to medical appointments?: Yes Do you have trouble paying your heating and electricity bill?: Yes Do you have trouble taking care of your child, family member or friend?: Yes Do you have trouble with day-to-day activities such as bathing, preparing meals, shopping, managing finances, etc.?: No Are you currently unemployed and looking for a job?: No Are you interested in more education?: Yes Currently or been in a relationship where the following occur: No concerns reported THRIVE Score: 4 MOUNA-7 AMB Questionnaire MOUNA-7 Date MOUNA - 7 assessed: 10/23/24 Source: Developed by Drs. George Rivas, Shira Lawrence, Duong Pina and colleagues, with an educational misha from [employer]. Review of Systems Const Denies headache(s) Eyes Denies loss of vision ENT Denies vertigo, Denies dizziness, Denies headache(s) and Denies sore throat Card Denies chest pain, Denies leg edema and Denies lightheadedness Resp Denies cough, Denies hemoptysis and Denies wheezing GI Denies abdominal pain, Denies melena, Denies constipation, Denies diarrhea and Denies vomiting Denies urinary frequency, Denies dysuria and Denies urinary urgency Musc Denies arthralgias, Denies joint swelling, Denies numbness and Denies tingling Neuro Denies Abnormal speech present, Denies behavioral changes, Denies vertigo, Denies dizziness, Denies headache(s), Denies loss of vision, Denies memory loss, Denies numbness and Denies tingling Psych Denies anxiety, Denies behavioral changes, Denies depression, Denies memory loss and Denies panic attacks Jose/Lymph Denies easy bleeding and Denies easy bruising Aller/Immun Denies wheezing Physical exam (Primary Care) Vital Signs: Last Vital Signs Temp 97.3 F 02/18/25 13:37 Pulse 85 02/18/25 13:37 BP 130/72 02/18/25 13:37 Pulse Ox 96 02/18/25 13:37 Oxygen Delivery Method Room Air 02/18/25 13:37 BMI result Body Mass Index 36.6 BMI Assessment/Plan discussion: High BMI High, discussed plan: lifestyle, weight reduction, dietary and physical activity Tobacco/Smoking Status: Tobacco use Status Tobacco use date assessed 02/18/25 02/18/25 13:46 Patient Tobacco Use Status Never used Tobacco 02/18/25 13:37 Tobacco use type Cigarette 02/18/25 13:37 e-Cigarette/Vaping Use Never Used 02/18/25 13:37 Thrive Assessment: Date of Thrive Assessment Date Thrive assessed 10/16/24 02/18/25 13:37 Currently or been in a relationship where the following occur: No concerns reported Const General: healthy appearing, no acute distress, alert and awake Nutritional Appearance: well nourished Orientation/consciousness: oriented to person, oriented to place and oriented to time HENMT Ears: TM's normal bilaterally General nose exam: Normal nasal mucous membranes and turbinates present Eyes Conjunctivae: conjunctivae normal Sclerae: sclerae normal Pupils: Equal, round and reactive pupils present Neck Neck: Yes no lymphadenopathy and Yes no JVD Thyroid: Thyroid normal Carotids: no bruits Resp Effort & Inspection: normal respiratory effort and not tachypneic Auscultation: no crackles, no rales, no rhonchi and no wheezes Cardio Rate: regular rate Rhythm: regular rhythm Heart sounds: no murmurs and normal S1 and S2 GI Palpation (GI): Soft to palpation, nontender, no hepatomegaly and no splenomegaly Auscultation: normal bowel sounds Skin General skin exam: no rashes or lesions noted and dry skin Neuro General: oriented to person, oriented to place and oriented to time Cranial nerves: Yes Equal, round and reactive pupils present Speech: No Abnormal speech present Gait exam (Neuro): Normal gait present Motor exam (neuro): no tremor noted Extrem Right upper extremity: full ROM Left upper extremity: full ROM Right lower extremity: full ROM; no edema Left lower extremity: full ROM; no edema Psych Mental Status: mental status grossly normal Speech and movement: Normal speech and movement present Affect: normal affect Attitude: cooperative Thought process: Normal thought process present Results AMB Hemoglobin A1c AMB Hemoglobin A1c 7.6 % Last Edit by DONA Quinteros on 02/18/25 13:50 Results Reviewed Results Reviewed: Laboratory Last Values Hgb A1c (Clinic) 7.6 % (4.0-6.0) H 02/18/25 13:34 Coding Level of Care Code Est Pt Level 4 (82440) Diagnoses Chronic diastolic congestive heart failure I50.32 Heart failure chronicity: chronic Heart failure type: diastolic Stress incontinence N39.3 Stage 3b chronic kidney disease N18.32 Chronic kidney disease stage: stage 3 (moderate) Chronic kidney disease stage 3 subtype: stage 3b (GFR 30-44) Type 2 diabetes mellitus with stage 3a chronic kidney disease, with long-term current use of insulin E11.22; N18.31; Z79.4 Chronic kidney disease stage: stage 3 (moderate) Chronic kidney disease stage 3 subtype: stage 3a (GFR 45-59) Diabetes mellitus complication detail: with chronic kidney disease Diabetes mellitus complication status: with kidney complications Diabetes mellitus senior living insulin use: with meterman use Primary hypertension I10 Hypertension type: primary hypertension Coronary artery disease involving coronary bypass graft of [place]ann[place] heart without angina pectoris I25.810 Associated angina: without angina Coronary Disease-Associated Artery/Lesion type: bypass graft [place] vs. transplanted heart: [place]bann[place] heart MDD (major depressive disorder), recurrent episode, moderate F33.1 Menopause Z78.0 Assessment & Plan Assessment & Plan (1) CHF (congestive heart failure): Code(s): I50.9 - Heart failure, unspecified Category: Medical Qualifiers: Heart failure chronicity: chronic Heart failure type: diastolic Qualified Code(s): I50.32 - Chronic diastolic (congestive) heart failure Plan: Patient currently on furosemide 80 mg b.i.d. appears to be nearly euvolemic. In the past her dry weight was around 200-205lbs. She will continue to follow her pediatric registered nurse. (2) Stress incontinence: Code(s): N39.3 - Stress incontinence (female) (male) Category: Medical Plan: The patient reports stress urinary incontinence, possibly related to previous bladder surgery with mesh placement. Pelvic floor therapy has been suggested as a potential intervention. (3) CKD (chronic kidney disease): Code(s): N18.9 - Chronic kidney disease, unspecified Category: Medical Qualifiers: Chronic kidney disease stage: stage 3 (moderate) Chronic kidney disease stage 3 subtype: stage 3b (GFR 30-44) Qualified Code(s): N18.32 - Chronic kidney disease, stage 3b Plan: Most recent renal function showed a creatinine at 1.7. Continues to follow Nephrology. (4) DMII (diabetes mellitus, type 2): Code(s): E11.9 - Type 2 diabetes mellitus without complications Category: Medical Qualifiers: Chronic kidney disease stage: stage 3 (moderate) Chronic kidney disease stage 3 subtype: stage 3a (GFR 45-59) Diabetes mellitus complication detail: with chronic kidney disease Diabetes mellitus complication status: with kidney complications Diabetes mellitus meterman insulin use: with senior living use Qualified Code(s): E11.22 - Type 2 diabetes mellitus with diabetic chronic kidney disease; N18.31 - Chronic kidney disease, stage 3a; Z79.4 - intermediate school teacher (current) use of insulin Plan: Patient followed by endocrinology started insulin pump and has better glycemic control. Her type 2 diabetes is suboptimally controlled. Most recent A1c is 7.6. Continues on an insulin pump in managed by [facility] endocrinology Goal A1c is to be below 7.0 (5) HTN (hypertension): Code(s): I10 - Essential (primary) hypertension Category: Medical Qualifiers: Hypertension type: primary hypertension Qualified Code(s): I10 - Essential (primary) hypertension Plan: Patient's blood pressure acceptable today in office. Was recently started on losartan 25 during her recent hospitalization. Goal blood pressure to remain below 140/90 (6) CAD (coronary artery disease): Comment: CABG 2017 with CHICAS to LAD, SVG to RPDA, SVG to RPL and SVG to OM Code(s): I25.10 - Atherosclerotic heart disease of [place] coronary artery without angina pectoris Category: Medical Qualifiers: Associated angina: without angina Coronary Disease-Associated Artery/Lesion type: bypass graft [place] vs. transplanted heart: shosh[place]bannock heart Qualified Code(s): I25.810 - Atherosclerosis of coronary artery bypass graft(s) without angina pectoris Plan: Continues to follow cardiology at [facility]. Goal LDL to remain optimally below 70 (7) MDD (major depressive disorder), recurrent episode, moderate: Code(s): F33.1 - Major depressive disorder, recurrent, moderate Category: Medical Plan: Patient does has a history of depression, she feels well supported by her family. She continues on escitalopram 10 mg. (8) Menopause: Code(s): Z78.0 - Asymptomatic menopausal state Category: Medical Plan: The patient is experiencing menopausal symptoms such as hot flashes and mood swings. Non-hormonal treatments, including black cohosh, have been discussed due to the risk of blood clots with hormone therapy. Orders: Orders Lipid Panel 02/18/25 I25.810 - Atherosclerosis of coronary artery bypass graft(s) without angina pectoris AMB Hemoglobin A1c 02/18/25 E11.22 - Type 2 diabetes mellitus with diabetic chronic kidney disease, N18.31 - Chronic kidney disease, stage 3a, Z79.4 - FPC (current) use of insulin Comprehensive [place]. 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 Medications: New escitalopram oxalate 20 mg PO DAILY 90 tabs 1RF 90 days F32.A - Depression, unspecified Changed From gabapentin 600 mg PO TID E11.22 - Type 2 diabetes mellitus with diabetic chronic kidney disease, N18.31 - Chronic kidney disease, stage 3a, Z79.4 - FPC (current) use of insulin To gabapentin 600 mg (2 x 300 mg) PO TID 540 caps 1RF 90 days E11.22 - Type 2 diabetes mellitus with diabetic chronic kidney disease, N18.31 - Chronic kidney disease, stage 3a, Z79.4 - 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
[2025-02-18 13:37] VITALS: BP 130/72; PULSE 85; TEMP 36.3; O2SAT 96; BMI 36.6
--- OUTSIDE RECORDS SUMMARY | 2025-02-18 13:45 | XMS_ITS | Clinical Summary ---
Author Organization [address] [place] [address] Address [address] [place] [address] Phone Care Team Providers Care Special Day Class Teacher Name Role Phone Pablo Mendoza Primary Care [...] 10/23/2024 STEMI (ST elevation myocardi al infarction) ([facility] V24, CMS/[facility] V28) 10/04/2023 Dizziness 04/01/2023 CHF (congestive heart failure) ([facility] V24, [facility] V28) 04/01/2023 Hypotension 01/25/2023 History of [place] (myocardial infarction) 01/25/2023 Chronic diastolic heart failure ([facility] V24, [facility] V28) 01/25/2023 Overview (07/31/2024): Last [...] [facility] V24, [facility] V28) 03/18/2022 Chest pain 03/18/2022 Diabetes ([facility] V24, [facility] V28) 04/13/2021 Essential hypertension 04/13/2021 [...] CABGx4 at the age of 46 in [place], details not known Preserved LVEF Apical aneurysm, confirmed by cMRI at [facility] 02/2021 No ischemia on rega MIBI 02/2021 at [facility] Last Assessment & Plan: [...] Description 11/19/2024 12:45 PM EDT Ancillary Procedure [facility] [address] [place] [address] Bruit of left carotid artery from Last 3 Months Immunizations Name Administration Dates Next Due Moderna SARS-CoV-2 COVID-19, mRNA, LNP-S, preservative free 02/26/2021 Surgical History Surgery Date Site/Laterality Comments CORONARY ARTERY BYPASS GRAFT PROCEDURE: HISTORICAL CABG; COMMENT: x4 PARTIAL HYSTERECTOMY PROCEDURE: IN SUPRACERVICAL ABDL HYSTER W/WO RMVL TUBE OVARY [...] neuropathy (CMS/HCC V24, CMS/HCC V28) DX:Diabetic neuropathy ([facility]) Extremity numbness DX:Extremity numbness Family History Medical [...] Care Team (Late st Contact Info) Description 06/07/2025 7:40 AM EST Office Visit [facility] [address] [place] [address] Anay Gerber NP [address] [place] [id number] Health Maintenance Due Date Last Done Comments Breast Cancer Screening 1972 Diabetes: Annual Foot Exam 1982 Diabetes: Annual Retina Eye Exam 1982 Cervical Cancer Screening: Pap Smear 1993 Pneumococcal Vaccine: 50+ Years (2 of 2 - PCV) 05/19/2022 05/19/2021 Colorectal Cancer Screening: Colonoscopy 06/20/2022 HIV Screening 06/20/2022 Social Influencers of Health Screening 06/20/2022 Diabetes: Annual Urine Albumin-Creatinine Ratio (uACR) 07/01/2022 Depression Screening 07/18/2024 Diabetes: Blood Sugar Control Test (HGBA1C) 08/25/2024 02/23/2024, 10/13/2023 Hepatitis B Vaccines (2 of 2 - CpG 2-dose series) 12/10/2024 11/12/2024 Diabetes: Annual GFR (Glomerular Filtration Rate) 02/27/2025 02/28/2024, 02/28/2024, 02/27/2024, Additional history exists Hypertension/CHF/CAD Annual BMP Blood Test 02/27/2025 02/28/2024, 02/28/2024, 02/27/2024, Additional history exists Influenza Vaccine (#1) 2025 , 05/27/2023, 05/19/2021, Additional history exists COVID-19 Vaccine (5 - Moderna risk season) 2025 11/12/2024, 05/27/2023, 05/28/2021, Additional history exists Cholesterol Screening (Lipid Panel) 02/22/2029 02/23/2024, 10/13/2023 DTaP,Tdap,and Td Vaccines (2 - Td or Tdap) 11/12/2034 11/12/2024 Zoster Vaccines Completed 07/29/2023, 05/27/2023 Hepatitis C Screening Completed 02/26/2024 HIB Vaccines [...] Abdomen Ultrasound Narrative 11/20/2024 3:07 PM EDT Right ICA: There is minimal heterogeneous plaque. Left ICA: There is minimal heterogeneous plaque. RIGHT. 1. There is atherosclerotic plaque in the carotid system as noted above. 2. There is less than 50% stenosis in the internal carotid artery based on Doppler velocity. 3. The subclavian artery has normal Doppler flow pattern. 4. Vertebral artery has normal antegrade flow. LEFT. 1. There is atherosclerotic plaque in the carotid system as noted above. 2. There is less than 50% stenosis in the internal carotid artery based on Doppler velocity. 3. The subclavian artery has normal Doppler flow pattern. 4. Vertebral artery has normal antegrade flow. Right Carotid [...] has turbulent flow. Vertebral flow is antegrade. Guest House Manager Details A park scale, color and doppler analysis ultrasound was performed. During the study longitudinal and transverse views were obtained. Continuous wave doppler and pulsed wave doppler was performed. Overall the study quality was technically difficult. Study was technically difficult due to: body habitus. Result [facility] Anay Gerber NP CV VASCULAR PROCEDURES Final Result * Annual BMP Blood Test (02/28/2024) [facility] Annual BMP Blood Test abstracted Result [facility] Provider HEALTH MAINTENANCE Final Result * Hepatitis C Screening (02/26/2024) [facility] Hepatitis C Screening abstracted Result [facility] Provider HEALTH MAINTENANCE Final Result * (ABNORMAL) Hemoglobin A1c (10/13/2023) [facility] Hemoglobin A1C 8.1(A) 4.0 - 5.6 % Blood Venous blood specimen / Unknown Result [facility] Provider LAB BLOOD ORDERABLES Tamra l Result * (ABNORMAL) Lipid panel (10/13/2023) [facility] LDL/HDL Ratio 2 0 - 4 Triglycerides 158(A) 0 - 150 mg/dL Cholesterol 110 0 - 200 mg/dL HDL 65 >=40 mg/dL LDL Cholesterol 14 0 - 100 mg/dL Blood Venous blood specimen / Unknown us Historical Provider LAB BLOOD ORDERABLES Tmara l Result from Last 3 Months or Most Recently Relevant to Health Maintenance Insurance [facility] [employer] Care Teams Special Day Class Teacher Relationship Specialty Start Date End Date Pablo Mendoza PA [address] [place] [phone] PCP - General Internal Medicine 05/11/21
--- OUTSIDE RECORDS SUMMARY | 2025-02-18 13:45 | XMS_ITS | Clinical Summary ---
Demographics Address [address] [place] [address] Home Phone Mobile Phone Preferred Language Liberian Marital Status /Civil Union Episcopalian Affiliation Unknown Race Other Race Ethnic Group or Author Organization [facility] Address [address] [place] [address] Phone Care Team Providers Care Lab Support Tech Name Role Phone Pablo Mendoza Primary Care Provider + Social History Tobacco Use Types Packs/Day Years Used Date Smoking Tobacco: Never Assessed Education Answer Date Recorded Are you interested in more education? Not on cb e 08/26/2023 Are you concerned about learning? Not on file 08/26/2023 No 08/26/2023 No 08/26/2023 Digital Access Answer Date Recorded No 08/26/2023 No 08/26/2023 Reliable internet access at home? Not on file 08/26/2023 Device with a working camera? Not on file Comments Unknown Sex and Gender Information Value Date Recorded Sex Assigned at Not on file Legal Sex Female 12:50 PM EST Gender Identity Not on file Sexual Orientation Not on file Plan of Treatment Not on file Medical Devices Not on file Insurance * Guarantor: Gi Hernandez Account Type Relation to Patient Date of Phone Billing Address Personal/Family Self [address] [place] [address] [facility] * Guarantor: Gi Hernandez Account Type Relation to Patient Date of Phone Billing Address Personal/Family Self [address] [place] [facility] * Guarantor: Gi Hernandez Account Type Relation to Patient Date of Phone Billing Address Personal/Family Self [address] [place] [facility] * Guarantor: Gi Hernandez Account Type Relation to Patient Date of Phone Billing Address Personal/Family Self [address] [place] [address] [facility] * Guarantor: Gi Hernandez Account Type Relation to Patient Date of Phone Billing Address Personal/Family Self [address] [facility] [place] [address] [facility] * Guarantor: HernandezGi vargas Account Type Relation to Patient Date of Phone Billing Address Personal/Family Self [address] [place] [address] [facility] Care Teams Lab Support Tech Relationship Specialty Start Date End Date Pablo Mendoza PA [address] [place] [address] PCP - General Physician Industrial Green Systems Designer 08/26/23 Additional Source Comments The information contained in this document represents components of the legal health record. It is not the complete legal health record.[facility]
== END 2025-02-18 14:09 | disposition home or self-care (01) ==
LOC: HO.HMCH 13:30
PROVIDERS: PCP Physician Assistant; Visit Provider Physician Assistant
DX: E11.22 Type 2 diabetes mellitus with diabetic chronic kidney disease (principal); N18.31 Chronic kidney disease, stage 3a; Z79.4 Long term (current) use of insulin

== ENCOUNTER → 2025-02-18 13:29 | Outpatient (BNVA) | payer OTHER, SELFPAY | PROVIDERS: PCP Physician Assistant; Visit Provider Physician Assistant | DX: I13.0 Hypertensive heart and chronic kidney disease with heart failure and stage 1 through stage 4 chronic kidney disease, or unspecified chronic kidney disease (principal); E11.22 Type 2 diabetes mellitus with diabetic chronic kidney disease; N18.32 Chronic kidney disease, stage 3b; I50.32 Chronic diastolic (congestive) heart failure; N39.3 Stress incontinence (female) (male); I25.810 Atherosclerosis of coronary artery bypass graft(s) without angina pectoris; F33.1 Major depressive disorder, recurrent, moderate; Z78.0 Asymptomatic menopausal state; Z79.899 Other long term (current) drug therapy; Z96.41 Presence of insulin pump (external) (internal) | CPT/HCPCS: 83036; 99212 ==

== ENCOUNTER 2025-02-21 15:07 | Outpatient (REF) | payer OTHER, SELFPAY ==
--- NOTE | 2025-02-21 15:09 | EMG_ITS ---
Chief complaint: Left hand numbness and pain Reviewed EMG done by Dr. Gilbert in 2021, which showed moderate bilateral Carpal Tunnel Syndrome and ulnar neuropathy at the elbow. Patient is s/p right CTR and cubital tunnel surgery. Reason for referral: Evaluate for left Carpal Tunnel Syndrome versus ulnar neuropathy Referred by: Gregory MOSS Procedure done: Left upper extremity NCS/EMG Precautions and/or limitations: None The limb temperature was monitored continuously and remained between 32-36 degrees C during the performance of the NCS. Ulnar motor NCS was performed with moderate elbow flexion between 70-90 degrees, with across-elbow distance of 10 cm. Nerve Conduction Studies Anti Sensory Summary Table ?Stim Site NR Onset (ms) Norm Onset (ms) Peak (ms) Norm Peak (ms) O-P Amp (?V) Norm O-P Amp Site1 Site2 Delta-0 (ms) Dist (cm) Phi (m/s) Norm Phi (m/s) Left Median Anti Sensory (2nd Digit) Wrist NR <3.6 >10 Wrist 2nd Digit 14.0 Left Radial Anti Sensory (Thumb) Forearm ? 1.8 2.4 <3.1 18.4 Forearm Thumb 1.8 0.0 Left Ulnar Anti Sensory (5th Digit) Wrist ? 1.9 3.5 <3.7 5.6 >15.0 Wrist 5th Digit 1.9 14.0 74 Motor Summary Table ?Stim Site NR Onset (ms) Norm Onset (ms) O-P Amp (mV) Norm O-P Amp iAmp (mV) Amp (1st) (%) Site1 Site2 Delta-0 (ms) Dist (cm) Phi (m/s) Norm Phi (m/s) Left Median Motor (Abd Poll Brev) Wrist ? 10.4 <3.9 7.0 >4.5 8.8 100.0 Elbow Wrist 3.9 21.0 54 >45 Elbow ? 14.3 5.0 6.0 71.4 Left Ulnar Motor (Abd Dig Minimi) Wrist ? 3.1 <3.0 4.5 >5 5.3 100.0 B Elbow Wrist 3.9 18.5 47 >45 B Elbow ? 7.0 3.3 3.7 73.3 A Elbow B Elbow 1.5 10.0 67 >45 A Elbow ? 8.5 3.4 3.6 75.6 Left Ulnar (FDI) Motor (FDI) Wrist ? 4.3 <3.0 0.8 >5 0.8 100.0 B Elbow Wrist 4.1 18.5 45 >45 B Elbow ? 8.4 1.0 1.1 125.0 A Elbow B Elbow 2.9 10.0 34 >45 A Elbow ? 11.3 0.3 0.3 37.5 EMG ?Side Muscle Nerve Root Ins Act Fibs Psw Amp Dur Poly Recrt Int Pat Comment Left 1stDorInt Ulnar C8-T1 Nml Nml Nml Nml Nml 0 Nml Complete Left FlexCarRad Median C6-7 Nml Nml Nml Nml Nml 0 Nml Complete Left FlexCarpiUln Ulnar C8,T1 Nml Nml Nml Nml Nml 0 Nml Complete Left Biceps Musculocut C5-6 Nml Nml Nml Nml Nml 0 Nml Complete Left Triceps Radial C6-7-8 Nml Nml Nml Nml Nml 0 Nml Complete Left Deltoid Axillary C5-6 Nml Nml Nml Nml Nml 0 Nml Complete FINDINGS: Left median motor nerve showed prolonged distal latency, normal amplitude and normal conduction velocity. Left ulnar motor nerve, especially when recording at FDI muscle, showed normal distal latency, very small amplitudes and slow conduction velocity across the elbow. All other nerves tested were within normal. Concentric needle EMG was performed in selected muscles of the left upper extremity. Study did not reveal signs of electric abnormalities as shown in the table above. IMPRESSION: 1. This is an abnormal study. 2. There is electrodiagnostic evidence for left moderate-severe median neuropathy at the wrist, consistent with carpal tunnel syndrome. 3. There is electrodiagnostic evidence for left ulnar neuropathy at the elbow. 4. There is no electrodiagnostic evidence for brachial plexopathy or cervical radiculopathy. Thank you for your kind referral. Elisabeth Rodriguez MD, [place] Board Certified, [place] Board of Physical Medicine and Rehabilitation (ABPMR) Board Certified, [place] Board of Electrodiagnostic Medicine (ABEM) [place] [id number] [facility]
--- OUTSIDE RECORDS SUMMARY | 2025-02-21 15:10 | XMS_ITS | Clinical Summary ---
Demographics Address [address] [place] [address] Home Phone Mobile Phone Preferred Language Cypriot Marital Status /Civil Union Temple Affiliation Unknown Race Other Race Ethnic Group or Author Organization [facility] Address [address] [place] [phone] Phone Care Team Providers Care Valve Setter Name Role Phone Pablo Mendoza Primary Care [...] Self [address] [place] [address] [facility] * Guarantor: Gi Hernandez Account Type Relation to Patient Date of Phone Billing Address Personal/Family Self [address] [place] [facility] * Guarantor: Gi Hernandez Account Type Relation to Patient Date of Phone Billing Address Personal/Family Self [address] [place] [facility] * Guarantor: Gi Hernandez Account Type Relation to Patient Date of Phone Billing Address Personal/Family Self [address] [place] [address] [facility] * Guarantor: Gi Hernandez Account Type Relation to Patient Date of Phone Billing Address Personal/Family Self [address] [facility] [place] [address] [facility] * Guarantor: HernandezGi vargas Account Type Relation to Patient Date of Phone Billing Address Personal/Family Self [address] [place] [address] [facility] Care Teams Valve Setter Relationship Specialty Start Date End Date Pablo Mendoza PA [address] [place] [address] PCP - General Physician Novelty Printing Machine Operator 08/26/23 Additional Source Comments The information contained in this document represents components of the legal health record. It is not the complete legal health record.[facility]
--- OUTSIDE RECORDS SUMMARY | 2025-02-21 15:10 | XMS_ITS | Clinical Summary ---
Author Organization [address] [place] [address] Address [address] [place] [address] Phone Care Team Providers Care Applications Chemist Name Role Phone Pablo Mendoza Primary Care Provider [phone] Allergies Active Allergy Reactions Criticality Noted Date [...] 10/23/2024 STEMI (ST elevation myocardi al infarction) ([facility] V24, CMS/[facility] V28) 10/04/2023 Dizziness 04/01/2023 CHF (congestive heart failure) ([facility] V24, [facility] /[facility] V28) 04/01/2023 Hypotension 01/25/[address] (myocardial infarction) 01/25/2023 Chronic diastolic heart failure ([facility] V24, [facility] V28) 01/25/2023 Overview (07/31/2024): Last Assessment [...] distention. NSTEMI (non-ST elevated myoc ardial infarction) ([facility] V24, [facility] V28) 03/18/2022 Chest pain 03/18/2022 Diabetes ([facility] V24, [facility] V28) 04/13/2021 Essential hypertension 04/13/2021 Overview [...] CABGx4 at the age of 46 in [place], details not known Preserved LVEF Apical aneurysm, confirmed by cMRI at [facility] 02/2021 No ischemia on rega MIBI 02/2021 at [facility] Last Assessment & Plan: Multiple cardiac catheterizations [...] HISTORICAL CABG; COMMENT: x4 PARTIAL HYSTERECTOMY PROCEDURE: CT SUPRACERVICAL ABDL HYSTER W/WO RMVL TUBE OVARY [...] neuropathy (CMS/HCC V24, CMS/HCC V28) DX:Diabetic neuropathy ([facility]) Extremity numbness DX:Extremity numbness Family History [...] Description 06/07/2025 7:40 AM EST Office Visit [facility] [address] [place] [address] Anay Gerber, FADY [address] [place] [phone] Health Maintenance Due Date Last Done Comments [...] * Annual BMP Blood Test (02/28/2024) Pathologist [facility] Annual BMP Blood Test abstracted Historical Provider HEALTH MAINTENANCE Final Result * Hepatitis C Screening (02/26/2024) Pathologist [facility] Hepatitis C Screening abstracted Historical Provider HEALTH MAINTENANCE Final Result * (ABNORMAL) Hemoglobin A1c (10/13/2023) Pathologist [facility] Hemoglobin A1C 8.1(A) 4.0 - 5.6 [...] Most Recently Relevant to Health Maintenance Insurance [employer] Care Teams Applications Chemist Relationship Specialty Start Date End Date Pablo Mendoza PA [address] [place] [phone] PCP - General Internal Medicine 05/11/21
== END 2025-02-21 15:08 | disposition home or self-care (01) ==
LOC: HO.NEURO 15:07
PROVIDERS: PCP Physician Assistant
DX: R20.0 Anesthesia of skin (principal); R20.2 Paresthesia of skin
CPT/HCPCS: 95886; 95909

== ENCOUNTER → 2025-02-21 15:09 | Outpatient (BNV) | payer OTHER, SELFPAY | PROVIDERS: PCP Physician Assistant; Visit Provider Physical Medicine & Rehabilitation | DX: G62.89 Other specified polyneuropathies (principal); G56.02 Carpal tunnel syndrome, left upper limb; G56.22 Lesion of ulnar nerve, left upper limb | CPT/HCPCS: 95886; 95909 ==

== ENCOUNTER 2025-02-27 14:13 | Outpatient (REF) | payer OTHER, SELFPAY ==
--- OUTSIDE RECORDS SUMMARY | 2025-02-27 14:31 | XMS_ITS | Clinical Summary ---
Author Organization [address] [place] [address] Address [address] [place] [address] Phone Care Team Providers Care Water Treatment Plant Repairer Name Role Phone Pablo Mendoza Primary Care [...] 10/23/2024 STEMI (ST elevation myocardi al infarction) ([facility] V24, CMS/[facility] V28) 10/04/2023 Dizziness 04/01/2023 CHF (congestive heart failure) ([facility] V24, [facility] /[facility] V28) 04/01/2023 Hypotension 01/25/2023 History of IA (myocardial infarction) 01/25/2023 Chronic diastolic heart failure ([facility] V24, [facility] V28) 01/25/2023 Overview (07/31/2024): Last [...] distention. NSTEMI (non-ST elevated myoc ardial infarction) ([facility] V24, [facility] V28) 03/18/2022 Chest pain 03/18/2022 Diabetes ([facility] V24, [facility] V28) 04/13/2021 Essential hypertension 04/13/2021 [...] CABGx4 at the age of 46 in [place], details not known Preserved LVEF Apical aneurysm, confirmed by cMRI at [facility] 02/2021 No ischemia on rega MIBI 02/2021 at [facility] Last Assessment & Plan: Multiple cardiac catheterizations [...] neuropathy (CMS/HCC V24, CMS/HCC V28) DX:Diabetic neuropathy ([facility]) Extremity numbness DX:Extremity numbness Family [...] Visit [facility] [address] [place] [address] Anay Gerber, FADY [address] [place] [phone] Health Maintenance Due Date Last Done Comments [...] BMP Blood Test (02/28/2024) Pathologist [facility] Annual BMP Blood Test abstracted Historical Provider HEALTH MAINTENANCE Final Result * Hepatitis C Screening (02/26/2024) Pathologist [facility] Hepatitis C Screening abstracted Historical Provider HEALTH MAINTENANCE Final Result * (ABNORMAL) Hemoglobin A1c (10/13/2023) Pathologist [facility] Hemoglobin A1C 8.1(A) 4.0 - 5.6 % [...] Most Recently Relevant to Health Maintenance Insurance [employer] Care Teams Water Treatment Plant Repairer Relationship Specialty Start Date End Date Pablo Mendoza PA [address] [place] [phone] PCP - General Internal Medicine 05/11/21
--- OUTSIDE RECORDS SUMMARY | 2025-02-27 14:31 | XMS_ITS | Clinical Summary ---
Demographics Address [address] [place] [address] Home Phone Mobile Phone Preferred Language Italian Marital Status /Civil Union Restorationist Affiliation Unknown Race Other Race Ethnic Group or Author Organization [facility] Address [address] [place] [phone] Phone Care Team Providers Care Motor Rebuilder Name Role Phone Pablo Mendoza Primary Care [...] Self [address] [place] [address] [facility] * Guarantor: Gi Hernandez Account Type Relation to Patient Date of Phone Billing Address Personal/Family Self [address] [place] [facility] * Guarantor: Gi Hernandez Account Type Relation to Patient Date of Phone Billing Address Personal/Family Self [address] [place] [facility] * Guarantor: Gi Hernandez Account Type Relation to Patient Date of Phone Billing Address Personal/Family Self [address] [place] [address] [facility] * Guarantor: Gi Hernandez Account Type Relation to Patient Date of Phone Billing Address Personal/Family Self [address] [facility] [place] [place] [address] [facility] * Guarantor: HernandezGi vargas Account Type Relation to Patient Date of Phone Billing Address Personal/Family Self [address] [place] [address] [facility] Care Teams Motor Rebuilder Relationship Specialty Start Date End Date Pablo Mendoza PA [address] [place] [address] PCP - General Physician Stockroom Supervisor 08/26/23 Additional Source Comments The information contained in this document represents components of the legal health record. It is not the complete legal health record.[facility]
[2025-02-27 17:50] LABS: Anion Gap 15 (12-20); Blood Urea Nitrogen 31 mg/dL (9-16); Carbon Dioxide 28 mmol/L (22-29); Chloride 105 mmol/L (96-108); Estimated Glomerular Filt Rate 35; Potassium 4.5 mmol/L (3.3-5.1); Sodium 143 mmol/L (135-145)
== END 2025-02-27 14:14 | disposition home or self-care (01) ==
LOC: HO.HKASLDS 14:13
PROVIDERS: Visit Provider Internal Medicine Nephrology
DX: E11.22 Type 2 diabetes mellitus with diabetic chronic kidney disease (principal); I12.9 Hypertensive chronic kidney disease with stage 1 through stage 4 chronic kidney disease, or unspecified chronic kidney disease; N18.31 Chronic kidney disease, stage 3a
CPT/HCPCS: 36415; 80051; 82565; 84520

== ENCOUNTER 2025-03-01 11:35 | Outpatient (AMB) | payer OTHER, SELFPAY ==
[2025-03-01 11:38] VITALS: BMI 36.6
--- NOTE | 2025-03-01 11:38 | A.OFFVIS_ITS ---
Vital Signs 03/01/25 11:38 Height 5 ft 4 in Weight 213 lb BMI 36.6 Intake Visit Reasons: OV-Lt hand EMG review Intake Note: Gi is a 54 year old right hand dominant female who presents to the office today for a Left hand EMG review. FINDINGS: Left median motor nerve showed prolonged distal latency, normal amplitude and normal conduction velocity. Left ulnar motor nerve, especially when recording at FDI muscle, showed normal distal latency, very small amplitudes and slow conduction velocity across the elbow. All other nerves tested were within normal. Concentric needle EMG was performed in selected muscles of the left upper extremity. Study did not reveal signs of electric abnormalities as shown in the table above. IMPRESSION: 1. This is an abnormal study. 2. There is electrodiagnostic evidence for left moderate-severe median neuropathy at the wrist, consistent with carpal tunnel syndrome. 3. There is electrodiagnostic evidence for left ulnar neuropathy at the elbow. 4. There is no electrodiagnostic evidence for brachial plexopathy or cervical radiculopathy. Accompanied by: Daughter Allergies tramadol (TRAMADOL) Allergy (Intermediate, Verified 03/01/25 11:38) VOMITING adhesive tape Adverse Reaction (Intermediate, Verified 03/01/25 11:38) tears skin lisinopril Adverse Reaction (Mild, Verified 03/01/25 11:38) Cough HPI HPI OV-Lt hand EMG review: Details: Gi is a 54 year old right hand dominant female who presents to the office today for a Left hand EMG review. Patient states that she does have constant daily numbness and tingling in the left hand, and would like to explore any intervention potentially indicated. No other acute complaints or concerns at this time. Left median motor nerve showed prolonged distal latency, normal amplitude and normal conduction velocity. Left ulnar motor nerve, especially when recording at FDI muscle, showed normal distal latency, very small amplitudes and slow conduction velocity across the elbow. All other nerves tested were within normal. Concentric needle EMG was performed in selected muscles of the left upper extremity. Study did not reveal signs of electric abnormalities as shown in the table above. IMPRESSION: 1. This is an abnormal study. 2. There is electrodiagnostic evidence for left moderate-severe median neuropathy at the wrist, consistent with carpal tunnel syndrome. 3. There is electrodiagnostic evidence for left ulnar neuropathy at the elbow. 4. There is no electrodiagnostic evidence for brachial plexopathy or cervical radiculopathy. [facility] Medical History (Updated 03/01/25 @ 16:50 by ISA Chavis) Carpal tunnel syndrome of left wrist CKD (chronic kidney disease) CHF (congestive heart failure) Hospital discharge follow-up Anemia CKD stage 3 secondary to diabetes Carpal tunnel syndrome of right wrist GERD (gastroesophageal reflux disease) Elevated cholesterol Asthma Type 2 diabetes Chronic renal insufficiency Myocardial infarction CAD (coronary artery disease) HTN (hypertension) Depression Surgical History Hx of heart artery stent Hx of section History of cardiac catheterization H/O: hysterectomy H/O bladder repair surgery Hx of CABG Family History Mother Cervical cancer Hypertension Blindness Kidney failure Sister Cervical cancer Hypertension Hypoglycemia Brother ESRD (end stage renal disease) Hypertension Father DMII (diabetes mellitus, type 2) Son Asthma Daughter No problems noted. Daughter No problems noted. Daughter No problems noted. Daughter No problems noted. Maternal Aunt Ovarian cancer Social History Household Members: Significant Other Housing: Apartment Are you a primary critical care educator to a significant other at home: No Do you presently have visiting nurse or other home services: No Alcohol intake: never Patient Tobacco Use Status: Never used Tobacco Tobacco use type: Cigarette e-Cigarette/Vaping Use: Never Used Second Hand Smoke Exposure: No service: No Current occupational status: disabled Cognitive needs: No Hearing needs: No Vision needs: Yes Female Reproductive History Menstrual Age of Menarche: 16 Physical Exam Vital Signs: BMI result Body Mass Index 36.6 Extrem Other: Neuro: Decreased sensation of the tips of all digits of the left hand in the office today No thenar or intrinsic wasting. Good APB muscle firing and good finger cross. Vascular: Capillary refill brisk. ROM: Patient can make a fist and extend all their digits. Skin: No lacerations or abrasions noted. General: No ecchymosis. No erythema or evidence of infection. Assessment & Plan Assessment & Plan (1) Cubital tunnel syndrome on left: Code(s): G56.22 - Lesion of ulnar nerve, left upper limb Category: Medical (2) Carpal tunnel syndrome of left wrist: Code(s): G56.02 - Carpal tunnel syndrome, left upper limb Category: Medical Plan 1. Left cubital tunnel syndrome 2. Left carpal tunnel syndrome Symptoms constant, daily, worse at night I educated the patient about the condition. I discussed both operative and nonoperative treatment options. The patient would like to proceed with surgery. The risks and benefits of operative treatment were discussed with the patient and the patient wishes to proceed with surgery. These risks include, but are not limited to, risk of damage to blood vessels, nerves, tendons, infection, recurrence, incomplete relief of preoperative symptoms, persistent pain, possible need for further surgery, and the risks associated with regional blocks and/or anesthesia. Plan is to take the patient to the operating room at some point in the next few weeks for the following procedures: 1. Left cubital tunnel release under general 2. Left carpal tunnel release under general All of the preoperative paperwork including the consent was discussed today. All of the patient's questions were answered in the clinic today. The patient understands that they will be in contact with our surgical instrument technician to discuss scheduling their procedure. Patient has several chronic health conditions, such as CKD, CHF, diabetes, coronary artery disease, and lupus anticoagulation disorder. Due to these conditions, patient will require Primary Care Provider clearance prior to surgical booking Coding Level of Care Code New Pt Level 4 (01674) Diagnoses Cubital tunnel syndrome on left G56.22 Carpal tunnel syndrome of left wrist G56.02
--- OUTSIDE RECORDS SUMMARY | 2025-03-01 11:38 | XMS_ITS | Clinical Summary ---
Demographics Address [address] [place] [address] Home Phone Mobile Phone Preferred Language Botswanan Marital Status /Civil Union Gnosticist Affiliation Unknown Race Other Race Ethnic Group or Author Organization [facility] Address [address] [place] [address] Phone Care Team Providers Care Gymnastics Coach Name Role Phone Pablo Mendoza Primary Care [...] Self [address] [place] [address] [facility] * Guarantor: Gi Hernandez Account Type Relation to Patient Date of Phone Billing Address Personal/Family Self [address] [place] [facility] * Guarantor: Gi Hernandez Account Type Relation to Patient Date of Phone Billing Address Personal/Family Self [address] [place] [facility] * Guarantor: Gi eHrnandez Account Type Relation to Patient Date of Phone Billing Address Personal/Family Self [address] [place] [address] [facility] * Guarantor: Gi Hernandez Account Type Relation to Patient Date of Phone Billing Address Personal/Family Self [address] [facility] [place] [place] [address] [facility] * Guarantor: HernandezGi vargas Account Type Relation to Patient Date of Phone Billing Address Personal/Family Self [address] [place] [address] [facility] Care Teams Gymnastics Coach Relationship Specialty Start Date End Date Pablo Mendoza PA [address] [place] [address] PCP - General Physician Sheet Metal Superintendent 08/26/23 Additional Source Comments The information contained in this document represents components of the legal health record. It is not the complete legal health record.[facility]
--- OUTSIDE RECORDS SUMMARY | 2025-03-01 11:38 | XMS_ITS | Clinical Summary ---
Author Organization [address] [place] [address] Address [address] [place] [address] Phone Care Team Providers Care Fitness Floor Attendant Name Role Phone Pablo Mendoza Primary Care [...] 10/23/2024 STEMI (ST elevation myocardi al infarction) ([facility] V24, CMS/[facility] V28) 10/04/2023 Dizziness 04/01/2023 CHF (congestive heart failure) ([facility] V24, [facility] V28) 04/01/2023 Hypotension 01/25/2023 History of [place] (myocardial infarction) 01/25/2023 Chronic diastolic heart failure ([facility] V24, [facility] V28) 01/25/2023 Overview (07/31/2024): Last [...] distention. NSTEMI (non-ST elevated myoc ardial infarction) ([facility] [place], [facility] V28) 03/18/2022 Chest pain 03/18/2022 Diabetes ([facility], [facility] V28) 04/13/2021 Essential hypertension 04/13/2021 [...] CABGx4 at the age of 46 in [place], details not known Preserved LVEF Apical aneurysm, confirmed by [place]MRI [place] [facility] 02/2021 No ischemia on rega MIBI 02/2021 at [facility] Last Assessment & Plan: Multiple cardiac catheterizations [...] HISTORICAL CABG; COMMENT: x4 PARTIAL HYSTERECTOMY PROCEDURE: RI SUPRACERVICAL ABDL HYSTER W/WO RMVL TUBE OVARY [...] neuropathy (CMS/HCC V24, CMS/HCC V28) DX:Diabetic neuropathy ([facility]) Extremity numbness DX:Extremity numbness Family [...] Description 06/07/2025 7:40 AM EST Office Visit [facility] [address] [place] [address] Anay Gerber, FADY [address] [place] [phone] Health Maintenance Due Date Last Done Comments [...] BMP Blood Test (02/28/2024) Pathologist [facility] Annual BMP Blood Test abstracted Historical Provider HEALTH MAINTENANCE Final Result * Hepatitis C Screening (02/26/2024) Pathologist [facility] Hepatitis C Screening abstracted Historical Provider HEALTH MAINTENANCE Final Result * (ABNORMAL) Hemoglobin A1c (10/13/2023) Pathologist [facility] Hemoglobin A1C 8.1(A) 4.0 - 5.6 % [...] Most Recently Relevant to Health Maintenance Insurance [employer] PLAN Care Teams Fitness Floor Attendant Relationship Specialty Start Date End Date Pablo Mendoza PA [address] [place] [phone] PCP - General Internal Medicine 05/11/21
== END 2025-03-01 11:56 | disposition home or self-care (01) ==
LOC: HO.HOS 11:35
PROVIDERS: PCP Physician Assistant
DX: G56.22 Lesion of ulnar nerve, left upper limb (principal); G56.02 Carpal tunnel syndrome, left upper limb
CPT/HCPCS: 99214

== ENCOUNTER → 2025-03-01 11:35 | Outpatient (BNVA) | payer OTHER, SELFPAY | PROVIDERS: PCP Physician Assistant | DX: Z71.2 Person consulting for explanation of examination or test findings (principal); G56.22 Lesion of ulnar nerve, left upper limb; G56.02 Carpal tunnel syndrome, left upper limb | CPT/HCPCS: 99212 ==

== ENCOUNTER 2025-03-05 15:31 | Outpatient (AMB) | payer OTHER, SELFPAY ==
--- NOTE | 2025-03-05 15:45 | HO.NEPHOV ---
Vital Signs 03/05/25 15:46 Height 5 ft 4 in Weight 216 lb 2 oz BMI 37.1 BP 104/70 Blood Pressure Location Lt brachial Position Sitting Pulse 80 Pulse Source Pulse Oximeter Pulse Oximetry (%) 97 Oxygen Delivery Method Room Air Intake Visit Reasons: 2 mo follow up-Conf Stonemason Required: No Accompanied by: Self / Same As Patient Allergies tramadol (TRAMADOL) Allergy (Intermediate, Verified 03/05/25 15:46) VOMITING adhesive tape Adverse Reaction (Intermediate, Verified 03/05/25 15:46) tears skin lisinopril Adverse Reaction (Mild, Verified 03/05/25 15:46) Cough HPI Comments Details: Gi was seen for chronic kidney disease, proteinuria and hypertension on a backdrop of coronary artery disease and bypass surgery. She has history of congestive heart failure. She has history of premature coronary artery disease s/p CABG in 2016 in [place], with repeat catheterization due to occlusion of the SVG to OM s/p mechanical thrombectomy with x2 RENEE placement on January 2022, ischemic cardiomyopathy with preserved ejection fraction with true aneurysmal apex without thrombus confirmed on cardiac MRI with distal territory LAD infarct presented with worsening resting chest pain since 3 days and found to have subtle ST depressions not grossly unchanged but having ongoing pain. Patient underwent cardiac cath which showed the culprit was her vein graft to OM with collaterals. She had cardiac cath and later CTA given suspicion of CVA with resultant development of DARIUSZ needin renal replacement one time. She had been tolerating Jardiance and was on losartan since last hospitalization in [place] . She is trying to maintain good hydration and is avoiding nonsteroidal anti-inflammatory medications. [facility] Medical History (Updated 03/01/25 @ 16:50 by ISA Chavis) Carpal tunnel syndrome of left wrist CKD (chronic kidney disease) CHF (congestive heart failure) Hospital discharge follow-up Anemia CKD stage 3 secondary to diabetes Carpal tunnel syndrome of right wrist GERD (gastroesophageal reflux disease) Elevated cholesterol Asthma Type 2 diabetes Chronic renal insufficiency Myocardial infarction CAD (coronary artery disease) HTN (hypertension) Depression Surgical History Hx of heart artery stent Hx of section History of cardiac catheterization H/O: hysterectomy H/O bladder repair surgery Hx of CABG Family History Mother Cervical cancer Hypertension Blindness Kidney failure Sister Cervical cancer Hypertension Hypoglycemia Brother ESRD (end stage renal disease) Hypertension Father DMII (diabetes mellitus, type 2) Son Asthma Daughter No problems noted. Daughter No problems noted. Daughter No problems noted. Daughter No problems noted. Maternal Aunt Ovarian cancer Social History Household Members: Significant Other Housing: Apartment Are you a primary home care coordinator to a significant other at home: No Do you presently have visiting nurse or other home services: No Alcohol intake: never Patient Tobacco Use Status: Never used Tobacco Tobacco use type: Cigarette e-Cigarette/Vaping Use: Never Used Second Hand Smoke Exposure: No service: No Current occupational status: disabled Cognitive needs: No Hearing needs: No Vision needs: Yes Female Reproductive History Menstrual Age of Menarche: 16 Review of Systems Const All systems reviewed & are unremarkable except as noted in HPI and below Physical Exam Vital Signs: Last Vital Signs Pulse 80 03/05/25 15:46 BP 104/70 03/05/25 15:46 Pulse Ox 97 03/05/25 15:46 Oxygen Delivery Method Room Air 03/05/25 15:46 BMI result Body Mass Index 37.1 Const General: comfortable and no acute distress Orientation/consciousness: patient oriented x3 HEENT Head: Yes normocephalic Mouth: Normal oral and palatal mucosa present Eyes EOM: EOMs intact bilaterally Neck Neck: Yes supple Resp Auscultation: clear to auscultation bilaterally Cardio Jugular venous distension: no JVD Rate: regular rate GI Palpation (GI): Soft to palpation Auscultation: normal bowel sounds General: Yes no CVA tenderness Back/Spine/Pelvis Back: no CVA tenderness Skin General skin exam: no rashes or lesions noted Neuro General: patient oriented x3 and moves all extremities Extrem General: Yes no pedal edema Results Reviewed Nephrology Results: Sodium, (135-145) 143 mmol/L 02/27/25 Potassium, (3.3-5.1) 4.5 mmol/L 02/27/25 Chloride, (96-108) 105 mmol/L 02/27/25 Carbon Dioxide, (22-29) 28 mmol/L 02/27/25 BUN, (9-16) 31 mg/dL H 02/27/25 Creatinine, (0.5-1.4) 1.55 mg/dL H 02/27/25 Assessment & Plan Assessment & Plan (1) HTN (hypertension): Code(s): I10 - Essential (primary) hypertension Category: Medical Qualifiers: Hypertension type: primary hypertension Qualified Code(s): I10 - Essential (primary) hypertension (2) Diabetic nephropathy: Code(s): E11.21 - Type 2 diabetes mellitus with diabetic nephropathy Category: Medical Qualifiers: Diabetes mellitus type: type 2 Qualified Code(s): E11.21 - Type 2 diabetes mellitus with diabetic nephropathy (3) CKD stage 3a, GFR 45-59 ml/min: Code(s): N18.31 - Chronic kidney disease, stage 3a Category: Medical Plan Gi has stage III CKD. She has H/O significant proteinuria. She is on Plavix. She should continue Lasix to 80 mg twice daily, Jardiance 25 mg daily, Isosrobide 90 mg daily.. She should avoid nonsteroidal anti-inflammatory medications. She needs to continue to lose weight. Her blood pressure is at goal at home. I did not make any other changes today. All her questions were answered. Follow-up for blood work were ordered and follow-up was given Orders: Orders Creatinine 2 Months E11.21 - Type 2 diabetes mellitus with diabetic nephropathy, I10 - Essential (primary) hypertension, N18.31 - Chronic kidney disease, stage 3a Electrolytes 2 Months E11.21 - Type 2 diabetes mellitus with diabetic nephropathy, I10 - Essential (primary) hypertension, N18.31 - Chronic kidney disease, stage 3a Blood Urea Nitrogen 2 Months E11.21 - Type 2 diabetes mellitus with diabetic nephropathy, I10 - Essential (primary) hypertension, N18.31 - Chronic kidney disease, stage 3a Coding Level of Care Code Est Pt Level 4 (76351) Diagnoses Primary hypertension I10 Hypertension type: primary hypertension Diabetic nephropathy associated with type 2 diabetes mellitus E11. Diabetes mellitus type: type 2 CKD stage 3a, GFR 45-59 ml/min N18.31
[2025-03-05 15:46] VITALS: BP 104/70; PULSE 80; O2SAT 97; BMI 37.1
--- OUTSIDE RECORDS SUMMARY | 2025-03-05 16:48 | XMS_ITS | Clinical Summary ---
Author Organization [address] [place] [address] Address [address] [place] [address] Phone Care Team Providers Care Sandblaster Glass Name Role Phone Pablo Mendoza Primary Care [...] al infarction) ([facility] V24, CMS/[facility] V28) 10/04/2023 Dizziness 04/01/2023 CHF (congestive heart failure) ([facility] V24, [facility] V28) 04/01/2023 Hypotension 01/25/2023 History of [place] (myocardial infarction) 01/25/2023 Chronic diastolic heart failure ([facility] V24, [facility] V28) 01/25/2023 Overview (07/31/2024): Last [...] distention. NSTEMI (non-ST elevated myoc ardial infarction) ([facility]24, [facility] V28) 03/18/2022 Chest pain 03/18/2022 Diabetes ([facility] V24, [facility] V28) 04/13/2021 Essential hypertension 04/13/2021 [...] CABGx4 at the age of 46 in [place], details not known Preserved LVEF Apical aneurysm, confirmed by cMRI at [facility] 02/2021 No ischemia on rega MIBI 02/2021 at [facility] Last Assessment & Plan: Multiple cardiac catheterizations [...] neuropathy (CMS/HCC V24, CMS/HCC V28) DX:Diabetic neuropathy ([facility]) Extremity numbness DX:Extremity numbness Family [...] Description 06/07/2025 7:40 AM EST Office Visit [facility] [address] [place] [address] Anay Gerber, FADY [address] [place] [phone] Health Maintenance Due Date Last Done Comments [...] * Annual BMP Blood Test (02/28/2024) Pathologist [facility] Annual BMP Blood Test abstracted Historical Provider HEALTH MAINTENANCE Final Result * Hepatitis C Screening (02/26/2024) Pathologist [facility] Hepatitis C Screening abstracted Historical Provider HEALTH MAINTENANCE Final Result * (ABNORMAL) Hemoglobin A1c (10/13/2023) Pathologist [facility] Hemoglobin A1C 8.1(A) 4.0 - 5.6 [...] Most Recently Relevant to Health Maintenance Insurance [employer] PLAN Care Teams Sandblaster Glass Relationship Specialty Start Date End Date Pablo Mendoza PA [address] [place] [phone] PCP - General Internal Medicine 05/11/21
--- OUTSIDE RECORDS SUMMARY | 2025-03-05 16:48 | XMS_ITS | Clinical Summary ---
Demographics Address [address] [place] [address] Home Phone Mobile Phone Preferred Language Hungarian Marital Status /Civil Union Moravian Affiliation Unknown Race Other Race Ethnic Group or Author Organization [facility] Address [address] [place] [address] Phone Care Team Providers Care Assembler Type Bar And Segment Name Role Phone Pablo Mendoza Primary Care [...] Self [address] [place] [address] [facility] * Guarantor: Gi Hernandez Account Type Relation to Patient Date of Phone Billing Address Personal/Family Self [address] [place] [facility] * Guarantor: Gi Hernandez Account Type Relation to Patient Date of Phone Billing Address Personal/Family Self [address] [place] [facility] * Guarantor: Gi Hernandez Account Type Relation to Patient Date of Phone Billing Address Personal/Family Self [address] [place] [address] [facility] * Guarantor: Gi Hernandez Account Type Relation to Patient Date of Phone Billing Address Personal/Family Self [address] [facility] [place] [address] [facility] * Guarantor: HernandezGi vargas Account Type Relation to Patient Date of Phone Billing Address Personal/Family Self [address] [place] [address] [facility] Care Teams Assembler Type Bar And Segment Relationship Specialty Start Date End Date Pablo Mendoza PA [address] [place] [address] PCP - General Physician Sleep Lab Technician 08/26/23 Additional Source Comments The information contained in this document represents components of the legal health record. It is not the complete legal health record.[facility]
== END 2025-03-05 15:58 | disposition home or self-care (01) ==
LOC: HO.HKAS 15:32
PROVIDERS: PCP Physician Assistant; Visit Provider Internal Medicine Nephrology
DX: I10 Essential (primary) hypertension (principal); E11.21 Type 2 diabetes mellitus with diabetic nephropathy; N18.31 Chronic kidney disease, stage 3a
CPT/HCPCS: 99214

== ENCOUNTER → 2025-03-05 15:31 | Outpatient (BNVA) | payer OTHER, SELFPAY | PROVIDERS: PCP Physician Assistant; Visit Provider Internal Medicine Nephrology | DX: E11.21 Type 2 diabetes mellitus with diabetic nephropathy (principal); I10 Essential (primary) hypertension; N18.31 Chronic kidney disease, stage 3a | CPT/HCPCS: 99212 ==

== ENCOUNTER 2025-03-19 14:28 | Outpatient (AMB) | payer OTHER, SELFPAY ==
[2025-03-19 14:31] VITALS: BP 100/60; PULSE 77; RESP 18; TEMP 36.1; O2SAT 97; BMI 36.8
--- NOTE | 2025-03-19 14:31 | A.OFFPC_ITS ---
Vital Signs 03/19/25 14:31 Height 5 ft 4 in Weight 214 lb 6 oz BMI 36.8 BP 100/60 Blood Pressure Location Lt brachial Position Sitting Respiration 18 Pulse 77 Pulse Source Pulse Oximeter Temp 96.9 F Temp Source Temporal Artery Scan Pulse Oximetry (%) 97 Oxygen Delivery Method Room Air Intake Visit Reasons: cubital tunnel 04/01 Warehouse Logistics Coordinator Required: No Accompanied by: Self / Same As Patient Allergies tramadol (TRAMADOL) Allergy (Intermediate, Verified 03/19/25 14:47) VOMITING adhesive tape Adverse Reaction (Intermediate, Verified 03/19/25 14:47) tears skin lisinopril Adverse Reaction (Mild, Verified 03/19/25 14:47) Cough Medication List - Last Reconciled 03/19/25 by Pablo Mendoza PA-C [adult pull up T4528 #120 units per 30 days] albuterol sulfate 90 mcg/actuation (Ventolin HFA) 2 puffs inhalation QID 30 days amlodipine 5 mg PO DAILY aspirin 81 mg PO DAILY benzonatate 200 mg PO BEDTIME 14 days blood pressure test kit-large As directed blood sugar diagnostic (FreeStyle Lite Strips) As directed carvedilol 25 mg PO BID cetirizine 10 mg PO DAILY cholecalciferol (vitamin D3) (Vitamin D3) 50 mcg PO DAILY clopidogrel 75 mg PO DAILY clotrimazole 1% topical empagliflozin 25 mg PO DAILY escitalopram oxalate 20 mg PO DAILY 90 days evolocumab (Repatha Syringe) 140 mg subcut Q2W evolocumab (Repatha Syringe) 140 mg subcut Q2W flash glucose sensor (FreeStyle Aida 2 Sensor kit) As directed fluticasone propionate 50 mcg/actuation 1 spray intranasal BID furosemide 80 mg (2 x 40 mg) PO BID gabapentin 600 mg (2 x 300 mg) PO TID 90 days insulin glargine-yfgn 22 units subcut BEDTIME insulin lispro (Humalog KwikPen (U-100) Insulin) 15 sliding scale doses subcut TID isosorbide mononitrate ER 90 mg (1.5 x 60 mg) PO DAILY 30 days multivit with min-folic acid 200 mcg (Multivitamin Gummies) 2 tabs PO DAILY olopatadine 0.1% 1 drp ophthalmic (eye) BID 30 days pantoprazole 40 mg PO DAILY semaglutide 1 mg subcut QWEEK triamcinolone acetonide 0.1% 1 appl topical DAILY 30 days walker As directed Tobacco use date assessed: 02/18/25 Dental Screening Dental Screen Date: 03/19/25 Did you have a dental visit in the last 12 months?: No Did you have a dental problem in the last 6 months where you did not have access to dental care?: No Was dental information given to patient?: No HPI cubital tunnel 04/01 HPI Details Patient is a 54-year-old female here today for a preop evaluation. Patient is due for left cubital tunnel surgery She has a past medical history significant for type 2 diabetes, obesity, hypertension hyperlipidemia, CAD ( status post quadruple bypass), congestive heart failure, GERD, depression. Patient has a history as shown above of congestive heart failure and coronary artery disease. CHRONIC MEDICAL CONDITIONS--> .. DMII: Patient has lost weight since last office visit. Is seeing an academic advising director at [facility] and was managing her diabetes with insulin pump. . She continues to follow [facility]. .. Urinary incontinence: The patient experiences stress urinary incontinence, which she attributes to a previous bladder surgery involving mesh placement. She is currently using adult briefs. Pelvic floor therapy has been discussed as a potential intervention. .. CKD- as above patient did have acute renal failure due to contrast dye and needed emergent dialysis while in the hospital.. 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 CAD/ CHF:? Has had a CABG x4..? Patient followed by Cardiology. .? Patient's LDL optimally controlled. Continues on high-dose statin therapy and praulent injections. Patient data recent echocardiogram that showed appropriate EF though does have moderate LVH ? Is seeing a target worker at [facility]? ( Dr. Eisenberg) Goal LDL to be optimally below 70. [facility] Medical History Carpal tunnel syndrome of left wrist CKD (chronic kidney disease) CHF (congestive heart failure) Hospital discharge follow-up Anemia CKD stage 3 secondary to diabetes Carpal tunnel syndrome of right wrist GERD (gastroesophageal reflux disease) Elevated cholesterol Asthma Type 2 diabetes Chronic renal insufficiency Myocardial infarction CAD (coronary artery disease) HTN (hypertension) Depression Surgical History Hx of heart artery stent Hx of section History of cardiac catheterization H/O: hysterectomy H/O bladder repair surgery Hx of CABG Family History Mother Cervical cancer Hypertension Blindness Kidney failure Sister Cervical cancer Hypertension Hypoglycemia Brother ESRD (end stage renal disease) Hypertension Father DMII (diabetes mellitus, type 2) Son Asthma Daughter No problems noted. Daughter No problems noted. Daughter No problems noted. Daughter No problems noted. Maternal Aunt Ovarian cancer Social History Household Members: Significant Other Housing: Apartment Are you a primary acute care occupational therapist to a significant other at home: No Do you presently have visiting nurse or other home services: No Alcohol intake: never Patient Tobacco Use Status: Never used Tobacco Tobacco use type: Cigarette e-Cigarette/Vaping Use: Never Used Second Hand Smoke Exposure: No service: No Current occupational status: disabled Cognitive needs: No Hearing needs: No Vision needs: Yes Female Reproductive History Menstrual Age of Menarche: 16 Questionnaire PHQ-9 Over the last 2 weeks, how often have you been bothered by any of the following problems? 1. Little interest or pleasure in doing things: not at all 2. Feeling down, depressed, or hopeless: not at all 3. Trouble falling or staying asleep, or sleeping too much: not at all 4. Feeling tired or having little energy: not at all 5. Poor appetite or overeating: not at all 6. Feeling bad about yourself - or that you are a failure or have let yourself or your family down: not at all 7. Trouble concentrating on things, such as reading the newspaper or watching television: not at all 8. Moving or speaking so slowly that other people could have noticed. Or the opposite - being so fidgety or restless that you have been moving around a lot more than usual: not at all 9. Thoughts that you would be better off or of hurting yourself in some way: not at all Total score: 0 Depression Screening Interpretation: Negative Depression Screening Done: Yes 53193 - PHQ-9 Billing: Yes Source: Developed by Drs. George Rivas, Shira Duong Godoy and colleagues, with an educational misha from [employer]. Thrive Questionnaire Date Thrive assessed: 03/19/25 I am a: Patient What is your living situation today?: I have a steady place to live Within the past 12 months, did the food you bought not last and you didn't have the money to get more?: Often true Within the past 12 months, did you worry whether your food would run out before you got money to buy more?: Often true Do you have trouble paying for medicines?: Yes Do you have trouble getting transportation to medical appointments?: Yes Do you have trouble paying your heating and electricity bill?: Yes Do you have trouble taking care of your child, family member or friend?: Yes Do you have trouble with day-to-day activities such as bathing, preparing meals, shopping, managing finances, etc.?: No Are you currently unemployed and looking for a job?: No Are you interested in more education?: Yes Currently or been in a relationship where the following occur: No concerns reported THRIVE Score: 4 AUDIT C Alcohol Use Questionnaire (AUDIT-C) 1. How often do you have a drink containing alcohol?: Never 3. How often do you have six or more drinks on one occasion?: Never Total Score: 0 MOUNA-7 AMB Questionnaire MOUNA-7 Date MONUA - 7 assessed: 03/19/25 Feeling nervous, anxious, or on edge: 1 = Several days Not being able to stop or control worryin = Nearly every day Worrying too much about different things: 3 = Nearly every day Trouble relaxin = Not at all Being so restless that it is hard to sit still: 0 = Not at all Becoming easily annoyed or irritable: 0 = Not at all Feeling afraid as if something awful might happen: 0 = Not at all Total MOUNA-7 score (0-4 normal; 5-9 mild; 10-14 moderate; 15-21 severe): 7 Source: Developed by Drs. George Rivas, Duong Chaudhary and colleagues, with an educational misha from [employer]. MOUNA-7 Assessment Billing MOUNA-7 Assessment Tool: MOUNA-7 Assessment 20238 Review of Systems Const Denies headache(s) Eyes Denies loss of vision ENT Denies vertigo, Denies dizziness, Denies headache(s) and Denies sore throat Card Denies chest pain, Denies leg edema and Denies lightheadedness Resp Denies cough, Denies hemoptysis and Denies wheezing GI Denies abdominal pain, Denies melena, Denies constipation, Denies diarrhea and Denies vomiting Denies urinary frequency, Denies dysuria and Denies urinary urgency Musc Denies arthralgias, Denies joint swelling, Denies numbness and Denies tingling Neuro Denies Abnormal speech present, Denies behavioral changes, Denies vertigo, Denies dizziness, Denies headache(s), Denies loss of vision, Denies memory loss, Denies numbness and Denies tingling Psych Denies anxiety, Denies behavioral changes, Denies depression, Denies memory loss and Denies panic attacks Jose/Lymph Denies easy bleeding and Denies easy bruising Aller/Immun Denies wheezing Physical exam (Primary Care) Vital Signs: Last Vital Signs Temp 96.9 F 03/19/25 14:31 Pulse 77 03/19/25 14:31 Resp 18 03/19/25 14:31 BP 100/60 03/19/25 14:31 Pulse Ox 97 03/19/25 14:31 Oxygen Delivery Method Room Air 03/19/25 14:31 BMI result Body Mass Index 36.8 Tobacco/Smoking Status: Tobacco use Status Tobacco use date assessed 02/18/25 03/19/25 14:45 Patient Tobacco Use Status Never used Tobacco 03/19/25 14:45 Tobacco use type Cigarette 03/19/25 14:45 e-Cigarette/Vaping Use Never Used 03/19/25 14:45 PHQ-9: PHQ-9 Score PHQ-9: Total score 0 03/19/25 15:00 Depression Screening Interpretation: Negative Thrive Assessment: Date of Thrive Assessment Date Thrive assessed 03/19/25 03/19/25 14:45 Currently or been in a relationship where the following occur: No concerns reported Const General: healthy appearing, no acute distress, alert and awake Nutritional Appearance: well nourished Orientation/consciousness: oriented to person, oriented to place and oriented to time HENMT Ears: TM's normal bilaterally General nose exam: Normal nasal mucous membranes and turbinates present Eyes Conjunctivae: conjunctivae normal Sclerae: sclerae normal Pupils: Equal, round and reactive pupils present Neck Neck: Yes no lymphadenopathy and Yes no JVD Thyroid: Thyroid normal Carotids: no bruits Resp Effort & Inspection: normal respiratory effort and not tachypneic Auscultation: no crackles, no rales, no rhonchi and no wheezes Cardio Rate: regular rate Rhythm: regular rhythm Heart sounds: no murmurs and normal S1 and S2 GI Palpation (GI): Soft to palpation, nontender, no hepatomegaly and no splenomegaly Auscultation: normal bowel sounds Skin General skin exam: no rashes or lesions noted and dry skin Neuro General: oriented to person, oriented to place and oriented to time Cranial nerves: Yes Equal, round and reactive pupils present Speech: No Abnormal speech present Gait exam (Neuro): Normal gait present Motor exam (neuro): no tremor noted Extrem Right upper extremity: full ROM Left upper extremity: full ROM Right lower extremity: full ROM; no edema Left lower extremity: full ROM; no edema Psych Mental Status: mental status grossly normal Speech and movement: Normal speech and movement present Affect: normal affect Attitude: cooperative Thought process: Normal thought process present Coding Level of Care Code Est Pt Level 4 (02694) Diagnoses Pre-op evaluation Z01.818 Additional Codes MOUNA-7 Assessment Billing - MOUNA-7 Assessment Tool: MOUNA-7 Assessment 24704 ([id number]) PHQ-9 - 51519 - PHQ-9 Billing: Yes ([id number]) Assessment & Plan Assessment & Plan (1) Pre-op evaluation: Code(s): Z01.818 - Encounter for other preprocedural examination Category: Medical Plan: Patient is a moderate CV risk for general anesthesia. Patient's vitals and most recent labs fairly stable. EKG done at her most recent cardiology visit stable. Patient is medically clear for needed procedure Orders: Orders Comprehensive Met. Panel 03/21/25 Z01.818 - Encounter for other preprocedural examination Complete Blood Count no Diff 03/21/25 Z01.818 - Encounter for other preprocedural examination Hemoglobin A1c 03/21/25 E11.22 - Type 2 diabetes mellitus with diabetic chronic kidney disease, N18.31 - Chronic kidney disease, stage 3a, Z79.4 - snf (current) use of insulin ECG 12 lead EKG 03/19/25 Z01.818 - Encounter for other preprocedural examination
--- OUTSIDE RECORDS SUMMARY | 2025-03-19 15:40 | XMS_ITS | Clinical Summary ---
Demographics Address [address] [place] [address] Home Phone Mobile Phone Preferred Language Norwegian Marital Status /Civil Union Uatsdin Affiliation Unknown Race Other Race Ethnic Group or Author Organization [facility] Address [address] [place] [id number] Phone Care Team Providers Care Screen Print Operator Name Role Phone Pablo Mendoza Primary [...] Self [address] [place] [address] [facility] * Guarantor: Gi Hernandez Account Type Relation to Patient Date of Phone Billing Address Personal/Family Self [address] [place] [facility] * Guarantor: Gi Hernandez Account Type Relation to Patient Date of Phone Billing Address Personal/Family Self [address] [place] [facility] * Guarantor: Gi Hernandez Account Type Relation to Patient Date of Phone Billing Address Personal/Family Self [address] [place] [address] [facility] * Guarantor: Gi Hernandez Account Type Relation to Patient Date of Phone Billing Address Personal/Family Self [address] [facility] [place] [place] [address] [facility] * Guarantor: HernandezGi vargas Account Type Relation to Patient Date of Phone Billing Address Personal/Family Self [address] [place] [address] [facility] Care Teams Screen Print Operator Relationship Specialty Start Date End Date Pablo Mendoza PA [address] [place] [address] PCP - General Physician Fiscal Accountant 08/26/23 Additional Source Comments The information contained in this document represents components of the legal health record. It is not the complete legal health record.[facility]
--- OUTSIDE RECORDS SUMMARY | 2025-03-19 15:40 | XMS_ITS | Clinical Summary ---
Author Organization [address] [place] [address] Address [address] [place] [address] Phone Care Team Providers Care Airplane Gas Tank Liner Assembler Name Role Phone Pablo Mendoza Primary Care [...] 10/23/2024 STEMI (ST elevation myocardi al infarction) ([facility] V24, [facility] V28) 10/04/2023 Dizziness 04/01/2023 CHF (congestive heart failure) ([facility] V24, [facility] V28) 04/01/2023 Hypotension 01/25/2023 History of [place] (myocardial infarction) 01/25/2023 Chronic diastolic heart failure ([facility] V24, [facility] V28) 01/25/2023 Overview (07/31/2024): Last Assessment & [...] distention. NSTEMI (non-ST elevated myoc ardial infarction) ([facility] V24, [facility] V28) 03/18/2022 Chest pain 03/18/2022 Diabetes ([facility] V24, [facility] V28) 04/13/2021 Essential hypertension 04/13/2021 Overview (07/31/2024): [...] CABGx4 at the age of 46 in [place], details not known Preserved LVEF Apical aneurysm, confirmed by cMRI at [facility] 02/2021 No ischemia on rega MIBI 02/2021 at [facility] Last Assessment & Plan: Multiple cardiac catheterizations [...] Encounters Date Type Department Care Team Description 03/11/2025 Telephone [facility] - [address] [facility] [address] [place] [address] Jv Regalado MD from Last 3 Months Immunizations Name Administration Dates Next Due Moderna SARS-CoV-2 COVID-19, mRNA, LNP-S, preservative free 02/26/2021 Surgical History Surgery Date Site/Laterality Comments CORONARY ARTERY BYPASS GRAFT PROCEDURE: HISTORICAL CABG; COMMENT: x4 PARTIAL HYSTERECTOMY PROCEDURE: WI SUPRACERVICAL ABDL HYSTER W/WO RMVL TUBE OVARY [...] neuropathy (CMS/HCC V24, CMS/HCC V28) DX:Diabetic neuropathy ([facility]) Extremity numbness DX:Extremity numbness Family History Medical [...] Care Team (Late st Contact Info) Description 03/21/2025 12:40 PM EDT Consult [facility] - [facility] [address] [facility] [address] [place] [address] Anay Gerber NP [address] [place] [address] [address] [place] [address] 06/07/2025 7:40 AM EST Office Visit [facility] - [facility] [address] [facility] [address] [place] [address] Anay Gerber NP [address] [place] [address] [address] [place] [address] Health Maintenance Due Date Last Done Comments [...] BMP Blood Test (02/28/2024) Pathologist [facility] Annual BMP Blood Test abstracted [facility] Provider HEALTH MAINTENANCE Final Result * Hepatitis C Screening (02/26/2024) [facility] Hepatitis C Screening abstracted [facility] Provider HEALTH MAINTENANCE Final Result * (ABNORMAL) Hemoglobin A1c (10/13/2023) [facility] Hemoglobin A1C 8.1(A) 4.0 - 5.6 % Blood Venous blood specimen / Unknown Result [facility] Provider LAB BLOOD ORDERABLES Tamra l Result * (ABNORMAL) Lipid panel (10/13/2023) [facility] LDL/HDL Ratio 2 0 - 4 Triglycerides 158(A) 0 - 150 mg/dL Cholesterol 110 0 - 200 mg/dL HDL 65 >=40 mg/dL LDL Cholesterol 14 0 - 100 mg/dL Blood Venous blood specimen / Unknown [facility] Provider LAB BLOOD ORDERABLES Tamra l Result from Last 3 Months or Most Recently Relevant to Health Maintenance Insurance [employer]AN Care Teams Airplane Gas Tank Liner Assembler Relationship Specialty Start Date End Date Pablo Mendoza PA [address] [place] [phone] PCP - General Internal Medicine 05/11/21
== END 2025-03-19 15:03 | disposition home or self-care (01) ==
LOC: HO.HMCH 14:29
PROVIDERS: PCP Physician Assistant; Visit Provider Physician Assistant
DX: Z01.818 Encounter for other preprocedural examination (principal)

== ENCOUNTER → 2025-03-19 14:28 | Outpatient (BNVA) | payer OTHER, SELFPAY | PROVIDERS: PCP Physician Assistant; Visit Provider Physician Assistant | DX: Z01.818 Encounter for other preprocedural examination (principal); E11.22 Type 2 diabetes mellitus with diabetic chronic kidney disease; I13.0 Hypertensive heart and chronic kidney disease with heart failure and stage 1 through stage 4 chronic kidney disease, or unspecified chronic kidney disease; I50.9 Heart failure, unspecified; N18.31 Chronic kidney disease, stage 3a; E66.9 Obesity, unspecified; E78.5 Hyperlipidemia, unspecified; K21.9 Gastro-esophageal reflux disease without esophagitis; F32.A Depression, unspecified; R32 Unspecified urinary incontinence; Z95.1 Presence of aortocoronary bypass graft; Z79.4 Long term (current) use of insulin; Z68.36 Body mass index [BMI] 36.0-36.9, adult | CPT/HCPCS: 96127; 99212 ==

== ENCOUNTER 2025-03-21 14:04 | Outpatient (REF) | payer OTHER, SELFPAY ==
--- OUTSIDE RECORDS SUMMARY | 2025-03-21 12:40 | XMS_ITS | Encounter Summary ---
Author Organization [facility] Address [address] [place] [address] Care Team Providers Care Bonderizer Name Role Phone Pablo Mendoza Primary Care Provider [phone] Reason for Visit * Reason Comments Pre-op Exam Encounter Details Date Type Department Care Team (Late st Contact Info) Description 03/21/2025 12:40 PM EDT Consult [facility] - [address] [place] [address] Anay Gerber NP [place] [address] Chronic diastolic heart failure (CMS/HCC V24, CMS/HCC V28) (Primary Dx) Social History Tobacco Use Types Packs/Day Years [...] Reading Time Taken Comments Blood Pressure 142/82 03/21/2025 12:47 PM EDT Pulse 75 03/21/2025 12:47 PM EDT Temperature - - Respiratory Rate - - Oxygen Saturation 96% 03/21/2025 12:47 PM EDT Inhaled Oxygen Concentration - - Weight 98.4 kg (217 lb) 03/21/2025 12:47 PM EDT Height 162.6 cm (5' 4 ) 03/21/2025 12:47 PM EDT Body Mass Index 37.25 03/21/2025 12:47 PM EDT documented in this encounter Progress Notes * Anay Gerber NP - 03/21/2025 12:40 PM EDTAssociated Problem(s): Chronic diastolic heart failure (CMS/HCC V24, CMS/HCC V28) Orders: ECG 12 lead documented in this encounter Plan of Treatment Upcoming Encounters Date Type Department Care Team (Late st Contact Info) Description 06/07/2025 7:40 AM EST Office Visit [facility] - [address] [place] [address] Anay Gerber NP [address] [place] [address] [place] [address] Pending Results Name Type Priority Associated Diagnoses Date /Time ECG 12 lead ECG Routine Chronic diastolic heart failure (CMS/HCC V24, CMS/HCC V28) 03/21/2025 12:55 PM EDT documented as of this encounter Procedures Procedure Name Priority Date/Time Associated Diagnosis Comments ECG 12-LEAD Routine 03/21/2025 12:55 PM EDT Chronic diastolic heart failure (CMS/HCC V24, CMS/HCC V28) documented in this encounter Visit Diagnoses Diagnosis Chronic diastolic heart failure (CMS/HCC V24, CMS/HCC V28)- Primary Chronic diastolic heart failure documented in this encounter Historical Medications * This list may reflect changes made after this encounter. isosorbide mononitrate (IMDUR) 60 mg 24 hr tablet Take 90 mg by mouth 1 (one) time each day. Do not crush or chew. added in this encounter Care Teams Bonderizer Relationship Specialty Start Date End Date Pablo Mendoza PA [address] [place] [address] PCP - General Internal Medicine 05/11/21 documented as of this encounter
--- OUTSIDE RECORDS SUMMARY | 2025-03-21 15:24 | XMS_ITS | Clinical Summary ---
Author Organization [address] [facility] Address [address] [place] [address] Phone Care Team Providers Care Machine Room Operator Name Role Phone Pablo Mendoza Primary Care Provider [phone] Allergies Active Allergy Reactions Criticality Noted Date [...] Units into the skin at bedtime. Active benzonatate (TESSALON) 100 mg capsule Take [...] mouth 1 (one) time each day. Active evolocumab (Repatha Syringe) 140 mg/mL syringe Inject 140 mg into the skin every 14 days. 2 mL 5 03/20/20 Active isosorbide mononitrate (IMDUR) 60 mg 24 hr tablet Take 90 mg by mouth 1 (one) time each day. Do not crush or chew. Active evolocumab (Repatha Syringe) 140 mg/mL syringe Inject 140 mg into the skin every 14 days. 2 mL 6 08/23/19 25 025 Discontinued Active Problems Problem Noted Date Diagnosed Date Swelling of extremity 10/23/2024 STEMI (ST elevation myocardi al infarction) ([facility] V24, [facility] V28) 10/04/2023 Dizziness 04/01/2023 CHF (congestive heart failure) ([facility] V24, [facility] V28) 04/01/2023 Hypotension 01/25/2023 History of [place] (myocardial infarction) 01/25/2023 Chronic diastolic heart failure ([facility] V24, [facility] V28) 01/25/2023 Overview (07/31/2024): [...] and SGLT2 for HFpEF. Assessment & Plan (03/21/2025 1:02 PM EDT): Orders: ECG 12 lead Assessment & Plan (11/12/2024 10:04 AM EDT): [...] distention. NSTEMI (non-ST elevated myoc ardial infarction) ([facility] V24, [facility] V28) 03/18/2022 Chest pain 03/18/2022 Diabetes ([facility] V24, [facility] V28) 04/13/2021 Essential hypertension 04/13/2021 [...] Encounters Date Type Department Care Team Description 03/21/2025 12:40 PM EDT Consult [facility] [address] [facility] [address] [place] [address] Anay Gerber NP Chronic diastolic heart failure (CMS/HCC V24, CMS/HCC V28) (Primary Dx) 03/11/2025 Telephone [facility] [address] [facility] [address] [place] [address] Jv Regalado MD from Last 3 Months Immunizations Name Administration Dates Next Due Moderna SARS-CoV-2 COVID-19, mRNA, LNP-S, preservative free 02/26/2021 Surgical History Surgery Date Site/Laterality Comments CORONARY ARTERY BYPASS GRAFT PROCEDURE: HISTORICAL CABG; COMMENT: x4 PARTIAL HYSTERECTOMY PROCEDURE: OK SUPRACERVICAL ABDL HYSTER W/WO RMVL TUBE OVARY [...] Mass Index 37.25 03/21/2025 12:47 PM EDT Plan of Treatment Upcoming Encounters Date Type Department Care Team (Late st Contact Info) Description 06/07/2025 7:40 AM EST Office Visit [facility] [address] [facility] [address] [place] [address] Anay Gerber NP [address] [place] [address] [place] [address] Health Maintenance Due Date Last Done Comments [...] diastolic heart failure (CMS/HCC V24, CMS/HCC V28) ANNUAL BMP BLOOD TEST Routine 02/28/2024 HEPATITIS C SCREENING Routine 02/26/2024 HEMOGLOBIN A1C Routine 10/13/2023 LIPID PANEL Routine 10/13/2023 from Last 3 Months or Most Recently Relevant to Health Maintenance Results * Annual BMP Blood Test (02/28/2024) Pathologist [facility] Annual BMP Blood Test abstracted [facility] Provider HEALTH MAINTENANCE Final Result * Hepatitis C Screening (02/26/2024) [facility] Hepatitis C Screening abstracted [facility] Provider HEALTH MAINTENANCE Final Result * (ABNORMAL) Hemoglobin A1c (10/13/2023) [facility] Hemoglobin A1C 8.1(A) 4.0 - 5.6 % Blood Venous blood specimen / Unknown Result [facility] Provider LAB BLOOD ORDERABLES Tamra l Result * (ABNORMAL) Lipid panel (10/13/2023) [facility] LDL/HDL Ratio 2 0 - 4 Triglycerides 158(A) 0 - 150 mg/dL Cholesterol 110 0 - 200 mg/dL HDL 65 >=40 mg/dL LDL Cholesterol 14 0 - 100 mg/dL Blood Venous blood specimen / Unknown [facility] Provider LAB BLOOD ORDERABLES Tamra l Result from Last 3 Months or Most Recently Relevant to Health Maintenance Insurance [facility] Care Teams Machine Room Operator Relationship Specialty Start Date End Date Pablo Mendoza PA [address] [place] [address] PCP - General Internal Medicine 05/11/21
--- OUTSIDE RECORDS SUMMARY | 2025-03-21 15:24 | XMS_ITS | Clinical Summary ---
Demographics Address [address] [place] [address] Home Phone Mobile Phone Preferred Language Prydeinig Marital Status /Civil Union Amish Affiliation Unknown Race Other Race Ethnic Group or Author Organization [facility] Address [address] [place] [id number] Phone Care Team Providers Care Captain Assistant Name Role Phone Pablo Mendoza Primary Care [...] Self [address] [place] [address] [facility] * Guarantor: Gi Hernandez Account Type Relation to Patient Date of Phone Billing Address Personal/Family Self [address] [place] [facility] * Guarantor: Gi Hernandez Account Type Relation to Patient Date of Phone Billing Address Personal/Family Self [address] [place] [facility] * Guarantor: Gi Hernandez Account Type Relation to Patient Date of Phone Billing Address Personal/Family Self [address] [place] [id number] [facility] * Guarantor: Gi Hernandez Account Type Relation to Patient Date of Phone Billing Address Personal/Family Self [address] [facility] [place] [address] [facility] * Guarantor: HernandezGi vargas Account Type Relation to Patient Date of Phone Billing Address Personal/Family Self [address] [place] [id number] [facility] Care Teams Captain Assistant Relationship Specialty Start Date End Date Pablo Mendoza PA [address] [place] [address] PCP - General Physician Silviculture Teacher 08/26/23 Additional Source Comments The information contained in this document represents components of the legal health record. It is not the complete legal health record.[facility]
[2025-03-21 18:15] LABS: Hematocrit 42.1 % (37.0-47.0); Hemoglobin 12.9 g/dl (12.0-16.0); Mean Corpuscular HGB Conc 30.6 g/dl (31.0-35.0); Mean Corpuscular Hemoglobin 25.5 pg (27.0-33.0); Mean Corpuscular Volume 83.2 fL (80.0-98.0); NRBC Abs Auto 0.000 X10*3/uL (0.0-0.012); NRBC Pct Auto 0.0 /100WBC (0.0-0.2); Platelet Count 303 X10*3/uL (160-400); Red Blood Count 5.06 X10*6/uL (4.20-5.50); White Blood Count 5.9 X10*3/uL (4.8-10.8)
[2025-03-21 18:23] LABS: Hemoglobin A1C 189.8830 umol/L; Total Hemoglobin (HGBA1C) 3352.0837 umol/L
[2025-03-21 18:31] LABS: Alanine Aminotransferase 19 U/L (0-31); Albumin Level 4.3 g/dL (3.5-5.0); Alkaline Phosphatase 91 U/L (39-117); Anion Gap 14 (12-20); Aspartate Amino Transferase 28 U/L (5-31); Blood Urea Nitrogen 25 mg/dL (9-16); Calcium 9.9 mg/dL (8.4-10.2); Carbon Dioxide 27 mmol/L (22-29); Chloride 103 mmol/L (96-108); Estimated Glomerular Filt Rate 41; Potassium 4.4 mmol/L (3.3-5.1); Sodium 140 mmol/L (135-145); Total Protein 8.1 g/dL (6.5-8.0)
== END 2025-03-21 14:05 | disposition home or self-care (01) ==
LOC: HO.HKASLDS 14:04
PROVIDERS: Visit Provider Physician Assistant
DX: Z01.818 Encounter for other preprocedural examination (principal); E11.22 Type 2 diabetes mellitus with diabetic chronic kidney disease; N18.31 Chronic kidney disease, stage 3a; Z79.4 Long term (current) use of insulin
CPT/HCPCS: 36415; 80053; 83036; 85027

== ENCOUNTER 2025-04-01 05:53 | Day surgery (SDC) | payer OTHER, SELFPAY ==
--- OUTSIDE RECORDS SUMMARY | 2025-03-04 12:44 | XMS_ITS | Clinical Summary ---
Author Organization [address] [place] [address] Address [address] [place] [address] Phone Care Team Providers Care Cheese Tester Name Role Phone Pablo Mendoza Primary Care [...] myocardi al infarction) ([facility] V24, CMS/[facility] V28) 10/04/2023 Dizziness 04/01/2023 CHF (congestive heart failure) ([facility] V24, [facility] /[facility] V28) 04/01/2023 Hypotension 01/25/2023 History of [place] (myocardial infarction) 01/25/2023 Chronic diastolic heart failure ([facility] V24, [facility] V28) 01/25/2023 Overview (07/31/2024): Last Assessment [...] distention. NSTEMI (non-ST elevated myoc ardial infarction) ([facility] [place], [facility] V28) 03/18/2022 Chest pain 03/18/2022 Diabetes ([facility] [place], [facility] V28) 04/13/2021 Essential hypertension 04/13/2021 Overview [...] CABGx4 at the age of 46 in [place], details not known Preserved LVEF Apical aneurysm, confirmed by cMRI at [facility] 02/2021 No ischemia on rega MIBI 02/2021 at [facility] Last Assessment & Plan: Multiple cardiac catheterizations [...] neuropathy (CMS/HCC V24, CMS/HCC V28) DX:Diabetic neuropathy ([facility]) Extremity numbness DX:Extremity numbness Family History [...] Description 06/07/2025 7:40 AM EST Office Visit [facility] [address] [place] [address] Anay Gerber, FADY [address] [place] [phone] Health Maintenance Due Date Last Done Comments [...] BMP Blood Test (02/28/2024) Pathologist [facility] Annual BMP Blood Test abstracted Historical Provider HEALTH MAINTENANCE Final Result * Hepatitis C Screening (02/26/2024) Pathologist [facility] Hepatitis C Screening abstracted Historical Provider HEALTH MAINTENANCE Final Result * (ABNORMAL) Hemoglobin A1c (10/13/2023) Pathologist [facility] Hemoglobin A1C 8.1(A) 4.0 - 5.6 [...] Most Recently Relevant to Health Maintenance Insurance [employer] PLAN Care Teams Cheese Tester Relationship Specialty Start Date End Date Pablo Mendoza PA [address] [place] [phone] PCP - General Internal Medicine 05/11/21
--- OUTSIDE RECORDS SUMMARY | 2025-03-04 12:44 | XMS_ITS | Clinical Summary ---
Demographics Address [address] [place] [address] Home Phone Mobile Phone Preferred Language Venezuelan Marital Status /Civil Union Temple Affiliation Unknown Race Other Race Ethnic Group or Author Organization [facility] Address [address] [place] [address] Phone Care Team Providers Care Jd Edwards Consultant Name Role Phone Pablo Mendoza Primary Care [...] Self [address] [place] [address] [facility] * Guarantor: Gi Hernandez Account Type Relation to Patient Date of Phone Billing Address Personal/Family Self [address] [place] [facility] * Guarantor: Gi Hernandez Account Type Relation to Patient Date of Phone Billing Address Personal/Family Self [address] [place] [facility] * Guarantor: Gi Hernandez Account Type Relation to Patient Date of Phone Billing Address Personal/Family Self [address] [place] [address] [facility] * Guarantor: Gi Hernandez Account Type Relation to Patient Date of Phone Billing Address Personal/Family Self [address] [facility] [place] [address] [facility] * Guarantor: HernandezGi vargas Account Type Relation to Patient Date of Phone Billing Address Personal/Family Self [address] [place] [address] [facility] Care Teams Jd Edwards Consultant Relationship Specialty Start Date End Date Pablo Mendoza PA [address] [place] [address] PCP - General Physician Hotel Dining Room Cashier 08/26/23 Additional Source Comments The information contained in this document represents components of the legal health record. It is not the complete legal health record.[facility]
--- NOTE | 2025-03-28 10:33 | HO.ANESPROP2 ---
Documented by User: Clarisse Azar NP 03/29/25 09:00 HPI - Anesthesia Eval Consult details Narrative: 54yo F for Left Cubital Tunnel Release, Carpal Tunnel Release Cardiac optimized. Follows [facility] for CAD (s/p 4vCABG at age 46 with CHICAS-LAD, SVG-PDA, SVG-PLB, SVG-OM; now with patent SVG-PDA, SVG-PLB, and CHICAS-LAD, occluded SVG-OM since 08/2023), multiple prior PCI (unclear anatomy). Stable 03/22/25 office visit Medically optimized per PCP Anesthesia Pre-Procedure Meds Is the patient on any of the following meds?: GLP1/DPP4 and SGLT2 Inhib PMFSH Active Problems Active Problems: All Active Problems Pre-op evaluation (Acute) Carpal tunnel syndrome of left wrist (Acute) Cubital tunnel syndrome on left (Acute) Menopause (Acute) Stress incontinence (Acute) Urinary incontinence (Acute) CKD stage 3a, GFR 45-59 ml/min (Acute) Allergic conjunctivitis (Acute) Eczema (Acute) CKD (chronic kidney disease) (Acute) CHF (congestive heart failure) (Acute) Hospital discharge follow-up (Acute) Colon cancer screening (Acute) Cough (Acute) Family history of lupus anticoagulant disorder (Acute) Well woman exam (Acute) Ankle pain (Acute) Diabetic nephropathy (Acute) CAD (coronary artery disease) (Acute) DMII (diabetes mellitus, type 2) (Acute) HTN (hypertension) (Acute) MDD (major depressive disorder), recurrent episode, moderate (Acute) Breast cancer screening (Acute) Cervical cancer screening (Acute) GERD (gastroesophageal reflux disease) (Acute) Annual physical exam (Acute) Asthma (Acute) Balance disorder (Acute) Vitamin D deficiency (Acute) Right lateral epicondylitis (Acute) Depression (Acute) Past Medical History Medical History Menopause Carpal tunnel syndrome of left wrist CKD (chronic kidney disease) CHF (congestive heart failure) Hospital discharge follow-up Anemia CKD stage 3 secondary to diabetes Carpal tunnel syndrome of right wrist GERD (gastroesophageal reflux disease) Elevated cholesterol Asthma Type 2 diabetes Chronic renal insufficiency Myocardial infarction CAD (coronary artery disease) HTN (hypertension) Depression Family History Family History Mother Cervical cancer Hypertension Blindness Kidney failure Sister Cervical cancer Hypertension Hypoglycemia Brother ESRD (end stage renal disease) Hypertension Father DMII (diabetes mellitus, type 2) Son Asthma Daughter No problems noted. Daughter No problems noted. Daughter No problems noted. Daughter No problems noted. Maternal Aunt Ovarian cancer Family history of problems with anesthesia: No Surgical History Surgical History Hx of heart artery stent Hx of section History of cardiac catheterization H/O: hysterectomy H/O bladder repair surgery Hx of CABG History of Problems with Anesthesia: No Social History Social History Household Members: Significant Other Housing: Apartment Are you a primary transitions rn care coordinator to a significant other at home: No Do you presently have visiting nurse or other home services: No Alcohol intake: never Patient Tobacco Use Status: Never used Tobacco Tobacco use type: Cigarette e-Cigarette/Vaping Use: Never Used Second Hand Smoke Exposure: No service: No Current occupational status: disabled Cognitive needs: No Hearing needs: No Vision needs: Yes Meds Allergies Allergy/AdvReac Type Severity Reaction Status Date / Time tramadol (TRAMADOL) Allergy Intermediate VOMITING Verified 03/19/25 14:47 adhesive tape AdvReac Intermediate tears skin Verified 03/19/25 14:47 lisinopril AdvReac Mild Cough Verified 03/19/25 14:47 Home Medications ?Medication ?Instructions ?Recorded ?Confirmed ?Last Taken ?Type insulin lispro 100 unit/mL 15 sliding scale dose subcut TID 08/26/21 03/28/25 03/31/25 History subcutaneous pen (Humalog KwikPen (U-100) Insulin) clopidogrel 75 mg tablet 75 mg PO DAILY 09/20/23 03/28/25 03/24/25 History blood sugar diagnostic (FreeStyle #10 ea 10/20/23 03/19/25 Unknown History Lite Strips) flash glucose sensor (FreeStyle #1 ea 10/20/23 03/19/25 Unknown History Aida 2 Sensor kit) amlodipine 5 mg tablet 5 mg PO DAILY 04/19/24 03/28/25 03/31/25 History carvedilol 25 mg tablet 25 mg PO BID 05/17/24 03/28/25 03/31/25 History cholecalciferol (vitamin D3) 50 50 mcg PO DAILY 10/03/24 03/28/25 03/31/25 History mcg (2,000 unit) capsule (Vitamin D3) evolocumab 140 mg/mL subcutaneous 140 mg subcut Q2W 10/03/24 04/01/25 03/31/25 History syringe (Repatha Syringe) insulin glargine-yfgn 100 unit/mL 22 unit subcut BEDTIME 10/03/24 03/28/25 03/31/25 History (3 mL) subcutaneous pen multivitamin with minerals-folic 2 tab PO DAILY 10/03/24 03/28/25 03/31/25 History acid 200 mcg chewable tablet (Multivitamin Gummies) semaglutide 1 mg/dose (2 mg/1.5 1 mg subcut QWEEK 03/19/25 03/28/25 03/24/25 History mL) subcutaneous pen injector Exam Pertinent Lab Results Pertinent Lab Results: Laboratory Tests 03/21/25 14:07 Sodium 140 Potassium 4.4 Chloride 103 Carbon Dioxide 27 BUN 25 H Creatinine 1.36 Laboratory Tests 03/21/25 14:07 WBC 5.9 Hgb 12.9 D Hct 42.1 D Plt Count 303 Narrative Narrative: EKG 03/2025 Ventricular Rate ECG 75 ? Atrial Rate 75 ? P-R Interval 150 ? QRS Duration 62 ? Q-T Interval 402 ? QTc 448 ? P Wave Madelia 15 ? R Madelia -48 ? T Madelia 86 ? ECG Interpretation ? ? ? Normal sinus rhythm - Left axis deviation - Anterolateral infarct (cited on or before 19-JAN-2022)Abnormal ECG - When compared with ECG of 13-OCT-2023 12:16,Criteria for Inferior infarct are no longer Present Carotid US 11/2024 RIGHT. 1. There is atherosclerotic plaque in the carotid system as noted above. 2. There is less than 50% stenosis in the internal carotid artery based on Doppler velocity. 3. The subclavian artery has normal Doppler flow pattern. 4. Vertebral artery has normal antegrade flow. ? LEFT. 1. There is atherosclerotic plaque in the carotid system as noted above. 2. There is less than 50% stenosis in the internal carotid artery based on Doppler velocity. 3. The subclavian artery has normal Doppler flow pattern. 4. Vertebral artery has normal antegrade flow. Cardiac cath 02/2024 RCA patent with 100% PDA and 70% into PL VG to PDA and PL patent VG to OM occluded CHICAS to LAD patent [place] left system with prox LAD and LCX occlusion Recommendations: Medical therapy No clear PCI target Unfortunately 100% LCX with no graft ECHO 02/2024 INTERPRETATION ??NORMAL LEFT VENTRICULAR FUNCTION WITH MILD LVH ??ELEVATED LA PRESSURES WITH DIASTOLIC DYSFUNCTION ??NORMAL?RIGHT VENTRICULAR SYSTOLIC FUNCTION ??VALVULAR REGURGITATION: TRIVIAL AR, MILD MR, TRIVIAL OH, MILD TR ??NO VALVULAR STENOSIS ??SMALL APICAL ANEURYSM WITH OVERALL PRESERVED LVEF ??DEFINITY CONTRAST USED ??NO PRIOR STUDY FOR COMPARISON Assessment and Plan Final Anesthetic Review Family History of Problems with Anesthesia: No History of Problems with Anesthesia: No Documented by User: Amadou Lacey MD 04/01/25 07:12 HPI - Anesthesia Eval Anesthesia Pre-Procedure Meds Is the patient on any of the following meds?: SGLT2 Inhib (patient sropped all the medications at the appropriate time intervals) If yes to any meds - educate patient: Pt education - increased risk of aspiration and/or euvolemic DKA and Pt education - possibility of cancelled proc at provider's discretion PMFSH Past Medical History Medical History Menopause Carpal tunnel syndrome of left wrist CKD (chronic kidney disease) CHF (congestive heart failure) Hospital discharge follow-up Anemia CKD stage 3 secondary to diabetes Carpal tunnel syndrome of right wrist GERD (gastroesophageal reflux disease) Elevated cholesterol Asthma Type 2 diabetes Chronic renal insufficiency Myocardial infarction CAD (coronary artery disease) HTN (hypertension) Depression Cognitive capacity: normal Functional capacity: independent ambulation Patient : No Family History Family History Mother Cervical cancer Hypertension Blindness Kidney failure Sister Cervical cancer Hypertension Hypoglycemia Brother ESRD (end stage renal disease) Hypertension Father DMII (diabetes mellitus, type 2) Son Asthma Daughter No problems noted. Daughter No problems noted. Daughter No problems noted. Daughter No problems noted. Maternal Aunt Ovarian cancer Surgical History Surgical History Hx of heart artery stent Hx of section History of cardiac catheterization H/O: hysterectomy H/O bladder repair surgery Hx of CABG Social History Social History Household Members: Significant Other Housing: Apartment Are you a primary transitions rn care coordinator to a significant other at home: No Do you presently have visiting nurse or other home services: No Alcohol intake: never Patient Tobacco Use Status: Never used Tobacco Tobacco use type: Cigarette e-Cigarette/Vaping Use: Never Used Second Hand Smoke Exposure: No service: No Current occupational status: disabled Cognitive needs: No Hearing needs: No Vision needs: Yes Meds Allergies Allergy/AdvReac Type Severity Reaction Status Date / Time tramadol (TRAMADOL) Allergy Intermediate VOMITING Verified 03/19/25 14:47 adhesive tape AdvReac Intermediate tears skin Verified 03/19/25 14:47 lisinopril AdvReac Mild Cough Verified 03/19/25 14:47 Home Medications ?Medication ?Instructions ?Recorded ?Confirmed ?Last Taken ?Type insulin lispro 100 unit/mL 15 sliding scale dose subcut TID 08/26/21 03/28/25 03/31/25 History subcutaneous pen (Humalog KwikPen (U-100) Insulin) clopidogrel 75 mg tablet 75 mg PO DAILY 09/20/23 03/28/25 03/24/25 History blood sugar diagnostic (FreeStyle #10 ea 10/20/23 03/19/25 Unknown History Lite Strips) flash glucose sensor (FreeStyle #1 ea 10/20/23 03/19/25 Unknown History Aida 2 Sensor kit) amlodipine 5 mg tablet 5 mg PO DAILY 04/19/24 03/28/25 03/31/25 History carvedilol 25 mg tablet 25 mg PO BID 10/03/28/25 03/31/25 History cholecalciferol (vitamin D3) 50 50 mcg PO DAILY 10/03/24 03/28/25 03/31/25 History mcg (2,000 unit) capsule (Vitamin D3) evolocumab 140 mg/mL subcutaneous 140 mg subcut Q2W 10/03/24 04/01/25 03/31/25 History syringe (Repatha Syringe) insulin glargine-yfgn 100 unit/mL 22 unit subcut BEDTIME 10/03/24 03/28/25 03/31/25 History (3 mL) subcutaneous pen multivitamin with minerals-folic 2 tab PO DAILY 10/03/24 03/28/25 03/31/25 History acid 200 mcg chewable tablet (Multivitamin Gummies) semaglutide 1 mg/dose (2 mg/1.5 1 mg subcut QWEEK 03/19/25 03/28/25 03/24/25 History mL) subcutaneous pen injector Exam Exam Date and Time: 04/01/2025 Airway TM Dist: >3cm Loose/Missing/Broken Teeth: Yes (edentulous) Heart: rrr Lungs: cta Other: normal Assessment and Plan Assessment Anesthesia Assessment: Anesthesia Plan Discussed Final Anesthetic Review NPO: Yes ASA Class: III Final Preanesthetic Review: No Changes in Pt Med Stat, Meds/Allgs Chart Reviewed, Consent Obtained/Reviewed and Anes Risks/Benef Reviewed Patient Risk: Low Procedure Risk: Low Anesthetic Plan Anesthetic Plan: GA Disposition: Standard PACU
[2025-03-28 14:38] VITALS: BMI 36.6
[2025-04-01] VITALS (7 sets, daily range): BP systolic 125–164; BP diastolic 60–87; PULSE 72–80; RESP 16–18; TEMP 36.2–36.9; O2SAT 95–96; BMI 37.6
[2025-04-01] MEDS: Lactated Ringers 1,000 ML 100 ML IVCONT (06:26)
--- NOTE | 2025-04-01 07:38 | P.OP_ITS ---
Operative Note Operative Note Date of Service: 04/01/25 Narrative: Operative Note Narrative: Preop diagnosis: 1. Left Cubital tunnel syndrome 2. Left carpal tunnel syndrome Postop diagnosis: Same Procedure: 1. Left Cubital Tunnel Release 2. Left carpal tunnel release Surgeon: Leana Mo MD Religious Education Teacher: None Anesthesia: General Anesthesia Findings: Thickening and fibrosis about the ulnar nerve at the cubital tunnel Implants: none Tourniquet time: 45 minutes EBL: 5.0 ml Specimen: none Drains: None Complications: None Disposition: Brought to the recovery room in stable condition Plan: Follow-up in 10-14 days for wound check, and suture removal Indications: The patient is a 54 years old with left cubital tunnel syndrome and left carpal tunnel syndrome . The risks and benefits of operative treatment, including but not limited to risk of damage to blood vessels, nerves, tendons, infection, recurrence, persistent pain or numbness, incomplete resolution of preoperative symptoms, or need for further surgery were discussed with the patient and they wished to proceed with surgery. Procedure: Once consent was obtained patient was brought back to the operating suite and placed in the operating table in a supine position. Perioperative antibiotics and anesthesia was administered by the anesthesia team. The limb was prepped and draped in a standard surgical fashion, and a sterile tourniquet applied to the proximal aspect of the left upper extremity. The limb was elevated exsanguinated with Esmarch bandage and the tourniquet inflated to 250 mm of mercury for a total tourniquet time of 45 minutes. Once assured that we had a good block, a 2.0 cm longitudinal incision was made centered over the left carpal tunnel. The incision was made through the skin to the subcutaneous tissues using a #15 blade. Dissection was made down to the level of the transverse carpal ligament with care being taken to protect the palmar cutaneous nerve. Once the transverse carpal ligament was clearly visualized, a longitudinal incision was made in the transverse carpal ligament 1st using a #15 blade, then using tenotomy scissors under direct visualization. Care was taken to look for and protect the motor branch of the median nerve when seen in this area. Once satisfied with our carpal tunnel release the wound was irrigated with normal saline. A 6 cm gently curved but longitudinally oriented incision was made centered over the cubital tunnel of the left upper extremity. Incision was made through the skin to the subcutaneous tissues using a # 15 Blade. I then dissected down to the level of the medial epicondyle and the cubital tunnel using tenotomy scissors. Care was taken to protect the medial antebrachial cutaneous nerve. The ulnar nerve was identified just posterior to the medial intermuscular septum. The ulnar nerve was released in a proximal to distal direction using tenotomy in iris scissors while directly visualizing and protecting the ulnar nerve. Thickening and fibrosis was appreciated about the ulnar nerve as it passed through the cubital tunnel. The ulnar nerve was assessed as I passed the elbow through full flexion and extension and was found to remain stable within its groove. At this point the tourniquet was deflated and hemostasis obtained with a brief period of local pressure and bipolar electrocautery. The wound was copiously irrigated with normal saline. The subcutaneous layer was closed with 4-0 Vicryl suture, and the skin edges were reapproximated with 5-0 nylon suture. The wound was infiltrated with some 1% lidocaine with epinephrine for postop pain control and sterile dressings were applied. The patient appears to have tolerated the procedure well and with no complications. All digits were well vascularized at the conclusion of the case.
--- NOTE | 2025-04-01 07:38 | MHC.SHP ---
Pre-Procedural Eval Section A - 24 Hr Update-Section A only Date of Service: 04/01/25 The patient is an INPATIENT: No Changes since office visit: No Cold of Flu in the past 2 weeks, No New Medical Problems, No Changes in Medication and No Patient answered all questions The patient has been examined within 24 hours of the surgical procedure. The History & Physical has been completed within 30 days and I have reviewed it.: Yes Section B - Complete if H&P > 30 days Chief Complaint: Lesion of ulnar nerve, left upper limb,carpal tunn Allergies: Allergies Allergy/AdvReac Type Severity Reaction Status Date / Time tramadol (TRAMADOL) Allergy Intermediate VOMITING Verified 03/19/25 14:47 adhesive tape AdvReac Intermediate tears skin Verified 03/19/25 14:47 lisinopril AdvReac Mild Cough Verified 03/19/25 14:47 Plan Diagnosis/Plan: Unchanged I have reviewed the history and physical and performed a pertinent physical examination on my patient. No changes have occurred unless specified. Time Spent With Patient Time: Total time managing care of this patient today ____ minutes.
== END 2025-04-01 11:10 | disposition home or self-care (01) ==
PROVIDERS: PCP Physician Assistant; Visit Provider Orthopaedic Surgery
PROC: (CPT 64718; principal; 2025-04-01 07:30)
PROC: (CPT 64721; 2025-04-01 07:30)
DX: G56.02 Carpal tunnel syndrome, left upper limb (principal); G56.22 Lesion of ulnar nerve, left upper limb; R20.0 Anesthesia of skin; R20.2 Paresthesia of skin; N18.30 Chronic kidney disease, stage 3 unspecified; E11.22 Type 2 diabetes mellitus with diabetic chronic kidney disease; I13.0 Hypertensive heart and chronic kidney disease with heart failure and stage 1 through stage 4 chronic kidney disease, or unspecified chronic kidney disease; I25.10 Atherosclerotic heart disease of native coronary artery without angina pectoris; Z95.5 Presence of coronary angioplasty implant and graft; Z95.1 Presence of aortocoronary bypass graft; I25.2 Old myocardial infarction; E78.00 Pure hypercholesterolemia, unspecified; D64.9 Anemia, unspecified; Z88.5 Allergy status to narcotic agent; Z88.8 Allergy status to other drugs, medicaments and biological substances; L23.1 Allergic contact dermatitis due to adhesives; F32.A Depression, unspecified; Z79.82 Long term (current) use of aspirin; Z79.4 Long term (current) use of insulin; Z79.85 Long-term (current) use of injectable non-insulin antidiabetic drugs; Z79.899 Other long term (current) drug therapy; Z79.51 Long term (current) use of inhaled steroids; Z98.890 Other specified postprocedural states
CPT/HCPCS: 64721; 64718; J0131; J0690; J1100; J1171; J2003; J2004; J2405; J2704; J3010

== ENCOUNTER → 2025-04-01 05:53 | Outpatient (BNV) | payer OTHER, SELFPAY | PROVIDERS: PCP Physician Assistant; Visit Provider Orthopaedic Surgery | DX: G56.22 Lesion of ulnar nerve, left upper limb (principal); G56.02 Carpal tunnel syndrome, left upper limb | CPT/HCPCS: 64718; 64721 ==

== ENCOUNTER 2025-04-12 08:23 | Outpatient (AMB) | payer OTHER, SELFPAY ==
--- OUTSIDE RECORDS SUMMARY | 2025-04-12 08:45 | XMS_ITS | Clinical Summary ---
Demographics Address [address] [place] [address] Home Phone Mobile Phone Preferred Language Upper Sorbian Marital Status /Civil Union Confucianism Affiliation Unknown Race Other Race Ethnic Group or Author Organization [facility] Address [address] [place] [phone] Phone Care Team Providers Care Insulator Technician Name Role Phone Pablo Mendoza Primary Care [...] Self [address] [place] [address] [facility] * Guarantor: Gi Hernandez Account Type Relation to Patient Date of Phone Billing Address Personal/Family Self [address] [place] [facility] * Guarantor: Gi Hernandez Account Type Relation to Patient Date of Phone Billing Address Personal/Family Self [address] [place] [facility] * Guarantor: Gi Hernandez Account Type Relation to Patient Date of Phone Billing Address Personal/Family Self [address] [place] [address] [facility] * Guarantor: Gi Hernandez Account Type Relation to Patient Date of Phone Billing Address Personal/Family Self [address] [facility] [place] [address] [facility] * Guarantor: HernandezGi vargas Account Type Relation to Patient Date of Phone Billing Address Personal/Family Self [address] [place] [address] [facility] Care Teams Insulator Technician Relationship Specialty Start Date End Date Pablo Mendoza PA [address] [place] [address] PCP - General Physician Transliterator 08/26/23 Additional Source Comments The information contained in this document represents components of the legal health record. It is not the complete legal health record.[facility]
--- OUTSIDE RECORDS SUMMARY | 2025-04-12 08:45 | XMS_ITS | Clinical Summary ---
Author Organization [facility] Address [address] [place] [address] Phone Care Team Providers Care Turret Press Operator Name Role Phone Pablo Mendoza Primary [...] Active Problems Problem Noted Date Diagnosed Date Preoperative cardiovascular examination 03/21/20 25 Assessment & Plan (03/21/2025 3:44 PM EDT): According to the Funez perioperative risk of myocardial infarction or cardiac arrest assessment tool, this patient has a 0.9% risk of myocardial infarction or cardiac arrest, intraoperatively or up to 30 days postop. She is able to perform greater than 4 METS. She denies any anginal symptoms. Subsequently, there is no further cardiac testing warranted prior to her procedure and she is acceptable to proceed. Swelling of extremity 10/23/2024 STEMI (ST elevation myocardi al infarction) ([facility] V24, [facility] V28) 10/04/2023 Dizziness 04/01/2023 CHF (congestive heart failure) ([facility] V24, [facility] V28) 04/01/2023 Hypotension 01/25/2023 History of KS (myocardial infarction) 01/25/2023 Chronic diastolic heart failure ([facility] V24, CM S/[facility] V28) 01/25/2023 Overview (07/31/2024): Last [...] SGLT2 for HFpEF. Assessment & Plan (03/21/2025 3:44 PM EDT): Patient is euvolemic upon exam today. She offers no complaints of breathlessness or peripheral edema. She will continue on her current dose of carvedilol 25 mg twice daily, Jardiance and furosemide. Encouraged to continue to follow a low-sodium diet and perform daily weights. Patient will reach out to our office with a weight gain of 2 pounds in 1 day or 5 pounds in 5 days accompanied by worsening peripheral edema, shortness of breath or abdominal distention. Orders: ECG 12 lead Assessment & Plan [...] distention. NSTEMI (non-ST elevated myoc ardial infarction) ([facility] V24, [facility] V28) 03/18/2022 Chest pain 03/18/2022 Diabetes ([facility] V24, [facility] V28) 04/13/2021 Essential hypertension 04/13/2021 [...] her dietary fat intake. Assessment & Plan (03/21/2025 3:44 PM EDT): At this time she will continue on her current dose of Repatha. Goal LDL less than 70. Patient's PCP has been monitoring her cholesterol levels. I have requested these records. Can consider updating fasting lipid profile prior to her next office visit unless already performed by her PCP. Assessment & Plan (11/12/2024 10:04 AM EDT): Continue on Repatha. Goal LDL less than 70. Patient informs me that her PCP has been monitoring her cholesterol levels. Encouraged to be mindful of her dietary fat intake and increase her aerobic exercise as tolerated. Coronary artery disease 04/13/2021 Overview (07/31/2024): Status post CABGx4 at the age of 46 in [place], details not known Preserved LVEF Apical aneurysm, confirmed by cMRI at [facility] 02/2021 No ischemia on rega MIBI 02/2021 at [facility] Last Assessment & Plan: [...] not resolve with rest. Assessment & Plan (03/21/2025 3:44 PM EDT): Patient denies any anginal symptoms reminiscent to those prior to her CABG. She continues on nadolol, Plavix, Repatha and isosorbide. Instructed to call 911 or go to [...] Team Description 03/21/2025 12:40 PM EDT Consult [facility] [address] [facility] [address] [place] [address] Anay Gerber NP Chronic diastolic heart failure (CMS/HCC V24, CMS/HCC V28) (Primary Dx); Coronary artery disease due to lipid rich plaque; Other hyperlipidemia; Preoperative cardiovascular examination 03/11/2025 Telephone [facility] [address] [facility] [address] [place] [address] Jv Regalado MD from Last [...] 03/21/2025 12:47 PM EDT Plan of Treatment Health Maintenance Due Date Last Done Comments [...] Associated Diagnosis Comments ECG 12-LEAD Routine 03/21/2025 3:45 PM EDT Chronic diastolic heart failure ([facility]/HCC V24, CMS/HCC V28) ANNUAL BMP BLOOD TEST Routine 02/28/2024 HEPATITIS C SCREENING Routine 02/26/2024 HEMOGLOBIN A1C Routine 10/13/2023 LIPID PANEL Routine 10/13/2023 from Last 3 Months or Most Recently Relevant to Health Maintenance Results * ECG 12 lead (03/21/2025 3:45 PM EDT) [facility] Ventricular Rate ECG 75 BPM GEMUSE Atrial Rate 75 BPM GEMUSE P-R Interval 150 ms GEMUSE QRS Duration 62 ms GEMUSE Q-T Interval 402 ms GEMUSE QTc 448 ms GEMUSE P Wave [place] 15 degrees GEMUSE R [place] -48 degrees GEMUSE T [place] 86 degrees GEMUSE ECG Interpretation Normal sinus rhythm Left axis deviation Anterolatera l infarct (cited on or before 19-JAN-2022) Abnormal ECG When compared with ECG of 13-OCT-2023 12:16, Criteria for Inferior infarct are no longer Present Confirmed by Tita LORENZO JOHN ([id number]) on 04/08/2025 8:14:31 AM GEMUSE 03/21/2025 12:5 5 PM EDT 04/08/2025 8:14 AM EDT Result [facility] Anay Gerber NP ECG ORDERABLES Edited Result - Final GEMUSE * Annual BMP Blood Test (02/28/2024) [facility] Annual BMP Blood Test abstracted Result [facility] Historical Provider HEALTH MAINTENANCE Final Result * Hepatitis C Screening (02/26/2024) [facility] Hepatitis C Screening abstracted Historical Provider HEALTH MAINTENANCE Final Result * (ABNORMAL) Hemoglobin A1c (10/13/2023) [facility] Hemoglobin A1C 8.1(A) 4.0 - 5.6 % Blood Venous blood specimen / Unknown Result [facility] Historical Provider LAB BLOOD ORDERABLES Tamra l Result * (ABNORMAL) Lipid panel (10/13/2023) [facility] LDL/HDL Ratio 2 0 - 4 Triglycerides 158(A) 0 - 150 mg/dL Cholesterol 110 0 - 200 mg/dL HDL 65 >=40 mg/dL LDL Cholesterol 14 0 - 100 mg/dL Blood Venous blood specimen / Unknown us Historical Provider LAB BLOOD ORDERABLES Tamra duffy Result from Last 3 Months or Most Recently Relevant to Health Maintenance [place] [address] Care Teams Turret Press Operator Relationship Specialty Start Date End Date Pablo Mendoza PA [address] [place] [phone] PCP - General Internal Medicine 05/11/21
[2025-04-12 08:46] VITALS: BMI 37.6
--- NOTE | 2025-04-12 08:46 | MHC.OFFVIS ---
Vital Signs 04/12/25 08:46 Height 5 ft 4 in Weight 219 lb BMI 37.6 Intake Visit Reasons: OV-Left carpel tunnel syndrome, AR 04/01/25 Intake Note: Gi is a 54 year old right hand dominant female who presents today post-operatively status post Left Carpal/Cubital Tunnel Release, 04/01/25. Patient comes in prior to her scheduled first post-op complaining of left hand pain, described as unbearable . She is concerned for the redness and swelling of the palm and thumb however the redness has subsided. Patient is taking her [place] with minimal relief. Allergies tramadol (TRAMADOL) Allergy (Intermediate, Verified 04/12/25 08:46) VOMITING adhesive tape Adverse Reaction (Intermediate, Verified 04/12/25 08:46) tears skin lisinopril Adverse Reaction (Mild, Verified 04/12/25 08:46) Cough HPI HPI OV-Left carpel tunnel syndrome, AR 04/01/25: Details: Gi is a 54 year old right hand dominant female who presents today post-operatively status post Left Carpal/Cubital Tunnel Release, 04/01/25. Patient comes in prior to her scheduled first post-op complaining of left hand pain, described as unbearable , but this is in the digits of the hand, not around the incision. She is concerned for the redness and swelling of the palm and thumb however the redness has subsided. Patient is taking her [place] with minimal relief. [facility] Medical History Menopause Carpal tunnel syndrome of left wrist CKD (chronic kidney disease) CHF (congestive heart failure) Hospital discharge follow-up Anemia CKD stage 3 secondary to diabetes Carpal tunnel syndrome of right wrist GERD (gastroesophageal reflux disease) Elevated cholesterol Asthma Type 2 diabetes Chronic renal insufficiency Myocardial infarction CAD (coronary artery disease) HTN (hypertension) Depression Surgical History Hx of heart artery stent Hx of section History of cardiac catheterization H/O: hysterectomy H/O bladder repair surgery Hx of CABG Family History Mother Cervical cancer Hypertension Blindness Kidney failure Sister Cervical cancer Hypertension Hypoglycemia Brother ESRD (end stage renal disease) Hypertension Father DMII (diabetes mellitus, type 2) Son Asthma Daughter No problems noted. Daughter No problems noted. Daughter No problems noted. Daughter No problems noted. Maternal Aunt Ovarian cancer Social History Household Members: Significant Other Housing: Apartment Are you a primary ambulatory care coordinator to a significant other at home: No Do you presently have visiting nurse or other home services: No Alcohol intake: never Patient Tobacco Use Status: Never used Tobacco Tobacco use type: Cigarette e-Cigarette/Vaping Use: Never Used Second Hand Smoke Exposure: No service: No Current occupational status: disabled Cognitive needs: No Hearing needs: No Vision needs: Yes Female Reproductive History Menstrual Age of Menarche: 16 Review of Systems Const All systems reviewed & are unremarkable except as noted in HPI and below Physical Exam Vital Signs: BMI result Body Mass Index 37.6 Extrem Other: Patient is alert, oriented, and in no acute distress. Neuro: Normal sensation of the tips of all digits of the right hand at this time Vascular: Cap refill brisk Pain: Tenderness to palpation noted of the digits of the right hand Minimal tenderness to palpation about the incision sites on right wrist and right elbow ROM: With significant encouragement, patient is able to be passively brought to a full closed fist with the right hand, is unable to do so actively Skin: Well approximated if incision sites noted on the right wrist and right elbow There do appear to be some small suture abscesses that has formed around the sutures of the right elbow No lacerations or abrasions. Psych: Appears grossly normal Affect normal Attitude cooperative Assessment & Plan Assessment & Plan (1) Cubital tunnel syndrome on left: Code(s): G56.22 - Lesion of ulnar nerve, left upper limb Category: Medical (2) Carpal tunnel syndrome of left wrist: Code(s): G56.02 - Carpal tunnel syndrome, left upper limb Category: Medical Plan 1. Left cubital tunnel syndrome 2. Left carpal tunnel syndrome Symptoms constant, daily, worse at night Patient appears to be recovering well postoperatively Patient is educated about the typical recovery course At this time, patient was prescribed a short course of antibiotics for the small suture abscesses that appear to have formed on the cubital tunnel incision site Patient should continue working on range of motion of both the left wrist and elbow Patient will follow-up in 1 week for wound check Patient understands this is amenable to this plan Follow-up next week, sooner with any acute concerns Medications: New amoxicillin-pot clavulanate 875-125 mg 1 tab PO BID 14 tabs 0RF 7 days Coding Level of Care Code Global (83348) Diagnoses Cubital tunnel syndrome on left G56.22 Carpal tunnel syndrome of left wrist G56.02
== END 2025-04-12 09:32 | disposition home or self-care (01) ==
LOC: HO.HOS 08:24
PROVIDERS: PCP Physician Assistant
DX: G56.22 Lesion of ulnar nerve, left upper limb (principal); G56.02 Carpal tunnel syndrome, left upper limb
CPT/HCPCS: 99024

== ENCOUNTER → 2025-04-12 08:23 | Outpatient (BNVA) | payer OTHER, SELFPAY | PROVIDERS: PCP Physician Assistant | DX: Z48.811 Encounter for surgical aftercare following surgery on the nervous system (principal); G56.22 Lesion of ulnar nerve, left upper limb; Z98.890 Other specified postprocedural states | CPT/HCPCS: 99212 ==

== ENCOUNTER 2025-04-17 11:18 | Outpatient (AMB) | payer OTHER, SELFPAY ==
--- NOTE | 2025-04-17 11:21 | A.OFFVIS_ITS ---
Vital Signs 04/17/25 11:41 Height 5 ft 4 in Weight 214 lb BMI 36.7 Handedness Right Intake Visit Reasons: PO LT cubital/CTR 04/01/25 AR Intake Note: Gi is a 54 year old right hand dominant female who presents today post- operatively status post Left Cubital & Carpal Tunnel Release performed by Dr. Mo on 04/01/25. Patient was seen on 04/12/25 for a wound check, sutures removed and steri strips applied. She was started on Augmentin. Today she reports she has not completed her antibiotics. She is expressing general soreness over her incision site on the left elbow with movement and at rest. She is still having some numbness in her left hand 1st and 2nd digits that is intermittent. Allergies tramadol (TRAMADOL) Allergy (Intermediate, Verified 04/17/25 11:39) VOMITING adhesive tape Adverse Reaction (Intermediate, Verified 04/17/25 11:39) tears skin lisinopril Adverse Reaction (Mild, Verified 04/17/25 11:39) Cough HPI HPI PO LT cubital/CTR 04/01/25 AR: Details: Gi is a 54 year old right hand dominant female who presents today post- operatively status post Left Cubital & Carpal Tunnel Release performed by Dr. Mo on 04/01/25. Patient was seen on 04/12/25 for a wound check, sutures removed and steri strips applied. She was started on Augmentin. Today she reports she has not completed her antibiotics. She is expressing general soreness over her incision site on the left elbow with movement and at rest. She is still having some numbness in her left hand 1st and 2nd digits that is intermittent. [facility] Medical History Menopause Carpal tunnel syndrome of left wrist CKD (chronic kidney disease) CHF (congestive heart failure) Hospital discharge follow-up Anemia CKD stage 3 secondary to diabetes Carpal tunnel syndrome of right wrist GERD (gastroesophageal reflux disease) Elevated cholesterol Asthma Type 2 diabetes Chronic renal insufficiency Myocardial infarction CAD (coronary artery disease) HTN (hypertension) Depression Surgical History S/P cubital tunnel release (~04/01/25) Status post carpal tunnel release (~04/01/25) Hx of heart artery stent Hx of section History of cardiac catheterization H/O: hysterectomy H/O bladder repair surgery Hx of CABG Family History Mother Cervical cancer Hypertension Blindness Kidney failure Sister Cervical cancer Hypertension Hypoglycemia Brother ESRD (end stage renal disease) Hypertension Father DMII (diabetes mellitus, type 2) Son Asthma Daughter No problems noted. Daughter No problems noted. Daughter No problems noted. Daughter No problems noted. Maternal Aunt Ovarian cancer Social History Household Members: Significant Other Housing: Apartment Are you a primary health care aide to a significant other at home: No Do you presently have visiting nurse or other home services: No Alcohol intake: never Patient Tobacco Use Status: Never used Tobacco Tobacco use type: Cigarette e-Cigarette/Vaping Use: Never Used Second Hand Smoke Exposure: No service: No Current occupational status: disabled Cognitive needs: No Hearing needs: No Vision needs: Yes Female Reproductive History Menstrual Age of Menarche: 16 Review of Systems Const All systems reviewed & are unremarkable except as noted in HPI and below Physical Exam Vital Signs: BMI result Body Mass Index 36.7 Extrem Other: Patient is alert, oriented, and in no acute distress. Neuro: Normal sensation of the tips of all digits of the right hand at this time Vascular: Cap refill brisk Pain: No Tenderness to palpation noted of the digits of the right hand No tenderness to palpation about the incision sites on right wrist and right elbow ROM: With significant encouragement, patient is able to be passively brought to a full closed fist with the right hand, is unable to do so actively Skin: Well approximated if incision sites noted on the right wrist and right elbow Suture abscesses have resolved fully without further issue No lacerations or abrasions. Psych: Appears grossly normal Affect normal Attitude cooperative Assessment & Plan Assessment & Plan (1) Cubital tunnel syndrome on left: Code(s): G56.22 - Lesion of ulnar nerve, left upper limb Category: Medical (2) Carpal tunnel syndrome of left wrist: Code(s): G56.02 - Carpal tunnel syndrome, left upper limb Category: Medical Plan 1. Left cubital tunnel syndrome 2. Left carpal tunnel syndrome Symptoms constant, daily, worse at night Patient appears to be recovering well postoperatively Patient is educated about the typical recovery course No ongoing evidence of infection Patient should continue working on range of motion of both the left wrist and elbow Patient understands this is amenable to this plan Follow-up as needed with any acute concerns Coding Level of Care Code Global (60586) Diagnoses Cubital tunnel syndrome on left G56.22 Carpal tunnel syndrome of left wrist G56.02
[2025-04-17 11:41] VITALS: BMI 36.7
--- OUTSIDE RECORDS SUMMARY | 2025-04-17 12:58 | XMS_ITS | Clinical Summary ---
Demographics Address [address] [place] [address] Home Phone Mobile Phone Preferred Language Sri Lankan Marital Status /Civil Union Buddhist Affiliation Unknown Race Other Race Ethnic Group or Author Organization [facility] Address [address] [place] [phone] Phone Care Team Providers Care Experimental Worker Name Role Phone Pablo Mendoza Primary Care [...] Self [address] [place] [address] [facility] * Guarantor: Gi Hernandez Account Type Relation to Patient Date of Phone Billing Address Personal/Family Self [address] [place] [facility] * Guarantor: Gi Hernandez Account Type Relation to Patient Date of Phone Billing Address Personal/Family Self [address] [place] [facility] * Guarantor: Gi Hernandez Account Type Relation to Patient Date of Phone Billing Address Personal/Family Self [address] [place] [address] [facility] * Guarantor: Gi Hernandez Account Type Relation to Patient Date of Phone Billing Address Personal/Family Self [address] [facility] [place] [place] [address] [facility] * Guarantor: HernandezGi vargas Account Type Relation to Patient Date of Phone Billing Address Personal/Family Self [address] [place] [address] [facility] Care Teams Experimental Worker Relationship Specialty Start Date End Date Pablo Mendoza PA [address] [place] [address] PCP - General Physician Inflated Ball Molder 08/26/23 Additional Source Comments The information contained in this document represents components of the legal health record. It is not the complete legal health record.[facility]
--- OUTSIDE RECORDS SUMMARY | 2025-04-17 12:58 | XMS_ITS | Clinical Summary ---
Author Organization 175 [facility] Address [address] [place] [address] Phone Care Team Providers Care Charging Car Operator Name Role Phone Pablo Mendoza Primary [...] 10/23/2024 STEMI (ST elevation myocardi al infarction) ([facility] V24, [facility] V28) 10/04/2023 Dizziness 04/01/2023 CHF (congestive heart failure) ([facility] V24, [facility] V28) 04/01/2023 Hypotension 01/25/2023 History of AL (myocardial infarction) 01/25/2023 Chronic diastolic heart failure ([facility] V24, CM S/[facility] V28) 01/25/2023 Overview (07/31/2024): Last [...] distention. NSTEMI (non-ST elevated myoc ardial infarction) ([facility] V24, [facility] V28) 03/18/2022 Chest pain 03/18/2022 Diabetes ([facility] V24, [facility] V28) 04/13/2021 Essential hypertension 04/13/2021 [...] CABGx4 at the age of 46 in [place], details not known Preserved LVEF Apical aneurysm, confirmed by cMRI at [facility] 02/2021 No ischemia on rega MIBI 02/2021 at [facility] Last Assessment & Plan: Multiple cardiac catheterizations [...] Team Description 03/21/2025 12:40 PM EDT Consult [facility] [address] [facility] [address] [place] [address] Anay Gerber NP Chronic diastolic heart failure (CMS/HCC V24, CMS/HCC V28) (Primary Dx); Coronary artery disease due to lipid rich plaque; Other hyperlipidemia; Preoperative cardiovascular examination 03/11/2025 Telephone [facility] Cardiology [facility] [address] [facility] [address] [place] [address] Jv Regalado MD from Last 3 Months Immunizations Immunization Administration Dates Next Due Moderna SARS-CoV-2 COVID-19, mRNA, LNP-S, preservative free 02/26/2021 Surgical History Surgery Date Site/Laterality Comments CORONARY ARTERY BYPASS GRAFT PROCEDURE: HISTORICAL CABG; COMMENT: x4 PARTIAL HYSTERECTOMY PROCEDURE: [place] SUPRACERVICAL ABDL HYSTER W/WO RMVL TUBE OVARY [...] Last Done Comments Breast Cancer Screening 1972 Colorectal Cancer Screening: Colonoscopy 1972 Diabetes: Annual Foot Exam 1982 Diabetes: Annual Retina Eye Exam 1982 Cervical Cancer Screening: Pap Smear 1993 Pneumococcal Vaccine: 50+ Years (2 of 2 - PCV) 05/19/2022 05/19/2021 HIV Screening 06/20/2022 Social Influencers of Health [...] (2 - Td or Tdap) 11/12/2034 11/12/2024 RSV Immunization Adult Patients (1 - 1-dose 75+ series) 12/17/2047 Zoster Vaccines Completed 07/29/2023, 05/27/2023 Hepatitis C [...] 3:45 PM EDT Chronic diastolic heart failure (CMS/HCC V24, CMS/HCC V28) ANNUAL BMP BLOOD TEST Routine 02/28/2024 HEPATITIS C SCREENING Routine 02/26/2024 HEMOGLOBIN A1C Routine 10/13/2023 LIPID PANEL Routine 10/13/2023 from Last 3 Months or Most Recently Relevant to Health Maintenance Results * ECG 12 lead (03/21/2025 3:45 PM EDT) [facility] Ventricular Rate ECG 75 BPM GEMUSE Atrial Rate 75 BPM GEMUSE P-R Interval 150 ms GEMUSE QRS Duration 62 ms GEMUSE Q-T Interval 402 ms GEMUSE QTc 448 ms GEMUSE P Wave [place] 15 degrees GEMUSE R [place] -48 degrees GEMUSE T [place] 86 degrees GEMUSE ECG Interpretation Normal sinus rhythm Left axis deviation Anterolatera l infarct (cited on or before 19-JAN-2022) Abnormal ECG When compared with ECG of 13-OCT-2023 12:16, Criteria for Inferior infarct are no longer Present Confirmed by Tita LORENZO JOHN ([id number]) on 04/08/2025 8:14:31 AM GEMUSE 03/21/2025 12:5 5 PM EDT 04/08/2025 8:14 AM EDT Anay Gerber NP ECG ORDERABLES Edited Result - Final GEMUSE * Annual BMP Blood Test (02/28/2024) [facility] Annual BMP Blood Test abstracted Result [facility] Historical Provider HEALTH MAINTENANCE Final Result * Hepatitis C Screening (02/26/2024) [facility] Hepatitis C Screening abstracted Result [facility] Historical Provider HEALTH MAINTENANCE Final Result * (ABNORMAL) Hemoglobin A1c (10/13/2023) [facility] Hemoglobin A1C 8.1(A) 4.0 - 5.6 % Blood Venous blood specimen / Unknown Result [facility] Historical Provider LAB BLOOD ORDERABLES Tamra l Result * (ABNORMAL) Lipid panel (10/13/2023) [facility] LDL/HDL Ratio 2 0 - 4 Triglycerides 158(A) 0 - 150 mg/dL Cholesterol 110 0 - 200 mg/dL HDL 65 >=40 mg/dL LDL Cholesterol 14 0 - 100 mg/dL Blood Venous blood specimen / Unknown us Historical Provider LAB BLOOD ORDERABLES Tamra duffy Result from Last 3 Months or Most Recently Relevant to Health Maintenance Insurance [place] [place] [address] [employer] Care Teams Charging Car Operator Relationship Specialty Start Date End Date Pablo Mendoza PA [address] [place] [phone] PCP - General Internal Medicine 05/11/21
== END 2025-04-17 11:51 | disposition home or self-care (01) ==
LOC: HO.HOS 11:19
PROVIDERS: PCP Physician Assistant
DX: G56.22 Lesion of ulnar nerve, left upper limb (principal); G56.02 Carpal tunnel syndrome, left upper limb
CPT/HCPCS: 99024

== ENCOUNTER → 2025-04-17 11:18 | Outpatient (BNVA) | payer OTHER, SELFPAY | PROVIDERS: PCP Physician Assistant | DX: G56.22 Lesion of ulnar nerve, left upper limb (principal); G56.02 Carpal tunnel syndrome, left upper limb | CPT/HCPCS: 99212 ==

== ENCOUNTER 2025-04-23 15:05 | Outpatient (REF) | payer OTHER, SELFPAY ==
--- OUTSIDE RECORDS SUMMARY | 2025-04-23 18:20 | XMS_ITS | Clinical Summary ---
Demographics Address [address] [place] [address] Home Phone Mobile Phone Preferred Language Cape Verdean Marital Status /Civil Union Buddhist Affiliation Unknown Race Other Race Ethnic Group or Author Organization [facility] Address [address] [place] [phone] Phone Care Team Providers Care Forestry Foreman Name Role Phone Pablo Mendoza Primary Care [...] Self [address] [place] [address] [facility] * Guarantor: Gi Hernandez Account Type Relation to Patient Date of Phone Billing Address Personal/Family Self [address] [place] [facility] * Guarantor: Gi Hernandez Account Type Relation to Patient Date of Phone Billing Address Personal/Family Self [address] [place] [facility] * Guarantor: Gi Hernandez Account Type Relation to Patient Date of Phone Billing Address Personal/Family Self [address] [place] [address] [facility] * Guarantor: Gi Hernandez Account Type Relation to Patient Date of Phone Billing Address Personal/Family Self [address] [facility] [place] [place] [address] [facility] * Guarantor: HernandezGi vargas Account Type Relation to Patient Date of Phone Billing Address Personal/Family Self [address] [place] [address] [facility] Care Teams Forestry Foreman Relationship Specialty Start Date End Date Pablo Mendoza PA [address] [place] [address] PCP - General Physician Extrusion Die Coordinator 08/26/23 Additional Source Comments The information contained in this document represents components of the legal health record. It is not the complete legal health record.[facility]
--- OUTSIDE RECORDS SUMMARY | 2025-04-23 18:21 | XMS_ITS | Clinical Summary ---
Author Organization 175 [facility] Address [address] [place] [address] Phone Care Team Providers Care Dural Mechanic Name Role Phone Pablo Mendoza Primary Care [...] skin every 14 days. 2 mL 5 5 Active isosorbide mononitrate (IMDUR) 60 mg 24 hr tablet Take 90 mg by mouth 1 (one) time each day. Do not crush or chew. Active Active Problems Problem Noted Date Diagnosed Date Preoperative cardiovascular examination 03/21/20 Assessment & Plan (03/21/2025 3:44 PM EDT): [...] 10/23/2024 STEMI (ST elevation myocardi al infarction) ([facility] V24, [facility] V28) 10/04/2023 Dizziness 04/01/2023 CHF (congestive heart failure) ([facility] V24, [facility] V28) 04/01/2023 Hypotension 01/25/2023 History of [place] (myocardial infarction) 01/25/2023 Chronic diastolic heart failure ([facility] V24, [facility] V28) 01/25/2023 Overview (07/31/2024): Last Assessment & [...] distention. NSTEMI (non-ST elevated myoc ardial infarction) ([facility] V24, [facility] V28) 03/18/2022 Chest pain 03/18/2022 Diabetes ([facility] V24, [facility] V28) 04/13/2021 Essential hypertension 04/13/2021 Overview (07/31/2024): [...] CABGx4 at the age of 46 in [place], details not known Preserved LVEF Apical aneurysm, confirmed by [place]MRI [place] [facility] [place] No ischemia on rega MIBI 02/2021 at [facility] Last Assessment & Plan: Multiple cardiac catheterizations [...] Team Description 03/21/2025 12:40 PM EDT Consult [facility] Cardiology [facility] [address] [place] [address] Anay Gerber NP Chronic diastolic heart failure (CMS/HCC V24, [facility] V28) (Primary Dx); Coronary artery disease due to lipid rich plaque; Other hyperlipidemia; Preoperative cardiovascular examination 03/11/2025 Telephone [facility] Cardiology [facility] [address] [facility] [address] [place] [address] Jv Regalado MD from Last 3 Months Immunizations Immunization Administration Dates Next Due Moderna SARS-CoV-2 COVID-19, mRNA, LNP-S, preservative free 02/26/2021 Surgical History Surgery Date Site/Laterality Comments CORONARY ARTERY BYPASS GRAFT PROCEDURE: HISTORICAL CABG; COMMENT: x4 PARTIAL HYSTERECTOMY PROCEDURE: [place] SUPRACERVICAL ABDL HYSTER W/WO RMVL TUBE OVARY MULTIPLE TOOTH EXTRACTIONS PROCEDURE: HISTORICAL DENTAL EXTRACTION; COMMENT: Multiple Medical History Medical History Date Comments Depression with anxiety DX:Depre ssion with anxiety Frozen shoulder DX:Frozen should er; COMMENT: Left Peripheral neuropathy DX:Periphe ral neuropathy Type 2 diabetes mellitus (CM S/HCC V24, [facility] V28) DX:Type 2 diabetes mellitus (HCC) Anxiety [...] ECG 12 lead (03/21/2025 3:45 PM EDT) Ventricular Rate ECG 75 BPM GEMUSE Atrial Rate 75 BPM GEMUSE P-R Interval 150 ms GEMUSE QRS Duration 62 ms GEMUSE Q-T Interval 402 ms GEMUSE QTc 448 ms GEMUSE P Wave [place] 15 degrees GEMUSE R [place] -48 degrees GEMUSE T [place] 86 degrees GEMUSE ECG Interpretation Normal sinus rhythm Left axis deviation Anterolatera l infarct (cited on or before 19-JAN-2022) Abnormal ECG When compared with ECG of 13-OCT-2023 12:16, Criteria for Inferior infarct are no longer Present Confirmed by Tita LORENZO JOHN ([id number]) on 04/08/2025 8:14:31 AM GEMUSE 03/21/2025 12:5 5 PM EDT 04/08/2025 8:14 AM EDT Result [facility] Anay Gerber ASSISTANT SITE MANAGER ECG ORDERABLES Edited Result - Final GEMUSE * Annual BMP Blood Test (02/28/2024) [facility] Annual BMP Blood Test abstracted Result [facility] Historical Provider HEALTH MAINTENANCE Final Result * Hepatitis C Screening (02/26/2024) [facility] Hepatitis C Screening abstracted Result [facility] Provider HEALTH MAINTENANCE Final Result * (ABNORMAL) Hemoglobin A1c (10/13/2023) [facility] Hemoglobin A1C 8.1(A) 4.0 - 5.6 % Blood Venous blood specimen / Unknown Result [facility] Historical Provider LAB BLOOD ORDERABLES Tamra l Result * (ABNORMAL) Lipid panel (10/13/2023) [facility] LDL/HDL Ratio 2 0 - 4 Triglycerides 158(A) 0 - 150 mg/dL Cholesterol 110 0 - 200 mg/dL HDL 65 >=40 mg/dL LDL Cholesterol 14 0 - 100 mg/dL Blood Venous blood specimen / Unknown us Historical Provider LAB BLOOD ORDERABLES Tamra l Result from Last 3 Months or Most Recently Relevant to Health Maintenance [place] [address] [place] [address] [employer] Care Teams Dural Mechanic Relationship Specialty Start Date End Date Pablo Mendoza PA [address] [place] [phone] PCP - General Internal Medicine 05/11/21
[2025-04-23 18:28] LABS: Anion Gap 16 (12-20); Blood Urea Nitrogen 40 mg/dL (9-16); Carbon Dioxide 26 mmol/L (22-29); Chloride 103 mmol/L (96-108); Estimated Glomerular Filt Rate 30; Potassium 4.1 mmol/L (3.3-5.1); Sodium 141 mmol/L (135-145)
== END 2025-04-23 15:06 | disposition home or self-care (01) ==
LOC: HO.HKASLDS 15:05
PROVIDERS: PCP Physician Assistant; Visit Provider Internal Medicine Nephrology
DX: I12.9 Hypertensive chronic kidney disease with stage 1 through stage 4 chronic kidney disease, or unspecified chronic kidney disease (principal); E11.21 Type 2 diabetes mellitus with diabetic nephropathy; N18.31 Chronic kidney disease, stage 3a; E11.22 Type 2 diabetes mellitus with diabetic chronic kidney disease
CPT/HCPCS: 36415; 80051; 82565; 84520

== ENCOUNTER 2025-04-30 14:01 | Outpatient (AMB) | payer OTHER, SELFPAY ==
--- NOTE | 2025-04-30 14:21 | HO.NEPHOV ---
Vital Signs 04/30/25 14:22 Height 5 ft 4 in Weight 218 lb 4 oz BMI 37.5 BP 110/70 Blood Pressure Location Lt brachial Position Sitting Pulse 80 Pulse Source Pulse Oximeter Pulse Oximetry (%) 95 Oxygen Delivery Method Room Air Intake Visit Reasons: 2mon f/u w/labs Engineer Internship Required: No Accompanied by: Self / Same As Patient Allergies tramadol (TRAMADOL) Allergy (Intermediate, Verified 04/30/25 14:22) VOMITING adhesive tape Adverse Reaction (Intermediate, Verified 04/30/25 14:22) tears skin lisinopril Adverse Reaction (Mild, Verified 04/30/25 14:22) Cough HPI Comments Details: Gi was seen for chronic kidney disease, proteinuria and hypertension on a backdrop of coronary artery disease and bypass surgery. She has history of congestive heart failure. She has history of premature coronary artery disease s/p CABG in 2016 in [place], with repeat catheterization due to occlusion of the SVG to OM s/p mechanical thrombectomy with x2 RENEE placement on January 2022, ischemic cardiomyopathy with preserved ejection fraction with true aneurysmal apex without thrombus confirmed on cardiac MRI with distal territory LAD infarct presented with worsening resting chest pain since 3 days and found to have subtle ST depressions not grossly unchanged but having ongoing pain. Patient underwent cardiac cath which showed the culprit was her vein graft to OM with collaterals. She had cardiac cath and later CTA given suspicion of CVA with resultant development of DARIUSZ needing renal replacement one time. She had been tolerating Jardiance and losartan has been on hold since last hospitalization in [place] . She is trying to maintain good hydration and is avoiding nonsteroidal anti-inflammatory medications. [facility] Medical History Menopause Carpal tunnel syndrome of left wrist CKD (chronic kidney disease) CHF (congestive heart failure) Hospital discharge follow-up Anemia CKD stage 3 secondary to diabetes Carpal tunnel syndrome of right wrist GERD (gastroesophageal reflux disease) Elevated cholesterol Asthma Type 2 diabetes Chronic renal insufficiency Myocardial infarction CAD (coronary artery disease) HTN (hypertension) Depression Surgical History S/P cubital tunnel release (~04/01/25) Status post carpal tunnel release (~04/01/25) Hx of heart artery stent Hx of section History of cardiac catheterization H/O: hysterectomy H/O bladder repair surgery Hx of CABG Family History Mother Cervical cancer Hypertension Blindness Kidney failure Sister Cervical cancer Hypertension Hypoglycemia Brother ESRD (end stage renal disease) Hypertension Father DMII (diabetes mellitus, type 2) Son Asthma Daughter No problems noted. Daughter No problems noted. Daughter No problems noted. Daughter No problems noted. Maternal Aunt Ovarian cancer Social History Household Members: Significant Other Housing: Apartment Are you a primary respiratory care assistant to a significant other at home: No Do you presently have visiting nurse or other home services: No Alcohol intake: never Patient Tobacco Use Status: Never used Tobacco Tobacco use type: Cigarette e-Cigarette/Vaping Use: Never Used Second Hand Smoke Exposure: No service: No Current occupational status: disabled Cognitive needs: No Hearing needs: No Vision needs: Yes Female Reproductive History Menstrual Age of Menarche: 16 Review of Systems Const All systems reviewed & are unremarkable except as noted in HPI and below Physical Exam Vital Signs: Last Vital Signs Pulse 80 04/30/25 14:22 BP 110/70 04/30/25 14:22 Pulse Ox 95 04/30/25 14:22 Oxygen Delivery Method Room Air 04/30/25 14:22 BMI result Body Mass Index 37.5 Const General: comfortable and no acute distress Orientation/consciousness: patient oriented x3 HEENT Head: Yes normocephalic Mouth: Normal oral and palatal mucosa present Eyes EOM: EOMs intact bilaterally Neck Neck: Yes supple Resp Auscultation: clear to auscultation bilaterally Cardio Jugular venous distension: no JVD Rate: regular rate GI Palpation (GI): Soft to palpation Auscultation: normal bowel sounds General: Yes no CVA tenderness Back/Spine/Pelvis Back: no CVA tenderness Skin General skin exam: no rashes or lesions noted Neuro General: patient oriented x3 and moves all extremities Extrem General: Yes no pedal edema Results Reviewed Nephrology Results: Hgb, (12.0-16.0) 12.9 g/dl Δ 03/21/25 WBC, (4.8-10.8) 5.9 X10*3/uL 03/21/25 Plt Count, (160-400) 303 X10*3/uL 03/21/25 Sodium, (135-145) 141 mmol/L 04/23/25 Potassium, (3.3-5.1) 4.1 mmol/L 04/23/25 Chloride, (96-108) 103 mmol/L 04/23/25 Carbon Dioxide, (22-29) 26 mmol/L 04/23/25 BUN, (9-16) 40 mg/dL H 04/23/25 Creatinine, (0.5-1.4) 1.77 mg/dL H 04/23/25 Calcium, (8.4-10.2) 9.9 mg/dL 03/21/25 Assessment & Plan Assessment & Plan (1) HTN (hypertension): Code(s): I10 - Essential (primary) hypertension Category: Medical Qualifiers: Hypertension type: primary hypertension Qualified Code(s): I10 - Essential (primary) hypertension (2) Diabetic nephropathy: Code(s): E11.21 - Type 2 diabetes mellitus with diabetic nephropathy Category: Medical Qualifiers: Diabetes mellitus type: type 2 Qualified Code(s): E11.21 - Type 2 diabetes mellitus with diabetic nephropathy (3) CKD stage 3a, GFR 45-59 ml/min: Code(s): N18.31 - Chronic kidney disease, stage 3a Category: Medical Plan Gi has stage III CKD. She has H/O significant proteinuria. She is on Plavix. I reduced her Lasix to 80 mg AM and 40 mg PM . She can continue Jardiance 25 mg daily, Isosrobide 90 mg daily.. She should avoid nonsteroidal anti-inflammatory medications. She needs to continue to lose weight. Her blood pressure is at goal at home. I did not make any other changes today. All her questions were answered. Follow-up for blood work were ordered and follow-up was given Orders: Orders Electrolytes 2 Months E11.21 - Type 2 diabetes mellitus with diabetic nephropathy, I10 - Essential (primary) hypertension, N18.31 - Chronic kidney disease, stage 3a Protein Creatinine Ratio, Ur 2 Months E11.21 - Type 2 diabetes mellitus with diabetic nephropathy, I10 - Essential (primary) hypertension, N18.31 - Chronic kidney disease, stage 3a Creatinine 2 Months E11.21 - Type 2 diabetes mellitus with diabetic nephropathy, I10 - Essential (primary) hypertension, N18.31 - Chronic kidney disease, stage 3a Blood Urea Nitrogen 2 Months E11.21 - Type 2 diabetes mellitus with diabetic nephropathy, I10 - Essential (primary) hypertension, N18.31 - Chronic kidney disease, stage 3a Coding Level of Care Code Est Pt Level 4 (10622) Diagnoses Primary hypertension I10 Hypertension type: primary hypertension Diabetic nephropathy associated with type 2 diabetes mellitus E11.21 Diabetes mellitus type: type 2 CKD stage 3a, GFR 45-59 ml/min N18.31
[2025-04-30 14:22] VITALS: BP 110/70; PULSE 80; O2SAT 95; BMI 37.5
--- OUTSIDE RECORDS SUMMARY | 2025-04-30 17:01 | XMS_ITS | Clinical Summary ---
Demographics Address [address] [facility] [place] [facility] [place] [address] Home Phone Mobile Phone Preferred Language Cape [place]de[place] Marital Status /Civil Union Restorationism Affiliation Unknown Race Other Race Ethnic Group or Author Organization [facility] Address [address] [place] [phone] Phone Care Team Providers Care Delivery Merchandiser Name Role Phone Pablo Mendoza Primary Care [...] Self [address] [place] [address] [facility] * Guarantor: Gi Hernandez Account Type Relation to Patient Date of Phone Billing Address Personal/Family Self [address] [place] [facility] * Guarantor: Gi Hernandez Account Type Relation to Patient Date of Phone Billing Address Personal/Family Self [address] [place] [facility] * Guarantor: Gi Hernandez Account Type Relation to Patient Date of Phone Billing Address Personal/Family Self [address] [place] [address] [facility] * Guarantor: Gi Hernandez Account Type Relation to Patient Date of Phone Billing Address Personal/Family Self [address] [facility] [place] [address] [facility] * Guarantor: HernandezGi vargas Account Type Relation to Patient Date of Phone Billing Address Personal/Family Self [address] [place] [address] [facility] Care Teams Delivery Merchandiser Relationship Specialty Start Date End Date Pablo Mendoza PA [address] [place] [address] PCP - General Physician Floor Trader 08/26/23 Additional Source Comments The information contained in this document represents components of the legal health record. It is not the complete legal health record.[facility]
--- OUTSIDE RECORDS SUMMARY | 2025-04-30 17:01 | XMS_ITS | Clinical Summary ---
Author Organization [address] [facility] Address [address] [place] [address] Phone Care Team Providers Care Pressure Steamer Tender Name Role Phone Pablo Mendoza Primary Care [...] mouth 1 (one) time each day. Active isosorbide mononitrate (IMDUR) 60 mg 24 hr tablet Take 90 mg by mouth 1 (one) time each day. Do not crush or chew. Active evolocumab (Repatha SureClick) 140 mg/mL pen injector injectionIndicati ons:Hyperlipidemi a, unspecified hyperlipidemia type 1 ML subcutaneously every 14 days 6 mL 1 04/29/20 25 Active evolocumab (Repatha Syringe) 140 mg/mL syringe Inject 140 mg into the skin every 14 days. 2 mL 5 03/20/20 25 025 Disconti nued(Alt ernate therapy) Active Problems Problem Noted Date Diagnosed Date [...] myocardi al infarction) ([facility] V24, [facility] V28) 10/04/2023 Dizziness 04/01/2023 CHF (congestive heart failure) ([facility] V24, [facility] /[facility] V28) 04/01/2023 Hypotension 01/25/2023 History of [place] (myocardial infarction) 01/25/2023 Chronic diastolic heart failure ([facility] V24, CM S/[facility] V28) 01/25/2023 Overview (07/31/2024): Last Assessment [...] distention. NSTEMI (non-ST elevated myoc ardial infarction) ([facility] V24, [facility] V28) 03/18/2022 Chest pain 03/18/2022 Diabetes ([facility] V24, [facility] V28) 04/13/2021 Essential hypertension 04/13/2021 Overview [...] CABGx4 at the age of 46 in [place], details not known Preserved LVEF Apical aneurysm, confirmed by cMRI at [facility] 02/2021 No ischemia on rega MIBI 02/2021 at [facility] Last Assessment & [...] Encounters Date Type Department Care Team Description 04/29/2025 Telephone [facility] Cardiology [facility] - [address] [place] [address] Jv Regalado MD 03/21/2025 12:40 PM EDT Consult [facility] Cardiology [facility] - [address] [place] [address] Anay Gerber NP Chronic diastolic heart failure (CMS/[facility] V24, [facility] V28) (Primary Dx); Coronary artery disease due to lipid rich plaque; Other hyperlipidemia; Preoperative cardiovascular examination 03/11/2025 Telephone [facility] - [address] [place] [address] Jv Regalado MD from Last 3 Months Immunizations Immunization Administration Dates Next Due Moderna SARS-CoV-2 COVID-19, mRNA, LNP-S, preservative free 02/26/2021 Surgical History Surgery Date Site/Laterality Comments CORONARY ARTERY BYPASS GRAFT PROCEDURE: HISTORICAL CABG; COMMENT: x4 PARTIAL HYSTERECTOMY PROCEDURE: [place] SUPRACERVICAL ABDL HYSTER W/WO RMVL TUBE OVARY [...] Diabetes: Annual Urine Albumin-Creatinine Ratio (uACR) 07/01/2022 RSV Immunization Adult Patients (1 - Risk 50-74 years 1-dose series) 2022 Depression Screening 07/18/2024 Diabetes: Blood Sugar Control [...] diastolic heart failure (CMS/HCC V24, CMS/HCC V28) HM ANNUAL BMP BLOOD TEST Routine 02/28/2024 HEPATITIS C SCREENING Routine 02/26/2024 HEMOGLOBIN A1C Routine 10/13/2023 LIPID PANEL Routine 10/13/2023 from Last 3 Months or Most Recently Relevant to Health Maintenance Results * ECG 12 lead (03/21/2025 3:45 PM EDT) [facility] Ventricular Rate ECG 75 BPM GEMUSE Atrial Rate 75 BPM GEMUSE P-R Interval 150 ms GEMUSE QRS Duration 62 ms GEMUSE Q-T Interval 402 ms GEMUSE QTc 448 ms GEMUSE P Wave [place] 15 degrees GEMUSE R [place] -48 degrees GEMUSE T [place] 86 degrees GEMUSE ECG Interpretation Normal sinus [...] GEMUSE * Annual BMP Blood Test (02/28/2024) [facility] Annual BMP Blood Test abstracted Historical Provider HEALTH MAINTENANCE Final Result * Hepatitis C Screening (02/26/2024) [facility] Hepatitis C Screening abstracted Historical Provider HEALTH MAINTENANCE Final Result * (ABNORMAL) Hemoglobin A1c (10/13/2023) [facility] Hemoglobin A1C 8.1(A) 4.0 - 5.6 % [...] Health Maintenance Insurance HEALTH PLAN Care Teams Pressure Steamer Tender Relationship Specialty Start Date End Date Pablo Mendoza PA [address] [place] [phone] PCP - General Internal Medicine 05/11/21
--- OUTSIDE RECORDS SUMMARY | 2025-04-30 17:01 | XMS_ITS | Encounter Summary ---
Author Organization [facility] Address [address] [place] [address] Care Team Providers Care Veterinarian Helper Name Role Phone Pablo Mendoza Primary Care Provider Reason for Visit * Reason Onset Date Comments Med Refill 04/29/2025 Encounter Details Date Type Department Care Team (Late st Contact Info) Description 04/29/2025 Telephone [facility] Cardiology [facility] [address] [place] [id number] Jv Regalado MD [address] [place] [address] Social History Tobacco Use Types Packs/Day Years [...] as of this encounter Progress Notes * Dawna Russell MA - 04/29/2025 1:58 PM EDT See 04/25 TC awaiting for med clarification * Kalie Kay - 04/29/2025 11:43 AM EDT Spoke with pharmacy, there is a back order on Raptha. New prescription needed for the pen as well as a new prior auth for the pens. Best call back number is [phone]. documented in this encounter Plan of Treatment Not on file documented as of this encounter Visit Diagnoses Not on filedocumented in this encounter Care Teams Veterinarian Helper Relationship Specialty Start Date End Date Pablo Mendoza PA [address] [place] [address] PCP - General Internal Medicine 05/11/21 documented as of this encounter
== END 2025-04-30 14:46 | disposition home or self-care (01) ==
LOC: HO.HKAS 14:02
PROVIDERS: PCP Physician Assistant; Visit Provider Internal Medicine Nephrology
DX: I10 Essential (primary) hypertension (principal); E11.21 Type 2 diabetes mellitus with diabetic nephropathy; N18.31 Chronic kidney disease, stage 3a
CPT/HCPCS: 99214

== ENCOUNTER → 2025-04-30 14:01 | Outpatient (BNVA) | payer OTHER, SELFPAY | PROVIDERS: PCP Physician Assistant; Visit Provider Internal Medicine Nephrology | DX: E11.21 Type 2 diabetes mellitus with diabetic nephropathy (principal); I10 Essential (primary) hypertension; N18.31 Chronic kidney disease, stage 3a | CPT/HCPCS: 99212 ==

== ENCOUNTER 2025-05-16 13:16 | Outpatient (AMB) | payer OTHER, SELFPAY ==
--- NOTE | 2025-05-16 13:23 | A.OFFVIS_ITS ---
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: No Allergies tramadol (TRAMADOL) Allergy (Intermediate, Verified 05/16/25 13:28) VOMITING adhesive tape Adverse Reaction (Intermediate, Verified 05/16/25 13:28) tears skin lisinopril Adverse Reaction (Mild, Verified 05/16/25 13:28) Cough Medication List - Last Reconciled 05/16/25 by Isabela Maddox LPN [adult pull up T4528 #120 units per 30 days] albuterol sulfate 90 mcg/actuation (Ventolin HFA) 2 puffs inhalation QID 30 days amlodipine 5 mg PO DAILY blood pressure test kit-large As directed blood sugar diagnostic (FreeStyle Lite Strips) As directed carvedilol 25 mg PO BID cetirizine 10 mg PO DAILY cholecalciferol (vitamin D3) (Vitamin D3) 50 mcg PO DAILY clopidogrel 75 mg PO DAILY empagliflozin 25 mg PO DAILY escitalopram oxalate 20 mg PO DAILY 90 days evolocumab (Repatha Syringe) 140 mg subcut Q2W flash glucose sensor (FreeStyle Aida 2 Sensor kit) As directed fluticasone propionate 50 mcg/actuation 1 spray intranasal BID furosemide 80 mg (2 x 40 mg) PO BID gabapentin 600 mg (2 x 300 mg) PO TID 90 days insulin glargine-yfgn 22 units subcut BEDTIME insulin lispro (Humalog KwikPen (U-100) Insulin) 15 sliding scale doses subcut TID isosorbide mononitrate ER 90 mg (1.5 x 60 mg) PO DAILY 30 days multivit with min-folic acid 200 mcg (Multivitamin Gummies) 2 tabs PO DAILY pantoprazole 40 mg PO DAILY semaglutide 1 mg subcut QWEEK walker As directed Is last menstrual period known: No Post menopausal: No Patient : No HPI 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 Complaining of hot flash Last Pap/HPV was many years ago within normal, the patient is status post hysterectomy for AUB 7 years ago, no history of abnormal Pap smears Last Mammogram was BI-RADS 1 in 11/09 Last Colonoscopy was more than 6 years ago, the patient is in the process of scheduling her next screening colonoscopy [facility] Medical History Menopause Carpal tunnel syndrome of left wrist CKD (chronic kidney disease) CHF (congestive heart failure) Hospital discharge follow-up Anemia CKD stage 3 secondary to diabetes Carpal tunnel syndrome of right wrist GERD (gastroesophageal reflux disease) Elevated cholesterol Asthma Type 2 diabetes Chronic renal insufficiency Myocardial infarction CAD (coronary artery disease) HTN (hypertension) Depression Surgical History S/P cubital tunnel release (~04/01/25) Status post carpal tunnel release (~04/01/25) Hx of heart artery stent Hx of section History of cardiac catheterization H/O: hysterectomy H/O bladder repair surgery Hx of CABG Family History (Updated 05/16/25 @ 13:33 by Isabela Maddox LPN) Mother Cervical cancer Hypertension Blindness Kidney failure Sister Cervical cancer Hypertension Hypoglycemia Brother ESRD (end stage renal disease) Hypertension Father DMII (diabetes mellitus, type 2) Son Asthma Daughter No problems noted. Daughter No problems noted. Daughter No problems noted. Daughter No problems noted. Maternal Aunt Ovarian cancer Maternal Uncle Heart attack Social History Household Members: Significant Other Housing: Apartment Are you a primary critical care physician to a significant other at home: No Do you presently have visiting nurse or other home services: No Alcohol intake: never Patient Tobacco Use Status: Never used Tobacco Tobacco use type: Cigarette e-Cigarette/Vaping Use: Never Used Second Hand Smoke Exposure: No Patient : No service: No Current occupational status: disabled Cognitive needs: No Hearing needs: No Vision needs: Yes Female Reproductive History Menstrual Age of Menarche: 16 Date of Mammogram: 10/26/24 History of abnormal mammogram: No Review of Systems Const All systems reviewed & are unremarkable except as noted in HPI and below Card Reports as per HPI and Reports no additional complaints Resp Reports as per HPI and Reports no additional complaints GI Reports as per HPI and Reports no additional complaints Reports as per HPI Physical Exam Vital Signs: Last Vital Signs BP 130/72 05/16/25 13:25 BMI result Body Mass Index 36.7 Const General: cooperative, healthy appearing and comfortable General: Yes bladder normal to palpation External Female Exam: No lesion Speculum Exam - Vagina: normal appearance of the vagina, normal vaginal discharge and not erythematous Speculum Exam - Cervix: Cervix absent Bimanual exam- vagina & uterus: bladder normal to palpation and uterus absent Bimanual Exam- Adnexa, other: Other (No masses detected) Assessment & Plan Assessment & Plan (1) Well woman exam: Code(s): Z01.419 - Encounter for gynecological examination (general) (routine) without abnormal findings Category: Medical Plan: Co testing but indicated. Counseled the patient about the recommended dietary allowance of 1200 mg of Calcium & 600 IU of vitamin D. Instructions given the patient to schedule next screening Mammogram in 11/10 The patient was referred to GI for screening colonoscopy . The patient was instructed to perform monthly self-breast exams and schedule annual exam in a year. All questions answered and the patient verbalized understanding. (2) Hot flashes: Code(s): R23.2 - Flushing Category: Medical Plan: Discussed with the patient options of treatment for hot flashes hormonal versus nonhormonal. Given her history of coronary artery disease, hormonal present therapy are contraindicated in her condition therefore next best option would be nonhormonal options including the following 1st line of treatment options: SSRI/SNRIs including venlafaxine desvenlafaxine, paroxetine and Citalopram since the patient is a Citalopram for anxiety depression and is still havingHot flashes Recommend switching to any of the above for to medication metabolized in the liver given the patient is chronic kidney disease stage 3 to treat her anxiety depression and hot flash. The patient has an appointment with her PCP in few weeks, recommend picking from any of the other options All questions answered, the patient verbalized understanding Coding Level of Care Code Est Pt Prev Care 40-64y(15472) Diagnoses Well woman exam Z01.419 Hot flashes R23.2
[2025-05-16 13:25] VITALS: BP 130/72; BMI 36.7
--- OUTSIDE RECORDS SUMMARY | 2025-05-16 16:11 | XMS_ITS | Clinical Summary ---
Demographics Address [address] [place] [address] Home Phone Mobile Phone Preferred Language Hong Konger Marital Status /Civil Union Evangelical Affiliation Unknown Race Other Race Ethnic Group or Author Organization [facility] Address [address] [place] [phone] Phone Care Team Providers Care Pipe Fitter Name Role Phone Pablo Mendoza Primary Care [...] Self [address] [place] [address] [facility] * Guarantor: Gi Hernandez Account Type Relation to Patient Date of Phone Billing Address Personal/Family Self [address] [place] [facility] * Guarantor: Gi Hernandez Account Type Relation to Patient Date of Phone Billing Address Personal/Family Self [address] [place] [facility] * Guarantor: Gi Hernandez Account Type Relation to Patient Date of Phone Billing Address Personal/Family Self [address] [place] [address] [facility] * Guarantor: Gi Hernandez Account Type Relation to Patient Date of Phone Billing Address Personal/Family Self [address] [facility] [place] [address] [facility] * Guarantor: HernandezGi vargas Account Type Relation to Patient Date of Phone Billing Address Personal/Family Self [address] [place] [address] [facility] Care Teams Pipe Fitter Relationship Specialty Start Date End Date Pablo Mendoza PA [address] [place] [address] PCP - General Physician It Infrastructure Architect 08/26/23 Additional Source Comments The information contained in this document represents components of the legal health record. It is not the complete legal health record.[facility]
== END 2025-05-16 14:16 | disposition home or self-care (01) ==
LOC: HO.HWS 13:16
PROVIDERS: PCP Physician Assistant; Visit Provider Obstetrics & Gynecology
DX: Z01.419 Encounter for gynecological examination (general) (routine) without abnormal findings (principal); R23.2 Flushing
CPT/HCPCS: 99396; 99459

== ENCOUNTER → 2025-05-16 13:16 | Outpatient (BNVA) | payer OTHER, SELFPAY | PROVIDERS: PCP Physician Assistant; Visit Provider Obstetrics & Gynecology | DX: Z01.419 Encounter for gynecological examination (general) (routine) without abnormal findings (principal); R23.2 Flushing | CPT/HCPCS: 99396 ==

== ENCOUNTER 2025-05-23 13:55 | Outpatient (AMB) | payer OTHER, SELFPAY ==
[2025-05-23 13:59] VITALS: BP 110/74; PULSE 88; TEMP 36.2; O2SAT 96; BMI 35.7
--- NOTE | 2025-05-23 13:59 | A.OFFPC_ITS ---
Vital Signs 3 05/23/25 13:59 Height 5 ft 4 in Weight 208 lb BMI 35.7 BP 110/74 Blood Pressure Location Lt brachial Position Sitting Pulse 88 Pulse Source Pulse Oximeter Temp 97.1 F Temp Source Temporal Artery Scan Pulse Oximetry (%) 96 Oxygen Delivery Method Room Air Intake Visit Reasons: f/u DMII/ HTN/ CAD Allergies tramadol (TRAMADOL) Allergy (Intermediate, Verified 05/23/25 14:07) VOMITING adhesive tape Adverse Reaction (Intermediate, Verified 05/23/25 14:07) tears skin lisinopril Adverse Reaction (Mild, Verified 05/23/25 14:07) Cough Medication List - Last Reconciled 05/23/25 by Pablo Mendoza PA-C [adult pull up T4528 #120 units per 30 days] albuterol sulfate 90 mcg/actuation (Ventolin HFA) 2 puffs inhalation QID 30 days amlodipine 5 mg PO DAILY blood pressure test kit-large As directed blood sugar diagnostic (FreeStyle Lite Strips) As directed carvedilol 25 mg PO BID cetirizine 10 mg PO DAILY cholecalciferol (vitamin D3) (Vitamin D3) 50 mcg PO DAILY clopidogrel 75 mg PO DAILY empagliflozin 25 mg PO DAILY escitalopram oxalate 20 mg PO DAILY 90 days evolocumab (Repatha Syringe) 140 mg subcut Q2W flash glucose sensor (FreeStyle Aida 2 Sensor kit) As directed fluticasone propionate 50 mcg/actuation 1 spray intranasal BID furosemide 80 mg (2 x 40 mg) PO BID gabapentin 600 mg (2 x 300 mg) PO TID 90 days insulin glargine-yfgn 22 units subcut BEDTIME insulin lispro (Humalog KwikPen (U-100) Insulin) 15 sliding scale doses subcut TID isosorbide mononitrate ER 90 mg (1.5 x 60 mg) PO DAILY 30 days multivit with min-folic acid 200 mcg (Multivitamin Gummies) 2 tabs PO DAILY pantoprazole 40 mg PO DAILY semaglutide 1 mg subcut QWEEK walker As directed Tobacco use date assessed: 05/23/25 Dental Screening Dental Screen Date: 05/23/25 Did you have a dental visit in the last 12 months?: No Did you have a dental problem in the last 6 months where you did not have access to dental care?: No Was dental information given to patient?: Patient has dentist HPI f/u DMII/ HTN/ CAD 2 HPI0 Details Patient is a 54-year-old female here today FOR FOLLOW-UP VISIT Patient is due for left cubital tunnel surgery She has a past medical history significant for type 2 diabetes, obesity, hypertension hyperlipidemia, CAD ( status post quadruple bypass), congestive heart failure, GERD, depression. Concern--> patient reports 2 months ago falling injuring her wrist and was seen at a urgent care and gotten x-rays over right wrist without any fracture. Since the fall she continues with local anterior swelling over the anterior aspect of her right wrist . Vasomotor symptoms of menopause: The patient reports significant menopausal symptoms, including hot flashes and mood swings, which are impacting her quality of life. She is considering non- hormonal options due to the increased risk of blood clots associated with her coronary artery disease. Patient interested in switching her SSRI therapy to paroxetine to try to cover vasomotor symptoms of menopause .. Major depressive disorder: Patient does admit to increased depression has a late. The patient reports significant stress following the recent of her 58-year-old uncle, with whom she lived. Her uncle, who had COPD and emphysema, from complications after his nasal cannula ignited while he was smoking, resulting in severe borjas. She is interested in a mental therapist .. DMII: Patient has lost weight since last office visit. Is seeing an car sales associate at [facility] and was managing her diabetes with insulin pump. . She continues to follow [facility] Endocrinology. .. Urinary incontinence: The patient experiences stress urinary incontinence, which she attributes to a previous bladder surgery involving mesh placement. She is currently using adult briefs. Pelvic floor therapy has been discussed as a potential intervention. .. CKD stage- as above patient did have acute renal failure due to contrast dye and needed emergent dialysis while in the hospital.. stage 3- See Dr Soto workers compensation analyst, has been avoiding nephrotoxins, most recent creatinine at 1.7 .. CAD/ CHF:? Has had a CABG x4..? Patient followed by Cardiology. .? Patient's LDL optimally controlled. Continues on high-dose statin therapy and praulent injections. Patient data recent echocardiogram that showed appropriate EF though does have moderate LVH ? Is seeing a application coordinator at [facility]? ( Dr. Eisenberg) Goal LDL to be optimally below 70. PFSH Medical History Menopause Carpal tunnel syndrome of left wrist CKD (chronic kidney disease) CHF (congestive heart failure) Hospital discharge follow-up Anemia CKD stage 3 secondary to diabetes Carpal tunnel syndrome of right wrist GERD (gastroesophageal reflux disease) Elevated cholesterol Asthma Type 2 diabetes Chronic renal insufficiency Myocardial infarction CAD (coronary artery disease) HTN (hypertension) Depression Surgical History S/P cubital tunnel release (~04/01/25) Status post carpal tunnel release (~04/01/25) Hx of heart artery stent Hx of section History of cardiac catheterization H/O: hysterectomy H/O bladder repair surgery Hx of CABG Family History Mother Cervical cancer Hypertension Blindness Kidney failure Sister Cervical cancer Hypertension Hypoglycemia Brother ESRD (end stage renal disease) Hypertension Father DMII (diabetes mellitus, type 2) Son Asthma Daughter No problems noted. Daughter No problems noted. Daughter No problems noted. Daughter No problems noted. Maternal Aunt Ovarian cancer Maternal Uncle Heart attack Social History Household Members: Significant Other Housing: Apartment Are you a primary care manager to a significant other at home: No Do you presently have visiting nurse or other home services: No Alcohol intake: never Patient Tobacco Use Status: Never used Tobacco Tobacco use type: Cigarette e-Cigarette/Vaping Use: Never Used Second Hand Smoke Exposure: No service: No Current occupational status: disabled Cognitive needs: No Hearing needs: No Vision needs: Yes Female Reproductive History Menstrual Age of Menarche: 16 Questionnaire PHQ-9 Over the last 2 weeks, how often have you been bothered by any of the following problems? 1. Little interest or pleasure in doing things: not at all 2. Feeling down, depressed, or hopeless: not at all 3. Trouble falling or staying asleep, or sleeping too much: not at all 4. Feeling tired or having little energy: not at all 5. Poor appetite or overeating: not at all 6. Feeling bad about yourself - or that you are a failure or have let yourself or your family down: not at all 7. Trouble concentrating on things, such as reading the newspaper or watching television: not at all 8. Moving or speaking so slowly that other people could have noticed. Or the opposite - being so fidgety or restless that you have been moving around a lot more than usual: not at all 9. Thoughts that you would be better off or of hurting yourself in some way: not at all Total score: 0 Depression Screening Interpretation: Negative Depression Screening Done: Yes Source: Developed by Drs. George Rivas, Shira Lawrence, Duong Pina and colleagues, with an educational misha from [employer]. Thrive Questionnaire Date Thrive assessed: 10/16/24 I am a: Patient What is your living situation today?: I have a steady place to live Within the past 12 months, did the food you bought not last and you didn't have the money to get more?: Often true Within the past 12 months, did you worry whether your food would run out before you got money to buy more?: Often true Do you have trouble paying for medicines?: Yes Do you have trouble getting transportation to medical appointments?: Yes Do you have trouble paying your heating and electricity bill?: Yes Do you have trouble taking care of your child, family member or friend?: Yes Do you have trouble with day-to-day activities such as bathing, preparing meals, shopping, managing finances, etc.?: No Are you currently unemployed and looking for a job?: No Are you interested in more education?: Yes Currently or been in a relationship where the following occur: No concerns reported THRIVE Score: 4 AUDIT C Alcohol Use Questionnaire (AUDIT-C) 1. How often do you have a drink containing alcohol?: Never 3. How often do you have six or more drinks on one occasion?: Never Total Score: 0 MOUNA-7 AMB Questionnaire MOUNA-7 Date MOUNA - 7 assessed: 03/19/25 Feeling nervous, anxious, or on edge: 1 = Several days Not being able to stop or control worryin = Nearly every day Worrying too much about different things: 3 = Nearly every day Trouble relaxin = Not at all Being so restless that it is hard to sit still: 0 = Not at all Becoming easily annoyed or irritable: 0 = Not at all Feeling afraid as if something awful might happen: 0 = Not at all Total MOUNA-7 score (0-4 normal; 5-9 mild; 10-14 moderate; 15-21 severe): 7 Source: Developed by Drs. George Rivas, Shira Lawrecne, Duong Pina and colleagues, with an educational misha from [employer]. Review of Systems Const Denies headache(s) Eyes Denies loss of vision ENT Denies vertigo, Denies dizziness, Denies headache(s) and Denies sore throat Card Denies chest pain, Denies leg edema and Denies lightheadedness Resp Denies cough, Denies hemoptysis and Denies wheezing GI Denies abdominal pain, Denies melena, Denies constipation, Denies diarrhea and Denies vomiting Denies urinary frequency, Denies dysuria and Denies urinary urgency Musc Denies arthralgias, Denies joint swelling, Denies numbness and Denies tingling Neuro Denies Abnormal speech present, Denies behavioral changes, Denies vertigo, Denies dizziness, Denies headache(s), Denies loss of vision, Denies memory loss, Denies numbness and Denies tingling Psych Denies anxiety, Denies behavioral changes, Denies depression, Denies memory loss and Denies panic attacks Jose/Lymph Denies easy bleeding and Denies easy bruising Aller/Immun Denies wheezing Physical exam (Primary Care) Vital Signs: Last Vital Signs Temp 97.1 F 05/23/25 13:59 Pulse 88 05/23/25 13:59 BP 110/74 05/23/25 13:59 Pulse Ox 96 05/23/25 13:59 Oxygen Delivery Method Room Air 05/23/25 13:59 BMI result Body Mass Index 35.7 BMI Assessment/Plan discussion: High BMI High, discussed plan: lifestyle, weight reduction, dietary and physical activity Tobacco/Smoking Status: Tobacco use Status Tobacco use date assessed 05/23/25 05/23/25 14:02 Patient Tobacco Use Status Never used Tobacco 05/23/25 14:02 Tobacco use type Cigarette 05/23/25 14:02 e-Cigarette/Vaping Use Never Used 05/23/25 14:02 PHQ-9: PHQ-9 Score PHQ-9: Total score 0 05/23/25 14:07 Depression Screening Interpretation: Negative Thrive Assessment: Date of Thrive Assessment Date Thrive assessed 10/16/24 05/23/25 14:02 Currently or been in a relationship where the following occur: No concerns reported Const General: healthy appearing, no acute distress, alert and awake Nutritional Appearance: well nourished Orientation/consciousness: oriented to person, oriented to place and oriented to time HENMT Ears: TM's normal bilaterally General nose exam: Normal nasal mucous membranes and turbinates present Eyes Conjunctivae: conjunctivae normal Sclerae: sclerae normal Pupils: Equal, round and reactive pupils present Neck Neck: Yes no lymphadenopathy and Yes no JVD Thyroid: Thyroid normal Carotids: no bruits Resp Effort & Inspection: normal respiratory effort and not tachypneic Auscultation: no crackles, no rales, no rhonchi and no wheezes Cardio Rate: regular rate Rhythm: regular rhythm Heart sounds: no murmurs and normal S1 and S2 GI Palpation (GI): Soft to palpation, nontender, no hepatomegaly and no splenomegaly Auscultation: normal bowel sounds Skin General skin exam: no rashes or lesions noted and dry skin Neuro General: oriented to person, oriented to place and oriented to time Cranial nerves: Yes Equal, round and reactive pupils present Speech: No Abnormal speech present Gait exam (Neuro): Normal gait present Motor exam (neuro): no tremor noted Extrem Right upper extremity: full ROM Left upper extremity: full ROM Elbow/forearm/wrist images: 2 1. Localized swelling in the area outlined. Right lower extremity: full ROM; no edema Left lower extremity: full ROM; no edema Psych Mental Status: mental status grossly normal Speech and movement: Normal speech and movement present Affect: normal affect Attitude: cooperative Thought process: Normal thought process present Office Procedures Flu Questionnaire Does the patient have a severe egg allergy?: No Does the patient have severe life threatening allergies?: No Does the patient have a fever or illness today?: No Has the patient ever had Guillain-Corona Syndrome?: No Has the patient ever had any past reaction to a flu shot?: No Immunizations Fluarix [id number] (PF) 45 mcg (15 mcg x 3)/0.5 mL IM syringe Performing Provider: Pablo Mendoza PA-C Performing Location: [facility] [place] [facility] Administered by: Zainab Hernandez CMA on 05/23/25 14:08 2 Dose Route Admin Location Dispensed Lot Number Expiration Date NDC Community Living Coach 0.5 mL IM Left Deltoid 0.5 mL [id number] 01/14/26 54490-003-24 [employer] 2 VIS Given Date VIS Provided VIS Publication Date 05/23/25 Single Vaccine 24 Eligibility Eligibility Date Funding Source Not [facility] Eligible 05/23/25 Private Coding Level of Care Code Est Pt Level 4 (90757) Diagnoses Type 2 diabetes mellitus with stage 3a chronic kidney disease, with long-term current use of insulin E11.22; N18.31; Z79.4 Diabetes mellitus manager terminal insulin use: with mcc use Diabetes mellitus complication status: with kidney complications Diabetes mellitus complication detail: with chronic kidney disease Chronic kidney disease stage: stage 3 (moderate) Chronic kidney disease stage 3 subtype: stage 3a (GFR 45-59) MDD (major depressive disorder), recurrent episode, moderate F33.1 Chronic diastolic congestive heart failure I50.32 Heart failure type: diastolic Heart failure chronicity: chronic Stage 3b chronic kidney disease N18.32 Chronic kidney disease stage: stage 3 (moderate) Chronic kidney disease stage 3 subtype: stage 3b (GFR 30-44) Primary hypertension I10 Hypertension type: primary hypertension Coronary artery disease involving coronary bypass graft of [place] heart without angina pectoris I25.810 Coronary Disease-Associated Artery/Lesion type: bypass graft [place] vs. transplanted heart: [place] heart Associated angina: without angina Menopause Z78.0 Traumatic hematoma of right forearm, initial encounter S50.11XA Encounter type: initial encounter Assessment & Plan Assessment & Plan (1) DMII (diabetes mellitus, type 2): Code(s): E11.9 - Type 2 diabetes mellitus without complications Category: Medical Qualifiers: Diabetes mellitus manager terminal insulin use: with manager terminal use Diabetes mellitus complication status: with kidney complications Diabetes mellitus complication detail: with chronic kidney disease Chronic kidney disease stage: stage 3 (moderate) Chronic kidney disease stage 3 subtype: stage 3a (GFR 45-59) Qualified Code(s): E11.22 - Type 2 diabetes mellitus with diabetic chronic kidney disease; N18.31 - Chronic kidney disease, stage 3a; Z79.4 - shelter (current) use of insulin Plan: Patient followed by endocrinology started insulin pump and has better glycemic control. Her type 2 diabetes is suboptimally controlled. Most recent A1c is 7.6. Continues on an insulin pump in managed by [facility] endocrinology Goal A1c is to be below 7.0 (2) MDD (major depressive disorder), recurrent episode, moderate: Code(s): F33.1 - Major depressive disorder, recurrent, moderate Category: Medical Plan: Due to significant stress and grief from recent traumatic events, a referral will be made to a mental health therapist. Again will try to switch escitalopram to paroxetine to cover both depression and vasomotor symptoms of menopause (3) CHF (congestive heart failure): Code(s): I50.9 - Heart failure, unspecified Category: Medical Qualifiers: Heart failure type: diastolic Heart failure chronicity: chronic Q ualified Code(s): I50.32 - Chronic diastolic (congestive) heart failure Plan: Patient currently on furosemide 80 mg b.i.d. appears to be nearly euvolemic. In the past her dry weight was around 200-205lbs. She will continue to follow her application coordinator. (4) CKD (chronic kidney disease): Code(s): N18.9 - Chronic kidney disease, unspecified Category: Medical Qualifiers: Chronic kidney disease stage: stage 3 (moderate) Chronic kidney disease stage 3 subtype: stage 3b (GFR 30-44) Qualified Code(s): N18.32 - Chronic kidney disease, stage 3b Plan: Most recent renal function showed a creatinine at 1.7. Continues to follow Nephrology. (5) HTN (hypertension): Code(s): I10 - Essential (primary) hypertension Category: Medical Qualifiers: Hypertension type: primary hypertension Qualified Code(s): I10 - Essential (primary) hypertension Plan: Patient's blood pressure acceptable today in office. Was recently started on losartan 25 during her recent hospitalization. Goal blood pressure to remain below 140/90 (6) CAD (coronary artery disease): Comment: CABG 2017 with CHICAS to LAD, SVG to RPDA, SVG to RPL and SVG to OM Code(s): I25.10 - Atherosclerotic heart disease of [place] coronary artery without angina pectoris Category: Medical Qualifiers: Coronary Disease-Associated Artery/Lesion type: bypass graft [place] vs. transplanted heart: [place] heart Associated angina: without angina Qualified Code(s): I25.810 - Atherosclerosis of coronary artery bypass graft(s) without angina pectoris Plan: Continues to follow cardiology at [facility]. Goal LDL to remain optimally below 70 (7) Menopause: Code(s): Z78.0 - Asymptomatic menopausal state Category: Medical Plan: For management of menopausal hot flashes and anxiety, the patient will discontinue escitalopram and start paroxetine 10 mg. Venlafaxine was considered but avoided due to the potential to increase blood pressure. (8) Traumatic hematoma of right forearm: Code(s): S50.11XA - Contusion of right forearm, initial encounter Category: Medical Qualifiers: Encounter type: initial encounter Qualified Code(s): S50.11XA - Contusion of right forearm, initial encounter Plan: Regarding the persistent forearm pain and swelling, an ultrasound will be ordered to evaluate for a possible hematoma. If a hematoma is present, it may be possible for a surgeon to evacuate it. Use of a compression sleeve was also suggested to reduce inflammation and edema. Other options discussed included physical therapy or an orthopedic consultation for a possible cortisone injection. Orders: Orders 2 US Extremity Nonvas Limited RT Today S50.11XA - Contusion of right forearm, initial encounter Influenza [id number] Immunization Today Z23 - Encounter for immunization Referrals 2 Counseling Referral F33.1 - Major depressive disorder, recurrent, moderate Medications: New 2 paroxetine HCl 10 mg PO DAILY 30 tabs 3RF 30 days R23.2 - [place] On Hold 2 escitalopram oxalate Hold Comment: Doctor's Order 20 mg PO DAILY 90 tabs 1RF 90 days F32.A - Depression, unspecified
--- OUTSIDE RECORDS SUMMARY | 2025-05-23 16:58 | XMS_ITS | Clinical Summary ---
Demographics Address [address] [place] [address] Home Phone Mobile Phone Preferred Language Macanese Marital Status /Civil Union Holiness Affiliation Unknown Race Other Race Ethnic Group or Author Organization [facility] Address [address] [place] [phone] Phone Care Team Providers Care Wood Stainer Name Role Phone Pablo Mendoza Primary Care [...] Self [address] [place] [address] [facility] * Guarantor: Gi Hernandez Account Type Relation to Patient Date of Phone Billing Address Personal/Family Self [address] [place] [facility] * Guarantor: Gi Hernandez Account Type Relation to Patient Date of Phone Billing Address Personal/Family Self [address] [place] [facility] * Guarantor: Gi Hernandez Account Type Relation to Patient Date of Phone Billing Address Personal/Family Self [address] [place] [address] [facility] * Guarantor: Gi Hernandez Account Type Relation to Patient Date of Phone Billing Address Personal/Family Self [address] [facility] [place] [facility] [place] [id number] [facility] * Guarantor: HernandezGi vargas Account Type Relation to Patient Date of Phone Billing Address Personal/Family Self [address] [place] [address] [facility] Care Teams Wood Stainer Relationship Specialty Start Date End Date Pablo Mendoza PA [address] [place] [address] PCP - General Physician Freight Sales Broker 08/26/23 Additional Source Comments The information contained in this document represents components of the legal health record. It is not the complete legal health record.[facility]
--- OUTSIDE RECORDS SUMMARY | 2025-05-23 16:58 | XMS_ITS | Encounter Summary ---
Author Organization [facility] Address [address] [place] [address] Care Team Providers Care Reception Specialist Name Role Phone Pablo Mendoza Primary Care Provider [phone] Reason for Visit * Reason Onset Date Comments Rapatha 05/17/2025 Encounter Details Date Type Department Care Team (Late st Contact Info) Description 05/17/2025 Telephone [facility] - [facility] [address] [facility] [address] [place] [address] Jv Regalado MD [address] [place] [address] [place] [phone] Social History Tobacco Use Types Packs/Day Years [...] on file documented as of this encounter Ordered Prescriptions Prescription Sig Dispense Quantity Refills Last Filled Start Date End Date atorvastatin (LIPITOR) 80 mg tablet Take 1 tablet (80 mg total) by mouth 1 (one) time each day. 90 tablet 1 05/20/2025 documented in this encounter Progress Notes * Sharon Table - 05/23/2025 9:42 AM EST Emeka from [facility] called and stated that he would like an update about the Repatha. Emeka would like a call back at [phone]. * Meri Wayne - 05/23/2025 7:20 AM EST Unfortunately a telephone encounter is not legal documentation for the insurance company. Would yoube able to put this into a letter. Thank You * Anay Gerber NP - 05/22/2025 12:39 PM EST Images from the original note were not included. This is in the thread already. * Meri Wayne - 05/22/2025 8:17 AM EST Images from the original note were not included. Repatha SureClick 140MG/ML auto-injectors - DENIED Medication was denied as pt's LDL increased. Would you be able to write a letter stating the patient has been off her medication which is why her LDL increased, but when she's on the medication it lowers. Patients most recent lipid panel was submitted with this PA Request. * Meri Wayne - 05/21/2025 9:11 AM EST Images from the original note were not included. Repatha SureClick 140MG/ML auto-injectors - PA Submitted * Anay Gerber NP - 05/20/2025 10:28 AM EST Can you please send this over to our PA department so they can put this through to try and get her PA done . her LDL is now 171 since being off of the Repatha. When the patient was on Repatha her LDLwas much better controlled. In the setting of coronary artery disease her goal LDL should be less than 70. * Sulema Dumas RN - 05/20/2025 9:17 AM ESTAddended by: SULEMA DUMAS on: 05/20/2025 09:17 AM Modules accepted: Orders * Sulema Dumas RN - 05/20/2025 9:04 AM EST Scanned in recent lipid panel from [facility]. Numbers elevated from previous. Called pt this AM. States she fasted for the lipid panel. Did state because of the Atorvastatin recall that she has not been taking the Atorvastatin for 2 months. I have called the pharmacy [facility] in [place] to see if they had a replacement tire inspector for the Atorvastatin 80mg, they state that the recall did not effect their supply, refilled her current RX for Atorvastatin with confirmation - pt aware. Will move forwardwith the PA for Repatha. * Sulema Dumas RN - 05/17/2025 4:28 PM EDT Results not available, will check on Tuesday. * Kalie Kay - 05/17/2025 3:28 PM EDT Patient called to notify the office she completed her labs. * Sulema Dumas RN - 05/17/2025 11:41 AM EDT Called [facility] this AM and they are still awaiting PA for Repatha - PA was previously denied d/t no active lipid panel available from this year. I have contacted the patient and asked if she had received the fasting lipid panel orders in the mail sent by Dany Carvalho on 05/13. States she received the paper order yesterday and will get labs drawn today - is aware labs are fasting, will be using [facility] [address] [facility]. Awaiting lab draw and results. * Clarisse Walker - 05/17/2025 11:03 AM EDT Ralph from [facility] called and is inquiring about the back order of rapatha pens. The patient needs a new prescription and a new prior authorization. Please call Ralph back with any updates. documented in this encounter Plan of Treatment Not on file documented as of this encounter Visit Diagnoses Not on filedocumented in this encounter Discontinued Medications Medication Sig Discontinue Reason Start Date End Da te atorvastatin (LIPITOR) 80 mg tablet Take 1 Tablet by mouth daily. Reorder 05/20/2025 documented as of this encounter Care Teams Reception Specialist Relationship Specialty Start Date End Date Pablo Mendoza PA [address] [place] [address] PCP - General Internal Medicine 05/11/21 documented as of this encounter
--- OUTSIDE RECORDS SUMMARY | 2025-05-23 16:58 | XMS_ITS | Clinical Summary ---
Author Organization [facility] Address [address] [place] [address] Phone Care Team Providers Care Stem Dryer Maintainer Name Role Phone Pablo Mendoza Primary Care [...] mg tablet Take by mouth daily. Active cetirizine (ZyrTEC) 10 [...] subcutaneously every 14 days 6 mL 1 10/13/20 25 Active atorvastatin (LIPITOR) 80 mg tablet Take 1 tablet (80 mg total) by mouth 1 (one) time each day. 90 tablet 1 05/20/20 Active atorvastatin (LIPITOR) 80 mg tablet Take 1 Tablet by mouth daily. 025 Disconti nued(Reo rder) evolocumab (Repatha Syringe) 140 mg/mL syringe Inject 140 mg into the skin every 14 days. 2 mL 5 03/20/20 025 Disconti nued(Alt ernate therapy) Active Problems [...] 10/23/2024 STEMI (ST elevation myocardi al infarction) ([facility] V24, CMS/[facility] V28) 10/04/2023 Dizziness 04/01/2023 CHF (congestive heart failure) ([facility] V24, CMS /[facility] V28) 04/01/2023 Hypotension 01/25/2023 History of AK (myocardial infarction) 01/25/2023 Chronic diastolic heart failure (CMS/[facility] V24, CM S/[facility] V28) 01/25/2023 Overview (07/31/2024): Last Assessment & [...] distention. NSTEMI (non-ST elevated myoc ardial infarction) ([facility] V24, [facility] V28) 03/18/2022 Chest pain 03/18/2022 Diabetes ([facility] V24, [facility] V28) 04/13/2021 Essential hypertension 04/13/2021 Overview (07/31/2024): [...] Encounters Date Type Department Care Team Description 05/17/2025 Telephone [facility] Cardiology [facility] - [address] [place] [phone] Jv Regalado MD 05/07/2025 Telephone [facility] - [address] [place] [address] Anay Gerber NP 04/29/2025 Telephone [facility] Cardiology [address] [place] [address] Jv Regalado MD 03/21/2025 12:40 PM EDT Consult [facility] - [address] [place] [address] Anay Gerber NP Chronic diastolic heart failure (CMS/HCC V24, CMS/HCC V28) (Primary Dx); Coronary artery disease due to lipid rich plaque; Other hyperlipidemia; Preoperative cardiovascular examination 03/11/2025 Telephone [facility] - [address] [place] [phone] Jv Regalado MD from Last 3 Months Immunizations Immunization Administration Dates Next Due Moderna SARS-CoV-2 COVID-19, mRNA, LNP-S, preservative free 02/26/2021 Surgical History Surgery Date Site/Laterality Comments CORONARY ARTERY BYPASS GRAFT PROCEDURE: HISTORICAL CABG; COMMENT: x4 PARTIAL HYSTERECTOMY PROCEDURE: [place] SUPRACERVICAL ABDL HYSTER W/WO RMVL TUBE OVARY MULTIPLE TOOTH EXTRACTIONS PROCEDURE: HISTORICAL DENTAL EXTRACTION; COMMENT: Multiple Medical History Medical History Date Comments Depression with anxiety DX:Depre ssion with anxiety Frozen shoulder DX:Frozen should er; COMMENT: Left Peripheral neuropathy DX:Periphe ral neuropathy Type 2 diabetes mellitus ( S/[facility] V24, [facility] V28) DX:Type 2 diabetes mellitus (HCC) Anxiety with depression DX:Anxie ty with depression Gout DX:Gout Class 2 obesity DX:Class 2 obesi ty Chronic kidney disease DX:Chroni c kidney disease Diabetic neuropathy ([facility] V24, [facility] V28) DX:Diabetic neuropathy ([facility]) Extremity numbness DX:Extremity numbness Family History Medical [...] exists COVID-19 Vaccine (5 - Moderna risk 2023- season) 2025 11/12/2024, 05/27/2023, 05/28/2021, Additional history [...] Procedure Name Priority Date/Time Associated Diagnosis Comments EXTERNAL CLINICAL LAB Routine 05/17/2025 3:45 PM EDT ECG 12-LEAD Routine 03/21/2025 3:45 PM EDT Chronic diastolic heart failure (CMS/HCC V24, CMS/HCC V28) ANNUAL BMP BLOOD TEST Routine 02/28/2024 HEPATITIS C SCREENING Routine 02/26/2024 HEMOGLOBIN A1C Routine 10/13/2023 LIPID PANEL Routine 10/13/2023 from Last 3 Months or Most Recently Relevant to Health Maintenance Results * External clinical lab (05/17/2025 3:45 PM EDT) Historical Provider MD LAB BLOOD ORDERABLES Tamra l Result * ECG 12 lead (03/21/2025 3:45 PM EDT) Ventricular Rate ECG 75 BPM GEMUSE Atrial Rate 75 BPM GEMUSE P-R Interval 150 ms GEMUSE QRS Duration 62 ms GEMUSE Q-T Interval 402 ms GEMUSE QTc 448 ms GEMUSE P Wave [place] 15 degrees GEMUSE R [place] -48 degrees GEMUSE T [place] 86 degrees GEMUSE ECG Interpretation Normal sinus rhythm Left axis deviation Anterolatera l infarct (cited on or before 19-JAN-2022) Abnormal ECG When compared with ECG of 13-OCT-2023 12:16, Criteria for Inferior infarct are no longer Present Confirmed by Tita LORENZO JOHN ([id number]) on 04/08/2025 8:14:31 AM GEMUSE 03/21/2025 12:5 5 PM EDT 04/08/2025 8:14 AM EDT Result [facility] Anay Gerber SUPPORT COORDINATOR ECG ORDERABLES Edited Result - Final GEMUSE * Annual BMP Blood Test (02/28/2024) Pathologist [facility] Annual BMP Blood Test abstracted Result [facility] Historical Provider HEALTH MAINTENANCE Final Result * Hepatitis C Screening (02/26/2024) Pathologist [facility] Hepatitis C Screening abstracted Result [facility] Historical Provider MD HEALTH MAINTENANCE Final Result * (ABNORMAL) Hemoglobin A1c (10/13/2023) [facility] Hemoglobin A1C 8.1(A) 4.0 - 5.6 % Blood Venous blood specimen / Unknown Result [facility] Provider LAB BLOOD ORDERABLES Tamra l Result * (ABNORMAL) Lipid panel (10/13/2023) [facility] LDL/HDL Ratio 2 0 - 4 Triglycerides 158(A) 0 - 150 mg/dL Cholesterol 110 0 - 200 mg/dL HDL 65 >=40 mg/dL LDL Cholesterol 14 0 - 100 mg/dL Blood Venous blood specimen / Unknown Result [facility] Historical Provider LAB BLOOD ORDERABLES Tamra l Result from Last 3 Months or Most Recently Relevant to Health Maintenance Insurance [employer]AN Care Teams Stem Dryer Maintainer Relationship Specialty Start Date End Date Pablo Mendoza PA [facility] [place] [phone] PCP - General Internal Medicine 05/11/21
== END 2025-05-23 14:33 | disposition home or self-care (01) ==
LOC: HO.HMCH 13:56
PROVIDERS: PCP Physician Assistant; Visit Provider Physician Assistant
DX: I13.0 Hypertensive heart and chronic kidney disease with heart failure and stage 1 through stage 4 chronic kidney disease, or unspecified chronic kidney disease (principal); E11.22 Type 2 diabetes mellitus with diabetic chronic kidney disease; N18.31 Chronic kidney disease, stage 3a; I50.32 Chronic diastolic (congestive) heart failure; Z79.4 Long term (current) use of insulin; F33.1 Major depressive disorder, recurrent, moderate; N18.32 Chronic kidney disease, stage 3b; I25.810 Atherosclerosis of coronary artery bypass graft(s) without angina pectoris; Z78.0 Asymptomatic menopausal state; S50.11XA Contusion of right forearm, initial encounter; Z23 Encounter for immunization

== ENCOUNTER → 2025-05-23 13:55 | Outpatient (BNVA) | payer OTHER, SELFPAY | PROVIDERS: PCP Physician Assistant; Visit Provider Physician Assistant | DX: N95.1 Menopausal and female climacteric states (principal); R23.2 Flushing; N39.3 Stress incontinence (female) (male); F33.1 Major depressive disorder, recurrent, moderate; I13.0 Hypertensive heart and chronic kidney disease with heart failure and stage 1 through stage 4 chronic kidney disease, or unspecified chronic kidney disease; E11.22 Type 2 diabetes mellitus with diabetic chronic kidney disease; I50.32 Chronic diastolic (congestive) heart failure; N18.30 Chronic kidney disease, stage 3 unspecified; I25.810 Atherosclerosis of coronary artery bypass graft(s) without angina pectoris; S50.11XA Contusion of right forearm, initial encounter; X58.XXXA Exposure to other specified factors, initial encounter; Y93.9 Activity, unspecified; Y92.9 Unspecified place or not applicable; Y99.9 Unspecified external cause status; Z23 Encounter for immunization; Z79.4 Long term (current) use of insulin; Z96.41 Presence of insulin pump (external) (internal) | CPT/HCPCS: 90471; 90656; 99212 ==

== ENCOUNTER 2025-06-28 14:49 | Outpatient (REF) | payer OTHER, SELFPAY ==
--- NOTE | ~2025-06-28 | US_ITS ---
EXAMINATION: ULTRASOUND EXTREMITY, NONVASCULAR LIMITED RIGHT UPPER EXTREMITY . CLINICAL INFORMATION: Contusion, right forearm. Concerning hematoma. TECHNIQUE: Real-time ultrasound of the region of concern, right forearm using a linear transducer with the grayscale and color Doppler interrogation.. COMPARISON: None FINDINGS: There is a 0.3 cm irregular shaped anechoic abnormality without flow on color Doppler interrogation in the right lateral wrist, anterior to the tendon.. US/US Extremity Nonvas Limited RT IMPRESSION: Probable 0.3 cm hematoma, right lateral wrist. Electronically signed by: Edwar Mendez MD 06/28/2025 03:53 PM EST
--- OUTSIDE RECORDS SUMMARY | 2025-06-28 19:54 | XMS_ITS | Clinical Summary ---
Author Organization 175 [facility] Address [address] [place] [address] Phone Care Team Providers Care Automation Sales Manager Name Role Phone Pablo Mendoza Primary Care [...] Take 5,000 Units by mouth daily. Active multivit-minerals/ folic acid (WOMEN'S MULTIVITAMIN GUMMIES ORAL) Take by [...] 3 times daily (before meals). Active insulin glargine,hum.rec.a nlog (INSULIN GLARGINE SUBQ) Inject 40 Units into [...] evolocumab (Repatha SureClick) 140 mg/mL pen injector injectionIndicatio ns:Hyperlipidemia, unspecified hyperlipidemia type 1 ML subcutaneously every 14 days 6 mL 1 04/29/20 25 Active atorvastatin (LIPITOR) 80 mg tablet Take 1 tablet (80 mg total) by mouth 1 (one) time each day. 90 tablet 1 05/20/20 Active isosorbide mononitrate (IMDUR) 60 mg 24 hr tablet TAKE 1 TABLET BY MOUTH EVERY DAY 90 tablet 2 06/18/20 Active Active Problems Problem Noted Date Diagnosed [...] heart failure) 04/01/2023 Hypotension 01/25/2023 History of AK (myocardial [...] breath or abdominal distention. NSTEMI (non-ST elevated myocardial infarction) 0 03/18/2022 [...] CABGx4 at the age [place] 46 in [place], details not known Preserved LVEF Apical aneurysm, confirmed by [place]MRI at [facility] [place] No ischemia on rega MIBI 02/2021 at [facility] [place] Last Assessment & Plan: [...] Type Department Care Team Description 05/17/2025 Telephone [facility] Cardiology [facility] [address] [place] [address] Jv Regalado MD 05/07/2025 Telephone [facility] Cardiology [facility] - [address] [place] [address] Anay Gerber NP 04/29/2025 Telephone [facility] Cardiology [facility] - [facility] [address] [facility] [address] [place] [address] Jv Regalado MD from Last 3 Months [...] Type 2 diabetes mellitus (CM S/HCC V24, [facility] V28) DX:Type 2 diabetes mellitus (HCC) Anxiety with depression DX:Anxie ty with depression Gout DX:Gout Class 2 obesity DX:Class 2 obesi ty Chronic kidney disease DX:Chroni c kidney disease Diabetic neuropathy (CMS/HCC V24, [facility] V28) DX:Diabetic neuropathy (HCC) Extremity numbness DX:Extremity [...] on file Sexual Orientation Not on file Last Filed Vital Signs Vital Sign Reading [...] 02/28/2024, 02/27/2024, Additional history exists COVID-19 Vaccine ( season) 2025 11/12/2024, 05/27/2023, 05/28/2021, Additional history exists Influenza Vaccine (#1) 2025 , 05/27/2023, 05/19/2021, Additional history exists Cholesterol Screening (Lipid Panel) [...] CLINICAL LAB Routine 05/17/2025 3:45 PM EDT ANNUAL BMP BLOOD TEST Routine 02/28/2024 HEPATITIS C SCREENING Routine 02/26/2024 HEMOGLOBIN A1C Routine 10/13/2023 LIPID PANEL Routine 10/13/2023 from Last 3 Months or Most Recently Relevant to Health Maintenance Results * External clinical lab (05/17/2025 3:45 PM EDT) us Historical Provider LAB BLOOD ORDERABLES Tamra l Result * Annual BMP Blood Test (02/28/2024) Pathologist [facility] Annual BMP Blood Test abstracted Historical Provider HEALTH MAINTENANCE Final Result * Hepatitis C Screening (02/26/2024) Pathologist [facility] Hepatitis C Screening abstracted [facility] Provider HEALTH MAINTENANCE Final Result * (ABNORMAL) Hemoglobin A1c (10/13/2023) [facility] Hemoglobin A1C 8.1(A) 4.0 - 5.6 % Blood Venous blood specimen / Unknown Result [facility] Provider LAB BLOOD ORDERABLES Tamra l Result * (ABNORMAL) Lipid panel (10/13/2023) [facility] LDL/HDL Ratio 2 0 - 4 Triglycerides 158(A) 0 - 150 mg/dL Cholesterol 110 0 - 200 mg/dL HDL 65 >=40 mg/dL LDL Cholesterol 14 0 - 100 mg/dL Blood Venous blood specimen / Unknown [facility] Provider LAB BLOOD ORDERABLES Tamra l Result from Last 3 Months or Most Recently Relevant to Health Maintenance Insurance HEALTH PLAN Care Teams Automation Sales Manager Relationship Specialty Start Date End Date Pablo Mendoza PA [address] [place] [phone] PCP - General Internal Medicine 05/11/21
--- OUTSIDE RECORDS SUMMARY | 2025-06-28 19:54 | XMS_ITS | Clinical Summary ---
Demographics Address [address] [place] [address] Home Phone Mobile Phone Preferred Language Dominican Marital Status /Civil Union Oriental Orthodox Affiliation Unknown Race Other Race Ethnic Group or Author Organization [facility] Address [address] [place] [phone] Phone Care Team Providers Care Mortuary Operations Manager Name Role Phone Pablo Mendoza Primary [...] Devices Not on file Insurance * Guarantor: iG Hernandez Account Type Relation to Patient Date of Phone Billing Address Personal/Family Self [address] [place] [address] [facility] * Guarantor: Gi Hernandez Account Type Relation to Patient Date of Phone Billing Address Personal/Family Self [address] [place] [facility] * Guarantor: Gi Hernandez Account Type Relation to Patient Date of Phone Billing Address Personal/Family Self [address] [place] [facility] * Guarantor: Gi Hernandez Account Type Relation to Patient Date of Phone Billing Address Personal/Family Self [address] [place] [address] [facility] * Guarantor: Gi Hernandez Account Type Relation to Patient Date of Phone Billing Address Personal/Family Self [address] [facility] [place] [place] [address] [facility] * Guarantor: HernandezGi vargas Account Type Relation to Patient Date of Phone Billing Address Personal/Family Self [address] [place] [address] [facility] Care Teams Mortuary Operations Manager Relationship Specialty Start Date End Date Pablo Mendoza PA [address] [place] [address] PCP - General Physician Director State Pharm[facility] 08/26/23 Additional Source Comments The information contained in this document represents components of the legal health record. It is not the complete legal health record.[facility]
== END 2025-06-28 14:50 | disposition home or self-care (01) ==
LOC: HO.US 14:49
PROVIDERS: PCP Physician Assistant; Visit Provider Physician Assistant
DX: S50.11XA Contusion of right forearm, initial encounter (principal)
CPT/HCPCS: 76882

== ENCOUNTER → 2025-06-28 14:51 | Outpatient (BNV) | payer OTHER, SELFPAY | PROVIDERS: PCP Physician Assistant; Visit Provider Radiology Diagnostic Radiology | DX: S50.11XA Contusion of right forearm, initial encounter (principal) | CPT/HCPCS: 76882 ==

== ENCOUNTER 2025-07-02 14:00 | Outpatient (AMB) | payer OTHER, SELFPAY ==
--- NOTE | 2025-07-02 14:04 | HO.NEPHOV_ITS ---
Vital Signs 07/02/25 14:05 Height 5 ft 4 in Weight 207 lb 8 oz BMI 35.6 BP 110/70 Blood Pressure Location Lt brachial Position Sitting Pulse 69 Pulse Source Pulse Oximeter Pulse Oximetry (%) 98 Oxygen Delivery Method Room Air Intake Visit Reasons: [employer] Distributor Required: No Accompanied by: Self / Same As Patient Allergies tramadol (TRAMADOL) Allergy (Intermediate, Verified 07/02/25 14:05) VOMITING adhesive tape Adverse Reaction (Intermediate, Verified 07/02/25 14:05) tears skin lisinopril Adverse Reaction (Mild, Verified 07/02/25 14:05) Cough HPI Comments Details: Gi was seen for chronic kidney disease, proteinuria and hypertension on a backdrop of coronary artery disease and bypass surgery. She has history of congestive heart failure. She has history of premature coronary artery disease s/p CABG in 2016 in [place], with repeat catheterization due to occlusion of the SVG to OM s/p mechanical thrombectomy with x2 RENEE placement on January 2022, ischemic cardiomyopathy with preserved ejection fraction with true aneurysmal apex without thrombus confirmed on cardiac MRI with distal territory LAD infarct presented with worsening resting chest pain since 3 days and found to have subtle ST depressions not grossly unchanged but having ongoing pain. Patient underwent cardiac cath which showed the culprit was her vein graft to OM with collaterals. She had cardiac cath and later CTA given suspicion of CVA with resultant development of DARIUSZ needing renal replacement one time. She had been tolerating Jardiance and losartan has been on hold since last hospitalization in [place] . She is trying to maintain good hydration and is avoiding nonsteroidal anti-inflammatory medications. [facility] Medical History Menopause Carpal tunnel syndrome of left wrist CKD (chronic kidney disease) CHF (congestive heart failure) Hospital discharge follow-up Anemia CKD stage 3 secondary to diabetes Carpal tunnel syndrome of right wrist GERD (gastroesophageal reflux disease) Elevated cholesterol Asthma Type 2 diabetes Chronic renal insufficiency Myocardial infarction CAD (coronary artery disease) HTN (hypertension) Depression Surgical History S/P cubital tunnel release (~04/01/25) Status post carpal tunnel release (~04/01/25) Hx of heart artery stent Hx of section History of cardiac catheterization H/O: hysterectomy H/O bladder repair surgery Hx of CABG Family History Mother Cervical cancer Hypertension Blindness Kidney failure Sister Cervical cancer Hypertension Hypoglycemia Brother ESRD (end stage renal disease) Hypertension Father DMII (diabetes mellitus, type 2) Son Asthma Daughter No problems noted. Daughter No problems noted. Daughter No problems noted. Daughter No problems noted. Maternal Aunt Ovarian cancer Maternal Uncle Heart attack Social History Household Members: Significant Other Housing: Apartment Are you a primary health care facilities inspector to a significant other at home: No Do you presently have visiting nurse or other home services: No Alcohol intake: never Patient Tobacco Use Status: Never used Tobacco Tobacco use type: Cigarette e-Cigarette/Vaping Use: Never Used Second Hand Smoke Exposure: No service: No Current occupational status: disabled Cognitive needs: No Hearing needs: No Vision needs: Yes Female Reproductive History Menstrual Age of Menarche: 16 Review of Systems Const All systems reviewed & are unremarkable except as noted in HPI and below Physical Exam Vital Signs: Last Vital Signs Pulse 69 07/02/25 14:05 BP 110/70 07/02/25 14:05 Pulse Ox 98 07/02/25 14:05 Oxygen Delivery Method Room Air 07/02/25 14:05 BMI result Body Mass Index 35.6 Const General: comfortable and no acute distress Orientation/consciousness: patient oriented x3 HEENT Head: Yes normocephalic Mouth: Normal oral and palatal mucosa present Eyes EOM: EOMs intact bilaterally Neck Neck: Yes supple Resp Auscultation: clear to auscultation bilaterally Cardio Jugular venous distension: no JVD Rate: regular rate GI Palpation (GI): Soft to palpation Auscultation: normal bowel sounds General: Yes no CVA tenderness Back/Spine/Pelvis Back: no CVA tenderness Skin General skin exam: no rashes or lesions noted Neuro General: patient oriented x3 and moves all extremities Extrem General: Yes no pedal edema Results Reviewed Nephrology Results: Sodium, (135-145) 141 mmol/L 04/23/25 Potassium, (3.3-5.1) 4.1 mmol/L 04/23/25 Chloride, (96-108) 103 mmol/L 04/23/25 Carbon Dioxide, (22-29) 26 mmol/L 04/23/25 BUN, (9-16) 40 mg/dL H 04/23/25 Creatinine, (0.5-1.4) 1.77 mg/dL H 04/23/25 Assessment & Plan Assessment & Plan (1) HTN (hypertension): Code(s): I10 - Essential (primary) hypertension Category: Medical Qualifiers: Hypertension type: primary hypertension Qualified Code(s): I10 - Essential (primary) hypertension (2) CKD stage 3a, GFR 45-59 ml/min: Code(s): N18.31 - Chronic kidney disease, stage 3a Category: Medical Plan Gi has stage III CKD. She has H/O significant proteinuria. She is on Plavix. C/W Lasix to 80 mg AM and 40 mg PM . She can continue Jardiance 25 mg daily, Isosorbide 90 mg daily. She is on GLP 1 agonist. She should avoid nonsteroidal anti-inflammatory medications. She needs to continue to lose weight. Her blood pressure is at goal at home. I did not make any other changes today. All her questions were answered. Follow-up for blood work were ordered and follow-up was given Orders: Orders Electrolytes Today I10 - Essential (primary) hypertension, N18.31 - Chronic kidney disease, stage 3a Creatinine 3 Months I10 - Essential (primary) hypertension, N18.31 - Chronic kidney disease, stage 3a Blood Urea Nitrogen 3 Months I10 - Essential (primary) hypertension, N18.31 - Chronic kidney disease, stage 3a Electrolytes 3 Months I10 - Essential (primary) hypertension, N18.31 - Chronic kidney disease, stage 3a Blood Urea Nitrogen Today I10 - Essential (primary) hypertension, N18.31 - Chronic kidney disease, stage 3a Creatinine Today I10 - Essential (primary) hypertension, N18.31 - Chronic kidney disease, stage 3a Coding Level of Care Code Est Pt Level 4 (55469) Diagnoses Primary hypertension I10 Hypertension type: primary hypertension CKD stage 3a, GFR 45-59 ml/min N18.31
[2025-07-02 14:05] VITALS: BP 110/70; PULSE 69; O2SAT 98; BMI 35.6
--- OUTSIDE RECORDS SUMMARY | 2025-07-02 18:15 | XMS_ITS | Clinical Summary ---
Demographics Address [address] [place] [address] Home Phone Mobile Phone Preferred Language Marshallese Marital Status /Civil Union Yarsani Affiliation Unknown Race Other Race Ethnic Group or Author Organization [facility] Address [address] [place] [id number] Phone Care Team Providers Care Shredder Picker Name Role Phone Pablo Mendoza Primary Care [...] Self [address] [place] [address] [facility] * Guarantor: Gi Hernandez Account Type Relation to Patient Date of Phone Billing Address Personal/Family Self [address] [place] [facility] * Guarantor: Gi Hernandez Account Type Relation to Patient Date of Phone Billing Address Personal/Family Self [address] [place] [facility] * Guarantor: Gi Hernandez Account Type Relation to Patient Date of Phone Billing Address Personal/Family Self [address] [place] [address] [facility] * Guarantor: Gi Hernandez Account Type Relation to Patient Date of Phone Billing Address Personal/Family Self [address] [facility] [place] [address] [facility] * Guarantor: HernandezGi vargas Account Type Relation to Patient Date of Phone Billing Address Personal/Family Self [address] [place] [address] [facility] Care Teams Shredder Picker Relationship Specialty Start Date End Date Pablo Mendoza PA [address] [place] [address] PCP - General Physician Picture Engraver 08/26/23 Additional Source Comments The information contained in this document represents components of the legal health record. It is not the complete legal health record.[facility]
--- OUTSIDE RECORDS SUMMARY | 2025-07-02 18:15 | XMS_ITS | Clinical Summary ---
Author Organization [facility] Address [address] [place] [address] Phone Care Team Providers Care [employer] Tech Name Role Phone Pablo Mendoza Primary [...] heart failure) 04/01/2023 Hypotension 01/25/2023 History of DE (myocardial [...] [place] [facility] [place] ischemia on [place] [facility] [place] Assessment & Plan: Multiple cardiac [...] Type Department Care Team Description 05/17/2025 Telephone [facility] - [address] [place] [address] Jv Regaldao MD 05/07/2025 Telephone [facility] - [address] [place] [address] Anay Gerber NP 04/29/2025 Telephone [facility] [address] [place] [address] Jv Regalado MD from Last 3 Months Immunizations Immunization Administration Dates Next Due Moderna SARS-CoV-2 COVID-19, mRNA, LNP-S, preservative free 02/26/2021 Surgical History Surgery Date Site/Laterality Comments CORONARY ARTERY BYPASS GRAFT PROCEDURE: HISTORICAL CABG; COMMENT: x4 PARTIAL HYSTERECTOMY PROCEDURE: PA SUPRACERVICAL ABDL HYSTER W/WO RMVL TUBE OVARY MULTIPLE TOOTH EXTRACTIONS PROCEDURE: HISTORICAL DENTAL EXTRACTION; COMMENT: Multiple Medical History Medical History Date Comments Depression with anxiety DX:Depre ssion with anxiety Frozen shoulder DX:Frozen should er; COMMENT: Left Peripheral neuropathy DX:Periphe ral neuropathy Type 2 diabetes mellitus (CM S/HCC V24, [facility] V28) DX:Type 2 diabetes mellitus (HCC) Anxiety with depression DX:Anxie ty with depression Gout DX:Gout Class 2 obesity DX:Class 2 obesi ty Chronic kidney disease DX:Chroni c kidney disease Diabetic neuropathy (CMS/HCC V24, [facility] V28) DX:Diabetic neuropathy (HCC) Extremity numbness DX:Extremity [...] * Annual BMP Blood Test (02/28/2024) Pathologist [facility] Annual BMP Blood Test abstracted Historical Provider HEALTH MAINTENANCE Final Result * Hepatitis C Screening (02/26/2024) Pathologist [facility] Hepatitis C Screening abstracted [facility] Provider HEALTH MAINTENANCE Final Result * (ABNORMAL) Hemoglobin A1c (10/13/2023) [facility] Hemoglobin A1C 8.1(A) 4.0 - 5.6 % Blood Venous blood specimen / Unknown Result [facility] Provider LAB BLOOD ORDERABLES Tamra l Result * (ABNORMAL) Lipid panel (10/13/2023) [facility] LDL/HDL Ratio 2 0 - 4 Triglycerides 158(A) 0 - 150 mg/dL Cholesterol 110 0 - 200 mg/dL HDL 65 >=40 mg/dL LDL Cholesterol 14 0 - 100 mg/dL Blood Venous blood specimen / Unknown [facility] Provider LAB BLOOD ORDERABLES Tarma l Result from Last 3 Months or Most Recently Relevant to Health Maintenance Insurance HEALTH PLAN Care Teams [employer] Tech Relationship Specialty Start Date End Date Pablo Mendoza PA [address] [place] [phone] PCP - General Internal Medicine 05/11/21
== END 2025-07-02 14:41 | disposition home or self-care (01) ==
LOC: HO.HKAS 14:01
PROVIDERS: PCP Physician Assistant; Visit Provider Internal Medicine Nephrology
DX: I10 Essential (primary) hypertension (principal); N18.31 Chronic kidney disease, stage 3a
CPT/HCPCS: 99214

== ENCOUNTER 2025-07-02 14:00 | Outpatient (REF) | payer OTHER, SELFPAY ==
[2025-07-02 18:36] LABS: Anion Gap 16 (12-20); Blood Urea Nitrogen 37 mg/dL (9-16); Carbon Dioxide 31 mmol/L (22-29); Chloride 99 mmol/L (96-108); Estimated Glomerular Filt Rate 27; Potassium 4.1 mmol/L (3.3-5.1); Sodium 142 mmol/L (135-145)
[2025-07-02 21:30] LABS: Protein/Creatinine Ratio, Ur 0.25 (<0.2); Total Protein Urine Random 32 mg/dL (<12)
== END 2025-07-02 14:01 | disposition home or self-care (01) ==
LOC: HO.HKASLDS 14:00
PROVIDERS: PCP Physician Assistant; Visit Provider Internal Medicine Nephrology
DX: I12.9 Hypertensive chronic kidney disease with stage 1 through stage 4 chronic kidney disease, or unspecified chronic kidney disease (principal); N18.31 Chronic kidney disease, stage 3a; E11.22 Type 2 diabetes mellitus with diabetic chronic kidney disease; Z79.02 Long term (current) use of antithrombotics/antiplatelets; Z79.899 Other long term (current) drug therapy; Z71.3 Dietary counseling and surveillance; Z79.4 Long term (current) use of insulin
CPT/HCPCS: 36415; 80051; 82565; 82570; 84156; 84520; 99212